=== PATIENT | male | born 1970 | race Caucasian/White ===

== ENCOUNTER 2023-12-19 10:58 | Emergency (ER) | payer OTHER, SELFPAY ==
[2023-12-19] VITALS (22 sets, daily range): BP systolic 109–126; BP diastolic 69–94; PULSE 80–101; TEMP 36.4; O2SAT 92–99; BMI 32.9
--- NOTE | 2023-12-19 11:21 | ECG_ITS ---
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
--- NOTE | 2023-12-19 11:30 | ED_ITS ---
HPI - Chest Pain General Chief Complaint: Chest Pain Stated Complaint: COUGH Time Seen by Provider: 12/19/23 11:27 Source: patient Mode of arrival: walk-in Limitations: no limitations History of Present Illness HPI narrative: 53-year-old male presents for chest pain. Its on the right side of his chest and he has had it for about 4 days. Moving around at work seems to make it worse but there was no injury. It is also worse when he coughs. No trauma or fever or productive cough. He does not complain of left-sided pain or radiation of the pain or any back pain. It feels like a squeezing. He does not get short of breath with it and is a smoker. Related Data Home Medications ?Medication ?Instructions ?Recorded ?Confirmed amlodipine 10 mg tablet 10 mg PO DAILY 12/19/23 12/19/23 finerenone 10 mg tablet (Kerendia) 10 mg PO DAILY 12/19/23 12/19/23 levothyroxine 100 mcg tablet 100 mcg PO DAILY 12/19/23 12/19/23 metformin 500 mg tablet 1,000 mg PO DAILY 12/19/23 12/19/23 metoprolol succinate 25 mg 25 mg PO DAILY 12/19/23 12/19/23 tablet,extended release 24 hr rosuvastatin 10 mg tablet 10 mg PO DAILY 12/19/23 12/19/23 valsartan 320 1 tab PO DAILY 12/19/23 12/19/23 mg-hydrochlorothiazide 25 mg tablet Allergies Allergy/AdvReac Type Severity Reaction Status Date / Time No Known Drug Allergies Allergy Verified 12/19/23 11:06 Review of Systems ROS Narrative A ten point review of systems is negative except as noted above. Exam Narrative Exam Narrative: Nurses note and vital signs reviewed and patient is not hypoxic. General: The patient appears well and in no apparent distress. Patient is resting comfortably on cart. Skin: Warm, dry, no pallor noted. There is no rash noted. Head: Normocephalic, atraumatic Eye: Normal conjunctiva, no drainage Ears, Nose, Mouth, and Throat: oral mucosa is moist. Nares patent. Cardiovascular: Regular Rate and Rhythm. Chest wall not tender. No crepitus bruise rash or abrasion Respiratory: Patient is in no distress, no accessory muscle use, lungs are clear to auscultation, no wheezing, rales or rhonchi Back: non-tender GI: Soft and nontender Musculoskeletal: The patient has no evidence of calf tenderness, no pitting edema, symmetrical pulses noted bilaterally Neurological: Awake and alert Psychiatric: Cooperative Constitutional Vital Signs, click to edit/add: Last Vital Signs Temp 97.5 F L 12/19/23 11:06 Pulse 89 12/19/23 13:10 Resp 14 12/19/23 13:10 BP 117/78 12/19/23 13:00 Pulse Ox 97 12/19/23 13:10 O2 Del Method Room Air 12/19/23 11:06 Course Vital Signs Vital signs: Vital Signs Temperature 97.5 F L 12/19/23 11:06 Pulse Rate 101 H 12/19/23 11:06 Respiratory Rate 20 12/19/23 11:06 Blood Pressure 117/87 12/19/23 11:06 Pulse Oximetry 98 12/19/23 11:06 Oxygen Delivery Method Room Air 12/19/23 11:06 Temperature 97.5 F L 12/19/23 11:06 Pulse Rate 89 12/19/23 13:10 Respiratory Rate 14 12/19/23 13:10 Blood Pressure 117/78 12/19/23 13:00 Pulse Oximetry 97 12/19/23 13:10 Oxygen Delivery Method Room Air 12/19/23 11:06 MDM - Chest Pain MDM Narrative Medical decision making narrative: His workup including 2 sets of troponin is negative. The pain seems to be positional and gets worse with movement. I do not suspect pulmonary embolism. He will be discharged home and follow-up with his PCP. Treatment diagnosis and follow-up were discussed with the patient. Differential Diagnosis Differential diagnosis: Likely fracture of rib, pneumothorax, unstable angina pectoris, st elevation myocardial infarction and chest pain Lab Data Attestation: I reviewed the patient's lab results. Labs: Lab Results 12/19/23 12/19/23 Range/Units 11:30 13:15 WBC 14.5 H (4.0-11.0) 10^3/uL RBC 5.12 (4.70-6.10) 10^6/uL Hgb 15.8 (14.0-18.0) g/dL Hct 46.3 (42.0-54.0) % MCV 90.4 (80.0-94.0) fL MCH 30.9 (25.9-34.0) pg MCHC 34.1 (29.9-35.2) g/dL RDW 14.1 (11.0-15.0) % Plt Count 233 (150-450) 10^3/uL MPV 11.1 (9.5-13.5) fL Seg Neuts % (Manual) 50.0 (43.0-75.0) Band Neutrophils % 1.0 (0-5) % Lymphocytes % (Manual) 30.0 (20.5-60.0) % Atypical Lymphs % (Man) 3.0 % Monocytes % (Manual) 12.0 (1.7-12.0) % Eosinophils % (Manual) 3.0 (0.9-7.0) % Basophils % (Manual) 1.0 (0.2-2.0) % Neutrophils # (Manual) 7.25 H (1.4-6.5) 10^3/uL Band Neutrophils # 0.1 (0.0-0.3) 10^3/uL Lymphocytes # (Manual) 4.35 H (1.20-3.80) 10^3/uL Abs Atypical Lymphs Man 0.43 Monocytes # (Manual) 1.74 H (0.30-0.80) 10^3/uL Eosinophils # (Manual) 0.43 (0.00-0.70) 10^3/uL Basophils # (Manual) 0.14 H (0.00-0.10) 10^3/uL Sodium 135 L (136-145) mmol/L Potassium 4.5 (3.5-5.1) mmol/L Chloride 98 (98-107) mmol/L Carbon Dioxide 28.7 (21.0-32.0) mmol/L Anion Gap 12.8 BUN 40.0 H (7.0-18.0) mg/dL Creatinine 1.53 H (0.70-1.30) mg/dL Est GFR ( Amer) 58 L (>=60) Est GFR (Non-Af Amer) 48 L (>=60) BUN/Creatinine Ratio 26.1 Glucose 124 H (74-106) mg/dL Calcium 9.1 (8.5-10.1) mg/dL Total Bilirubin 0.6 (0.2-1.0) mg/dL AST 16 (15-37) U/L ALT 20 (16-63) U/L Alkaline Phosphatase 89 (46-116) U/L Troponin I High Sens <4.0 L <4.0 L (4.0-76.1) pg/mL Total Protein 7.8 (6.4-8.2) g/dL Albumin 3.4 (3.4-5.0) g/dL Globulin 4.4 g/dL Albumin/Globulin Ratio 0.8 Imaging Data Chest x-ray: Radiologist's impression: ITS Impressions Chest X-Ray 12/19/23 12:20 IMPRESSION: No acute cardiopulmonary process Electronically authenticated by: IRIS BRITO Date: 12/19/2023 12:48 ECG Data Attestation: I personally reviewed and interpreted this ECG as follows: (EKG on my interpretation shows sinus rhythm with a rate of 96 and no acute change.) Heart Score History: Slightly/Non-Suspicious ECG: Normal Age: >45-<65 years Risk Factors: 1 or 2 Risk Factors Troponin: <Normal Limit Total Heart Score Recommendations & Risks:: 2 Discharge Plan Discharge Stand Alone Forms: Portal Instructions Chief Complaint: Chest Pain Clinical Impression: Chest pain Patient Disposition: Home, Self-Care Time of Disposition Decision: 14:07 Condition: Good Mode of Transportation: Private Vehicle Prescriptions / Home Meds: No Action amlodipine 10 mg tablet 10 mg PO DAILY Kerendia 10 mg tablet 10 mg PO DAILY levothyroxine 100 mcg tablet 100 mcg PO DAILY metformin 500 mg tablet 1,000 mg PO DAILY metoprolol succinate 25 mg tablet extended release 24 hr 25 mg PO DAILY rosuvastatin 10 mg tablet 10 mg PO DAILY valsartan-hydrochlorothiazide 320-25 mg tablet 1 tab PO DAILY Print Language: [place] Instructions: Chest Pain (ED) Additional Instructions: Follow-up with your PCP Referrals: DELFINO CRAWLEY [Primary Care Provider] - 1 week
[2023-12-19 11:54] LABS: Hematocrit 46.3 % (42.0-54.0); Hemoglobin 15.8 g/dL (14.0-18.0); Mean Corpuscular HGB Conc 34.1 g/dL (29.9-35.2); Mean Corpuscular Hemoglobin 30.9 pg (25.9-34.0); Mean Corpuscular Volume 90.4 fL (80.0-94.0); Mean Platelet Volume 11.1 fL (9.5-13.5); Platelet Count 233 10^3/uL (150-450); Red Blood Count 5.12 10^6/uL (4.70-6.10); Red Cell Distribution Width 14.1 % (11.0-15.0); White Blood Count 14.5 10^3/uL (4.0-11.0)
[2023-12-19 12:11] LABS: Atypical Lymphocytes Abs Man 0.43; Band Neutrophils Absolute 0.1 10^3/uL (0.0-0.3); Basophils Abs Manual 0.14 10^3/uL (0.00-0.10); Eosinophils Absolute Manual 0.43 10^3/uL (0.00-0.70); Lymphocytes Absolute Manual 4.35 10^3/uL (1.20-3.80); Monocytes Absolute Manual 1.74 10^3/uL (0.30-0.80); Segmented Neut Absolute Manual 7.25 10^3/uL (1.4-6.5)
[2023-12-19 12:17] LABS: Alanine Aminotransferase 20 U/L (16-63); Albumin Globulin Ratio 0.8; Albumin Level 3.4 g/dL (3.4-5.0); Alkaline Phosphatase 89 U/L (46-116); Anion Gap 12.8; Aspartate Amino Transferase 16 U/L (15-37); BUN Creatinine Ratio 26.1; Bilirubin Total 0.6 mg/dL (0.2-1.0); Calcium 9.1 mg/dL (8.5-10.1); Carbon Dioxide 28.7 mmol/L (21.0-32.0); Chloride 98 mmol/L (98-107); Estimated GFR (African America 58 (>=60); Estimated GFR (Non-African Ame 48 (>=60); Globulin 4.4 g/dL; Glucose 124 mg/dL (74-106); Potassium 4.5 mmol/L (3.5-5.1); Sodium 135 mmol/L (136-145); Total Protein 7.8 g/dL (6.4-8.2)
[2023-12-19 12:20] LABS: Troponin I High Sensitivity <4.0 pg/mL (4.0-76.1)
--- NOTE | 2023-12-19 12:20 | XR_ITS ---
The [address] [address] Patient Name: DELMIS DUGGAN MRN: [id number] date: 1970 Sex: M Assigned Patient Location: ED.MAIN Current Patient Location: ER Accession/Order Number: [id number] Exam Date: 12/19/2023 12:18 Report Date: 12/19/2023 12:48 At the request of: KAYLEIGH WOLF Procedure: XR chest 1V EXAMINATION: XR chest 1V HISTORY: chest pain COMPARISON: 07/10/2018 TECHNIQUE: AP portable FINDINGS: LUNGS: No significant pulmonary parenchymal abnormalities. VASCULATURE: No increased pulmonary vasculature. PLEURA: No pneumothorax, effusion, or pleural thickening. CARDIAC: No cardiomegaly or cardiac silhouette abnormality. MEDIASTINUM: No visible mass or adenopathy. BONES: Mild degenerative disc disease and spondylosis without visible acute abnormalities. OTHER: Negative. XR/XR chest 1V IMPRESSION: No acute cardiopulmonary process Electronically authenticated by: IRIS BRITO Date: 12/19/2023 12:48
[2023-12-19 13:42] LABS: Troponin I High Sensitivity <4.0 pg/mL (4.0-76.1)
== END 2023-12-19 14:19 | disposition home or self-care (01) ==
PROVIDERS: Emergency Provider Emergency Medicine; PCP Internal Medicine
DX: R07.9 Chest pain, unspecified (principal); F17.200 Nicotine dependence, unspecified, uncomplicated
CPT/HCPCS: 36415; 71045; 80053; 84484; 85007; 85027; 93005; 99285

== ENCOUNTER 2023-12-21 13:32 | Outpatient (OUT) | payer OTHER, SELFPAY ==
--- NOTE | 2023-12-21 13:48 | US_ITS ---
Patient Name: DELMIS DUGGAN MR#: [id number] : 1970 Exam Date: 12/21/2023 Ordering Doctor: MRS. ELA TELLEZ [facility] RADIOLOGY REPORT PROCEDURE: US BREAST RT COMPLETE COMPARISON: None. INDICATIONS: Breast Pain N64.4 TECHNIQUE: Breast ultrasound was performed, with evaluation focusing only on specific areas of concern. FINDINGS: DIAGNOSTIC CATEGORY 1--NEGATIVE. Ultrasound of the right breast demonstrates normal skin, subcutaneous fat and muscle. No focal ultrasound abnormality RECOMMENDATIONS: CLINICAL EVALUATION. PLEASE NOTE: A NORMAL ULTRASOUND EXAMINATION DOES NOT EXCLUDE THE POSSIBILITY OF BREAST CANCER. A CLINICALLY SUSPICIOUS PALPABLE LUMP SHOULD BE BIOPSIED. Dictated by: Marbin Suero MD on 12/21/2023 at 14:27 Approved by: Marbin Suero MD on 12/21/2023 at 14:52
== END 2023-12-21 13:33 | disposition home or self-care (01) ==
LOC: US 13:33
PROVIDERS: PCP Internal Medicine; Visit Provider Nurse Practitioner Family
DX: N64.4 Mastodynia (principal)
CPT/HCPCS: 76641

== ENCOUNTER 2024-01-03 08:36 | Outpatient (OUT) | payer OTHER, SELFPAY ==
--- OUTSIDE RECORDS SUMMARY | 2024-01-03 08:51 | XMS_ITS | CCD ---
Author Organization [facility] Care Team Providers Care Education Diagnostician Name Role Phone SHERMAN DOLAN Admitting UnavailDR DELFINO Don Primary Care Unavailable SHERMAN DOLAN Attending UnavailSHERMAN Schulte Admitting UnavailDR IRIS Gallardo V Consulting Unavailable SHERMAN DOLAN Attending UnavailSHERMAN Schulte Consulting UnavailSHERMAN Schulte Admitting UnavailDR IRIS Gallardo V Consulting Unavailable DR DELFINO CRAWLEY Primary Care Unavailable SHERMAN DOLAN Attending UnavailSHERMAN Schulte Consulting UnavailSHERMAN Schulte Attending UnavailSHERMAN Schulte Admitting UnavailKAYLEIGH Benitez Consulting Unavailable DR DELFINO CRAWLEY Primary Care Unavailable KAYLEIGH WOLF Admitting Unavailable KAYLEIGH WOLF Attending Unavailable Mayelin Elliott Consulting Unavailable SHERMAN DOLAN Admitting Unavailabl SHERMNA Funes Attending UnavailDR CHARLI Betts Consulting Unavailable DR DELFINO CRAWLEY Primary Care Unavailable SHERMAN DOLAN Consulting UnavailSHERMAN Schulte Attending UnavailDR IRIS Gallardo V Consulting Unavailable SHERMAN DOLAN Admitting Unavailbri e SHERMAN DOLAN Consulting UnavailDR CHARLI Betts Consulting Unavailable SHERMAN DOLAN Admitting UnavailSHERMAN Schulte Attending UnavailSHERMAN Schulte Consulting UnavailDR IRIS Gallardo V Consulting Unavailable SHERMAN DOLAN Admitting UnavailSHERMAN Schulte Attending UnavailSHERMAN Schulte Consulting UnavailSerg King Unavailable KRYS MORGAN Attending Unavailable KRYS MORGAN Attending Unavailable ELA TELLEZ Attending Unavailable ELA TELLEZ Attending Unavailable ELA TELLEZ Attending Unavailable Medications Current Medications Medication Drug Class(es) Dates Sig (Normalized) Sig (Original) amLODIPine 10 mg oral tablet (2 sources) Dihydropyridine Calcium Channel Donnie amLODIPine Besylate 10 MG TAKE 1 TABLET BY MOUTH EVERY DAY FOR 90 DAYS Oral for 90 Days Active Norvasc Not-Taki ng cefdinir 300 mg oral capsule (1 source) Cephalosporin Antibacterial Start: 02-24-2023 take 1 capsule by mouth every twelve hours Cefdinir 300 MG 1 capsule Orally every 12 hrs for 7 days Feb, Active levothyroxine (1 source) l-Thyroxine Levothyroxine Sodium Active metFORMIN hydrochloride 500 mg oral tablet (1 source) Biguanide take 1 tablet by mouth once daily metFORMIN HCl 500 MG TAKE 1 TABLET BY MOUTH EVERY DAY WITH A MEAL Oral for 90 Days Active ofloxacin 3 mg/ml otic solution (1 source) Quinolone Antimicrobial Start: 02-24-2023 Ofloxacin 0.3 % 10 drops into affected ear Otic Once a day for 7 days Feb, Active OneTouch Ultra - (1 source) OneTouch Ultra - TEST ONCE DAILY DIRECTED In Vitro for 90 Days Active rosuvastatin calcium 10 mg oral tablet (1 source) HMG-CoA Reductase Inhibitor Rosuvastatin Calcium 10 MG TAKE 1 TABLET BY MOUTH EVERY DAY FOR 90 DAYS Oral for 90 Days Active Valsartan-hydroCHLO ROthiazide (1 source) Valsartan-hydroC HL OROthiazide Active Completed/Discontinued Medications Medication Drug Class(es) Dates Sig (Normalized) Sig (Original) Brompheniramine / Pseudoephedrine (1 source) alpha-Adrenergic Agonist Start: 07-03-2018 take 5 mL by mouth every six hours as needed Bromfed DM 30-2-10 MG/5ML 5 ml as needed Orally every 6 hrs Jun, Not-Taking hydrocortisone 10 mg/ml / neomycin 3.5 mg/ml / polymyxin b [id number] unt/ml otic solution (1 source) Aminoglycoside Antibacterial, Polymyxin-class Antibacterial, Corticosteroid Neomycin-Polymy leyla-HC 1 % INSTILL 4 DROPS INTO AFFECTED EAR 3 TIMES A DAY FOR 7 DAYS Otic for 7 Days Not-Taking Medrol (Mario) 1 Pack (1 source) Start: 07-03-2018 Medrol (Mario) 1 Pack as directed Orally Jun, Not-Taking oseltamivir 75 mg oral capsule (1 source) Neuraminidase Inhibitor Start: 07-03-2018 take 1 capsule by mouth every twelve hours Tamiflu 75 MG 1 capsule Orally Twice a day for 5 day(s) Jun, Not-Taking ProAir HFA 108 (90 Base) MCG/ACT (1 source) Start: 07-03-2018 take 2 puff(s) by inhalation every four to six hours as needed ProAir HFA 108 (90 Base) MCG/ACT 2 puffs as needed Inhalation every 4-6 hrs Jun, Not-Taking Problems Active Problems Problem Classification Problem Date Documented Date Episodic/Chronic Chronic ulcer of skin (1 source) Non-pressure chronic ulcer of right heel and midfoot with fat layer exposed; Translations: [N-PRSS CHR ULCR RT HEEL FAT EXPOS] Onset: 12-10-2019 Chronic Essential hypertension (1 source) Essential (primary) hypertension; Translations: [ESSENTIAL PRIMARY HYPERTENSION] Onset: 12-04-2019 Chronic Fracture of lower limb (7 sources) Fracture of unspecified metatarsal bone(s), right foot, sequela; Translations: [Displaced fracture of second metatarsal bone, right foot, subsequent encounter for fracture with routine healing] Onset: 12-10-2019 Episodic Osteoarthritis (1 source) Primary osteoarthritis, right ankle and foot; Translations: [PRIMARY OSTEOARTHRITIS RT ANK FOOT] Onset: 02-04-2020 Chronic Other ear and sense organ disorders (1 source) Unspecified acute noninfective otitis externa, left ear Episodic Other nervous system disorders (5 sources) Unspecified mononeuropathy of right lower limb; Translations: [UNS MONONEUROPATHY RIGHT LOWER LIMB] Onset: 01-17-2020 Chronic Substance-related disorders (1 source) Nicotine dependence, cigarettes, uncomplicated; Translations: [NICOTINE DEPEND CIGARETTES UNCOMP] Onset: 12-04-2019 Chronic Past or Other Problems Problem Classification Problem Date Documented Da te Episodic/Chronic Other aftercare (1 source) 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; Translations: [LEATHER TOGGLER CURRENT USE OF ASPIRIN] Onset: 12-04-2019 Episodic Other aftercare (1 source) Other almond roaster (current) drug therapy; Translations: [OTH SHELTER CURRENT DRUG THERAPY] Onset: 12-04-2019 Episodic Other injuries and conditions due to external causes (1 source) Traumatic compartment syndrome of right lower extremity, initial encounter; Translations: [TRAUMAT CMPRTMT SYND RT LW EXT INIT] Onset: 12-10-2019 Episodic Skin and subcutaneous tissue infections (4 sources) Cellulitis of buttock; Translations: [CELLULITIS OF BUTTOCK] Onset: 12-02-2019 Episodic Results Test Name Value Interpretation Reference Range Facil ity CBC AUTO DIFFon 12-02-2019 BASO # 0.1 103/ul Normal 0.0-0.1 [facility] Comment on above: Performed By: #### C BC #### [facility] [address] [place], [place] [id number] Ninoska Krys Basophils/100 WBC (Bld) 0.7 % Normal 0.2-2.0 [facility] Comment on above: Performed By: #### C BC #### [facility] [address] [place], [place] [id number] Ninoska Krys EO # 0.3 103/ul Normal 0.0-0.7 [facility] Comment on above: Performed By: #### C BC #### [facility] [address] [place] [address] Ninoska Krys Eosinophils/100 WBC (Bld) 2.2 % Normal 0.9-7.0 [facility] Comment on above: Performed By: #### C BC #### [facility] [address] [place], [place] [id number] Ninoska Krys Erythrocyte distribution width (RBC) [Ratio] 13.8 % Normal 11.0-15.0 [facility] Comment on above: Performed By: #### C BC #### [facility] [address] [place], [place] [id number] Ninoska Krys Hematocrit (Bld) [Volume fraction] 47.2 % Normal 42.0-54.0 [facility] Comment on above: Performed By: #### C BC #### [facility] [address] [place], [place] [id number] Ninoska Krys Hemoglobin (Bld) [Mass/Vol] 16.0 g/dL Normal 14.0-18.0 [facility] Comment on above: Performed By: #### C BC #### [facility] [address] [id number] Ninoska Krys IG # 0.06 10e3/ul Critically high 0.00-0.03 [facility] Comment on above: Performed By: #### C BC #### [facility] [address] [address] Ninoska Krys IG % 0.4 % Normal 0.0-0.5 [facility] Comment on above: Performed By: #### C BC #### [facility] [address] [address] Ninoska Krys LYMPH # 3.1 103/ul Normal 1.2-3.8 [facility] Comment on above: Performed By: #### C BC #### [facility] [address] [place] [address] Ninoska Krys Lymphocytes/100 WBC (Bld) 20.8 % Normal 20.5-60.0 [facility] Comment on above: Performed By: #### C BC #### [facility] [address] [place] [address] Ninoska Krys MANUAL DIFF REQ NO Normal [facility] Comment on above: Performed By: #### C BC #### [facility] [address] [place] [address] Ninoska Krys MCH (RBC) [Entitic mass] 30.4 pg Normal 25.9-34.0 [facility] Comment on above: Performed By: #### C BC #### [facility] [address] [place] [address] Ninoska Krys MCHC (RBC) [Mass/Vol] 33.9 g/dL Normal 29.9-35.2 [facility] Comment on above: Performed By: #### C BC #### [facility] [address] [place] [address] Ninoska Krys MCV (RBC) [Entitic vol] 89.6 fL Normal 80.0-94.0 [facility] Comment on above: Performed By: #### C BC #### [facility] [address] [id number] Ninoska Snowdenen MONO # 1.6 103/ul Critically high 0.3-0.8 [facility] Comment on above: Performed By: #### C BC #### [facility] [address] [id number] Ninoska Snowdenen Monocytes/100 WBC (Bld) 11.0 % Normal 1.7-12.0 [facility] Comment on above: Performed By: #### C BC #### [facility] [address] [place], [place] [id number] Ninoska Krys NEUT # 9.7 103/ul Critically high 1.4-6.5 [facility] Comment on above: Performed By: #### C BC #### [facility] [address] [place], [place] [id number] Ninoska Snowdenen Neutrophils/100 WBC (Bld) 64.9 % Normal 43.0-75.0 [facility] Comment on above: Performed By: #### C BC #### [facility] [address] [place], [place] [id number] Ninoska Marcano Platelet mean volume (Bld) [Entitic vol] 10.7 fL Normal 9.5-13.5 [facility] Comment on above: Performed By: #### C BC #### [facility] [address] [place], [place] [id number] Ninoska Krys PLT 217 103/ul Normal 150-450 [facility] Comment on above: Performed By: #### C BC #### [facility] [address] [place], [place] [id number] Ninoska Krys RBC 5.27 106/ul Normal 4.70-6.10 [facility] Comment on above: Performed By: #### C BC #### [facility] [address] [place], [place] [id number] Ninoska Krys WBC 14.9 103/ul Critically high 4.0-11.0 [facility] Comment on above: Performed By: #### C BC #### [facility] [address] [place], [place] [id number] Ninoska Krys CT PELVIS W CONon 12-02-2019 CT PELVIS W CON EXAMINATION: CT PELVIS W CON HISTORY: Pain COMPARISON: None. TECHNIQUE: Helical CT images of the pelvis were obtained following the uneventful intravenous ministration of contrast. Dose reduction techniques were achieved by using automated exposure control and/or adjustment of mA and/or kV according to patient size and/or use of iterative reconstruction technique. FINDINGS: There is no free air, bowel obstruction or pneumatosis identified in the visualized bowel. The appendix is normal. The abdominal aorta is normal in caliber with moderate atherosclerosis. No retroperitoneal or abdominal pelvic lymphadenopathy identified. The bladder is decompressed. The prostate gland is mildly enlarged. No acute or aggressive osseous abnormality identified. There is soft tissue infiltration involving the left buttock. No drainable fluid collection or abscess. Possible mild cellulitis. IMPRESSION: Left gluteal cellulitis without drainable fluid collection or abscess. Electronically authenticated by: MAYELIN ELLIOTT Date: 2019-12-02 14:21 Normal [facility] PROF CHEM 8 (BAS METB)on Anion gap [Moles/Vol] 11.3 mmol/L Normal [facility] Comment on above: Performed By: #### B MP #### [facility] [address] [place] [address] Ninoska Krys Calcium [Mass/Vol] 8.9 mg/dL Normal 8.4-10.2 [facility] Comment on above: Performed By: #### B MP #### [facility] [address] [place] [address] Ninoska Krys Chloride [Moles/Vol] 100 mmol/L Normal 98-107 [facility] Comment on above: Performed By: #### B MP #### [facility] [address] [address] Ninoska Krys CO2 [Moles/Vol] 29.2 mmol/L Normal 22.0-30.0 [facility] Comment on above: Performed By: #### B MP #### [facility] [address] [address] Ninoska Krys Creatinine [Mass/Vol] 1.12 mg/dL Normal 0.66-1.25 [facility] Comment on above: Performed By: #### B MP #### [facility] [address] [place], [place] [address] Ninoska Krys EGFR-AF ANGOLAN >60 Normal >=60 [facility] Comment on above: Performed By: #### B MP #### [facility] [address] [place] [address] Ninoska Krys EGFR-NON AF ANGOLAN >60 Normal >=60 [facility] Comment on above: Performed By: #### B MP #### [facility] [address] [place] [address] Ninoska Krys Glucose [Mass/Vol] 200 mg/dL Critically high 74-106 T [facility] Comment on above: Performed By: #### B MP #### [facility] [address] [place], [place] [id number] Ninoska Krys Potassium [Moles/Vol] 3.5 mmol/L Normal 3.4-5.0 [facility] Comment on above: Performed By: #### B MP #### [facility] [address] [place], [place] [id number] Ninoska Krys Sodium [Moles/Vol] 137 mmol/L Normal 137-145 [facility] Comment on above: Performed By: #### B MP #### [facility] [address] [place] [address] Ninoska Krys Urea nitrogen [Mass/Vol] 14.0 mg/dL Normal 9.0-20.0 [facility] Comment on above: Performed By: #### B MP #### [facility] [address] [place], [place] [id number] Ninoska Krys Urea nitrogen/Creatinin e [Mass ratio] 12.5 mg/mg Normal [facility] Comment on above: Performed By: #### B MP #### [facility] [address] [place] [address] Ninoska Krys FOOT RIGHT 3 [facility] 9 FOOT RIGHT 3 [facility] Department of Radiology [address] [place] [id number] Patient Name: DELMIS DUGGAN : 1970 Sex: M Age: Race: White Pt. Location: Patient Status: Ordered Date: 03/09/2019 10:25:00 AM Completed Date: 03/09/2019 10:22 AM Requesting Provider: DURGA RUBIO Attending Provider: Report Copy To: Signs & Symptoms: S92.301D Fx unsp metatarsal bone(s), r foot, subs for fx w routn heal I10 History: Kristy Comments: , , , Ordering Provider - DURGA RUBIO PA-C , Exam: FOOT RIGHT 3 [facility] FOOT RIGHT 3 S 03/09/2019 10:22 AM EDT SIGNS AND SYMPTOMS: S92.301D Fx unsp metatarsal bone(s), r foot, subs for fx w routn heal I10 TECHNOLOGIST COMMENTS: ortho follow up rt foot crushing injury 01/2018 QUESTION FOR THE RADIOLOGIST: , , , Ordering Provider - DURGA RUBIO PA-C , PROTOCOL: AP,Lateral and Oblique views were obtained. COMPARISON: December 15, 2018 FINDINGS: Soft tissues: Unchanged Bones: Continued bony healing Small heel spurs as before and mild dorsal midfoot osteophytes as before Joints: Mild scattered arthritis IMPRESSION: Healing first, second and third metatarsal fractures in satisfactory alignment Electronically signed by:Garett Joseph. Transcribed by: [email or web address], User Resident: Electronically Signed by: GARETT JOSEPH @ 03/09/2019 12:30 PM [place] [facility] Comment on above: Order Comment: , , = ========= , Ordering Provider - DURGA RUBIO PA-C , FOOT RIGHT 3 [facility] 9 FOOT RIGHT [address] [facility] Department of Radiology [address] [place] [phone] Patient Name: DELMIS DUGGAN : 1970 Sex: M Age: Race: White Pt. Location: Patient Status: Ordered Date: 12/15/2018 10:10:00 AM Completed Date: 12/15/2018 10:10 AM Requesting Provider: DURGA RUBIO Attending Provider: Report Copy To: Signs & Symptoms: S92.301D Fx unsp metatarsal bone(s), r foot, subs for fx w routn heal I10 History: [employer] Comments: , , , Ordering Provider - DURGA RUBIO PA-C , Exam: FOOT RIGHT 3 [facility] FOOT RIGHT 3 S 12/15/2018 10:10 AM EDT SIGNS AND SYMPTOMS: S92.301D Fx unsp metatarsal bone(s), r foot, subs for fx w routn heal I10 TECHNOLOGIST COMMENTS: ortho follow up. right foot fx. QUESTION FOR THE RADIOLOGIST: , , , Ordering Provider - DURGA RUBIO PA-C , PROTOCOL: AP,Lateral and Oblique views were obtained. COMPARISON: October 11, 2018 FINDINGS: Soft tissues: Unchanged Bones: Unchanged Joints: Unchanged IMPRESSION: Healing foot fractures similar to prior study Electronically signed by:Garett Joseph. Transcribed by: [email or web address], User Resident: Electronically Signed by: GARETT JOSEPH @ 12/15/2018 06:18 PM Normal [facility] Comment on above: Order Comment: , , = ========= , Ordering Provider - DURGA RUBIO PA-C , FOOT RIGHT 3 Son 9 FOOT RIGHT [address] [facility] Department of Radiology [address] [place] [address] Patient Name: DELMIS DUGGAN : 1970 Sex: M Age: Race: White Pt. Location: Patient Status: Ordered Date: 10/11/2018 2:25:00 PM Completed Date: 10/11/2018 02:30 PM Requesting Provider: DURGA RUBIO Attending Provider: Report Copy To: Signs & Symptoms: S92.301D Fx unsp metatarsal bone(s), r foot, subs for fx w routn heal I10 History: [employer] Comments: , , , Ordering Provider - DURGA RUBIO PA-C , Exam: FOOT RIGHT 3 S FOOT RIGHT 3 [facility] 10/11/2018 2:30 PM EDT SIGNS AND SYMPTOMS: S92.301D Fx unsp metatarsal bone(s), r foot, subs for fx w routn heal I10 TECHNOLOGIST COMMENTS: History of multiple right foot surgeries, last surgery was 01/30/2018. Ortho follow up. QUESTION FOR THE RADIOLOGIST: , , , Ordering Provider - DURGA RUBIO PA-C , PROTOCOL: AP,Lateral and Oblique views were obtained. COMPARISON: August 07, 2018 FINDINGS: Soft tissues: Slightly increased swelling Bones: Slightly improved fracture healing Joints: Unchanged IMPRESSION: Healing foot fractures Electronically signed by:Garett Joseph. Transcribed by: [email or web address], User Resident: Electronically Signed by: GARETT JOSEPH @ 10/11/2018 02:38 PM Normal [facility] Comment on above: Order Comment: , , = ========= , Ordering Provider - DURGA RUBIO PA-C , FOOT RIGHT 3 [facility] 9 FOOT RIGHT 3 [facility] Department of Radiology [address] [place] [phone] Patient Name: DELMIS DUGGAN : 1970 Sex: M Age: Race: White Pt. Location: Patient Status: Ordered Date: 08/07/2018 3:00:00 PM Completed Date: 08/07/2018 03:00 PM Requesting Provider: DURGA RUBIO Attending Provider: Report Copy To: Signs & Symptoms: S92.301D Fx unsp metatarsal bone(s), r foot, subs for fx w routn heal I10 History: Kristy Comments: , , , Ordering Provider - DURGA RUBIO PA-C , Exam: FOOT RIGHT 3 [facility] FOOT RIGHT 3 S 08/07/2018 3:00 PM EDT SIGNS AND SYMPTOMS: S92.301D Fx unsp metatarsal bone(s), r foot, subs for fx w routn heal I10 TECHNOLOGIST COMMENTS: follow/up multiple surgeries to right foot. QUESTION FOR THE RADIOLOGIST: , , , Ordering Provider - DURGA RUBIO PA-C , PROTOCOL: AP,Lateral and Oblique views were obtained. COMPARISON: July 03, 2018 FINDINGS: Soft tissues: Improved swelling Bones: Improving mineralization and healing fractures Joints: Unchanged IMPRESSION: Healing right foot injuries in satisfactory alignment Electronically signed by:Garett Joseph. Transcribed by: [email or web address], User Resident: Electronically Signed by: GARETT JOSEPH @ 08/07/2018 03:30 PM Normal [facility] Comment on above: Order Comment: , , = ========= , Ordering Provider - DURGA RUBIO PA-C , FOOT RIGHT 3 [facility] 9 FOOT RIGHT 3 [facility] Department of Radiology [address] [place] [phone] Patient Name: DELMIS DUGGAN : 1970 Sex: M Age: Race: White Pt. Location: Patient Status: Ordered Date: 07/03/2018 1:45:00 PM Completed Date: 07/03/2018 01:48 PM Requesting Provider: DURGA RUBIO Attending Provider: Report Copy To: Signs & Symptoms: S92.301D Fx unsp metatarsal bone(s), r foot, subs for fx w deannen heal I10 History: [employer] Comments: , , , Ordering Provider - DURGA RUBIO PA-C , Exam: FOOT RIGHT 3 [facility] FOOT RIGHT 3 [facility] 07/03/2018 1:48 PM EST SIGNS AND SYMPTOMS: S92.301D Fx unsp metatarsal bone(s), r foot, subs for fx w salvador heal I10 TECHNOLOGIST COMMENTS: right foot surgery 01/24 follow up QUESTION FOR THE RADIOLOGIST: , , , Ordering Provider - DURGA RUBIO PA-C , PROTOCOL: AP,Lateral and Oblique views were obtained. COMPARISON: June 05, 2018 FINDINGS: Soft tissues: Swelling Bones: Healing metacarpal and phalangeal fractures in unchanged alignment with still limited bony response distal first metatarsal Joints: Minor scattered arthritis Heel spurs IMPRESSION: Multiple healing fractures similar to prior, but with lesser response along the big toe metatarsal Electronically signed by:Garett Joseph. Transcribed by: [email or web address], User Resident: Electronically Signed by: GARETT JOSEPH @ 07/03/2018 02:07 PM Normal [facility] Comment on above: Order Comment: , , = ========= , Ordering Provider - DURGA RUBIO PA-C , FOOT RIGHT 3 [facility] 9 FOOT RIGHT 3 [facility] Department of Radiology [address] [place] [phone] Patient Name: DELMIS DUGGAN : 1970 Sex: M Age: Race: White Pt. Location: 84 Patient Status: O Ordered Date: 06/05/2018 2:20:00 PM Completed Date: 06/05/2018 02:20 PM Requesting Provider: DURGA RUBIO Attending Provider: DURGA RUBIO Report Copy To: DELFINO CRAWLEY Signs & Symptoms: S92.301D Fx unsp metatarsal bone(s), r foot, subs for fx w routn heal I10 History: Kristy Comments: , , , Ordering Provider - DURGA RUBIO PA-C , Exam: FOOT RIGHT 3 S FOOT RIGHT 3 S 06/05/2018 2:20 PM EST SIGNS AND SYMPTOMS: S92.301D Fx unsp metatarsal bone(s), r foot, subs for fx w routn heal I10 TECHNOLOGIST COMMENTS: ortho follow up rt foot metatarsal pinning 01/2018 QUESTION FOR THE RADIOLOGIST: , , , Ordering Provider - DURGA RUBIO PA-C , PROTOCOL: AP,Lateral and Oblique views were obtained. COMPARISON: May 10, 2018 FINDINGS: Soft tissues: Of swelling similar to prior Bones: Healing fractures of the first, second and third metatarsals similar to prior Ulnar fractures along the fourth and fifth proximal phalanges which are healed Joints: Intact and unchanged Improving osteoporosis IMPRESSION: Healing postoperative and posttraumatic right foot Electronically signed by:Garett Joseph. Transcribed by: [email or web address], User Resident: Electronically Signed by: GARETT JOSEPH @ 06/05/2018 03:00 PM Normal [facility] Comment on above: Order Comment: , , = ========= , Ordering Provider - DURGA RUBIO PA-C , FOOT RIGHT 3 [facility] 9 FOOT RIGHT 3 [facility] Department of Radiology [address] [place] [id number] Patient Name: DELMIS DUGGAN : 1970 Sex: M Age: Race: White Pt. Location: Patient Status: Ordered Date: 05/10/2018 1:40:00 PM Completed Date: 05/10/2018 01:47 PM Requesting Provider: DURGA RUBIO Attending Provider: Report Copy To: Signs & Symptoms: S92.301D Fx unsp metatarsal bone(s), r foot, subs for fx w routn heal I10 History: [employer] Comments: , , , Ordering Provider - DURGA RUBIO PA-C , Exam: FOOT RIGHT 3 [facility] FOOT RIGHT 3 S 05/10/2018 1:47 PM EST SIGNS AND SYMPTOMS: S92.301D Fx unsp metatarsal bone(s), r foot, subs for fx w routn heal I10 TECHNOLOGIST COMMENTS: ortho check for right foot QUESTION FOR THE RADIOLOGIST: , , , Ordering Provider - DURGA RUBIO PA-C , PROTOCOL: AP,Lateral and Oblique views were obtained. COMPARISON: April 19, 2018 FINDINGS: Soft tissues: Swelling Bones: Hardware has been removed from healing comminuted big toe metatarsal fracture and healing distal shaft second and third metatarsal fractures as before Healing or healed fifth toe proximal phalanx fracture Joints: Moderate arthritis IMPRESSION: Healing right foot injury Electronically signed by:Garett Joseph. Transcribed by: [email or web address], User Resident: Electronically Signed by: GARETT JOSEPH @ 05/10/2018 02:09 PM Normal [facility] Comment on above: Order Comment: , , = ========= , Ordering Provider - DURGA RUBIO PA-C , Vital Signs Date Time Vital Sign Value Performing Clinician Facility 02-24-2023 17:10-0400 Body height 198.12 cm Serg Carpio Other [facility] Other 02-24-2023 17:10-0400 Body mass index (BMI) [Ratio] 34.43 kg/m2 Serg Carpio Other [facility] Other 02-24-2023 17:10-0400 Body temperature 98.2 [degF] Serg Carpio Other [facility] Other 02-24-2023 17:10-0400 Body weight 135.17 kg Serg Carpio Other [facility] Other 02-24-2023 17:10-0400 Diastolic blood pressure 102 mm[Hg] Serg Carpio Other [facility] Other 02-24-2023 17:10-0400 Respiratory rate 18 /min Serg Carpio Other [facility] Other 02-24-2023 17:10-0400 SaO2% (BldA) [Mass fraction] 96 % Serg Carpio Other [facility] Other 02-24-2023 17:10-0400 Systolic blood pressure 143 mm[Hg] Serg Carpio Other [facility] Other Encounters Encounter Date Encounter Type Care Provider Facility Start: 12-27-2023 End: 12-27-2023 ambulatory ELA Malik ROSALINDA Not Available Start: 12-20-2023 End: 12-20-2023 ambulatory ELA Malik ROSALINDA Not Available Start: 11-01-2023 End: 11-01-2023 ambulatory ELA Malik ROSALINDA Not Available Start: 09-27-2023 End: 09-28-2023 ambulatory KRYS Malik HEMMER Not Available Start: 06-29-2023 End: 06-29-2023 ambulatory KRYS LÓPEZMER Not Available Start: 02-24-2023 End: 02-24-2023 ambulatory Serg Carpio Other [facility] Other Start: 02-24-2023 Office outpatient visit 15 minutes Serg Carpio [facility] Start: 10-27-2020 End: 10-28-2020 ambulatory SHERMAN DOLAN Facility:[facility] Start: 09-29-2020 End: 09-30-2020 ambulatory SHERMAN DOLAN Facility:[facility] Start: 05-26-2020 ambulatory SHERMAN DOLAN Fa cility:[facility] Start: 01-28-2020 End: 01-29-2020 ambulatory SHERMAN DOLAN Facility:[facility] Start: 01-10-2020 End: [address] IRIS BRITO Facility:[facility] Start: 12-20-2019 End: 12-21-[address] CHARLI MOISE Facility:[facility] Start: 12-02-2019 End: 12-02-2019 ambulatory KAYLEIGH WOLF Facility:[facility] Start: 11-29-2019 End: 05-06-2020 ambulatory SHERMAN DOLAN Facility:[facility] Start: 11-22-2019 End: 11-23-2019 ambulatory SHERMAN DOLAN Facility:[facility] Payers Date Payer Category Payer Unknown [id number] 1970 Unknown [id number] 2.16.84 [id number] 1970 Unknown [id number] 2.16.84 [id number] 1970 Unknown [id number] 2.16.84 0.1.365139.3.579.2.593 1970 Unknown [id number] 2.16.84 0.1.035239.3.579.2.593 1970 Unknown [id number] 2.16.84 0.1.928542.3.579.2.593 1970 Unknown [id number] 2.16.84 0.1.291795.3.579.2.593 1970 Unknown [id number] 2.16.84 0.1.367525.3.579.2.593 1970 Unknown [id number] 2.16.84 0.1.552763.3.579.2.593 1970 Unknown [id number] 2.16.84 0.1.584562.3.579.2.593 1970 Unknown [id number] 2.16.84 0.1.121784.3.579.2.1259 1970 Unknown [id number] 2.16.84 0.1.415203.3.579.2.1259 1970 Unknown [id number] 2.16.84 0.1.257793.3.579.2.1259 1970 Unknown [id number] 2.16.84 0.1.894315.3.579.2.1259 1970 Unknown [id number] 2.16.84 0.1.347230.3.579.2.1259 1959 Unknown 1958 Unknown [id number] Social History Date Type Detail Facility Unknown if ever smoked [facility] Other Sex Assigned At Sex Assigned At Bir th [facility] Other Medical Equipment Procedure Code Equipment Code Equipment Original Text Equi pment Identifier Dates OneTouch Delica Plus [id number] - Evaluation note 02-24-2023 Note Date & Type Note Facility 02-24-2023 Evaluation note Encounter Date Diagnosis Assessment Notes Feb, Acute otitis externa of left ear, unspecified type (ICD-10 - H60.502) Will prescribe cefdinir and ofloxacin given exam consistent with L. otitis externa and beginning L. TM otitis media. Use drops as directed. May use cotton ball to keep drops in place. Do not use any qtips or any other objects to clean out ears. Do not recommend swimming or baths while treatment going on; may shower If you wear in ear style headphones - recommend cleaning them with alcohol between each use, changing ear plugs frequently. [facility] Other Clinical Note 10-27-2020 Note Date & Type Note Facility 10-27-2020 Note PROCEDURE: XR FOOT R T MIN 3 VIEWS HISTORY: Pain in right foot ; second metatarsal surgery follow-up COMPARISON: XR foot right 09/29/2020 FINDINGS: BONES:Repair second metatarsal via dorsal plate and screws; no evidence of hardware fracture or loosening. Calcaneal degenerative enthesophytes. Sclerosis of the distal first metatarsal is likely sequela of remote trauma and healing. SOFT TISSUES:No visible soft tissue swelling. EFFUSION:None visible. OTHER: Negative. IMPRESSION: Stable surgical changes and chronic changes without evidence of hardware failure or change in alignment. Electronically authenticated by: CHARLI MOISE Date: 2020-10-27 17:12 [facility] Clinical Note 09-29-2020 Note Date & Type Note Facility 09-29-2020 Note PROCEDURE: XR FOOT R T MIN 3 VIEWS COMPARISON: 01/28/2020 HISTORY: Pain in right foot FINDINGS: BONES:No acute fracture or dislocation. Remote internal fixation of the second metatarsal utilizing a dorsal plate and multiple screws. No mechanical failure. Contour deformity and sclerosis of the first metatarsal likely represents a remote healed fracture. Mild enthesopathic spurring of the calcaneus. Degenerative changes with joint space narrowing marginal osteophyte formation SOFT TISSUES:Negative. No visible soft tissue swelling. EFFUSION:None visible. OTHER: Negative. IMPRESSION: Stable exam. No acute abnormality Electronically authenticated by: IRIS BRITO Date: 2020-09-29 15:57 [facility] Clinical Note 01-28-2020 Note Date & Type Note Facility 01-28-2020 Note PROCEDURE: XR FOOT R T MIN 3 VIEWS COMPARISON: 01/10/2020 HISTORY: Pain in right foot FINDINGS: BONES:No acute fracture or dislocation. Contour deformity and mixed lytic and sclerotic appearance of the first metatarsal head stable, chronic change. Remote fixation of the second metatarsal with a dorsal plate and multiple screws. No mechanical failure. Mild to moderate degenerative osteoarthropathy with joint space narrowing and marginal osteophyte formation most significant along the posterior talocalcaneal joint. Mild to moderate enthesopathic spurring of the calcaneus at the insertion Achilles tendon and plantar aponeurosis SOFT TISSUES:Negative. No visible soft tissue swelling. EFFUSION:None visible. OTHER: Negative. IMPRESSION: Stable metatarsal fracture with internal fixation Stable degenerative osteoarthritis Electronically authenticated by: IRIS BRITO Date: 2020-01-28 10:11 [facility] Clinical Note 01-10-2020 Note Date & Type Note Facility 01-10-2020 Note PROCEDURE: XR FOOT R T MIN 3 VIEWS COMPARISON: None. HISTORY: Pain in right foot FINDINGS: BONES:Mixed lytic and sclerotic appearance of the first metatarsal head, stable. Remote fracture diaphysis of the second metatarsal with a plate and multiple screws. No acute fracture, dislocation or mechanical failure. Mild degenerative osteoarthropathy with joint space narrowing and marginal osteophyte formation. Mild enthesopathic spurring of the calcaneus SOFT TISSUES:Negative. No visible soft tissue swelling. EFFUSION:None visible. OTHER: Negative. IMPRESSION: Stable healing second metatarsal fracture Electronically authenticated by: IRIS BRITO Date: 2020-01-10 13:04 [facility] Clinical Note 12-20-2019 Note Date & Type Note Facility 12-20-2019 Note PROCEDURE: XR FOOT R T MIN 3 VIEWS HISTORY: Pain in right foot COMPARISON: 11/22/2019 right foot radiographs FINDINGS: BONES:Prior mechanical fusion of the second metatarsal without evidence of hardware fracture or loosening. Increasing callus formation along the fracture margins. Irregular heterogeneous appearance of the distal aspect of the first metatarsal, suspected represent posttraumatic changes and incomplete osseous healing. Small calcaneal degenerative enthesophytes. SOFT TISSUES:No visible soft tissue swelling. EFFUSION:None visible. OTHER: Negative. IMPRESSION: 1. Postsurgical changes of the second metatarsal and ongoing bone healing; no evidence of hardware failure or change in alignment. 2. Stable appearance of the first metatarsal, likely remote posttraumatic changes. Electronically authenticated by: CHARLI MOISE Date: 2019-12-20 10:19 [facility] Clinical Note 11-22-2019 Note Date & Type Note Facility 11-22-2019 Note PROCEDURE: XR FOOT R T MIN 3 VIEWS COMPARISON: None. HISTORY: Pain in right foot FINDINGS: BONES:No acute fracture or dislocation. Interval increase in callus formation along osteotomy and fusion of the second metatarsal. Mixed lytic and sclerotic change of the distal first metatarsal, unchanged. Mild degenerative osteoarthropathy throughout the midfoot and hindfoot with joint space narrowing and marginal osteophyte formation. Enthesopathic spurring of the calcaneus SOFT TISSUES:Dorsal soft tissue swelling EFFUSION:None visible. OTHER: Negative. IMPRESSION: Continued healing of the second metatarsal Electronically authenticated by: IRIS BRITO Date: 2019-11-22 09:41 [facility] History general Narrative - Reported Note Date & Type Note Facility History general Narrative - Reported Type Medical History hypertension Medical History Hypothyroidism Surgical History Foot Surgery x4 right Surgical History knee surgery right Surgical History hernia repair Surgical History shoulder surgery bilateral Hospitalization History see above [facility] Other Summary Purpose Family History No Family History Records FoundNo Family History Records FoundNo Family History Records Found Advance Directives No Advanced Directives Records FoundNo Advanced Directives Records FoundNo Advanced Directives Records Found Additional Source Comments (unrecognized sect ion and content) No Status Records FoundNo Status Records FoundNo Status Records Found INFORMATION SOURCE (unrecogn ized section and content) DATE CREATED AUTHOR 04/30/2019 [facility] DATE CREATED AUTHOR AUTHOR'S ORGANIZ ATION 11/01/2020 [facility] DATE CREATED AUTHOR AUTHOR'S ORGANIZ ATION 12/28/2023 [facility] EPIC REASON FOR VISIT (unrecogniz ed section and content) LEFT EAR, FEELS LIKE ITS SWE LLING SHUT FOR RECORDS PERTAINING TO PATIENTS WHO ARE OR HAVE BEEN ENROLLED IN A CHEMICAL DEPENDENCY/SUBSTANCEABUSE PROGRAM, SOME INFORMATION MAY BE OMITTED. This clinical summary was aggregated from multiple sources. Caution should be exercised in using it in the provision of clinical care. This summary normalizes information from multiple sources, and as a consequence, information in this document may materially change the coding, format and clinical context of patient data. In addition, data may be omitted in some cases. CLINICAL DECISIONS SHOULD BE BASED ON THE PRIMARY CLINICAL RECORDS. [facility] [employer] [facility]. provides no warranty or guarantee of the accuracy or completeness of information in this document.
--- NOTE | 2024-01-03 08:52 | CT_ITS ---
The [address] [address] Patient Name: DELMIS DUGGAN MRN: [id number] date: 1970 Sex: M Assigned Patient Location: CT Current Patient Location: CT Accession/Order Number: [id number] Exam Date: 01/03/2024 08:45 Report Date: 01/03/2024 13:17 At the request of: ELA TELLEZ Procedure: CT chest wo con EXAMINATION: CT chest wo con, 01/03/2024 8:45 AM EDT HISTORY: Chest Pain, Breast Pain, Acute Cough COMPARISON: 08/02/2015 TECHNIQUE: CT scan of the chest was performed without IV contrast. CT dose reduction technique was used, including Automated Exposure Control. FINDINGS: CORONARY ARTERIES: Coronary calcifications are heavy. Heart size is normal. No pericardial effusion. Normal thoracic vasculature. No thoracic lymphadenopathy. Central tracheobronchial tree is patent. No pleural effusion or pneumothorax. Scattered, mild centrilobular nodules are seen in the upper lungs, right greater than left, especially in the anterior right upper lung. The dominant nodule in the right upper lobe on series 4 image 30, measures 4 mm, compared to 2 mm in 2016. There is a 5 mm nodule in the lingula, on image 59, increased from 2016 when it measured 2 mm. Bones and soft tissues: No suspicious bone findings. Partially imaged upper abdomen: Limited. There is diffuse hepatic steatosis. CT/CT chest wo con IMPRESSION: No acute finding in the chest. Mild, scattered centrilobular tiny nodules throughout the upper lobes, right greater than left are seen, however which have been present since at least 2016. The findings may represent respiratory bronchiolitis if there is a history of smoking, versus hypersensitivity or atypical mycobacteria. Heavy coronary calcification. There is a 5 mm nodule in the lingula. Consider an optional twelve-month follow-up chest CT if the patient is high risk. Electronically authenticated by: JENNIFER RODRIGUEZ Date: 01/03/2024 13:17
== END 2024-01-03 08:37 | disposition home or self-care (01) ==
LOC: CT 08:36
PROVIDERS: PCP Internal Medicine; Visit Provider Nurse Practitioner Family
DX: R07.9 Chest pain, unspecified (principal); R05.1 Acute cough; N64.4 Mastodynia
CPT/HCPCS: 71250

== ENCOUNTER 2024-01-17 11:53 | Outpatient (OUT) | payer OTHER, SELFPAY ==
--- NOTE | 2024-01-17 | PCN_ITS ---
CARDIAC STRESS TEST Requesting Physician: ALEX Cr Procedure Date: 01/17/2024 REASON FOR THE TEST: Coronary artery calcification. The patient presented for a nuclear stress test. At baseline, the resting heart rate was noted to be 115 beats per minute, with a blood pressure 146/92 mm/Hg. Upon infusion of Lexiscan, the maximum heart rate level achieved was 130 beats per minute, with the maximum blood pressure noted at 146/92 mm/Hg, which is 77% of the expected heart rate. The reason for termination of the test was inability to continue to walk on the treadmill. At baseline, patient was noted to have sinus tachycardia with EKG revealing poor R-wave progression and underlying right axis deviation. With infusion of the medication, there was no evidence of any EKG changes to suggest ischemia. IMPRESSION: 1. No EKG evidence of ischemia noted on the monitoring. 2. No evidence of AV block or other arrhythmia seen. 3. Imaging portion of the study to be dictated separately by Radiology Department. HEATH
--- OUTSIDE RECORDS SUMMARY | 2024-01-17 11:57 | XMS_ITS | CCD ---
Author Organization [facility] Care Team Providers Care Rn Corrections Name Role Phone SHERMAN DOLAN Admitting UnavailDR [...] Mayelin Elliott Consulting Unavailable SHERMAN DOLAN Admitting UnavailSHERMAN Schulte Attending UnavailDR CHARLI Betts Consulting Unavailable DR DELFINO CRAWLEY Primary Care Unavailable SHERMAN DOLAN Consulting UnavailSHERMAN Schulte Attending UnavailDR IRIS Gallardo V Consulting Unavailable SHERMAN DOLAN Admitting UnavailSHERMAN Schulte Consulting UnavailDR CHARLI Betts Consulting Unavailable SHERMAN [...] / neomycin 3.5 mg/ml / polymyxin b [id number] unt/ml otic solution (1 source) Aminoglycoside Antibacterial, [...] Da te Episodic/Chronic Other aftercare (1 source) rn long term care (current) use of aspirin; Translations: [SKILLED NURSING CURRENT USE OF ASPIRIN] Onset: 12-04-2019 Episodic Other aftercare (1 source) Other intermediate designer (current) drug therapy; Translations: [OTH SKILLED NURSING CURRENT DRUG THERAPY] Onset: 12-04-2019 Episodic Other [...] 12-02-2019 BASO # 0.1 103/ul Normal 0.0-0.1 [facility] Comment on above: Performed By: #### C BC #### [facility] [address] [place] [address] Ninoska Krys Basophils/100 WBC (Bld) 0.7 % Normal 0.2-2.0 [facility] Comment on above: Performed By: #### C BC #### [facility] [address] [place] [address] Ninoska Krys EO # 0.3 103/ul Normal 0.0-0.7 [facility] Comment on above: Performed By: #### C BC #### [facility] [address] [place] [address] Ninoska Krys Eosinophils/100 WBC (Bld) 2.2 % Normal 0.9-7.0 [facility] Comment on above: Performed By: #### C BC #### [facility] [address] [place], [place] [phone] Ninoska Krys Erythrocyte distribution width (RBC) [Ratio] 13.8 % Normal 11.0-15.0 [facility] Comment on above: Performed By: #### C BC #### [facility] [address] [place], [place] [phone] Ninoska Krys Hematocrit (Bld) [Volume fraction] 47.2 % Normal 42.0-54.0 [facility] Comment on above: Performed By: #### C BC #### [facility] [address] [place], [place] [phone] Ninoska Krys Hemoglobin (Bld) [Mass/Vol] 16.0 g/dL Normal 14.0-18.0 [facility] Comment on above: Performed By: #### C BC #### [facility] [address] [phone] Innoska Krys IG # 0.06 10e3/ul Critically high 0.00-0.03 [facility] Comment on above: Performed By: #### C BC #### [facility] [address] [phone] Ninoska Krys IG % 0.4 % Normal 0.0-0.5 [facility] Comment on above: Performed By: #### C BC #### [facility] [address] [phone] Ninoska Krys LYMPH # 3.1 103/ul Normal 1.2-3.8 [facility] Comment on above: Performed By: #### C BC #### [facility] [address] [place] [address] Ninoska Krys Lymphocytes/100 WBC (Bld) 20.8 % Normal 20.5-60.0 [facility] Comment on above: Performed By: #### C BC #### [facility] [address] [place], [place] [phone] Ninoskaesteban Marcano MANUAL DIFF REQ NO Normal [facility] Comment on above: Performed By: #### C BC #### [facility] [address] [place], [place] [phone] Ninoska Krys MCH (RBC) [Entitic mass] 30.4 pg Normal 25.9-34.0 [facility] Comment on above: Performed By: #### C BC #### [facility] [address] [place], [place] [phone] Ninoska Krys MCHC (RBC) [Mass/Vol] 33.9 g/dL Normal 29.9-35.2 [facility] Comment on above: Performed By: #### C BC #### [facility] [address] [place], [place] [phone] Ninoska Krys MCV (RBC) [Entitic vol] 89.6 fL Normal 80.0-94.0 [facility] Comment on above: Performed By: #### C BC #### [facility] [address] [place], [place] [address] Ninoska Krys MONO # 1.6 103/ul Critically high 0.3-0.8 [facility] Comment on above: Performed By: #### C BC #### [facility] [address] [place], [place] [address] Ninoska Krys Monocytes/100 WBC (Bld) 11.0 % Normal 1.7-12.0 [facility] Comment on above: Performed By: #### C BC #### [facility] [address] [phone] Ninoska Krys NEUT # 9.7 103/ul Critically high 1.4-6.5 [facility] Comment on above: Performed By: #### C BC #### [facility] [address] [place], [place] [phone] Ninoska Krys Neutrophils/100 WBC (Bld) 64.9 % Normal 43.0-75.0 [facility] Comment on above: Performed By: #### C BC #### [facility] [address] [phone] Ninoska Krys Platelet mean volume (Bld) [Entitic vol] 10.7 fL Normal 9.5-13.5 [facility] Comment on above: Performed By: #### C BC #### [facility] [address] [place], [place] [phone] Ninoska Krys PLT 217 103/ul Normal 150-450 [facility] Comment on above: Performed By: #### C BC #### [facility] [address] [phone] Ninoska Krys RBC 5.27 106/ul Normal 4.70-6.10 [facility] Comment on above: Performed By: #### C BC #### [facility] [address] [phone] Ninoska Krys WBC 14.9 103/ul Critically high 4.0-11.0 [facility] Comment on above: Performed By: #### C BC #### [facility] [address] [place], [place] [address] PELVIS W CONon 12-02-2019 [...] MAYELIN ELLIOTT Date: 2019-12-02 14:21 Normal [facility] PROF CHEM 8 (BAS METB)on Anion gap [Moles/Vol] 11.3 mmol/L Normal [facility] Comment on above: Performed By: #### B MP #### [facility] [address] [phone] Ninoska Krys Calcium [Mass/Vol] 8.9 mg/dL Normal 8.4-10.2 [facility] Comment on above: Performed By: #### B MP #### [facility] [address] [phone] Ninoska Krys Chloride [Moles/Vol] 100 mmol/L Normal 98-107 [facility] Comment on above: Performed By: #### B MP #### [facility] [address] [place], [place] [address] Ninoska Krys CO2 [Moles/Vol] 29.2 mmol/L Normal 22.0-30.0 [facility] Comment on above: Performed By: #### B MP #### [facility] [address] [place], [place] [address] Ninoska Krys Creatinine [Mass/Vol] 1.12 mg/dL Normal 0.66-1.25 [facility] Comment on above: Performed By: #### B MP #### [facility] [address] [place], [place] [address] Ninoska Krys EGFR-AF NEW ZEALANDER >60 Normal >=60 [facility] Comment on above: Performed By: #### B MP #### [facility] [address] [place], [place] [address] Innoska Krys EGFR-NON AF NEW ZEALANDER >60 Normal >=60 [facility] Comment on above: Performed By: #### B MP #### [facility] [address] [place], [place] [address] Ninoska Krys Glucose [Mass/Vol] 200 mg/dL Critically high 74-106 [facility] Comment on above: Performed By: #### B MP #### [facility] [address] [place], [place] [phone] Ninoska Krys Potassium [Moles/Vol] 3.5 mmol/L Normal 3.4-5.0 [facility] Comment on above: Performed By: #### B MP #### [facility] [address] [place], [place] [phone] Ninoska Krys Sodium [Moles/Vol] 137 mmol/L Normal 137-145 [facility] Comment on above: Performed By: #### B MP #### [facility] [address] [place], [place] [phone] Ninoska Krys Urea nitrogen [Mass/Vol] 14.0 mg/dL Normal 9.0-20.0 [facility] Comment on above: Performed By: #### B MP #### [facility] [address] [place], [place] [phone] Ninoska Krys Urea nitrogen/Creatinin e [Mass ratio] 12.5 mg/mg Normal [facility] Comment on above: Performed By: #### B MP #### [facility] [address] [place] [address] Ninoska Krys FOOT RIGHT 3 [facility] 9 FOOT RIGHT 3 [facility] Department of Radiology [address] [place] [phone] Patient Name: DELMIS DUGGAN : 1970 [...] RUBIO PA-C , Exam: FOOT RIGHT 3 [facility] FOOT RIGHT 3 S 03/09/2019 10:22 AM [...] alignment Electronically signed by:Garett Joseph. Transcribed by: Caleb, User Resident: Electronically Signed by: GARETT JOSEPH @ 03/09/2019 12:30 PM Normal [facility] Comment on above: Order Comment: , , = ========= , Ordering Provider - DURGA RUBIO PA-C , FOOT RIGHT 3 [facility] 9 FOOT RIGHT 3 [facility] Department of Radiology [address] [place] [address] Patient Name: DELMIS DUGGAN : [...] RUBIO PA-C , Exam: FOOT RIGHT 3 [facility] FOOT RIGHT 3 S 12/15/2018 10:10 AM [...] study Electronically signed by:Garett Joseph. Transcribed by: [email or web address], User Resident: Electronically Signed by: GARETT JOSEPH @ 12/15/2018 06:18 PM Normal [facility] Comment on above: Order Comment: , , = ========= , Ordering Provider - DURGA RUBIO PA-C , FOOT RIGHT 3 [facility] 9 FOOT RIGHT 3 [facility] Department of Radiology [address] [place] [phone] Patient Name: DELMIS DUGGAN : 1970 Sex: M Age: Race: White Pt. Location: Patient Status: Ordered Date: 10/11/2018 2:25:00 PM Completed Date: 10/11/2018 02:30 PM Requesting Provider: DURGA RUBIO Attending Provider: Report Copy To: Signs & Symptoms: S92.301D Fx unsp metatarsal bone(s), r foot, subs for fx w routn heal I10 History: Raymond Comments: , , , Ordering Provider - DURGA RUBIO PA-C , Exam: FOOT RIGHT 3 [facility] FOOT RIGHT 3 S 10/11/2018 2:30 PM EDT SIGNS AND SYMPTOMS: [...] fractures Electronically signed by:Garett Joseph. Transcribed by: [email or web address], User Resident: Electronically Signed by: GARETT JOSEPH @ 10/11/2018 02:38 PM Normal [facility] Comment on above: Order Comment: , , = ========= , Ordering Provider - DURGA RUBIO PA-C , FOOT RIGHT 3 [facility] 9 FOOT RIGHT 3 [facility] Department of Radiology [address] [place] [phone] Patient Name: DELMIS DUGGAN : 1970 Sex: M Age: Race: White Pt. Location: Patient Status: Ordered Date: 08/07/2018 3:00:00 PM Completed Date: 08/07/2018 03:00 PM Requesting Provider: DURGA RBUIO Attending Provider: Report Copy To: Signs & Symptoms: S92.301D Fx unsp metatarsal bone(s), r foot, subs for fx w routn heal I10 History: Kristy Comments: , , , Ordering Provider - DURGA RUBIO PA-C , Exam: FOOT RIGHT 3 [facility] FOOT RIGHT 3 S 08/07/2018 3:00 PM [...] alignment Electronically signed by:Garett Joseph. Transcribed by: [email or web address], User Resident: Electronically Signed by: GARETT JOSEPH @ 08/07/2018 03:30 PM Normal [facility] Comment on above: Order Comment: , , = ========= , Ordering Provider - DURGA RUBIO PA-C , FOOT RIGHT 3 [facility] 9 FOOT RIGHT 3 [facility] Department of Radiology [address] [place] [phone] Patient Name: DELMIS DUGGAN : 1970 Sex: M Age: Race: White Pt. 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 Transcribed by: [email or web address], User Resident: Electronically Signed by: GARETT JOSEPH @ 07/03/2018 02:07 PM Normal [facility] Comment on above: Order Comment: , , = ========= , Ordering Provider - DURGA RUBIO PA-C , FOOT RIGHT 3 [facility] 9 FOOT RIGHT 3 [facility] Department of Radiology [address] [place] [phone] Patient Name: DELMIS DUGGAN : 1970 Sex: M Age: Race: White Pt. Location: Patient Status: O Ordered Date: 06/05/2018 2:20:00 PM Completed Date: 06/05/2018 02:20 PM Requesting Provider: DURGA RUBIO Attending Provider: DURGA RUBIO Report Copy To: DELFINO CRAWLEY Signs & Symptoms: S92.301D Fx unsp metatarsal bone(s), r foot, subs for fx w routn heal I10 History: Raymond Comments: , , , Ordering Provider - DURGA RUBIO PA-C , Exam: FOOT RIGHT 3 [facility] FOOT RIGHT 3 [facility] 06/05/2018 2:20 PM EST SIGNS AND SYMPTOMS: [...] foot Electronically signed by:Garett Joseph. Transcribed by: [email or web address], User Resident: Electronically Signed by: GARETT JOSEPH @ 06/05/2018 03:00 PM Normal [facility] Comment on above: Order Comment: , , = ========= , Ordering Provider - DURGA RUBIO PA-C , FOOT RIGHT 3 [facility] 9 FOOT RIGHT 3 [facility] Department of Radiology [address] [place] [phone] Patient Name: DELMIS DUGGAN : 1970 Sex: M Age: Race: White Pt. Location: Patient Status: Ordered Date: 05/10/2018 1:40:00 PM Completed Date: 05/10/2018 01:47 PM Requesting Provider: DURGA RUBIO Attending Provider: Report Copy To: Signs & Symptoms: S92.301D Fx unsp metatarsal bone(s), r foot, subs for fx w routn heal I10 History: Raymond Comments: , , , Ordering Provider - DURGA RUBIO PA-C , Exam: FOOT RIGHT 3 [facility] FOOT RIGHT 3 S 05/10/2018 1:47 PM [...] injury Electronically signed by:Garett Joseph. Transcribed by: [email or web address], User Resident: Electronically Signed by: GARETT JOSEPH @ 05/10/2018 02:09 PM Normal [facility] Comment on above: Order Comment: , , = ========= , Ordering Provider - DURGA RUBIO PA-C , Vital Signs Date Time Vital Sign Value Performing Clinician Facility 02-24-2023 17:10-0400 Body height 198.12 cm Serg Carpio Other [facility] 02-24-2023 17:10-0400 Body mass index (BMI) [Ratio] 34.43 kg/m2 Serg Carpio Other [facility] 02-24-2023 17:10-0400 Body temperature 98.2 [degF] Serg Carpio Other [facility] Other 02-24-2023 17:10-0400 Body weight 135.17 kg Serg Morrisonaker Other [facility] Other 02-24-2023 17:10-0400 Diastolic blood pressure 102 mm[Hg] Serg Carpio Other [facility] Other 02-24-2023 17:10-0400 Respiratory rate 18 /min Serg Carpio Other [facility] Other 02-24-2023 17:10-0400 SaO2% (BldA) [Mass fraction] 96 % Serg Carpio Other [facility] Other 02-24-2023 17:10-0400 Systolic blood pressure 143 mm[Hg] Serg Carpio Other [facility] Other Encounters Encounter Date Encounter Type Care Provider Facility Start: 01-10-2024 End: 01-10-2024 ambulatory ELA M ROSALINDA Not Available Start: 12-27-2023 End: 12-27-2023 ambulatory ELA M ROSALINDA Not Available Start: 12-20-2023 End: 12-20-2023 ambulatory ELA M ROSALINDA Not Available Start: 11-01-2023 End: 11-01-2023 ambulatory ELA M ROSALINDA Not Available Start: 09-27-2023 End: 09-28-2023 ambulatory KRYS Malik HEMMER Not Available Start: 06-29-2023 End: 06-29-2023 ambulatory KRYS M HEMMER Not Available Start: 02-24-2023 End: 02-24-2023 ambulatory Serg Carpio Other [facility] Other Start: 02-24-2023 Office outpatient visit 15 minutes Serg Carpio [facility] Start: 10-27-2020 End: 10-28-2020 ambulatory SHERMAN DOLAN Facility:[facility] Start: 09-29-2020 End: 09-30-2020 ambulatory SHERMAN DOLAN Facility:[facility] Start: 05-26-2020 ambulatory SHERMAN DOLAN Fa cility:[facility] Start: 01-28-2020 End: 01-29-2020 ambulatory SHERMAN DOLAN Facility:[facility] Start: 01-10-2020 End: [address] IRIS BRITO Facility:[facility] Start: 12-20-2019 End: 12-21-[address] CHARLI MOISE Facility:[facility] Start: 12-02-2019 End: 12-02-2019 ambulatory KAYLEIGH Linda LUCIANO Facility:[facility] Start: 11-29-2019 End: 05-06-2020 ambulatory SHERMAN DOLAN Facility:[facility] Start: 11-22-2019 End: 11-23-2019 ambulatory SHERMAN DOLAN Facility:[facility] Payers Date Payer Category Payer Unknown [id number] 2.16.8 [id number] 1970 Unknown [id number] 2.16.84 [id number] 1970 Unknown [id number] 2.16.84 [id number] 1970 Unknown [id number] 2.16.84 [id number] 1970 Unknown [id number] 2.16.84 [id number] 1970 Unknown [id number] 2.16.84 [id number] 1970 Unknown [id number] 2.16.84 [id number] 1970 Unknown [id number] 2.16.84 [id number] 1970 Unknown [id number] 2.16.84 [id number] 1970 Unknown [id number] 2.16.84 [id number] 1970 Unknown [id number] 2.16.84 [id number] 1970 Unknown [id number] 2.16.84 [id number] 1970 Unknown [id number] 2.16.84 [id number] 1970 Unknown [id number] 2.16.84 [id number] 1970 Unknown [id number] 2.16.84 [id number] 1970 Unknown [id number] 2.16.84 [id number] 1958 Unknown 1958 Unknown [id number] Social History Date Type Detail Facility Unknown if ever smoked [facility] Other Sex Assigned At Sex Assigned At Bir th [facility] Other Medical Equipment Procedure Code Equipment Code Equipment Original Text Equi pment Identifier Dates OneTouch Delica Plus [id number] - Evaluation note 02-24-2023 Note Date & [...] between each use, changing ear plugs frequently. [facility] Other Clinical Note 10-27-2020 Note Date & [...] authenticated by: CHARLI MOISE Date: 2020-10-27 17:12 [facility] Clinical Note 05-24-2021 Note Date & Type Note Facility 09-29-2020 [...] by: IRIS BRITO Date: 2020-09-29 15:57 [facility] Clinical Note 01-28-2020 Note Date & Type [...] by: IRIS BRITO Date: 2020-01-28 10:11 [facility] Clinical Note 01-10-2020 Note Date & Type [...] by: IRIS BRITO Date: 2020-01-10 13:04 [facility] Clinical Note 12-20-2019 Note Date & Type [...] authenticated by: CHARLI MOISE Date: 2019-12-20 10:19 [facility] Clinical Note 11-22-2019 Note Date & [...] authenticated by: IRIS BRITO Date: 2019-11-22 09:41 [facility] History general Narrative - Reported Note Date & Type Note Facility History general Narrative - Reported Type Medical History hypertension Medical History Hypothyroidism Surgical History Foot Surgery x4 right Surgical History knee surgery right Surgical History hernia repair Surgical History shoulder surgery bilateral Hospitalization History see above [facility] Other Summary Purpose Family History No Family History Records FoundNo Family History Records FoundNo Family History Records Found Advance Directives No Advanced Directives Records FoundNo Advanced Directives Records FoundNo Advanced Directives Records Found Additional Source Comments (unrecognized sect ion and content) No Status Records FoundNo Status Records FoundNo Status Records Found INFORMATION SOURCE (unrecogn ized section and content) DATE CREATED AUTHOR 04/30/2019 [facility] DATE CREATED AUTHOR AUTHOR'S ORGANIZ ATION 11/01/2020 [facility] DATE CREATED AUTHOR AUTHOR'S ORGANIZ ATION 2024 [facility] EPIC REASON FOR VISIT [...] BE BASED ON THE PRIMARY CLINICAL RECORDS. [employer] provides no warranty or guarantee of the accuracy or completeness of information in this document.
--- NOTE | 2024-01-17 12:00 | NM_ITS ---
Patient Name: DELMIS DUGGAN MR#: [id number] : 1970 Exam Date: 01/17/2024 Ordering Doctor: MRS. 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 INDICATIONS: CHEST PAIN, CALCIFICATION OF CORONARY ARTERIES TECHNIQUE: Exam Description: Stress/Rest two day protocol gated SPECT Rest Imagin.4 mCi Tc-99m Cardiolite IV on 01/18/2024 Stress Imaging 25.1 mCi Tc-99m Cardiolite IV on 01/17/2024 Exercise Protocol: 0.4 mg Lexiscan given IV Heart Rate (bpm): Rest: 116 Max: 130 PMHR: 77 Blood Pressure: Rest: 146/92 Max: 146/92 Symptoms: Rest and peak stress ECG findings were normal and the exercise portion of the study was normal per attending physician Dr. Batista . For more details please see separate cardiac stress test report. FINDINGS: QUALITY OF STUDY: Good. PERFUSION DEFECT: None. LOCATION: N/A SIZE: N/A. SEVERITY: N/A. TYPE: N/A. WALL MOTION: Normal. LV SIZE: Normal. 76 mL. TID / TCD: None; 0.8 LVEF: Normal. Calculated EF 60%. SUMMARY: Myocardial perfusion imaging study is NORMAL. CONCLUSION: 1. No reversible ischemia 2. Normal exercise test Dictated by: Marbin Suero MD on 01/18/2024 at 15:41 Approved by: Marbin Suero MD on 01/18/2024 at 15:42
[2024-01-17] MEDS: REGADENOSON 0.4 MG/5 ML SYRINGE IV (12:42)
--- NOTE | 2024-01-17 15:08 | PC.NURSE ---
Nursing Note Cardiac Stress Test Reviewed: Medication, allergies and patient history reviewed. Stress Test: [ x] Patient tolerated stress test well. [ ] Patient unable to tolerate walking on treadmill. Switched to Lexiscan stress test. [x ] No chest pain noted per patient [ ] Chest pain that resolved prior to leaving stress lab. [ x] No dyspnea noted. [ ] Dyspnea that resolved prior to leaving stress lab. [ x] Patient left stress lab asymptomatic and hemodynamically stable. [ ] Patient taken to the Emergency Room due to non-resolving symptoms following stress test. [ ] Patient achieved target heart rate. [ ] Patient unable to achieve target heart rate. [ ] Aminophylline administered as reversal agent to Lexiscan (Regadenoson). [ ] Nitro administered. Nursing Comments:Lexiscan done. Pt tolerated well.
== END 2024-01-17 11:54 | disposition home or self-care (01) ==
LOC: CARD 11:53
PROVIDERS: PCP Internal Medicine; Visit Provider Nurse Practitioner Family
DX: I25.10 Atherosclerotic heart disease of native coronary artery without angina pectoris (principal)
CPT/HCPCS: 78452; 93017; A9500; J2785

== ENCOUNTER 2024-02-03 08:52 | Outpatient (OUT) | payer OTHER, SELFPAY ==
--- NOTE | 2024-02-03 09:00 | RT_ITS ---
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 Findings were considered accurate and reproducible, with exception of DLCO which did not meet ATS standards. Both pre- and post-bronchodilator values utilized for spirometry. Spirometry (based on pre-bronchodilator values): -FEV1/FVC: Normal @ 79% -FEV1: Moderately reduced @ 61% -FVC: Moderately-severely reduced @ 59% -There is a positive bronchodilator response in FEV1 and FVC. Lung volumes by plethysmography: -RV: Low normal @ 80% -TLC: Mild-moderately reduced @ 70% Diffusion capacity: -DLCO: Moderate reduction @ 61% when corrected for Hb 15.8g/dL Flow-volume loop: -Moderate restrictive pattern Impressions: -Spirometry trends towards moderately-severe restrictive pattern. There is a bronchodilator response present which typically is not seen in purely restrictive disorders. The restriction is confirmed by a mild-moderate reduction in the TLC. There is a moderate diffusion impairment. 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 With the bronchodilator response, it is possible there may be a concomitant obstructive condition obscured by the restriction. Clinical correlation required. Electronically Signed On 02-08-2024 6:44:18 EDT by Je Pool
--- OUTSIDE RECORDS SUMMARY | 2024-02-03 09:04 | XMS_ITS | CCD ---
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 CLERK CURRENT DRUG THERAPY] Onset: 12-04-2019 Episodic Other [...] 12-02-2019 BASO # 0.1 103/ul Normal 0.0-0.1 [facility] Comment on above: Performed By: #### C BC #### [facility] [address] [place] [address] Ninoska Krys Basophils/100 WBC (Bld) 0.7 % Normal 0.2-2.0 [facility] Comment on above: Performed By: #### C BC #### [facility] [address] [place] [address] Ninoska Krys EO # 0.3 103/ul Normal 0.0-0.7 [facility] Comment on above: Performed By: #### C BC #### [facility] [address] [place] [address] Ninoska Krys Eosinophils/100 WBC (Bld) 2.2 % Normal 0.9-7.0 [facility] Comment on above: Performed By: #### C BC #### [facility] [address] [place] [address] Ninoska Krys Erythrocyte distribution width (RBC) [Ratio] 13.8 % Normal 11.0-15.0 [facility] Comment on above: Performed By: #### C BC #### [facility] [address] [place], [place] [id number] Ninoska Krys Hematocrit (Bld) [Volume fraction] 47.2 % Normal 42.0-54.0 [facility] Comment on above: Performed By: #### C BC #### [facility] [address] [place], [place] [id number] Ninoska Krys Hemoglobin (Bld) [Mass/Vol] 16.0 g/dL Normal 14.0-18.0 [facility] Comment on above: Performed By: #### C BC #### [facility] [address] [place], [place] [address] Ninoskaesteban Marcano IG # 0.06 10e3/ul Critically high 0.00-0.03 [facility] Comment on above: Performed By: #### C BC #### [facility] [address] [place] [address] Ninoska Krys IG % 0.4 % Normal 0.0-0.5 [facility] Comment on above: Performed By: #### C BC #### [facility] [address] [place] [address] Ninoska Krys LYMPH # 3.1 103/ul Normal 1.2-3.8 [facility] Comment on above: Performed By: #### C BC #### [facility] [address] [place] [address] Ninoska Krys Lymphocytes/100 WBC (Bld) 20.8 % Normal 20.5-60.0 [facility] Comment on above: Performed By: #### C BC #### [facility] [address] [place] [address] Ninoskaesteban Marcano MANUAL DIFF REQ NO Normal [facility] Comment on above: Performed By: #### C BC #### [facility] [address] [place] [address] Ninoskaesteban Snowdenen MCH (RBC) [Entitic mass] 30.4 pg Normal 25.9-34.0 [facility] Comment on above: Performed By: #### C BC #### [facility] [address] [place] [address] Ninoskaesteban Marcano MCHC (RBC) [Mass/Vol] 33.9 g/dL Normal 29.9-35.2 [facility] Comment on above: Performed By: #### C BC #### [facility] [address] [place] [address] Ninoska Krys MCV (RBC) [Entitic vol] 89.6 fL Normal 80.0-94.0 [facility] Comment on above: Performed By: #### C BC #### [facility] [address], [place] [address] Ninoska Krys MONO # 1.6 103/ul Critically high 0.3-0.8 [facility] Comment on above: Performed By: #### C BC #### [facility] [address], [place] [address] Ninoska Krys Monocytes/100 WBC (Bld) 11.0 % Normal 1.7-12.0 [facility] Comment on above: Performed By: #### C BC #### [facility] [address] [place] [id number] Ninoska Krys NEUT # 9.7 103/ul Critically high 1.4-6.5 [facility] Comment on above: Performed By: #### C BC #### [facility] [address] [place] [id number] Ninoska Krys Neutrophils/100 WBC (Bld) 64.9 % Normal 43.0-75.0 [facility] Comment on above: Performed By: #### C BC #### [facility] [address], [place] [address] Ninoska Krys Platelet mean volume (Bld) [Entitic vol] 10.7 fL Normal 9.5-13.5 [facility] Comment on above: Performed By: #### C BC #### [facility] [address] [place] [id number] Ninoska Krys PLT 217 103/ul Normal 150-450 [facility] Comment on above: Performed By: #### C BC #### [facility] [address] [place] [id number] Ninoska Krys RBC 5.27 106/ul Normal 4.70-6.10 [facility] Comment on above: Performed By: #### C BC #### [facility] [address] [id number] Ninoska Krys WBC 14.9 103/ul Critically high 4.0-11.0 [facility] Comment on above: Performed By: #### C BC #### [facility] [address] [place], [place] [address] Ninoska Krys CT PELVIS W CONon 12-02-2019 [...] MAYELIN ELLIOTT Date: 2019-12-02 14:21 Normal [facility] PROF CHEM 8 (BAS METB)on Anion gap [Moles/Vol] 11.3 mmol/L Normal [facility] Comment on above: Performed By: #### B MP #### [facility] [address] [place], [place] [address] Ninoska Krys Calcium [Mass/Vol] 8.9 mg/dL Normal 8.4-10.2 [facility] Comment on above: Performed By: #### B MP #### [facility] [address] [place] [address] Ninoska Krys Chloride [Moles/Vol] 100 mmol/L Normal 98-107 [facility] Comment on above: Performed By: #### B MP #### [facility] [address] [place], [place] [address] Ninoska Krys CO2 [Moles/Vol] 29.2 mmol/L Normal 22.0-30.0 [facility] Comment on above: Performed By: #### B MP #### [facility] [address] [place] [address] Ninoska Krys Creatinine [Mass/Vol] 1.12 mg/dL Normal 0.66-1.25 [facility] Comment on above: Performed By: #### B MP #### [facility] [address] [place], [place] [address] Ninoska Krys EGFR-AF PERUVIAN >60 Normal >=60 [facility] Comment on above: Performed By: #### B MP #### [facility] [address] [place], [place] [address] Ninoska Krys EGFR-NON AF PERUVIAN >60 Normal >=60 [facility] Comment on above: Performed By: #### B MP #### [facility] [address], [place] [address] Ninoska Krys Glucose [Mass/Vol] 200 mg/dL Critically high 74-106 [facility] Comment on above: Performed By: #### B MP #### [facility] [address] [place], [place] [address] Ninoska Krys Potassium [Moles/Vol] 3.5 mmol/L Normal 3.4-5.0 [facility] Comment on above: Performed By: #### B MP #### [facility] [address] [place] [address] Ninoska Krys Sodium [Moles/Vol] 137 mmol/L Normal 137-145 [facility] Comment on above: Performed By: #### B MP #### [facility] [address] [place] [address] Ninoska Krys Urea nitrogen [Mass/Vol] 14.0 mg/dL Normal 9.0-20.0 [facility] Comment on above: Performed By: #### B MP #### [facility] [address] [place] [address] Ninoska Krys Urea nitrogen/Creatinin e [Mass ratio] 12.5 mg/mg Normal [facility] Comment on above: Performed By: #### B MP #### [facility] [address] [place] [address] Ninoska Krys FOOT RIGHT 3 [facility] 9 FOOT RIGHT 3 [facility] Department of Radiology [address] [place] [phone] Patient Name: DELMIS DUGGAN : 1970 [...] RUBIO PA-C , Exam: FOOT RIGHT 3 [facility] FOOT RIGHT 3 S 03/09/2019 10:22 [...] alignment Electronically signed by:Garett Joseph. Transcribed by: [email or web address], User Resident: Electronically Signed by: GARETT JOSEPH @ 03/09/2019 12:30 PM Normal [facility] Comment on above: Order Comment: , , = ========= , Ordering Provider - DURGA RUBIO PA-C , FOOT RIGHT 3 [facility] 9 FOOT RIGHT 3 [facility] Department of Radiology [address] [place] [phone] Patient Name: DELMIS DUGGAN : 1970 Sex: M Age: Race: White Pt. Location: Patient Status: Ordered Date: 12/15/2018 10:10:00 AM Completed Date: 12/15/2018 10:10 AM Requesting Provider: DURGA RUBIO Attending Provider: Report Copy To: Signs & Symptoms: S92.301D Fx unsp metatarsal bone(s), r foot, subs for fx w routn heal I10 History: [place] Comments: , , , Ordering Provider - DURGA RUBIO PA-C , Exam: FOOT RIGHT 3 [facility] FOOT RIGHT 3 S 12/15/2018 10:10 [...] study Electronically signed by:Garett Joseph. Transcribed by: [email or web address], User Resident: Electronically Signed by: GARETT JOSEPH @ 12/15/2018 06:18 PM Normal [facility] Comment on above: Order Comment: , , = ========= , Ordering Provider - DURGA RUBIO PA-C , FOOT RIGHT 3 [facility] 9 FOOT RIGHT 3 [facility] Department of Radiology [address] [place] [phone] Patient Name: DELMIS DUGGAN : 1970 Sex: M Age: Race: White Pt. Location: 84 Patient Status: Ordered Date: 10/11/2018 2:25:00 PM Completed Date: 10/11/2018 02:30 PM Requesting Provider: DURGA RUBIO Attending Provider: Report Copy To: Signs & Symptoms: S92.301D Fx unsp metatarsal bone(s), r foot, subs for fx w routn heal I10 History: [place] Comments: , , , Ordering Provider - DURGA RUBIO PA-C , Exam: FOOT RIGHT 3 [facility] FOOT RIGHT 3 S 10/11/2018 2:30 [...] fractures Electronically signed by:Garett Joseph. Transcribed by: [email or web address], User Resident: Electronically Signed by: GARETT JOSEPH @ 10/11/2018 02:38 PM Normal [facility] Comment on above: Order Comment: , , = ========= , Ordering Provider - DURGA RUBIO PA-C , FOOT RIGHT 3 [facility] 9 FOOT RIGHT 3 [facility] Department of Radiology [address] [place] [phone] Patient Name: DELMIS DUGGAN : 1970 [...] RUBIO PA-C , Exam: FOOT RIGHT 3 [facility] FOOT RIGHT 3 S 08/07/2018 3:00 [...] alignment Electronically signed by:Garett Joseph. Transcribed by: [email or web address], User Resident: Electronically Signed by: GARETT JOSEPH @ 08/07/2018 03:30 PM Normal [facility] Comment on above: Order Comment: , , = ========= , Ordering Provider - DURGA RUBIO PA-C , FOOT RIGHT 3 [facility] 9 FOOT RIGHT 3 [facility] Department of Radiology [address] [place] [phone] Patient Name: DELMIS DUGGAN : 1970 Sex: M Age: Race: White Pt. Location: 84 Patient Status: Ordered Date: 07/03/2018 1:45:00 PM Completed Date: 07/03/2018 01:48 PM Requesting Provider: DURGA RUBIO Attending Provider: Report Copy To: Signs & Symptoms: S92.301D Fx unsp metatarsal bone(s), r foot, subs for fx w routn heal I10 History: [place] Comments: , , , Ordering Provider - DURGA RUBIO PA-C , Exam: FOOT RIGHT 3 [facility] FOOT RIGHT 3 [facility] 07/03/2018 1:48 PM EST SIGNS AND [...] metatarsal Electronically signed by:Garett Joseph. Transcribed by: [email or web address], User Resident: Electronically Signed by: GARETT JOSEPH @ 07/03/2018 02:07 PM Normal [facility] Comment on above: Order Comment: , , = ========= , Ordering Provider - DURGA RUBIO PA-C , FOOT RIGHT 3 [facility] 9 FOOT RIGHT 3 [facility] Department of Radiology [address] [place] [phone] Patient Name: DELMIS DUGGAN : 1970 Sex: M Age: Race: White Pt. Location: Patient Status: O Ordered Date: 06/05/2018 2:20:00 PM Completed Date: 06/05/2018 02:20 PM Requesting Provider: DURGA RUBIO Attending Provider: DURGA RUBIO Report Copy To: DELFINO CRAWLEY Signs & Symptoms: S92.301D Fx unsp metatarsal bone(s), r foot, subs for fx w routn heal I10 History: [place] Comments: , , , Ordering Provider - [...] foot Electronically signed by:Garett Joseph. Transcribed by: [email or web address], User Resident: Electronically Signed by: GARETT JOSEPH @ 06/05/2018 03:00 PM Normal [facility] Comment on above: Order Comment: , , = ========= , Ordering Provider - DURGA RUBIO PA-C , FOOT RIGHT 3 Son 9 FOOT RIGHT 3 [facility] Department of Radiology [address] [place] [phone] Patient Name: DELMIS DUGGAN : 1970 [...] RUBIO PA-C , Exam: FOOT RIGHT 3 [facility] FOOT RIGHT 3 S 05/10/2018 1:47 [...] injury Electronically signed by:Garett Joseph. Transcribed by: [email or web address], User Resident: Electronically Signed by: GARETT JOSEPH @ 05/10/2018 02:09 PM Normal [facility] Comment on above: Order Comment: , , = ========= , Ordering Provider - DURGA RUBIO PA-C , Vital Signs Date Time Vital Sign Value Performing Clinician Facility 02-24-2023 17:10-0400 Body height 198.12 cm Serg Carpio Other [facility] Other 02-24-2023 17:10-0400 Body mass index (BMI) [Ratio] 34.43 kg/m2 Serg Carpio Other [facility] Other 02-24-2023 17:10-0400 Body temperature 98.2 [degF] Serg Carpio Other [facility] Other 02-24-2023 17:10-0400 Body weight 135.17 kg Serg Carpio Other [facility] Other 02-24-2023 17:10-0400 Diastolic blood pressure 102 mm[Hg] Serg Carpio Other [facility] Other 02-24-2023 17:10-0400 Respiratory rate 18 /min Serg Aguillon [facility] Other 02-24-2023 17:10-0400 SaO2% (BldA) [Mass fraction] 96 % Serg Carpio Other [facility] Other 02-24-2023 17:10-0400 Systolic blood pressure 143 mm[Hg] Serg Carpio Other [facility] Other Encounters Encounter Date Encounter Type Care Provider Facility Start: 01-31-2024 End: 01-31-2024 ambulatory ELA M ROSALINDA Not Available Start: 01-10-2024 End: 01-10-2024 ambulatory ELA M ROSALINDA Not Available Start: 12-27-2023 End: 12-27-2023 ambulatory ELA M ROSALINDA Not Available Start: 12-20-2023 End: 12-20-2023 ambulatory ELA M ROSALINDA Not Available Start: 11-01-2023 End: 11-01-2023 ambulatory ELA M ROSALINDA Not Available Start: 09-27-2023 End: 09-28-2023 ambulatory KRYS M HEMMER Not Available Start: 06-29-2023 End: 06-29-2023 ambulatory KRYS M HEMMER Not Available Start: 02-24-2023 End: 02-24-2023 ambulatory Serg Carpio Other [facility] Other Start: 02-24-2023 Office outpatient visit 15 minutes eSrg Carpio [facility] José Manuel Start: 10-27-2020 End: 10-28-2020 ambulatory WHITAKER D CLOBIRDIE Facility:[facility] Start: 09-29-2020 End: 09-30-2020 ambulatory WHITAKER D CLOBIRDIE Facility:[facility] Start: 05-26-2020 ambulatory WHITAKER D CLOBIRDIE Fa cility:[facility] Start: 01-28-2020 End: 01-29-2020 ambulatory SHERMAN DOLAN Facility:[facility] Start: 01-10-2020 End: [address] IRIS BRITO Facility:[facility] Start: 12-20-2019 End: 12-21-[address] CHARLI MOISE Facility:[facility] Start: 12-02-2019 End: 12-02-2019 ambulatory KAYLEIGH WOLF Facility:[facility] Start: 11-29-2019 End: 05-06-2020 ambulatory SHERMAN DOLAN Facility:[facility] Start: 11-22-2019 End: 11-23-2019 ambulatory SHERMAN DOLAN Facility:[facility] Payers Date Payer Category Payer Unknown [id number] 2.16.8 [id number] 1970 Unknown [id number] 2.16.84 [id number] 1970 Unknown [id number] 2.16.84 [id number] 1970 Unknown [id number] 2.16.84 0.1.560542.3.579.2.593 1970 Unknown [id number] 2.16.84 0.1.901752.3.579.2.593 1970 Unknown [id number] 2.16.84 0.1.756300.3.579.2.593 1970 Unknown [id number] 2.16.84 0.1.834757.3.579.2.593 1970 Unknown [id number] 2.16.84 0.1.956137.3.579.2.593 1970 Unknown [id number] 2.16.84 0.1.492870.3.579.2.593 1970 Unknown [id number] 2.16.84 0.1.732688.3.579.2.593 1970 Unknown [id number] 2.16.84 0.1.867906.3.579.2.1259 1970 Unknown [id number] 2.16.84 0.1.119257.3.579.2.1259 1970 Unknown [id number] 2.16.84 0.1.406408.3.579.2.1259 1970 Unknown [id number] 2.16.84 0.1.713522.3.579.2.1258 1970 Unknown [id number] 2.16.84 0.1.764152.3.579.2.1258 1970 Unknown [id number] 2.16.84 0.1.180480.3.579.2.1258 1970 Unknown [id number] 2.16.84 0.1.449703.3.579.2.1258 1959 Unknown 1958 Unknown [id number] Social History Date Type Detail Facility Unknown if ever smoked [facility] Other Sex Assigned At Sex Assigned At Bir th [facility] Other Medical Equipment Procedure Code Equipment Code Equipment Original Text Equi pment Identifier Dates OneTouch Delica Plus [id number] - Evaluation note 02-24-2023 Note Date & [...] between each use, changing ear plugs frequently. [facility] Other Clinical Note 10-27-2020 Note Date & [...] authenticated by: CHARLI MOISE Date: 2020-10-27 17:12 [facility] Clinical Note 09-29-2020 Note Date & [...] by: IRIS BRITO Date: 2020-09-29 15:57 [facility] Clinical Note 01-28-2020 Note Date & [...] by: IRIS BRITO Date: 2020-01-28 10:11 [facility] Clinical Note 01-10-2020 Note Date & [...] authenticated by: IRIS BRITO Date: 2020-01-10 13:04 [facility] Clinical Note 12-20-2019 Note Date & [...] authenticated by: CHARLI MOISE Date: 2019-12-20 10:19 [facility] Clinical Note 11-22-2019 Note Date & [...] by: IRIS BRITO Date: 2019-11-22 09:41 [facility] History general Narrative - Reported Note Date & Type Note Facility History general Narrative - Reported Type Medical History hypertension Medical History Hypothyroidism Surgical History Foot Surgery x4 right Surgical History knee surgery right Surgical History hernia repair Surgical History shoulder surgery bilateral Hospitalization History see above [facility] Other Summary Purpose Family History No Family History Records FoundNo Family History Records FoundNo Family History Records Found Advance Directives No Advanced Directives Records FoundNo Advanced Directives Records FoundNo Advanced Directives Records Found Additional Source Comments (unrecognized sect ion and content) No Status Records FoundNo Status Records FoundNo Status Records Found INFORMATION SOURCE (unrecogn ized section and content) DATE CREATED AUTHOR 04/30/2019 [facility] DATE CREATED AUTHOR AUTHOR'S ORGANIZ ATION 11/01/2020 [facility] DATE CREATED AUTHOR AUTHOR'S ORGANIZ ATION 02/02/2024 [facility] EPIC REASON FOR VISIT [...] BE BASED ON THE PRIMARY CLINICAL RECORDS. [employer] [facility]. provides no warranty or guarantee of the accuracy or completeness of information in this document.
[2024-02-03] MEDS: ALBUTEROL SULFATE 2.5 MG/3 ML VIAL NEB IH (09:53)
== END 2024-02-03 08:53 | disposition home or self-care (01) ==
LOC: CARD 08:52
PROVIDERS: PCP Internal Medicine; Visit Provider Nurse Practitioner Family
DX: R91.8 Other nonspecific abnormal finding of lung field (principal); R07.1 Chest pain on breathing
CPT/HCPCS: 94060; 94726; 94729

== ENCOUNTER 2024-02-11 12:26 | Emergency (ER) | payer OTHER, SELFPAY ==
[2024-02-11] VITALS (15 sets, daily range): BP systolic 100–143; BP diastolic 66–89; PULSE 111; TEMP 36.8; O2SAT 99; BMI 32.7
--- NOTE | 2024-02-11 12:37 | CT_ITS ---
[facility] [place] [address] [place], [place] [address] Patient Name: DELMIS DUGGAN MRN: [id number] date: 1970 Sex: M Assigned Patient Location: ER Current Patient Location: Accession/Order Number: [id number] Exam Date: 02/11/2024 13:54 Report Date: 02/11/2024 18:07 At the request of: KAYLEIGH WOLF Procedure: CT pelvis w con EXAM: CT pelvis w con HISTORY: Swelling in right hemiscrotum and inguinal area COMPARISON: 11-25 FINDINGS: Visualized regions of the bowel are normal. Normal appendix. Atherosclerotic calcifications normal bladder. Small fat-containing left inguinal hernia. Atherosclerotic calcifications in the aorta and its branching vessels. Degenerative changes to the hips and lower lumbar spine. Small fat-containing umbilical hernia. Stable calcifications in the right inguinal canal, likely from a prior surgical repair. Fluid collection in the right hemiscrotum measuring up to 5.1 cm, most consistent with an abscess. There are also a few foci of air within the subcutaneous fat of the right hemiscrotum, concerning for a gas producing infection. Thickened scrotal wall. 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 CT/CT pelvis w con IMPRESSION: Fluid collection in the right hemiscrotum measuring up to 5.1 cm, most consistent with an abscess. There are also a few foci of air within the subcutaneous fat of the right hemiscrotum, concerning for a gas producing infection. Thickened scrotal wall. 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 No intraperitoneal involvement. No fluid, foci of air, or inflammatory stranding within the intraperitoneal space. LEONEL OLSON identified critical findings at 5:40 PM EST and discussed critical findings with KAYLEIGH WOLF at 5:55 PM EST. Electronically authenticated by: LEONEL OLSON Date: 02/11/2024 18:07
--- NOTE | 2024-02-11 12:42 | ED_ITS ---
HPI HPI - General Adult General Chief complaint: Skin/Abscess/Foreign Body Stated complaint: SKIN OTHER Time Seen by Provider: 02/11/24 12:29 Source: patient Mode of arrival: walk-in Limitations: no limitations History of Present Illness HPI narrative: 54-year-old male presents with pain and swelling to his right hemiscrotum and inguinal area. He has had some symptoms for about 3 weeks and he saw his doctor who put him on prednisone. It did not get better. Over the past few days its gotten much bigger and there is been no drainage and he has not had a fever or vomiting. The pain is moderate. Related Data Home Medications ?Medication ?Instructions ?Recorded ?Confirmed amlodipine 10 mg tablet 10 mg PO DAILY 12/19/23 02/11/24 finerenone 10 mg tablet (Kerendia) 10 mg PO DAILY 12/19/23 02/11/24 levothyroxine 100 mcg tablet 100 mcg PO DAILY 12/19/23 02/11/24 metoprolol succinate 25 mg 25 mg PO DAILY 12/19/23 02/11/24 tablet,extended release 24 hr rosuvastatin 10 mg tablet 10 mg PO DAILY 12/19/23 02/11/24 valsartan 320 1 tab PO DAILY 12/19/23 02/11/24 mg-hydrochlorothiazide 25 mg tablet linagliptin 5 mg tablet (Tradjenta) 5 mg PO DAILY 02/11/24 02/11/24 Allergies Allergy/AdvReac Type Severity Reaction Status Date / Time No Known Drug Allergies Allergy Verified 12/19/23 11:06 Opioid HPI Opioid Management Most Recent Opioid Data: Last Pain Scale 1 02/11/24 18:34 Last ED Pain Assessment 02/11/24 18:34 Review of Systems ROS Narrative A ten point review of systems is negative except as noted above. PFSH PFSH Social History Little interest or pleasure in doing things: not at all Feeling down, depressed, or hopeless: not at all Exam Narrative Exam Narrative: Nurses note and vital signs reviewed and patient is not hypoxic. General: The patient appears in no apparent distress. Patient is resting comfortably on cart. Skin: Warm, dry, no pallor noted. There is no rash noted. Head: Normocephalic, atraumatic Eye: Normal conjunctiva, no drainage Ears, Nose, Mouth, and Throat: oral mucosa is moist. Nares patent. Cardiovascular: Regular Rate and Rhythm Respiratory: Patient is in no distress, no accessory muscle use, lungs are clear to auscultation, no wheezing, rales or rhonchi Back: non-tender GI: Soft and nontender : There is swelling and fullness but no fluctuance in the right hemiscrotum going into the right inguinal area. There is no open area or drainage. Musculoskeletal: The patient has no evidence of calf tenderness, no pitting edema, symmetrical pulses noted bilaterally Neurological: A&O, normal speech Psychiatric: Cooperative Constitutional Vital Signs, click to edit/add: Last Vital Signs Temp 98.2 F 02/11/24 12:30 Pulse 111 H 02/11/24 12:30 Resp 18 02/11/24 12:30 BP 118/83 02/11/24 18:00 Pulse Ox 99 02/11/24 12:30 O2 Del Method Room Air 02/11/24 12:30 Course Vital Signs Vital signs: Vital Signs Temperature 98.2 F 02/11/24 12:30 Pulse Rate 111 H 02/11/24 12:30 Respiratory Rate 18 02/11/24 12:30 Blood Pressure 128/84 02/11/24 12:30 Pulse Oximetry 99 02/11/24 12:30 Oxygen Delivery Method Room Air 02/11/24 12:30 Temperature 98.2 F 02/11/24 12:30 Pulse Rate 111 H 02/11/24 12:30 Respiratory Rate 18 02/11/24 12:30 Blood Pressure 118/83 02/11/24 18:00 Pulse Oximetry 99 02/11/24 12:30 Oxygen Delivery Method Room Air 02/11/24 12:30 Medical Decision Making [facility] Narrative 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 Upon arrival he was given IV Zosyn, vancomycin, and clindamycin. CAT scan report is reviewed and I have spoken to Dr. Paulino at [facility] at the family's request and the patient will be transferred there. We are going to transfer of the patient from our emergency department to their emergency department have spoken to their emergency department attending as well. He is hemodynamically stable and agreeable for transfer. Findings are discussed thoroughly with the patient and his family. Differential Diagnosis Differential Diagnosis: Cellulitis, abscess, Stefani's gangrene Lab Data Lab results reviewed: Yes I reviewed the patient's lab results Labs: Lab Results 02/11/24 Range/Units 12:44 WBC 22.6 H (4.0-11.0) 10^3/uL RBC 4.68 L (4.70-6.10) 10^6/uL Hgb 14.5 (14.0-18.0) g/dL Hct 42.3 (42.0-54.0) % MCV 90.4 (80.0-94.0) fL MCH 31.0 (25.9-34.0) pg MCHC 34.3 (29.9-35.2) g/dL RDW 13.4 (11.0-15.0) % Plt Count 226 (150-450) 10^3/uL MPV 11.0 (9.5-13.5) fL Seg Neuts % (Manual) 90.0 H (43.0-75.0) Lymphocytes % (Manual) 9.0 L (20.5-60.0) % Monocytes % (Manual) 1.0 L (1.7-12.0) % Eosinophils % (Manual) 0.0 L (0.9-7.0) % Basophils % (Manual) 0.0 L (0.2-2.0) % Neutrophils # (Manual) 20.34 H (1.4-6.5) 10^3/uL Lymphocytes # (Manual) 2.03 (1.20-3.80) 10^3/uL Monocytes # (Manual) 0.22 L (0.30-0.80) 10^3/uL Eosinophils # (Manual) 0.00 (0.00-0.70) 10^3/uL Basophils # (Manual) 0.00 (0.00-0.10) 10^3/uL Sodium 131 L (136-145) mmol/L Potassium 3.9 (3.5-5.1) mmol/L Chloride 95 L (98-107) mmol/L Carbon Dioxide 28.2 (21.0-32.0) mmol/L Anion Gap 11.7 BUN 31.0 H (7.0-18.0) mg/dL Creatinine 1.37 H (0.70-1.30) mg/dL Est GFR ( Amer) >60 (>=60 mL/min/1.73m^2) Est GFR (Non-Af Amer) 54 L (>=60 mL/min/1.73m^2) BUN/Creatinine Ratio 22.6 Glucose 397 H (74-106) mg/dL Lactate 1.8 (0.4-2.0) mmol/L Calcium 8.7 (8.5-10.1) mg/dL Imaging Data CT pelvis: Radiologist's impression: ITS Impressions Pelvis CT 02/11/24 12:37 IMPRESSION: Fluid collection in the right hemiscrotum measuring up to 5.1 cm, most consistent with an abscess. There are also a few foci of air within the subcutaneous fat of the right hemiscrotum, concerning for a gas producing infection. Thickened scrotal wall. 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 No intraperitoneal involvement. No fluid, foci of air, or inflammatory stranding within the intraperitoneal space. LEONEL OLSON identified critical findings at 5:40 PM EST and discussed critical findings with KAYLEIGH WOLF at 5:55 PM EST. Electronically authenticated by: LEONEL OLSON Date: 02/11/2024 18:07 Critical Care Time Critical Care Time Critical Care Time: Yes Total Critical Care Time: 35 Attestation: Due to the high probability of sudden and clinically significant deterioration in the patient's condition he/she required the highest level of my preparedness to intervene urgently I provided critical care time including documentation time, medication orders and management, reevaluation, vital sign assessment, ordering and reviewing of lab tests, ordering and reviewing of x-ray studies, and admission orders. Aggregate critical care time is 35 minutes including only time during which I was engaged in work directly related to his/her care and did not include time spent treating other patients simultaneously. Discharge Plan Discharge Chief Complaint: Skin/Abscess/Foreign Body Clinical Impression: Stefani gangrene Patient Disposition: [facility] Time of Disposition Decision: 18:37 Discharge Location: [facility] Condition: Fair Mode of Transportation: EMS
--- OUTSIDE RECORDS SUMMARY | 2024-02-11 12:46 | XMS_ITS | CCD ---
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 CURRENT USE OF ASPIRIN] Onset: 12-04-2019 Episodic Other aftercare (1 source) Other assisted (current) drug therapy; Translations: [OTH RESIDENTIAL CURRENT DRUG THERAPY] Onset: 12-04-2019 Episodic Other [...] 12-02-2019 BASO # 0.1 103/ul Normal 0.0-0.1 [facility] Comment on above: Performed By: #### C BC #### [facility] [address] [place] [address] Ninoska Krys Basophils/100 WBC (Bld) 0.7 % Normal 0.2-2.0 [facility] Comment on above: Performed By: #### C BC #### [facility] [address] [place] [address] Ninoska Krys EO # 0.3 103/ul Normal 0.0-0.7 [facility] Comment on above: Performed By: #### C BC #### [facility] [address] [place] [address] Ninoska Krys Eosinophils/100 WBC (Bld) 2.2 % Normal 0.9-7.0 [facility] Comment on above: Performed By: #### C BC #### [facility] [address] [place] [address] Ninoska Krys Erythrocyte distribution width (RBC) [Ratio] 13.8 % Normal 11.0-15.0 [facility] Comment on above: Performed By: #### C BC #### [facility] [address] [place], [place] [id number] Ninoska Krys Hematocrit (Bld) [Volume fraction] 47.2 % Normal 42.0-54.0 [facility] Comment on above: Performed By: #### C BC #### [facility] [address] [place], [place] [id number] Ninoska Krys Hemoglobin (Bld) [Mass/Vol] 16.0 g/dL Normal 14.0-18.0 [facility] Comment on above: Performed By: #### C BC #### [facility] [address] [place], [place] [address] Ninoskaesteban Marcano IG # 0.06 10e3/ul Critically high 0.00-0.03 [facility] Comment on above: Performed By: #### C BC #### [facility] [address] [place] [address] Ninoska Krys IG % 0.4 % Normal 0.0-0.5 [facility] Comment on above: Performed By: #### C BC #### [facility] [address] [place] [address] Ninoska Krys LYMPH # 3.1 103/ul Normal 1.2-3.8 [facility] Comment on above: Performed By: #### C BC #### [facility] [address] [place] [address] Ninoska Krys Lymphocytes/100 WBC (Bld) 20.8 % Normal 20.5-60.0 [facility] Comment on above: Performed By: #### C BC #### [facility] [address] [place] [address] Ninoskaesteban Marcano MANUAL DIFF REQ NO Normal [facility] Comment on above: Performed By: #### C BC #### [facility] [address] [place] [address] Ninoskaesteban Snowdenen MCH (RBC) [Entitic mass] 30.4 pg Normal 25.9-34.0 [facility] Comment on above: Performed By: #### C BC #### [facility] [address] [place] [address] Ninoskaesteban Marcano MCHC (RBC) [Mass/Vol] 33.9 g/dL Normal 29.9-35.2 [facility] Comment on above: Performed By: #### C BC #### [facility] [address] [place] [address] Ninoska Krys MCV (RBC) [Entitic vol] 89.6 fL Normal 80.0-94.0 [facility] Comment on above: Performed By: #### C BC #### [facility] [address] [place], [place] [address] Ninoska Krys MONO # 1.6 103/ul Critically high 0.3-0.8 [facility] Comment on above: Performed By: #### C BC #### [facility] [address] [place], [place] [address] Ninoska Krys Monocytes/100 WBC (Bld) 11.0 % Normal 1.7-12.0 [facility] Comment on above: Performed By: #### C BC #### [facility] [address] [place] [id number] Ninoska Krys NEUT # 9.7 103/ul Critically high 1.4-6.5 [facility] Comment on above: Performed By: #### C BC #### [facility] [address] [place] [id number] Ninoska Krys Neutrophils/100 WBC (Bld) 64.9 % Normal 43.0-75.0 [facility] Comment on above: Performed By: #### C BC #### [facility] [address] [place], [place] [address] Ninoska Krys Platelet mean volume (Bld) [Entitic vol] 10.7 fL Normal 9.5-13.5 [facility] Comment on above: Performed By: #### C BC #### [facility] [address] [place] [id number] Ninoska Krys PLT 217 103/ul Normal 150-450 [facility] Comment on above: Performed By: #### C BC #### [facility] [address] [place] [id number] Ninoska Krys RBC 5.27 106/ul Normal 4.70-6.10 [facility] Comment on above: Performed By: #### C BC #### [facility] [address] [place] [id number] Ninoska Krys WBC 14.9 103/ul Critically high 4.0-11.0 [facility] Comment on above: Performed By: #### C BC #### [facility] [address] [place], [place] [address] Ninoska Krys CT PELVIS W CONon 12-02-2019 [...] MAYELIN ELLIOTT Date: 2019-12-02 14:21 Normal [facility] PROF CHEM 8 (BAS METB)on Anion gap [Moles/Vol] 11.3 mmol/L Normal [facility] Comment on above: Performed By: #### B MP #### [facility] [address] [place], [place] [address] Ninoska Krys Calcium [Mass/Vol] 8.9 mg/dL Normal 8.4-10.2 [facility] Comment on above: Performed By: #### B MP #### [facility] [address] [place] [address] Ninoska Krys Chloride [Moles/Vol] 100 mmol/L Normal 98-107 [facility] Comment on above: Performed By: #### B MP #### [facility] [address] [place], [place] [address] Ninoska Krys CO2 [Moles/Vol] 29.2 mmol/L Normal 22.0-30.0 [facility] Comment on above: Performed By: #### B MP #### [facility] [address] [place] [address] Ninoska Krys Creatinine [Mass/Vol] 1.12 mg/dL Normal 0.66-1.25 [facility] Comment on above: Performed By: #### B MP #### [facility] [address] [place], [place] [address] Ninoska Krys EGFR-AF MOLDOVAN >60 Normal >=60 [facility] Comment on above: Performed By: #### B MP #### [facility] [address] [place], [place] [address] Ninoska Krys EGFR-NON AF MOLDOVAN >60 Normal >=60 [facility] Comment on above: Performed By: #### B MP #### [facility] [address] [place], [place] [address] Ninoska Krys Glucose [Mass/Vol] 200 mg/dL Critically high 74-106 T [facility] Comment on above: Performed By: #### B MP #### [facility] [address] [place], [place] [address] Ninoska Krys Potassium [Moles/Vol] 3.5 mmol/L Normal 3.4-5.0 [facility] Comment on above: Performed By: #### B MP #### [facility] [address] [place] [address] Ninoska Krys Sodium [Moles/Vol] 137 mmol/L Normal 137-145 [facility] Comment on above: Performed By: #### B MP #### [facility] [address] [place] [address] Ninoska Krys Urea nitrogen [Mass/Vol] 14.0 mg/dL Normal 9.0-20.0 [facility] Comment on above: Performed By: #### B MP #### [facility] [address] [place] [address] Ninoska Krys Urea nitrogen/Creatinin e [Mass ratio] 12.5 mg/mg Normal [facility] Comment on above: Performed By: #### B MP #### [facility] [address] [place] [address] Ninoska Krys FOOT RIGHT 3 [facility] 9 FOOT RIGHT 3 [facility] Department of Radiology [address] [place] [phone] Patient Name: DELMIS DUGGAN : 1970 [...] RUBIO PA-C , Exam: FOOT RIGHT 3 [facility] FOOT RIGHT 3 S 03/09/2019 10:22 AM [...] alignment Electronically signed by:Garett Joseph. Transcribed by: [email or web address], User Resident: Electronically Signed by: GARETT JOSEPH @ 03/09/2019 12:30 PM Normal [facility] Comment on above: Order Comment: , , = ========= , Ordering Provider - DURGA RUBIO PA-C , FOOT RIGHT 3 [facility] 9 FOOT RIGHT 3 [facility] Department of Radiology [address] [place] [phone] Patient Name: DELMIS DUGGAN : 1970 [...] RUBIO PA-C , Exam: FOOT RIGHT 3 [facility] FOOT RIGHT 3 S 12/15/2018 10:10 AM [...] study Electronically signed by:Garett Joseph. Transcribed by: [email or web address], User Resident: Electronically Signed by: GARETT JOSEPH @ 12/15/2018 06:18 PM Normal [facility] Comment on above: Order Comment: , , = ========= , Ordering Provider - DURGA RUBIO PA-C , FOOT RIGHT 3 [facility] 9 FOOT RIGHT 3 [facility] Department of Radiology [address] [place] [phone] Patient Name: DELMIS DUGGAN : 1970 [...] RUBIO PA-C , Exam: FOOT RIGHT 3 [facility] FOOT RIGHT 3 S 10/11/2018 2:30 PM [...] fractures Electronically signed by:Garett Joseph. Transcribed by: [email or web address], User Resident: Electronically Signed by: GARETT JOSEPH @ 10/11/2018 02:38 PM Normal [facility] Comment on above: Order Comment: , , = ========= , Ordering Provider - DURGA RUBIO PA-C , FOOT RIGHT 3 [facility] 9 FOOT RIGHT 3 [facility] Department of Radiology [address] [place] [phone] Patient Name: DELMIS DUGGAN : 1970 Sex: M Age: Race: White Pt. Location: Patient Status: Ordered Date: 08/07/2018 3:00:00 PM Completed Date: 08/07/2018 03:00 PM Requesting Provider: DURGA RUBIO Attending Provider: Report Copy To: Signs & Symptoms: S92.301D Fx unsp metatarsal bone(s), r foot, subs for fx w routn heal I10 History: [place] Comments: , , , Ordering Provider - DURGA RUBIO PA-C , Exam: FOOT RIGHT 3 [facility] FOOT RIGHT 3 S 08/07/2018 3:00 PM [...] alignment Electronically signed by:Garett Joseph. Transcribed by: [email or web address], User Resident: Electronically Signed by: GARETT JOSEPH @ 08/07/2018 03:30 PM Normal [facility] Comment on above: Order Comment: , , = ========= , Ordering Provider - DURGA RUBIO PA-C , FOOT RIGHT 3 [facility] 9 FOOT RIGHT 3 [facility] Department of Radiology [address] [place] [phone] Patient Name: DELMIS DUGGAN : 1970 Sex: M Age: Race: White Pt. Location: 84 Patient Status: Ordered Date: 07/03/2018 1:45:00 PM Completed Date: 07/03/2018 01:48 PM Requesting Provider: DURGA RUBIO Attending Provider: Report Copy To: Signs & Symptoms: S92.301D Fx unsp metatarsal bone(s), r foot, subs for fx w routn heal I10 History: [place] Comments: , , , Ordering Provider - DURGA RUBIO PA-C , Exam: FOOT RIGHT 3 [facility] FOOT RIGHT 3 [facility] 07/03/2018 1:48 PM EST SIGNS AND SYMPTOMS: [...] metatarsal Electronically signed by:Garett Joseph. Transcribed by: [email or web address], User Resident: Electronically Signed by: GARETT JOSEPH @ 07/03/2018 02:07 PM Normal [facility] Comment on above: Order Comment: , , = ========= , Ordering Provider - DURGA RUBIO PA-C , FOOT RIGHT 3 [facility] 9 FOOT RIGHT 3 [facility] Department of Radiology [address] [place] [phone] Patient Name: DELMIS DUGGAN : 1970 [...] foot Electronically signed by:Garett Joseph. Transcribed by: [email or web address], User Resident: Electronically Signed by: GARETT JOSEPH @ 06/05/2018 03:00 PM Normal [facility] Comment on above: Order Comment: , , = ========= , Ordering Provider - DURGA RUBIO PA-C , FOOT RIGHT 3 Son 9 FOOT RIGHT 3 [facility] Department of Radiology [address] [place] [phone] Patient Name: DELMIS DUGGAN : 1970 [...] RUBIO PA-C , Exam: FOOT RIGHT 3 [facility] FOOT RIGHT 3 S 05/10/2018 1:47 PM [...] injury Electronically signed by:Garett Joseph. Transcribed by: [email or web address], User Resident: Electronically Signed by: GARETT JOSEPH @ 05/10/2018 02:09 PM Normal [facility] Comment on above: Order Comment: , , = ========= , Ordering Provider - DURGA RUBIO PA-C , Vital Signs Date Time Vital Sign Value Performing Clinician Facility 02-24-2023 17:10-0400 Body height 198.12 cm Serg Carpio Other [facility] Other 02-24-2023 17:10-0400 Body mass index (BMI) [Ratio] 34.43 kg/m2 Serg Carpio Other [facility] Other 02-24-2023 17:10-0400 Body temperature 98.2 [degF] Serg Carpio Other [facility] Other 02-24-2023 17:10-0400 Body weight 135.17 kg Serg Carpio Other [facility] Other 02-24-2023 17:10-0400 Diastolic blood pressure 102 mm[Hg] Serg Carpio Other [facility] Other 02-24-2023 17:10-0400 Respiratory rate 18 /min Serg Aguillon [facility] Other 02-24-2023 17:10-0400 SaO2% (BldA) [Mass fraction] 96 % Serg Carpio Other [facility] Other 02-24-2023 17:10-0400 Systolic blood pressure 143 mm[Hg] Serg Carpio Other [facility] Other Encounters Encounter Date Encounter Type Care [...] 02-24-2023 End: 02-24-2023 ambulatory Serg Carpio Other [facility] Other Start: 02-24-2023 Office outpatient visit 15 minutes Serg Carpio [facility] Start: 10-27-2020 End: [...] Facility:[facility] Payers Date Payer Category Payer Unknown [id number] 2.16.8 [id number] 1970 Unknown [id number] 2.16.84 [id number] 1970 Unknown [id number] 2.16.84 0.1.125058.3.579.2.593 1970 Unknown [id number] 2.16.84 0.1.203838.3.579.2.593 1970 Unknown [id number] 2.16.84 0.1.853124.3.579.2.593 1970 Unknown [id number] 2.16.84 0.1.494723.3.579.2.593 1970 Unknown [id number] 2.16.84 0.1.745719.3.579.2.593 1970 Unknown [id number] 2.16.84 0.1.648685.3.579.2.593 1970 Unknown [id number] 2.16.84 0.1.404836.3.579.2.593 1970 Unknown [id number] 2.16.84 0.1.793366.3.579.2.593 1970 Unknown [id number] 2.16.84 0.1.566883.3.579.2.1259 1971 Unknown [id number] 2.16.84 0.1.222087.3.579.2.1259 1971 Unknown [id number] 2.16.84 0.1.349912.3.579.2.1259 1970 Unknown [id number] 2.16.84 0.1.322864.3.579.2.1258 1970 Unknown [id number] 2.16.84 0.1.482418.3.579.2.1258 1970 Unknown [id number] 2.16.84 0.1.374382.3.579.2.1258 1970 Unknown [id number] 2.16.84 0.1.294037.3.579.2.1258 1959 Unknown 1959 Unknown [id number] Social History Date Type Detail Facility Unknown if ever smoked [facility] Other Sex Assigned At Sex Assigned At Bir th [facility] Other Medical Equipment Procedure Code Equipment Code Equipment Original Text Equi pment Identifier Dates OneTouch Delica Plus [id number] - Evaluation note 02-24-2023 Note Date & [...] between each use, changing ear plugs frequently. [facility] Other Clinical Note 10-27-2020 Note Date & [...] by: CHARLI MOISE Date: 2020-10-27 17:12 [facility] Clinical Note 09-29-2020 Note Date & [...] by: IRIS BRITO Date: 2020-09-29 15:57 [facility] Clinical Note 01-28-2020 Note Date & [...] by: IRIS BRITO Date: 2020-01-28 10:11 [facility] Clinical Note 01-10-2020 Note Date & [...] authenticated by: IRIS BRITO Date: 2020-01-10 13:04 [facility] Clinical Note 12-20-2019 Note Date [...] by: CHARLI MOISE Date: 2019-12-20 10:19 [facility] Clinical Note 11-22-2019 Note Date & [...] by: IRIS BRITO Date: 2019-11-22 09:41 [facility] History general Narrative - Reported Note Date & Type Note Facility History general Narrative - Reported Type Medical History hypertension Medical History Hypothyroidism Surgical History Foot Surgery x4 right Surgical History knee surgery right Surgical History hernia repair Surgical History shoulder surgery bilateral Hospitalization History see above [facility] Other Summary Purpose Family History No Family History Records FoundNo Family History Records FoundNo Family History Records Found Advance Directives No Advanced Directives Records FoundNo Advanced Directives Records FoundNo Advanced Directives Records Found Additional Source Comments (unrecognized sect ion and content) No Status Records FoundNo Status Records FoundNo Status Records Found INFORMATION SOURCE (unrecogn ized section and content) DATE CREATED AUTHOR 04/30/2019 [facility] DATE CREATED AUTHOR AUTHOR'S ORGANIZ ATION 11/01/2020 [facility] DATE CREATED AUTHOR AUTHOR'S ORGANIZ ATION 02/02/2024 [facility] EPIC REASON FOR VISIT (unrecogniz [...] BE BASED ON THE PRIMARY CLINICAL RECORDS. [employer] [facility]. provides no warranty or guarantee of the accuracy or completeness of information in this document.
[2024-02-11 13:11] LABS: Hematocrit 42.3 % (42.0-54.0); Hemoglobin 14.5 g/dL (14.0-18.0); Mean Corpuscular HGB Conc 34.3 g/dL (29.9-35.2); Mean Corpuscular Volume 90.4 fL (80.0-94.0); Platelet Count 226 10^3/uL (150-450); Red Blood Count 4.68 10^6/uL (4.70-6.10); Red Cell Distribution Width 13.4 % (11.0-15.0); White Blood Count 22.6 10^3/uL (4.0-11.0)
[2024-02-11 13:26] LABS: Lactate/Lactic Acid 1.8 mmol/L (0.4-2.0)
[2024-02-11 13:30] LABS: Anion Gap 11.7; BUN Creatinine Ratio 22.6; Calcium 8.7 mg/dL (8.5-10.1); Carbon Dioxide 28.2 mmol/L (21.0-32.0); Chloride 95 mmol/L (98-107); Estimated GFR (African America >60 (>=60 mL/min/1.73m^2); Estimated GFR (Non-African Ame 54 (>=60 mL/min/1.73m^2); Glucose 397 mg/dL (74-106); Potassium 3.9 mmol/L (3.5-5.1); Sodium 131 mmol/L (136-145)
[2024-02-11 14:01] LABS: Lymphocytes Absolute Manual 2.03 10^3/uL (1.20-3.80); Monocytes Absolute Manual 0.22 10^3/uL (0.30-0.80); Segmented Neut Absolute Manual 20.34 10^3/uL (1.4-6.5)
[2024-02-11] MEDS: CLINDAMYCIN PHOSPHATE/D5W 900 MG/50 ML PREMIX 100 MG IV (14:28)
[2024-02-11] MEDS: PIPERACILLIN SODIUM/TAZOBACTAM 3.375 GM in 0.9 % SODIUM CHLORIDE 50 ML IV (14:54)
[2024-02-11] MEDS: VANCOMYCIN HCL 2,000 MG in 0.9 % SODIUM CHLORIDE 500 ML 250 MG IV (15:46)
[2024-02-11 19:42] LABS: Bilirubin Urine NEGATIVE (NEGATIVE); Blood Urine MODERATE (NEGATIVE); Clarity Urine CLEAR (CLEAR); Color Urine LT. YELLOW (YELLOW); Glucose Urine UA >=1000 mg/dL (NEGATIVE); Ketones Urine NEGATIVE (NEGATIVE); Leukocyte Esterase Urine NEGATIVE (NEGATIVE); Nitrite Urine NEGATIVE (NEGATIVE); Protein Urine NEGATIVE (NEG/TRACE); Urobilinogen Urine 0.2 EU/dL (0.2-1.0)
[2024-02-11 19:53] LABS: WBC Urine 0-2 #/HPF (NONE SEEN)
[2024-02-11 19:54] LABS: Bacteria Urine TRACE #/HPF (NONE SEEN); Cast Seen? NONE SEEN #/LPF (NONE SEEN); Crystals Seen? None Seen #/HPF (None Seen); Mucus Urine NONE SEEN (NONE SEEN); Squamous Epithelial Cell Urine NONE SEEN #/LPF (NONE/RARE)
== END 2024-02-11 21:22 | disposition short-term general hospital (02) ==
PROVIDERS: Emergency Provider Emergency Medicine; PCP Internal Medicine
DX: N49.3 Fournier gangrene (principal)
CPT/HCPCS: 36415; 72193; 80048; 81001; 83605; 85007; 85027; 87040; 96365; 96366; 96367; 99285; J0736; J2543; J3370; Q9966

== ENCOUNTER 2024-05-17 10:14 | Emergency (ER) | payer OTHER, SELFPAY ==
[2024-05-17] VITALS (20 sets, daily range): BP systolic 117–156; BP diastolic 82–128; PULSE 76–103; TEMP 36.6; O2SAT 86–98; BMI 32.9
[2024-05-17 10:34] LABS: Glucometer 206 mg/dL (74-106)
--- NOTE | 2024-05-17 10:46 | ECG_ITS ---
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
--- NOTE | 2024-05-17 10:47 | CT_ITS ---
The [address] [address] Patient Name: DELMIS DUGGAN MRN: [id number] date: 1970 Sex: M Assigned Patient Location: ER Current Patient Location: ER Accession/Order Number: [id number] Exam Date: 05/17/2024 11:00 Report Date: 05/17/2024 11:39 At the request of: DOMINGO TURNER Procedure: CT head/brain wo con HEAD CT WITHOUT CONTRAST: 05/17/2024 11:00 AM EST Clinical Data: vertigo Comparison: No previous Unenhanced axial data from base to vertex. INTRA-AXIAL: No acute hemorrhage. No acute cerebral infarct is evident. There There is a infarct in the inferior aspects right side of the cerebellum measuring 45 mm in maximum size. There is some extension to involve aspects of the vermis. No obvious involvement of the brainstem. Mild mass effect upon right posterolateral margins of the fourth ventricle. Further superiorly there is a second 17 mm right cerebellar infarct which is better defined and wedge-shaped. There are a few other small surrounding chronic infarcts in this region. EXTRA-AXIAL: No acute hemorrhage. No focal fluid collection. There is calcific ASVD involving the intracranial vertebrals and both ICAs. BRAIN VOLUME: Unremarkable for age. VENTRICLES: No hydrocephalus PARANASAL SINUSES: No air-fluid levels in the included aspects. MASTOIDS: Clear. CALVARIUM: No acute finding. EXTRACALVARIAL: No acute findings. Some DJD at the TMJs, right greater than left. CT/CT head/brain wo con IMPRESSION: 1. No evidence of acute intracranial hemorrhage. 2. Area of infarction in the inferior aspects of the right side of the cerebellum in the expected distribution of right PICA. This is likely acute. There is mild mass effect upon a portion of the right lateral ventricle but there is no hydrocephalus. Follow-up studies in this regard will be useful. 3. Suspect other chronic right cerebellar infarcts. All CT scans at this facility use dose modulation, iterative reconstruction, and/or weight based dosing when appropriate to reduce radiation dose to as low as reasonably achievable. Electronically authenticated by: IESHA CHRISTIAN Date: 05/17/2024 11:39
[2024-05-17 10:59] LABS: Basophils Absolute Auto 0.1 10^3/uL (0.0-0.1); Basophils Percent Auto 0.9 % (0.2-2.0); Eosinophils Absolute Auto 0.3 10^3/uL (0.0-0.7); Eosinophils Percent Auto 2.5 % (0.9-7.0); Hematocrit 49.3 % (42.0-54.0); Hemoglobin 16.7 g/dL (14.0-18.0); Immature Granulocytes Abs Auto 0.03 10^3/uL (0.00-0.03); Immature Granulocytes Pct Auto 0.2 % (0.0-0.5); Lymphocytes Absolute Auto 3.4 10^3/uL (1.2-3.8); Lymphocytes Percent Auto 26.9 % (20.5-60.0); Mean Corpuscular HGB Conc 33.9 g/dL (29.9-35.2); Mean Corpuscular Hemoglobin 29.7 pg (25.9-34.0); Mean Corpuscular Volume 87.7 fL (80.0-94.0); Mean Platelet Volume 10.9 fL (9.5-13.5); Monocytes Absolute Auto 1.3 10^3/uL (0.3-0.8); Monocytes Percent Auto 10.5 % (1.7-12.0); Neutrophils Absolute Auto 7.4 10^3/uL (1.4-6.5); Platelet Count 266 10^3/uL (150-450); Red Blood Count 5.62 10^6/uL (4.70-6.10); Red Cell Distribution Width 13.3 % (11.0-15.0); White Blood Count 12.6 10^3/uL (4.0-11.0)
[2024-05-17] MEDS: MECLIZINE HCL 12.5 MG TABLET 25 MG PO (11:13)
[2024-05-17] MEDS: 0.9 % SODIUM CHLORIDE 1,000 ML 999 ML IV (11:14)
[2024-05-17] MEDS: ONDANSETRON PF 4 MG/2 ML VIAL IV (11:14)
--- NOTE | 2024-05-17 11:22 | PC.NURSE ---
pt back from radiology at this time. this RN hooking pt back up to monitor and VS machine. medications given, see MAR. Pt yelling at RN saying I don't want to keep this damn blood pressure cuff on I don't like it!'. This RN tells pt that we are only wanting to get one more reading for documentation purposes as well as pt monitoring. Pt remains angry at this time and states well if you aren't in here at 11:30 I'm taking blood pressure cuff off myself! This RN says that is fine. Pt now states and why do I even need these fluids?! Explained to pt that IVF may help his symptoms including his dizziness since he may be dehydrated from vomiting. Pt continues to be verbally rude to this RN, as this RN walks out of room. Informed Dr Mena of this scenerio.
[2024-05-17 11:24] LABS: Anion Gap 14.1; BUN Creatinine Ratio 18.4; Carbon Dioxide 29.5 mmol/L (21.0-32.0); Chloride 98 mmol/L (98-107); Estimated GFR (African America >60 (>=60 mL/min/1.73m^2); Estimated GFR (Non-African Ame >60 (>=60 mL/min/1.73m^2); Glucose 215 mg/dL (74-106); Potassium 3.6 mmol/L (3.5-5.1); Sodium 138 mmol/L (136-145); Troponin I High Sensitivity 5.9 pg/mL (4.0-76.1)
--- NOTE | 2024-05-17 11:33 | ED_ITS ---
HPI - Dizziness General Chief Complaint: Dizziness Stated Complaint: DIZZINESS, NAUSEA Time Seen by Provider: 05/17/24 10:29 Source: patient Mode of arrival: Wheelchair Limitations: no limitations History of Present Illness HPI Narrative: 54-year-old male to the emergency department with chief complaint of dizziness. Patient reports that he has had intermittently for the last 3 days room spinning vertigo. Seems to only occur in the morning. It occurred shortly after waking up. He has never had this before. He reports there is nausea associated. It typically resolves and he goes about his day. He denies any vision change, numbness, weakness, tingling, difficulty speaking or walking. No recent illness. No ear pain. No change in hearing. No headache. He reports that he had it again this morning and thought 3 days was enough and he should get it checked out. Symptoms near completely resolved prior to arrival although he continues to have a small amount of dizziness and nausea. Related Data Home Medications ?Medication ?Instructions ?Recorded ?Confirmed amlodipine 10 mg tablet 10 mg PO DAILY 12/19/23 05/17/24 levothyroxine 100 mcg tablet 100 mcg PO DAILY 12/19/23 05/17/24 metoprolol succinate 25 mg 25 mg PO DAILY 12/19/23 05/17/24 tablet,extended release 24 hr rosuvastatin 10 mg tablet 10 mg PO DAILY 12/19/23 05/17/24 valsartan 320 1 tab PO DAILY 12/19/23 05/17/24 mg-hydrochlorothiazide 25 mg tablet metformin 1,000 mg tablet 1,000 mg PO DAILY 05/17/24 05/17/24 Allergies Allergy/AdvReac Type Severity Reaction Status Date / Time No Known Drug Allergies Allergy Verified 12/19/23 11:06 Review of Systems ROS Status of ROS 10 or more systems reviewed and unremark able except as noted in history and below PFSH PFSH Social History Little interest or pleasure in doing things: not at all Feeling down, depressed, or hopeless: not at all Exam Narrative Exam Narrative: VITALS: I have reviewed the triage vital signs. GENERAL: Well developed, well appearing adult in no acute distress. NEURO: Alert and oriented x4. Moves all extremities. Face is symmetric and expressive. Cranial nerves II through XII grossly intact as tested. Muscular strength and sensation grossly intact upper and lower extremities bilaterally. No dysarthria. No aphasia. No ataxia. Normal gait. NIHSS 0. EYES: PERRL. Subtle left beating horizontal nystagmus. No skew. No scleral icterus or conjunctival injection. No discharge. HENT: Normocephalic, atraumatic. Hearing is grossly intact. Nares grossly patent and without discharge. Mucous membranes moist. NECK: No JVD. Patient moves neck without restriction. CARDIO: Rhythm regular. Normal rate. No murmur, rub, or gallop. Pulses equal bilaterally in the upper and lower extremity. No lower extremity edema. PULM: Lungs clear to auscultation in all galindo. No wheezes, rales, or rhonchi. No conversational dyspnea. No splinting, stridor, or accessory muscle use. GI/: Abdomen is soft and non-tender. Normoactive bowel sounds. EXTREMITIES: Symmetric muscle bulk. No joint swelling. No clubbing, cyanosis, or deformity. SKIN: Warm and dry. Normal turgor. No rash or lesions appreciated. PSYCH: Mood, affect, and interaction is appropriate to the setting. Constitutional Vital Signs, click to edit/add: Last Vital Signs Temp 97.9 F 05/17/24 10:21 Pulse 78 05/17/24 13:01 Resp 10 L 05/17/24 13:01 BP 156/83 H 05/17/24 13:01 Pulse Ox 90 L 05/17/24 13:01 O2 Del Method Room Air 05/17/24 10:21 Course Vital Signs Vital signs: Vital Signs Temperature 97.9 F 05/17/24 10:21 Pulse Rate 101 H 05/17/24 10:21 Respiratory Rate 18 05/17/24 10:21 Blood Pressure 117/82 05/17/24 10:21 Pulse Oximetry 97 05/17/24 10:21 Oxygen Delivery Method Room Air 05/17/24 10:21 Temperature 97.9 F 05/17/24 10:21 Pulse Rate 78 05/17/24 13:01 Respiratory Rate 10 L 05/17/24 13:01 Blood Pressure 156/83 H 05/17/24 13:01 Pulse Oximetry 90 L 05/17/24 13:01 Oxygen Delivery Method Room Air 05/17/24 10:21 MDM - Dizziness Medical Records Attestation: I reviewed the patient's medical records. Lab Data Attestation: I reviewed the patient's lab results. Labs: Lab Results 05/17/24 05/17/24 05/17/24 Range/Units 10:28 10:31 13:30 WBC 12.6 H (4.0-11.0) 10^3/uL RBC 5.62 (4.70-6.10) 10^6/uL Hgb 16.7 (14.0-18.0) g/dL Hct 49.3 (42.0-54.0) % MCV 87.7 (80.0-94.0) fL MCH 29.7 (25.9-34.0) pg MCHC 33.9 (29.9-35.2) g/dL RDW 13.3 (11.0-15.0) % Plt Count 266 (150-450) 10^3/uL MPV 10.9 (9.5-13.5) fL Neut % (Auto) 59.0 (43.0-75.0) % Lymph % (Auto) 26.9 (20.5-60.0) % [place] % (Auto) 10.5 (1.7-12.0) % Eos % (Auto) 2.5 (0.9-7.0) % Baso % (Auto) 0.9 (0.2-2.0) % Neut # (Auto) 7.4 H (1.4-6.5) 10^3/uL Lymph # (Auto) 3.4 (1.2-3.8) 10^3/uL [place] # (Auto) 1.3 H (0.3-0.8) 10^3/uL Eos # (Auto) 0.3 (0.0-0.7) 10^3/uL Baso # (Auto) 0.1 (0.0-0.1) 10^3/uL Abs Immat Gran (auto) 0.03 (0.00-0.03) 10^3/uL Imm/Tot Granulo (auto) 0.2 (0.0-0.5) % Sodium 138 (136-145) mmol/L Potassium 3.6 (3.5-5.1) mmol/L Chloride 98 (98-107) mmol/L Carbon Dioxide 29.5 (21.0-32.0) mmol/L Anion Gap 14.1 BUN 21.0 H (7.0-18.0) mg/dL Creatinine 1.14 (0.70-1.30) mg/dL Est GFR ( Amer) >60 (>=60 mL/min/1.73m^2) Est GFR (Non-Af Amer) >60 (>=60 mL/min/1.73m^2) BUN/Creatinine Ratio 18.4 Glucose 215 H (74-106) mg/dL Calcium 9.0 (8.5-10.1) mg/dL Troponin I High Sens 5.9 (4.0-76.1) pg/mL Urine Color Lt. yellow (YELLOW) Urine Clarity Clear (CLEAR) Urine pH 6.0 (5.0-9.0) Ur Specific [place] 1.015 (1.005-1.025) Urine Protein Trace (NEG/TRACE) mg/dL Urine Glucose (UA) >=1000 A (NEGATIVE) mg/dL Urine Ketones Negative (NEGATIVE) mg/dL Urine Occult Blood Moderate A (NEGATIVE) Urine Nitrite Negative (NEGATIVE) Urine Bilirubin Negative (NEGATIVE) Urine Urobilinogen 0.2 (0.2-1.0) EU/dL Ur Leukocyte Esterase Negative (NEGATIVE) POC Glucose 206 H (74-106) mg/dL Imaging Data CT scan - head: Attestation: I have reviewed the pertinent imaging results. Radiologist's impression: ITS Impressions Head CT 05/17/24 10:47 IMPRESSION: 1. No evidence of acute intracranial hemorrhage. 2. Area of infarction in the inferior aspects of the right side of the cerebellum in the expected distribution of right PICA. This is likely acute. There is mild mass effect upon a portion of the right lateral ventricle but there is no hydrocephalus. Follow-up studies in this regard will be useful. 3. Suspect other chronic right cerebellar infarcts. All CT scans at this facility use dose modulation, iterative reconstruction, and/or weight based dosing when appropriate to reduce radiation dose to as low as reasonably achievable. Electronically authenticated by: IESHA CHRISTIAN Date: 05/17/2024 11:39 Head CTA 05/17/24 11:49 IMPRESSION: 1. Left vertebral artery is dominant over the right. The left demonstrates mild disease along its proximal aspects. There is long segment disease involving its intracranial portion which at points is significant. The right vertebral demonstrates moderate narrowing along its proximal aspects. Its intracranial segment demonstrates long segment patchy disease which over a short segment is either occlusive or nearly occlusive. 2. Right PICA is patent at its origin but tapers rapidly. 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 3. 50% diameter reduction origin cervical right ICA. Long segment disease intracranial right ICA with at least one area of moderate to significant narrowing. 4. Very mild narrowing of the cervical left ICA. As on the right side intracranial portion demonstrates long segment disease with at least one area of moderate to significant narrowing. All CT scans at this facility use dose modulation, iterative reconstruction, and/or weight based dosing when appropriate to reduce radiation dose to as low as reasonably achievable. Electronically authenticated by: IESHA CHRISTIAN Date: 05/17/2024 13:23 ADDENDUM: 05/17/24 1339 IMPRESSION: 1. Left vertebral artery is dominant over the right. The left demonstrates mild disease along its proximal aspects. There is long segment disease involving its intracranial portion which at points is significant. The right vertebral demonstrates moderate narrowing along its proximal aspects. Its intracranial segment demonstrates long segment patchy disease which over a short segment is either occlusive or nearly occlusive. 2. Right PICA is patent at its origin but tapers rapidly. 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 3. 50% diameter reduction origin cervical right ICA. Long segment disease intracranial right ICA with at least one area of moderate to significant narrowing. 4. Very mild narrowing of the cervical left ICA. As on the right side intracranial portion demonstrates long segment disease with at least one area of moderate to significant narrowing. All CT scans at this facility use dose modulation, iterative reconstruction, and/or weight based dosing when appropriate to reduce radiation dose to as low as reasonably achievable. Electronically authenticated by: IESHA CHRISTIAN Date: 05/17/2024 13:37 Neck CTA 05/17/24 11:49 IMPRESSION: 1. Left vertebral artery is dominant over the right. The left demonstrates mild disease along its proximal aspects. There is long segment disease involving its intracranial portion which at points is significant. The right vertebral demonstrates moderate narrowing along its proximal aspects. Its intracranial segment demonstrates long segment patchy disease which over a short segment is either occlusive or nearly occlusive. 2. Right PICA is patent at its origin but tapers rapidly. 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 3. 50% diameter reduction origin cervical right ICA. Long segment disease intracranial right ICA with at least one area of moderate to significant narrowing. 4. Very mild narrowing of the cervical left ICA. As on the right side intracranial portion demonstrates long segment disease with at least one area of moderate to significant narrowing. All CT scans at this facility use dose modulation, iterative reconstruction, and/or weight based dosing when appropriate to reduce radiation dose to as low as reasonably achievable. Electronically authenticated by: IESHA CHRISTIAN Date: 05/17/2024 13:23 ADDENDUM: 05/17/24 1340 IMPRESSION: 1. Left vertebral artery is dominant over the right. The left demonstrates mild disease along its proximal aspects. There is long segment disease involving its intracranial portion which at points is significant. The right vertebral demonstrates moderate narrowing along its proximal aspects. Its intracranial segment demonstrates long segment patchy disease which over a short segment is either occlusive or nearly occlusive. 2. Right PICA is patent at its origin but tapers rapidly. 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 3. 50% diameter reduction origin cervical right ICA. Long segment disease intracranial right ICA with at least one area of moderate to significant narrowing. 4. Very mild narrowing of the cervical left ICA. As on the right side intracranial portion demonstrates long segment disease with at least one area of moderate to significant narrowing. All CT scans at this facility use dose modulation, iterative reconstruction, and/or weight based dosing when appropriate to reduce radiation dose to as low as reasonably achievable. Electronically authenticated by: IESHA CHRISTIAN Date: 05/17/2024 13:37 ECG Data Attestation: I personally reviewed and interpreted this ECG as follows: (Normal sinus rhythm at a rate of 95. No STEMI. Normal QTc.) Critical Care Time Critical Care Time Critical Care Time: Yes Total Critical Care Time: 35 Attestation: Critical Care Procedure Note Authorized and Performed by: Bryn Mena DO Total critical care time: 35 min Due to a high probability of clinically significant, life threatening deterioration, the patient required my highest level of preparedness to intervene emergently and I personally spent this critical care time directly and personally managing the patient. This critical care time included obtaining a history; examining the patient; pulse oximetry; ordering and review of studies; arranging urgent treatment with development of a management plan; evaluation of patient's response to treatment; frequent reassessment; and, discussions with other providers. This critical care time was performed to assess and manage the high probability of imminent, life-threatening deterioration that could result in multi-organ failure. It was exclusive of separately billable procedures and treating other patients and teaching time. Please see MDM section and the rest of the note for further information on patient assessment and treatment. Discharge Plan Discharge Chief Complaint: Dizziness Clinical Impression: Cerebellar stroke Patient Disposition: [facility] Discharge Location: [facility] Discharge location: Accepted to Dr. Hobbs Condition: Good Mode of Transportation: EMS Prescriptions / Home Meds: No Action amlodipine 10 mg tablet 10 mg PO DAILY levothyroxine 100 mcg tablet 100 mcg PO DAILY metoprolol succinate 25 mg tablet extended release 24 hr 25 mg PO DAILY rosuvastatin 10 mg tablet 10 mg PO DAILY valsartan-hydrochlorothiazide 320-25 mg tablet 1 tab PO DAILY metformin 1,000 mg tablet 1,000 mg PO DAILY Rx Instructions: with breakfast Print Language: Occitan Referrals: DELFINO CRAWLEY [Primary Care Provider] - 1 week
--- NOTE | 2024-05-17 11:49 | CT_ITS ---
The [address] [address] Patient Name: DELMIS DUGGAN MRN: [id number] date: 1970 Sex: M Assigned Patient Location: ER Current Patient Location: ER Accession/Order Number: [id number] Exam Date: 05/17/2024 12:00 Report Date: 05/17/2024 13:23 At the request of: DOMINGO TURNER Procedure: CT angio head CT ANGIOGRAPHY NECK AND HEAD: 05/17/2024 12:00 PM EST Clinical History:dizziness Comparison: None . Contrast-enhanced helically acquired data per protocol. From this dataset volumetric recons in MIP mode were generated and reviewed. 3-D images were rendered on a separate workstation. NASCET criteria were utilized. INNOMINATE: Mild disease RIGHT SUBCLAVIAN: Unremarkable RIGHT VERTEBRAL: A medium-sized blood vessel with moderate short segment disease a little distal to its origin. At the C2 level there is mild eccentric narrowing by soft disease. LEFT SUBCLAVIAN: Unremarkable LEFT VERTEBRAL: Takes its origin directly from the arch as an anatomic variation. It is a medium to good sized blood vessel. Proximally there areas of mild disease and narrowing. RIGHT CAROTID SYSTEM: CCA is widely patent. There is some ASVD at its bifurcation extending into the proximal ICA which is primarily calcific. Compared to an area distal to poststenotic dilatation the maximum diameter reduction at the origin of the ICA is 50%. High cervical ICA is unremarkable. The ECA is unremarkable. LEFT CAROTID SYSTEM: CCA is widely patent. Mild patchy soft and calcified plaque at the bifurcation extending into the origins of the ECA greater than the ICA. The proximal ICA is very mildly narrowed. The high cervical ICA is unremarkable. The ECA is mildly narrowed in a concentric manner at its origin. INTRACRANIAL: VERTEBRALS: The left is dominant over the right. It demonstrates patchy long segment disease which at points appears significant. The right demonstrates long segment patchy disease which, over a short segment is occlusive or nearly occlusive PICAs: Left is patent. The right is smaller than the left. It is patent at its origin and along its very proximal aspects. Further distally it is not seen. BASILAR : A medium sized blood vessel is widely patent. AICAs: If present are tiny. SUPERIOR CEREBELLARS: Patent. There are paired vessels on the left. POSTERIOR CEREBRALS: P1 and P2 segments are patent and symmetric. INTRACRANIAL ICAs: There is patchy long segment primarily calcific disease bilaterally. Areas of moderate to significant narrowing are suspected bilaterally. OPHTHALMIC ARTERIES: Nonobscured aspects are patent and symmetric in caliber ANTERIOR CEREBRALS: A1 segments are patent and codominant.. A2 segments are unremarkable. An upper right A2 branch is significantly narrowed on coronal recons. MIDDLE CEREBRALS: M1 segments are patent and symmetric. Insular loops are reasonably symmetric in caliber and in number P-COMMS: Not seen OTHER: None CT/CT angio head IMPRESSION: 1. Left vertebral artery is dominant over the right. The left demonstrates mild disease along its proximal aspects. There is long segment disease involving its intracranial portion which at points is significant. The right vertebral demonstrates moderate narrowing along its proximal aspects. Its intracranial segment demonstrates long segment patchy disease which over a short segment is either occlusive or nearly occlusive. 2. Right PICA is patent at its origin but tapers rapidly. 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 3. 50% diameter reduction origin cervical right ICA. Long segment disease intracranial right ICA with at least one area of moderate to significant narrowing. 4. Very mild narrowing of the cervical left ICA. As on the right side intracranial portion demonstrates long segment disease with at least one area of moderate to significant narrowing. All CT scans at this facility use dose modulation, iterative reconstruction, and/or weight based dosing when appropriate to reduce radiation dose to as low as reasonably achievable. Electronically authenticated by: IESHA CHRISTIAN Date: 05/17/2024 13:23
--- NOTE | 2024-05-17 11:49 | CT_ITS ---
The [address] [address] Patient Name: DELMIS DUGGAN MRN: [id number] date: 1970 Sex: M Assigned Patient Location: ER Current Patient Location: ER Accession/Order Number: [id number] Exam Date: 05/17/2024 12:00 Report Date: 05/17/2024 13:23 At the request of: DOMINGO TURNER Procedure: CT angio neck CT ANGIOGRAPHY NECK AND HEAD: 05/17/2024 12:00 PM EST Clinical History:dizziness Comparison: None . Contrast-enhanced helically acquired data per protocol. From this dataset volumetric recons in MIP mode were generated and reviewed. 3-D images were rendered on a separate workstation. NASCET criteria were utilized. INNOMINATE: Mild disease RIGHT SUBCLAVIAN: Unremarkable RIGHT VERTEBRAL: A medium-sized blood vessel with moderate short segment disease a little distal to its origin. At the C2 level there is mild eccentric narrowing by soft disease. LEFT SUBCLAVIAN: Unremarkable LEFT VERTEBRAL: Takes its origin directly from the arch as an anatomic variation. It is a medium to good sized blood vessel. Proximally there areas of mild disease and narrowing. RIGHT CAROTID SYSTEM: CCA is widely patent. There is some ASVD at its bifurcation extending into the proximal ICA which is primarily calcific. Compared to an area distal to poststenotic dilatation the maximum diameter reduction at the origin of the ICA is 50%. High cervical ICA is unremarkable. The ECA is unremarkable. LEFT CAROTID SYSTEM: CCA is widely patent. Mild patchy soft and calcified plaque at the bifurcation extending into the origins of the ECA greater than the ICA. The proximal ICA is very mildly narrowed. The high cervical ICA is unremarkable. The ECA is mildly narrowed in a concentric manner at its origin. INTRACRANIAL: VERTEBRALS: The left is dominant over the right. It demonstrates patchy long segment disease which at points appears significant. The right demonstrates long segment patchy disease which, over a short segment is occlusive or nearly occlusive PICAs: Left is patent. The right is smaller than the left. It is patent at its origin and along its very proximal aspects. Further distally it is not seen. BASILAR : A medium sized blood vessel is widely patent. AICAs: If present are tiny. SUPERIOR CEREBELLARS: Patent. There are paired vessels on the left. POSTERIOR CEREBRALS: P1 and P2 segments are patent and symmetric. INTRACRANIAL ICAs: There is patchy long segment primarily calcific disease bilaterally. Areas of moderate to significant narrowing are suspected bilaterally. OPHTHALMIC ARTERIES: Nonobscured aspects are patent and symmetric in caliber ANTERIOR CEREBRALS: A1 segments are patent and codominant.. A2 segments are unremarkable. An upper right A2 branch is significantly narrowed on coronal recons. MIDDLE CEREBRALS: M1 segments are patent and symmetric. Insular loops are reasonably symmetric in caliber and in number P-COMMS: Not seen OTHER: None CT/CT angio neck IMPRESSION: 1. Left vertebral artery is dominant over the right. The left demonstrates mild disease along its proximal aspects. There is long segment disease involving its intracranial portion which at points is significant. The right vertebral demonstrates moderate narrowing along its proximal aspects. Its intracranial segment demonstrates long segment patchy disease which over a short segment is either occlusive or nearly occlusive. 2. Right PICA is patent at its origin but tapers rapidly. 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 3. 50% diameter reduction origin cervical right ICA. Long segment disease intracranial right ICA with at least one area of moderate to significant narrowing. 4. Very mild narrowing of the cervical left ICA. As on the right side intracranial portion demonstrates long segment disease with at least one area of moderate to significant narrowing. All CT scans at this facility use dose modulation, iterative reconstruction, and/or weight based dosing when appropriate to reduce radiation dose to as low as reasonably achievable. Electronically authenticated by: IESHA CHRISTIAN Date: 05/17/2024 13:23
--- NOTE | 2024-05-17 12:51 | PC.NURSE ---
pt placed on 2L NC at this time -- pt was falling asleep and appears to have CLAUDIA. SpO2 dropped to 87% on RA when sleeping but returns to normal when pt is awoken (97%). pt is being appropriate and cooperative.
[2024-05-17 13:42] LABS: Bilirubin Urine NEGATIVE (NEGATIVE); Blood Urine MODERATE (NEGATIVE); Clarity Urine CLEAR (CLEAR); Color Urine LT. YELLOW (YELLOW); Glucose Urine UA >=1000 mg/dL (NEGATIVE); Ketones Urine NEGATIVE (NEGATIVE); Leukocyte Esterase Urine NEGATIVE (NEGATIVE); Nitrite Urine NEGATIVE (NEGATIVE); Protein Urine TRACE mg/dL (NEG/TRACE); Specific Gravity Urine 1.015 (1.005-1.025); Urobilinogen Urine 0.2 EU/dL (0.2-1.0)
[2024-05-17 13:43] LABS: Urine Microscopic Indicated YES
[2024-05-17 13:50] LABS: Bacteria Urine NONE SEEN #/HPF (NONE SEEN); Cast Seen? NONE SEEN #/LPF (NONE SEEN); Crystals Seen? None Seen #/HPF (None Seen); Mucus Urine NONE SEEN (NONE SEEN); Squamous Epithelial Cell Urine RARE #/LPF (NONE/RARE); Urine Culture Indicated NO; WBC Urine NONE SEEN #/HPF (NONE SEEN)
[2024-05-17] MEDS: ASPIRIN 81 MG TAB.CHEW 324 MG PO (15:40)
== END 2024-05-17 17:28 | disposition short-term general hospital (02) ==
PROVIDERS: Emergency Provider Student in an Organized Health Care Education/Training Program; PCP Internal Medicine
DX: I63.9 Cerebral infarction, unspecified (principal)
CPT/HCPCS: 36415; 70450; 70496; 70498; 80048; 81001; 82948; 84484; 85025; 93005; 96361; 96374; 99285; J2405; Q9967

== ENCOUNTER 2024-06-05 19:47 | Outpatient (OUT) | payer OTHER, SELFPAY ==
--- OUTSIDE RECORDS SUMMARY | 2024-06-05 19:49 | XMS_ITS | CCD ---
Author Organization [facility] Care Team Providers Care Correctional Classification Counselor Name Role Phone SHERMAN DOLAN Admitting UnavailDR ANTHONY Don Primary Care Unavailable SHERMAN DOLAN Attending UnavailSHERMAN Schulte Admitting UnavailDR IRIS Gallardo V Consulting Unavailable SHERMAN DOLAN Attending UnavailSHERMAN Schulte Consulting UnavailSHERMAN Schulte Admitting UnavailDR IRIS Gallardo V Consulting Unavailable DR ANTHONY KANG Primary Care Unavailable SHERMAN DOLAN Attending UnavailSHERMAN Schulte Consulting UnavailSHERMAN Schulte Attending UnavailSHERMAN Schulte Admitting UnavailKAYLEIGH Benitez Consulting Unavailable DR ANTHONY KANG Primary Care Unavailable KAYLEIGH DICKENS Admitting Unavailable KAYLEIGH DICKENS Attending Unavailable Reagan Elliott Consulting Unavailable SHERMAN DOLAN Admitting UnavailSHERMAN Schulte Attending UnavailDR CHARLI Betts Consulting Unavailable DR ANTHONY KANG Primary Care Unavailable SHERMAN DOLAN Consulting UnavailSHERMAN Schulte Attending UnavailDR IRIS Gallardo V Consulting Unavailable SHERMAN DOLAN Admitting UnavailSHERMAN Schulte Consulting UnavailDR CHARLI Betts Consulting Unavailable SHERMAN DOLAN Admitting UnavailSHERMAN Schulte Attending UnavailSHERMAN Schulte Consulting UnavailDR IRIS Gallardo V Consulting Unavailable SHERMAN ODLAN Admitting UnavailSHERMAN Schulte Attending UnavailSHERMAN Schulte Consulting UnavailCalli King Unavailable Anthony Kang MD Primary Care Provider BELTRAN, CHAPARRO Attending Unavailable KRYS BALUBENA Attending Unavailable KRYS BALBUENA Attending Unavailable BELTRAN, CHAPARRO Attending Unavailable COREY YEE Attending Unavailable KAYLEIGH DICKENS Referring Unavailable HORANI, ADELINE Admitting Unavailable HORANI, ADELINE Consulting Unavailable PAVITHRA, ARGENTINA Attending Unavailable PAVITHRA, ARGENTINA Consulting Unavailable CALLI OBRIEN Referring Unavailable SANAULLLYNDA, TIM Referring Unavailable PAULINO MCKEONU A Referring Unavailable EKWENNA, OBI Referring Unavailable Anthony Kang MD Primary Care Provider [phone] ANURAG, VIEH Admitting Unavailable ANURAG, CLARKEH Attending Unavailable DOMINGO TURNER Referring Unavailable HADLEY DUQUE Referring Unavailable ANTHONY KANG Primary Care Unavailable KRYS MORGAN M Attending Unavailable HEMMERKRYS M Attending Unavailable ROSALINDA, FÁTIMA M Attending Unavailable ROSALINDA, FÁTIMA M Attending Unavailable ROSALINDA, FÁTIMA M Attending Unavailable ROSALINDA, FÁTIMA M Attending Unavailable ROSALINDA, FÁTIMA M Attending Unavailable ROSALINDA, FÁTIMA M Attending Unavailable DOLLY BROUSSARD Attending Unavailable ROSALINDA, FÁTIMA M Referring Unavailable HEMMER, KRYS M Attending Unavailable Allergies Allergy Classification Reported Allergen(s) Allergy Type Date of Onset Reaction(s) Facility (20 sources) Angiotensin-conve rting enzyme inhibitor agent; Translations: [DONALD INHIBITORS] Drug Allergy 3 Cough [facility] (20 sources) empagliflozin; Translations: [EMPAGLIFLOZIN] Drug Allergy 4 Other [facility] Work Phone: (11 sources) Linagliptin; Translations: [LINAGLIPTIN] Drug Allergy 4 [facility] (5 sources) SITagliptin; Translations: [SITAGLIPTIN] Drug Allergy 4 Diarrhea [facility] (2 sources) Angiotensin-conve rting enzyme inhibitor agent Propensity to adverse reactions to drug 3 Cough, Other (See Comments) [facility] (2 sources) empagliflozin Drug Allergy 4 Other (See Comments) [facility] (2 sources) Linagliptin Drug Allergy 4 Other (See Comments) [facility] Medications Current Medications Medication Drug Class(es) Dates Sig (Normalized) Sig (Original) amLODIPine 10 mg oral tablet (20 sources) Dihydropyridine Calcium Channel Donnie Start: 06-29-2023 take 1 tablet by mouth once daily amLODIPine (Norvasc) 10 MG tablet Indications: Benign essential hypertension (CMS/HCC) Take 1 tablet (10 mg) by mouth 1 (one) time each day at the same time 100 tablet 3 06/29/2023 Active Norvasc Not-Taki ng amoxicillin 875 mg / clavulanate 125 mg oral tablet (3 sources) Penicillin-class Antibacterial Start: 02-17-2024 End: 03-02-2024 take 1 tablet by mouth in the morning amoxicillin-clavulanate (Augmentin) 875-125 MG tablet Take 1 tablet by mouth in the morning and 1 tablet in the evening. 02/17/2024 03/02/2024 Active aspirin 81 mg delayed release oral tablet (4 sources) Platelet Aggregation Inhibitor, Nonsteroidal Anti-inflammatory Drug Start: 05-20-2024 take 1 tablet by mouth in the morning aspirin 81 mg Take 1 tablet (81 mg total) by mouth in the morning. 90 tablet 3 05/20/2024 Active cefdinir 300 mg oral capsule (1 source) Cephalosporin Antibacterial Start: 02-24-2023 take 1 capsule by mouth every twelve hours Cefdinir 300 MG 1 capsule Orally every 12 hrs for 7 days Feb, Active codeine phosphate 2 mg/ml / guaiFENesin 20 mg/ml oral solution (10 sources) Opioid Agonist Start: 12-27-2023 End: 02-10-2024 take 10 mL by mouth every six hours for cough guaiFENesin-codeine (Robitussin-AC) 100-10 MG/5ML syrup Indications: Acute cough Take 10 mL by mouth every 6 (six) hours if needed for cough for up to 10 days 240 mL 01/31/2024 02/10/2024 Active hydroCHLOROthiazide 25 mg / valsartan 320 mg oral tablet (20 sources) Thiazide Diuretic, Angiotensin 2 Receptor Donnie Start: 06-22-2023 take 1 tablet by mouth once daily valsartan-hydroCHLOROthia zide (Diovan-HCT) 320-25 MG tablet Indications: Benign essential hypertension (CMS/HCC) TAKE 1 TABLET BY MOUTH EVERY DAY 100 tablet 3 06/22/2023 Active take 1 tablet by china th once in the morning valsartan-hydroCHLOROthiazide (DIOVAN-HC T) 320-25 mg per tablet Take 1 tablet by mouth in the morning. Active levothyroxine sodium 0.1 mg oral tablet (20 sources) l-Thyroxine Start: 06-29-2023 take 1 tablet by mouth in the morning levothyroxine (SYNTHROID, LEVOTHROID) 100 MCG tablet Take 1 tablet (100 mcg total) by mouth in the morning. 06/29/2023 Active Levothyroxine So dium Active metFORMIN hydrochloride 1000 mg oral tablet (20 sources) Biguanide Start: 02-18-2024 End: 05-22-2024 take 1 tablet by mouth in the morning metFORMIN (Glucophage) 1000 MG tablet Indications: Type 2 diabetes mellitus with other specified complication, without long-term current use of insulin (CMS/HCC) Take 1 tablet (1,000 mg) by mouth in the morning. 90 tablet 3 05/22/2024 Active Start: 06-29-2023 End: 02-23-2024 take 2 tablets by mouth in the morning metFORMIN (Glucophage) 500 MG tablet Indications: Type 2 diabetes mellitus without complication, without long-term current use of insulin (CMS/HCC) Take 2 tablets (1,000 mg) by mouth in the morning. Take with breakfast. 200 tablet 3 06/29/2023 02/23/2024 Discontinued (Other) take 1 tablet by china th once daily metFORMIN HCl 500 MG TAKE 1 TABLET BY MOUTH EVERY DAY WITH A MEAL Oral for 90 Days Active 24 hr metoprolol succinate 25 mg extended release oral tablet (20 sources) beta-Adrenergic Donnie Start: 12-20-2023 take 1 tablet by mouth every twenty-four hours in the morning metoprolol succinate XL (TOPROL XL) 25 mg 24 hr tablet Take 1 tablet (25 mg total) by mouth in the morning. 12/20/2023 Active ofloxacin 3 mg/ml otic solution (1 source) Quinolone Antimicrobial Start: 02-24-2023 Ofloxacin 0.3 % 10 drops into affected ear Otic Once a day for 7 days Feb, Active OneTouch Ultra - (1 source) OneTouch Ultra - TEST ONCE DAILY DIRECTED In Vitro for 90 Days Active predniSONE 10 mg oral tablet (8 sources) Start: 01-31-2024 End: 02-16-2024 take 4 tablets by mouth once daily, then take 3 tablets by mouth once daily, then take 2 tablets by mouth once daily, then take 1 tablet by mouth once daily predniSONE (Deltasone) 10 MG tablet Indications: Lymphadenopathy , inguinal Take 4 tablets (40 mg) by mouth Daily for 4 days, THEN 3 tablets (30 mg) Daily for 4 days, THEN 2 tablets (20 mg) Daily for 4 days, THEN 1 tablet (10 mg) Daily for 4 days. 40 tablet 01/31/2024 02/16/2024 Active Start: 12-20-2023 End: 01-10-2024 take 4 tablets by mouth once daily, then take 3 tablets by mouth once daily, then take 2 tablets by mouth once daily, then take 1 tablet by mouth once daily predniSONE (Deltasone) 10 MG tablet Indications: Breast pain Take 4 tablets (40 mg) by mouth Daily for 4 days, THEN 3 tablets (30 mg) Daily for 4 days, THEN 2 tablets (20 mg) Daily for 4 days, THEN 1 tablet (10 mg) Daily for 4 days. 40 tablet 12/20/2023 01/10/2024 Discontinued rosuvastatin calcium 20 mg oral tablet (20 sources) HMG-CoA Reductase Inhibitor Start: 05-19-2024 take 1 tablet by mouth in the morning rosuvastatin (CRESTOR) 20 mg tablet Take 1 tablet (20 mg total) by mouth in the morning. 30 tablet 2 05/19/2024 Active Start: 01-23-2024 End: 05-22-2024 take 1 tablet by mouth once daily rosuvastatin (Crestor) 10 MG tablet Indications: Mixed hyperlipidemia (CMS/HCC) TAKE 1 TABLET BY MOUTH EVERY DAY 100 tablet 3 01/23/2024 05/22/2024 Discontinued (Other) Start: 04-21-2023 take 1 tablet by [place] once daily rosuvastatin (Crestor) 10 MG tablet Indications: Mixed hyperlipidemia (CMS/HCC) TAKE 1 TABLET BY MOUTH EVERY DAY FOR 90 DAYS 100 tablet 3 04/21/2023 Active Rosuvastatin Andres cium 10 MG TAKE 1 TABLET BY MOUTH EVERY DAY FOR 90 DAYS Oral for 90 Days Active traMADol hydrochloride 50 mg oral tablet (3 sources) Opioid Agonist Start: 12-20-2023 End: 12-27-2023 take 1 tablet by mouth every six hours for pain traMADol (Ultram) 50 MG tablet Indications: Breast pain Take 1 tablet (50 mg) by mouth every 6 (six) hours if needed for severe pain or moderate pain for up to 7 days 28 tablet 12/20/2023 12/27/2023 Active Valsartan-hydroCHLORO thiazide (1 source) Valsartan-hydroC HLO ROthiazide Active Completed/Discontinued Medications Medication Drug Class(es) Dates Sig (Normalized) Sig (Original) Brompheniramine / Pseudoephedrine (1 source) alpha-Adrenergic Agonist Start: 07-03-2018 take 5 mL by mouth every six hours as needed Bromfed DM 30-2-10 MG/5ML 5 ml as needed Orally every 6 hrs Jun, Not-Taking finerenone (Kerendia) 10 MG tablet (15 sources) Start: 07-01-2023 End: 03-23-2024 take 1 tablet by mouth once daily finerenone (Kerendia) 10 MG tablet Indications: Proteinuria, unspecified type Take 1 tablet (10 mg) by mouth Daily 90 tablet 2 07/01/2023 03/23/2024 Discontinued (Med list cleanup) Start: 07-01-2023 take 1 tablet by [place] once daily finerenone (Kerendia) 10 MG tablet Indications: Proteinuria, unspecified type Take 1 tablet (10 mg) by mouth Daily 90 tablet 2 07/01/2023 Active hydrocortisone 10 mg/ml / neomycin 3.5 mg/ml / polymyxin b [id number] unt/ml otic solution (1 source) Aminoglycoside Antibacterial, Polymyxin-class Antibacterial, Corticosteroid Epqjvofs-Pvshctwxt-P C 1 % INSTILL 4 DROPS INTO AFFECTED EAR 3 TIMES A DAY FOR 7 DAYS Otic for 7 Days Not-Taking HYDROmorphone hydrochloride 4 mg oral tablet (6 sources) Opioid Agonist Start: 2023 End: 2023 take 1 tablet by mouth in the morning HYDROmorphone (Dilaudid) 4 MG tablet Take 4 mg by mouth in the morning. 02/23/2024 03/23/2024 Discontinued (Med list cleanup) Start: 02-23-2024 End: 02-23-2024 take 1 tablet by mouth once HYDROmorphone (Dilaudid) 4 MG tablet Indications: Pain associated with wound Take 1 tablet (4 mg) by mouth 1 (one) time for 1 dose Take 4 mg prior to dressing change daily 30 tablet 02/23/2024 02/23/2024 Active linagliptin 5 mg oral tablet (17 sources) Dipeptidyl Peptidase 4 Inhibitor Start: 12-27-2023 End: 12-21-2024 take 1 tablet by mouth once daily linaGLIPtin (Tradjenta) 5 MG tablet Indications: Type 2 diabetes mellitus without complication, without long-term current use of insulin ([facility]) Take 1 tablet (5 mg) by mouth Daily 30 tablet 11 12/27/2023 05/22/2024 Discontinued (Other) Medrol (Mario) 1 Pack (1 source) Start: 07-03-2018 Medrol (Mario) 1 Pack as directed Orally Jun, Not-Taking oseltamivir 75 mg oral capsule (1 source) Neuraminidase Inhibitor Start: 07-03-2018 take 1 capsule by mouth every twelve hours Tamiflu 75 MG 1 capsule Orally Twice a day for 5 day(s) Jun, Not-Taking oxyCODONE hydrochloride 5 mg oral tablet (5 sources) Opioid Agonist Start: 02-17-2024 End: 03-23-2024 take 1 tablet by mouth every six hours as needed for pain oxyCODONE (Roxicodone) 5 MG immediate release tablet TAKE 1 TABLET BY MOUTH EVERY 6 HOURS NEEDED FOR MODERATE PAIN SCALE 4-7 FOR UP TO 5 DAYS 02/17/2024 03/23/2024 Discontinued (Med list cleanup) ProAir HFA 108 (90 Base) MCG/ACT (1 source) Start: 07-03-2018 take 2 puff(s) by inhalation every four to six hours as needed ProAir HFA 108 (90 Base) MCG/ACT 2 puffs as needed Inhalation every 4-6 hrs Jun, Not-Taking tiZANidine 4 mg oral tablet (20 sources) Central alpha-2 Adrenergic Agonist Start: 12-20-2023 End: 05-22-2024 take 1 tablet by mouth every eight hours as needed for muscle spasms and muscle spasms tiZANidine (Zanaflex) 4 MG tablet Indications: Muscle spasm Take 1 tablet (4 mg) by mouth every 8 (eight) hours if needed for muscle spasms for up to 7 days 21 tablet 01/10/2024 05/22/2024 Discontinued (Therapy completed) Problems Active Problems Problem Classification Problem Date Documented Da te Episodic/Chronic Acute cerebrovascular disease (9 sources) Ischemic stroke; Translations: [Cerebral infarction, unspecified] Onset: 05-17-2024 05-21-2024 Chronic Cardiac dysrhythmias (19 sources) Conduction disorder of the heart; Translations: [Other specified cardiac arrhythmias] Onset: 02-14-2008 02-24-2023 Chronic Chronic ulcer of skin (1 source) Non-pressure chronic ulcer of right heel and midfoot with fat layer exposed; Translations: [N-PRSS CHR ULCR RT HEEL FAT EXPOS] Onset: 12-10-2019 Chronic Coronary atherosclerosis and other heart disease (20 sources) Exercise-induced angina; Translations: [Exertional angina] Onset: 02-24-2023 02-24-2023 Chronic Diabetes mellitus with complications (7 sources) Type 2 diabetes mellitus with hyperosmolarity without nonketotic hyperglycemic-hyperos molar coma ([facility]); Translations: [Type 2 diabetes mellitus] Onset: 02-11-2024 Chronic Diabetes mellitus without complication (20 sources) Type 2 diabetes mellitus without complication; Translations: [Type 2 diabetes mellitus without complications] Onset: 02-24-2023 02-24-2023 Chronic Disorders of lipid metabolism (20 sources) Hypertriglyceridemia; Translations: [Pure hyperglyceridemia] Onset: 02-24-2023 02-24-2023 Chronic Essential hypertension (20 sources) Essential (primary) hypertension; Translations: [Benign essential hypertension] Onset: 12-09-2010 02-24-2023 Chronic Lymphadenitis (2 sources) Inguinal lymphadenopathy; Translations: [Localized enlarged lymph nodes] 01-31-2024 Episodic Osteoarthritis (1 source) Primary osteoarthritis, right ankle and foot; Translations: [PRIMARY OSTEOARTHRITIS RT ANK FOOT] Onset: 02-04-2020 Chronic Other aftercare (2 sources) Surgical follow-up; Translations: [Encounter for other specified surgical aftercare] 02-23-2024 Episodic Other and ill-defined cerebrovascular disease (2 sources) Cerebrovascular disease; Translations: [Other cerebrovascular vasospasm and vasoconstriction] 05-21-2024 Chronic Other and ill-defined cerebrovascular disease (1 source) Other cerebrovascular vasospasm and vasoconstriction; Translations: [Other cerebrovascular vasospasm and vasoconstriction] Onset: 05-21-2024 Chronic Other connective tissue disease (2 sources) Other specified soft tissue disorders; Translations: [Other specified soft tissue disorders] Onset: 02-15-2024 Episodic Other ear and sense organ disorders (1 source) Unspecified acute noninfective otitis externa, left ear Episodic Other gastrointestinal disorders (2 sources) Diarrhea, unspecified; Translations: [Diarrhea, unspecified] Onset: 02-11-2024 Episodic Other injuries and conditions due to external causes (3 sources) Wound pain ; Translations: [Other injury of unspecified body region, initial encounter] 02-23-2024 Episodic Other lower respiratory disease (4 sources) Multiple nodules of lung; Translations: [Other nonspecific abnormal finding of lung field] 03-23-2024 Episodic Other lower respiratory disease (2 sources) Chest pain on breathing; Translations: [Chest pain on breathing] 01-31-2024 Episodic Other lower respiratory disease (2 sources) Cough; Translations: [Acute cough] 01-31-2024 Episodic Other lower respiratory disease (2 sources) Snoring; Translations: [Snoring] 05-22-2024 Episodic Other lower respiratory disease (2 sources) Apnea; Translations: [Apnea, not elsewhere classified] 05-22-2024 Episodic Other nervous system disorders (5 sources) Unspecified mononeuropathy of right lower limb; Translations: [UNS MONONEUROPATHY RIGHT LOWER LIMB] Onset: 01-17-2020 Chronic Other nutritional; endocrine; and metabolic disorders (18 sources) Obese class I; Translations: [Obesity (BMI 30.0-34.9)] Onset: 02-24-2023 02-24-2023 Chronic Other nutritional; endocrine; and metabolic disorders (8 sources) Hypomagnesemia; Translations: [Hypomagnesemia] Onset: 02-16-2024 02-23-2024 Chronic Residual codes; unclassified (2 sources) Hypoxia; Translations: [Idiopathic sleep related nonobstructive alveolar hypoventilation] 05-22-2024 Chronic Residual codes; unclassified (1 source) Obstructive sleep apnea (adult) (pediatric); Translations: [Obstructive sleep apnea (adult) (pediatric)] Onset: 05-17-2024 Chronic Residual codes; unclassified (1 source) Pain, unspecified; Translations: [Pain, unspecified] Onset: 05-22-2024 Episodic Substance-related disorders (20 sources) Nicotine dependence, cigarettes, uncomplicated; Translations: [Tobacco dependence syndrome] Onset: 12-04-2019 02-24-2023 Chronic Thyroid disorders (18 sources) Acquired hypothyroidism; Translations: [Hypothyroidism, unspecified] Onset: 02-24-2023 02-24-2023 Chronic Unclassified (2 sources) Post-op; Translations: [Post-op] Onset: 03-02-2024 Unclassified (1 source) Ischemic CVA Onset: 05-17-2024 Past or Other Problems Problem Classification Problem Date Documented Da te Episodic/Chronic Diabetes mellitus without complication (8 sources) Hyperglycemia; Translations: [Hyperglycemia, unspecified] Onset: 02-16-2024 02-23-2024 Episodic Fracture of lower limb (20 sources) Fracture of unspecified metatarsal bone(s), right foot, sequela; Translations: [Displaced fracture of second metatarsal bone, right foot, subsequent encounter for fracture with routine healing] Onset: 02-03-2018 Episodic Mood disorders (2 sources) Mood disorders Onset: 05-17-2024 05-17-2024 Nonmalignant breast conditions (2 sources) Pain of breast; Translations: [Mastodynia] 12-27-2023 Episodic Nonspecific chest pain (2 sources) Chest pain; Translations: [Chest pain, unspecified] 12-27-2023 Episodic Other aftercare (1 source) long-term (current) use of aspirin; Translations: [ASSISTED CURRENT USE OF ASPIRIN] Onset: 12-04-2019 Episodic Other aftercare (1 source) Other group home (current) drug therapy; Translations: [OTH ASSISTED CURRENT DRUG THERAPY] Onset: 12-04-2019 Episodic Other connective tissue disease (18 sources) Impingement syndrome of shoulder region; Translations: [Impingement syndrome of unspecified shoulder] Onset: 06-29-2023 06-29-2023 Episodic Other connective tissue disease (4 sources) Spasm; Translations: [Other muscle spasm] 12-27-2023 Episodic Other inflammatory condition of skin (18 sources) Seborrheic dermatitis; Translations: [Seborrheic dermatitis, unspecified] Onset: 02-24-2023 02-24-2023 Episodic Other injuries and conditions due to external causes (1 source) Traumatic compartment syndrome of right lower extremity, initial encounter; Translations: [TRAUMAT CMPRTMT SYND RT LW EXT INIT] Onset: 12-10-2019 Episodic Other injuries and conditions due to external causes (18 sources) Compartment syndrome of lower limb; Translations: [Traumatic compartment syndrome of unspecified lower extremity, initial encounter] Onset: 02-03-2018 06-29-2023 Episodic Other lower respiratory disease (18 sources) Nodule of lung; Translations: [Solitary pulmonary nodule] Onset: 02-24-2023 02-24-2023 Episodic Other lower respiratory disease (4 sources) Cough; Translations: [Acute cough] 12-27-2023 Episodic Residual codes; unclassified (18 sources) Insomnia; Translations: [Insomnia, unspecified] Onset: 02-24-2023 02-24-2023 Episodic Septicemia (except in labor) (8 sources) Sepsis; Translations: [Sepsis, unspecified organism] Onset: 02-16-2024 Resolved: 05-22-2024 02-23-2024 Episodic Skin and subcutaneous tissue infections (14 sources) Cellulitis of buttock; Translations: [Abscess] Onset: 12-02-2019 Episodic Results Test Name Value Interpretation Reference Range Facility BASIC METABOLIC PANLon 05-19 Anion gap [Moles/Vol] 13 mmol/L Normal 5-15 [facility] Comment on above: Performed By: #### C BCA #### [facility] ([id number]) [address] [place] [address] Calcium [Mass/Vol] 8.4 mg/dL Low 8.5-10.5 [facility] Comment on above: Performed By: #### C BCA #### [facility] ([id number]) [address] [place] [address] Chloride [Moles/Vol] 98 mmol/L Normal 98-109 [facility] Comment on above: Performed By: #### C BCA #### [facility] ([id number]) [address] [place] [address] CO2 [Moles/Vol] 26 mmol/L Normal 22-32 [facility] Comment on above: Performed By: #### C BCA #### [facility] ([id number]) [address], [address] [place] [address] Creatinine [Mass/Vol] 0.99 mg/dL Normal 0.60-1.30 [facility] Comment on above: Result Comment: METH OD TRACEABLE TO IDMS STANDARD Performed By: #### C BCA #### [facility] ([id number]) [address], [address] [place] [address] eGFR (CKD-EPI) NON-RACE DEPENDENT >90 Normal >59 [facility] Comment on above: Result Comment: Reported eGFR is based on the CKD-EPI 2020 equation that does not use a race coefficient. Performed By: #### C BCA #### [facility] ([id number]) [address], [address] [place] [address] Glucose [Mass/Vol] 176 mg/dL High 65-99 [facility] Comment on above: Performed By: #### C BCA #### [facility] ([id number]) [address] [place] [address] Potassium [Moles/Vol] 3.7 mmol/L Normal 3.5-5.0 [facility] Comment on above: Performed By: #### C BCA #### [facility] ([id number]) [address], [address] [place] [address] Sodium [Moles/Vol] 137 mmol/L Normal 134-146 [facility] Comment on above: Performed By: #### C BCA #### [facility] ([id number]) [address], [address] [place] [address] Urea nitrogen [Mass/Vol] 21 mg/dL Normal 5-23 [facility] Comment on above: Performed By: #### C BCA #### [facility] ([id number]) [address], [address] [place] [address] CBC AND AUTO DIFFon 05-19-19 25 ABSOLUTE BASOPHIL 0.2 X10E9/L Normal 0.0-0.2 [facility] Comment on above: Performed By: #### C BCA #### [facility] ([id number]) [address], [address] [place] [address] ABSOLUTE NEUTROPHIL 5.1 X10E9/L Normal 1.5-6.6 [facility] Comment on above: Performed By: #### C BCA #### [facility] ([id number]) [address], [address] [place] [address] Basophils/100 WBC (Bld) 2.2 % Normal [facility] Comment on above: Performed By: #### C BCA #### [facility] ([id number]) [address], [address] [place] [address] Eosinophils (Bld) [#/Vol] 0.2 10*3/uL Normal 0.0-0.4 [facility] Comment on above: Performed By: #### C BCA #### [facility] ([id number]) [address] [facility] [address] [place] [address] Eosinophils/100 WBC (Bld) 2.7 % Normal [facility] Comment on above: Performed By: #### C BCA #### [facility] ([id number]) [address], [address] [place], [place] [address] Erythrocyte distribution width (RBC) [Ratio] 14.2 % Normal 11.5-15.0 [facility] Comment on above: Performed By: #### C BCA #### [facility] ([id number]) [address] [place] [address] Hematocrit (Bld) [Volume fraction] 44.6 % Normal 39-49 [facility] Comment on above: Performed By: #### C BCA #### [facility] ([id number]) [address], [address] [place] [address] Hemoglobin (Bld) [Mass/Vol] 15.1 g/dL Normal 13.0-17.0 [facility] Comment on above: Performed By: #### C BCA #### [facility] ([id number]) [address], [address] [place] [address] Lymphocytes (Bld) [#/Vol] 2.5 10*3/uL Normal 1.0-3.5 [facility] Comment on above: Performed By: #### C BCA #### [facility] ([id number]) [address] [place] [address] Lymphocytes/100 WBC (Bld) 28.1 % Normal [facility] Comment on above: Performed By: #### C BCA #### [facility] ([id number]) [address], [address] [place] [address] MCH (RBC) [Entitic mass] 29.7 pg Normal 27-34 [facility] Comment on above: Performed By: #### C BCA #### [facility] ([id number]) [address], [address] [place] [address] MCHC (RBC) [Mass/Vol] 33.9 g/dL Normal 32-36 [facility] Comment on above: Performed By: #### C BCA #### [facility] ([id number]) [address], [address] [place] [address] MCV (RBC) [Entitic vol] 88 fL Normal 80-100 [facility] Comment on above: Performed By: #### C BCA #### [facility] ([id number]) [address], [address] [place] [address] Monocytes (Bld) [#/Vol] 0.9 10*3/uL Normal 0-0.9 [facility] Comment on above: Performed By: #### C BCA #### [facility] ([id number]) [address], [address] [place] [address] Monocytes/100 WBC (Bld) 9.5 % Normal [facility] Comment on above: Performed By: #### C BCA #### [facility] ([id number]) [address] [place] [address] Neutrophils/100 WBC (Bld) 57.5 % Normal [facility] Comment on above: Performed By: #### C BCA #### [facility] ([id number]) [address] [place] [address] Platelet mean volume (Bld) [Entitic vol] 9.4 fL Normal 7-12 [facility] Comment on above: Performed By: #### C BCA #### [facility] ([id number]) [address] [address] [place] [address] Platelets (Bld) [#/Vol] 198 10*3/uL Normal 150-450 [facility] Comment on above: Performed By: #### C BCA #### [facility] ([id number]) [address], [address] [place] [address] RBC COUNT 5.09 X10E12/L Normal 4.10-5.70 [facility] Comment on above: Performed By: #### C BCA #### [facility] ([id number]) [address], [address] [place] [address] WBC (Bld) [#/Vol] 8.9 10*3/uL Normal 4.0-11.0 [facility] Comment on above: Performed By: #### C BCA #### [facility] ([id number]) [address], [address] [place] [address] Glucose Glucometer (BldC) [M ass/Vol]on 05-19-2024 Glucose [Mass/Vol] 365 mg/dL High 65-99 [facility] Glucose [Mass/Vol] 201 mg/dL High 65-99 [facility] MR BRAIN WO CONTon MR BRAIN WO CONT MR BRAIN WO CONT Indication: Neurologic deficit CVA. TECHNIQUE: Multiplanar multi sequential noncontrast MRI imaging of the head is performed and compared to prior CT of the head dated 05/17/2024. FINDINGS: A fairly large area of probable subacute infarct within right cerebellum. There is mild narrowing of fourth ventricle adjacent. The lateral ventricles are not dilated and appear unchanged. There is normal flow-void seen within intracranial internal carotid, basilar, and vertebral arteries. Fluid present within mastoid air cells bilaterally appearing increased since prior CT. Visualized paranasal sinuses are clear. IACs appear symmetric. The pituitary gland is not enlarged. IMPRESSION: 1. Fairly large area of acute to subacute infarct within inferior right cerebellum with no evidence for hemorrhagic transformation and mild adjacent fourth ventricular narrowing. Finalized by Laura Chan MD on 05/19/2024 6:58 AM Normal [facility] BASIC METABOLIC PANLon 05-18 Anion gap [Moles/Vol] 11 mmol/L Normal 5-15 [facility] Comment on above: Performed By: #### B , 2088-05, CBCA, 82711-5 #### [facility] ([id number]) [address], [address] [place] [address] Calcium [Mass/Vol] 8.5 mg/dL Normal 8.5-10.5 [facility] Comment on above: Performed By: #### B JOVAN, 2088-05, CBCA, 45679-2 #### [facility] ([id number]) [address], [address] [place] [address] Chloride [Moles/Vol] 99 mmol/L Normal 98-109 [facility] Comment on above: Performed By: #### B JOVAN, 2088-05, CBCA, 62713-0 #### [facility] ([id number]) [address], [address] [place] [address] CO2 [Moles/Vol] 31 mmol/L Normal 22-32 [facility] Comment on above: Performed By: #### Mervat ALDANA, 2088-05, BELINDA, 98941-1 #### [facility] ([id number]) [address], [address] [place] [address] Creatinine [Mass/Vol] 1.03 mg/dL Normal 0.60-1.30 [facility] Comment on above: Result Comment: METH OD TRACEABLE TO IDMS STANDARD Performed By: #### Mervat ALDANA, 2088-05, BELINDA, 55068-2 #### [facility] ([id number]) [address] [address] [place] [address] GFR/1.73 sq M.predicted among non-blacks MDRD (S/P/Bld) [Vol rate/Area] 87 mL/min/{1.73_m2} Normal >59 [facility] Comment on above: Result Comment: Reported eGFR is based on the CKD-EPI 2020 equation that does not use a race coefficient. Performed By: #### Mervat ALDANA, 2088-05, BELINDA, 71553-6 #### [facility] ([id number]) [address], [address] [place] [address] Glucose [Mass/Vol] 177 mg/dL High 65-99 [facility] Comment on above: Performed By: #### Mervat ALDANA, 2088-05, BELINDA, 77524-9 #### [facility] ([id number]) [address] [address] [place] [address] Potassium [Moles/Vol] 3.9 mmol/L Normal 3.5-5.0 [facility] Comment on above: Performed By: #### Mervat ALDANA, 2088-05, BELINDA, 02679-2 #### [facility] ([id number]) [address], [address] [place] [address] Sodium [Moles/Vol] 141 mmol/L Normal 134-146 [facility] Comment on above: Performed By: #### B JOVAN, 2088-05, CBCA, 89705-6 #### [facility] ([id number]) [address], [address] [place] [address] Urea nitrogen [Mass/Vol] 22 mg/dL Normal 5-23 [facility] Comment on above: Performed By: #### Mervat ALDANA, 2088-05, CBCA, 65316-1 #### [facility] ([id number]) [address], [address] [place] [address] CBC AND AUTO DIFFon 05-18-19 25 ABSOLUTE BASOPHIL 0.1 X10E9/L Normal 0.0-0.2 [facility] Comment on above: Performed By: #### Mervat ALDANA, 2088-05, CBCA, 69872-4 #### [facility] ([id number]) [address], [address] [place] [address] ABSOLUTE NEUTROPHIL 7.0 X10E9/L High 1.5-6.6 [facility] Comment on above: Performed By: #### Mervat ALDANA, 2088-05, CBCA, 42287-4 #### [facility] ([id number]) [address] [address] [place] [address] Basophils/100 WBC (Bld) 0.9 % Normal [facility] Comment on above: Performed By: #### Mervat ALDANA, 2088-05, CBCA, 72815-8 #### [facility] ([id number]) [address] [address] [place] [address] Eosinophils (Bld) [#/Vol] 0.2 10*3/uL Normal 0.0-0.4 [facility] Comment on above: Performed By: #### Mervat ALDANA, 2088-05, CBCA, 05444-0 #### [facility] ([id number]) [address], [address] [place] [address] Eosinophils/100 WBC (Bld) 2.2 % Normal [facility] Comment on above: Performed By: #### Mervat ALDANA, 2088-05, CBCA, 16433-5 #### [facility] ([id number]) [address], [facility] [address] [place] [address] Erythrocyte distribution width (RBC) [Ratio] 14.3 % Normal 11.5-15.0 [facility] Comment on above: Performed By: #### Mervat ALDANA, 2088-05, CBCA, 05336-4 #### [facility] ([id number]) [address] [address] [place] [address] Hematocrit (Bld) [Volume fraction] 43.7 % Normal 39-49 [facility] Comment on above: Performed By: #### Mervat ALDANA, 2088-05, CBCA, #### [facility] ([id number]) [address], [facility] [address] [place] [address] Hemoglobin (Bld) [Mass/Vol] 14.7 g/dL Normal 13.0-17.0 [facility] Comment on above: Performed By: #### Mervat ALDANA, 2088-05, CBCA, #### [facility] ([id number]) [address] [address] [place] [address] Lymphocytes (Bld) [#/Vol] 2.5 10*3/uL Normal 1.0-3.5 [facility] Comment on above: Performed By: #### Mervat ALDANA, 2088-05, CBCA, 82295-2 #### [facility] ([id number]) [address] [address] [place] [address] Lymphocytes/100 WBC (Bld) 22.7 % Normal [facility] Comment on above: Performed By: #### Mervat ALDANA, 2088-05, CBCA, 61539-0 #### [facility] ([id number]) [address], [address] [place] [address] MCH (RBC) [Entitic mass] 29.9 pg Normal 27-34 [facility] Comment on above: Performed By: #### Mervat ALDANA, 2088-05, CBCA, 15344-7 #### [facility] ([id number]) [address], [address] [place] [address] MCHC (RBC) [Mass/Vol] 33.6 g/dL Normal 32-36 [facility] Comment on above: Performed By: #### Mervat ALDANA, 2088-05, CBCA, 70415-3 #### [facility] ([id number]) [address], [address] [place] [address] MCV (RBC) [Entitic vol] 89 fL Normal 80-100 [facility] Comment on above: Performed By: #### Mervat ALDANA, 2088-05, CBCA, 02461-8 #### [facility] ([id number]) [address], [address] [place] [address] Monocytes (Bld) [#/Vol] 1.1 10*3/uL High 0-0.9 [facility] Comment on above: Performed By: #### Mervat ALDANA, 2088-05, CBCA, 73532-3 #### [facility] ([id number]) [address], [address] [place] [address] Monocytes/100 WBC (Bld) 9.9 % Normal [facility] Comment on above: Performed By: #### Mervat ALDANA, 2088-05, CBCA, 53948-0 #### [facility] ([id number]) [address] [place] [address] Neutrophils/100 WBC (Bld) 64.3 % Normal [facility] Comment on above: Performed By: #### Mervat ALDANA, 2088-05, CBCA, 78217-8 #### [facility] ([id number]) [address], [address] [place] [address] Platelet mean volume (Bld) [Entitic vol] 9.0 fL Normal 7-12 [facility] Comment on above: Performed By: #### B JOVAN, 2088-05, CBCA, 61559-8 #### [facility] ([id number]) [address], [address] [address] Platelets (Bld) [#/Vol] 191 10*3/uL Normal 150-450 [facility] Comment on above: Performed By: #### B JOVAN, 2088-05, CBCA, 84913-6 #### [facility] ([id number]) [address] [address] [place] [address] RBC COUNT 4.91 X10E12/L Normal 4.10-5.70 [facility] Comment on above: Performed By: #### Mervat ALDANA, 2088-05, CBCA, 84499-8 #### [facility] ([id number]) [address] [address] WBC (Bld) [#/Vol] 10.9 10*3/uL Normal 4.0-11.0 [facility] Comment on above: Performed By: #### B JOVAN, 2088-05, CBCA, 92264-0 #### [facility] ([id number]) [address], [address] [place] [address] CT BRAIN WO CONTon 5 CT BRAIN WO CONT CT BRAIN WO CONT History: Stroke Technique: Contiguous axial images through the brain were obtained without the administration of intravenous contrast material. Automated exposure control was utilized. Comparison: None Findings: A hypodense area in the right cerebellum is consistent with a subacute infarct. No hemorrhagic component is seen. The ventricles are normal in size. There is no evidence of midline shift. There are no other areas of abnormal density to suggest additional major infarct mass lesion or hemorrhage. Impression: Subacute nonhemorrhagic right cerebellar infarct. All CT scans at this facility use dose modulation, iterative reconstruction, and/or weight based dosing when appropriate to reduce radiation dose to as low as reasonably achievable. Finalized by Iris Pederson MD on 05/18/2024 12:07 AM Normal [facility] DIRECT LDLon 05-18-2024 Cholesterol in LDL [Mass/Vol] 53 mg/dL Normal <130 [facility] Comment on above: Result Comment: LDL <100 mg/dL - Desirable LDL 130-159 mg/dL - Borderline High Risk LDL >160 mg/dL - High Risk Performed By: #### Mervat ALDANA, 2088-05, CBCRodolfo, 17821-6 #### [facility] ([id number]) [address], [address] [place] [address] Glucose Glucometer (BldC) [M ass/Vol]on 05-18-2024 Glucose [Mass/Vol] 245 mg/dL High 65-99 [facility] Glucose [Mass/Vol] 237 mg/dL High 65-99 [facility] Glucose [Mass/Vol] 174 mg/dL High 65-99 [facility] Lipid 1996 panelon Cholesterol [Mass/Vol] 167 mg/dL Normal 150-200 [facility] Comment on above: Performed By: #### Mervat ALDANA, 2088-05, CBCA, 44961-2 #### [facility] ([id number]) [address], [address] [place] [address] Cholesterol in HDL [Mass/Vol] 30 mg/dL Low >39 [facility] Comment on above: Result Comment: HDL <40 mg/dL - High Risk HDL > or = 40mg/dL- Desirable HDL >60 mg/dL - Negative Risk Performed By: #### B JOVAN, 2088-05, CBCA, 76403-9 #### [facility] ([id number]) [address], [facility] [address] [place] [address] Cholesterol in VLDL [Mass/Vol] 115 mg/dL High 0-30 [facility] Comment on above: Performed By: #### B JOVAN, 2088-05, CBCA, 02399-4 #### [facility] ([id number]) [address], [facility] [address] [place] [address] CHOLESTEROL:HDL 5.6 High 1.0-5.0 [facility] Comment on above: Performed By: #### B JOVAN, 2088-05, CBCA, 60407-7 #### [facility] ([id number]) [address], [facility] [address] [place] [address] LDL (CALC) RESULT NOT REPORTED DUE TO HIGH TRIGLYCERIDE Normal <130 [facility] Comment on above: Performed By: #### B JOVAN, 2088-05, CBCA, 23476-4 #### [facility] ([id number]) [address], [facility] [address] [place] [address] Triglyceride [Mass/Vol] 575 mg/dL High 27-150 [facility] Comment on above: Performed By: #### B JOVAN, 2088-05, CBCA, 94084-0 #### [facility] ([id number]) [address], [facility] [address] [place] [address] aPTT Coag (PPP) [Time]on aPTT Coag (Bld) [Time] 28 s Normal 26-37 [facility] Comment on above: Performed By: #### C BCA #### [facility] ([id number]) [address], [facility] [address] [place] [address] BASIC METABOLIC PANLon 05-17 Anion gap [Moles/Vol] 12 mmol/L Normal 5-15 [facility] Comment on above: Performed By: #### Mervat ALDANA, ANAMARIA1C #### [facility] ([id number]) [address] [address] [place] [address] Calcium [Mass/Vol] 8.7 mg/dL Normal 8.5-10.5 [facility] Comment on above: Performed By: #### Mervat ALDANA, ANAMARIA1C #### [facility] ([id number]) [address], [facility] [address] [place] [address] Chloride [Moles/Vol] 98 mmol/L Normal 98-109 [facility] Comment on above: Performed By: #### Mervat ALDANA, ANAMARIA1C #### [facility] ([id number]) [address], [facility] [address] [place] [address] CO2 [Moles/Vol] 31 mmol/L Normal 22-32 [facility] Comment on above: Performed By: #### Mervat ALADNA, IVANIA #### [facility] ([id number]) [address], [facility] [address] [place] [address] Creatinine [Mass/Vol] 1.11 mg/dL Normal 0.60-1.30 [facility] Comment on above: Result Comment: METH OD TRACEABLE TO IDMS STANDARD Performed By: #### Mervat ALDANA, ANAMARIA1C #### [facility] ([id number]) [address] [address] GFR/1.73 sq M.predicted among non-blacks MDRD (S/P/Bld) [Vol rate/Area] 79 mL/min/{1.73_m2} Normal >59 [facility] Comment on above: Result Comment: Reported eGFR is based on the CKD-EPI 2020 equation that does not use a race coefficient. Performed By: #### Mervat ALDANA, IVANIA #### [facility] ([id number]) [address] [place] [address] Glucose [Mass/Vol] 193 mg/dL High 65-99 [facility] Comment on above: Performed By: #### IVANIA Crowell MP #### [facility] ([id number]) [address] [place] [address] Potassium [Moles/Vol] 3.6 mmol/L Normal 3.5-5.0 [facility] Comment on above: Performed By: #### IVANIA Crowell MP #### [facility] ([id number]) [address] [place] [address] Sodium [Moles/Vol] 141 mmol/L Normal 134-146 [facility] Comment on above: Performed By: #### IVANIA Crowell MP #### [facility] ([id number]) [address] [place] [address] Urea nitrogen [Mass/Vol] 25 mg/dL High 5-23 [facility] Comment on above: Performed By: #### IVANIA Crowell MP #### [facility] ([id number]) [address] [place] [address] CBC AND AUTO DIFFon 05-17-19 25 ABSOLUTE BASOPHIL 0.1 X10E9/L Normal 0.0-0.2 [facility] Comment on above: Performed By: #### C BCA #### [facility] ([id number]) [address] [place] [address] ABSOLUTE NEUTROPHIL 5.7 X10E9/L Normal 1.5-6.6 [facility] Comment on above: Performed By: #### C BCA #### [facility] ([id number]) [address] [place] [address] Basophils/100 WBC (Bld) 0.9 % Normal [facility] Comment on above: Performed By: #### C BCA #### [facility] ([id number]) [address] [place] [address] Eosinophils (Bld) [#/Vol] 0.3 10*3/uL Normal 0.0-0.4 [facility] Comment on above: Performed By: #### C BCA #### [facility] ([id number]) [address] [place] [address] Eosinophils/100 WBC (Bld) 2.8 % Normal [facility] Comment on above: Performed By: #### C BCA #### [facility] ([id number]) [address] [place] [address] Erythrocyte distribution width (RBC) [Ratio] 14.0 % Normal 11.5-15.0 [facility] Comment on above: Performed By: #### C BCA #### [facility] ([id number]) [address] [place] [address] Hematocrit (Bld) [Volume fraction] 44.3 % Normal 39-49 [facility] Comment on above: Performed By: #### C BCA #### [facility] ([id number]) [address] [place] [address] Hemoglobin (Bld) [Mass/Vol] 14.9 g/dL Normal 13.0-17.0 [facility] Comment on above: Performed By: #### C BCA #### [facility] ([id number]) [address] [place] [address] Lymphocytes (Bld) [#/Vol] 2.9 10*3/uL Normal 1.0-3.5 [facility] Comment on above: Performed By: #### C BCA #### [facility] ([id number]) [address] [place] [address] Lymphocytes/100 WBC (Bld) 28.8 % Normal [facility] Comment on above: Performed By: #### C BCA #### [facility] ([id number]) [address] [place] [address] MCH (RBC) [Entitic mass] 29.9 pg Normal 27-34 [facility] Comment on above: Performed By: #### C BCA #### [facility] ([id number]) [address] [place] [address] MCHC (RBC) [Mass/Vol] 33.7 g/dL Normal 32-36 [facility] Comment on above: Performed By: #### C BCA #### [facility] ([id number]) [address] [place] [address] MCV (RBC) [Entitic vol] 89 fL Normal 80-100 [facility] Comment on above: Performed By: #### C BCA #### [facility] ([id number]) [address] [place] [address] Monocytes (Bld) [#/Vol] 1.2 10*3/uL High 0-0.9 [facility] Comment on above: Performed By: #### C BCA #### [facility] ([id number]) [address] [place] [address] Monocytes/100 WBC (Bld) 11.5 % Normal [facility] Comment on above: Performed By: #### C BCA #### [facility] ([id number]) [address] [place] [address] Neutrophils/100 WBC (Bld) 56.0 % Normal [facility] Comment on above: Performed By: #### C BCA #### [facility] ([id number]) [address] [place] [address] Platelet mean volume (Bld) [Entitic vol] 9.1 fL Normal 7-12 [facility] Comment on above: Performed By: #### C BCA #### [facility] ([id number]) [address] [place] [address] Platelets (Bld) [#/Vol] 205 10*3/uL Normal 150-450 [facility] Comment on above: Performed By: #### C BCA #### [facility] ([id number]) [address], [facility] [address] [place] [address] RBC COUNT 4.98 X10E12/L Normal 4.10-5.70 [facility] Comment on above: Performed By: #### C BCA #### [facility] ([id number]) [address] [address] WBC (Bld) [#/Vol] 10.2 10*3/uL Normal 4.0-11.0 [facility] Comment on above: Performed By: #### C BCA #### [facility] ([id number]) [address] [address] Glucose Glucometer (BldC) [M ass/Vol]on 05-17-2024 Glucose [Mass/Vol] 197 mg/dL High 65-99 [facility] HGB A1C (GLYCO-HGB)on 2024 Glucose [Mass/Vol] 180 mg/dL Normal [facility] Comment on above: Performed By: #### Mervat ALDANA, HA1C #### [facility] ([id number]) [address], [address] [place] [address] HbA1c (Bld) [Mass fraction] 7.9 % High 4.4-5.6 [facility] Comment on above: Result Comment: NOTE ADA Guidelines Result HgbA1c Normal : less than 5.7 % Prediabetes : 5.7 % to 6.4 % Diabetes : > 6.4 % Use with caution in patients with abnormal hemoglobin variants as the half-life of red blood cells and in vivo glycation rates are affected. Performed By: #### B MP, HA1C #### [facility] ([id number]) [address] [place] [address] Office Visiton 03-06-2024 Follow-up visit [id number] CharleneMaycol cummings A 1970 M Date Provider Department Center 03/06/2024 116-BALBUENACHRISTY BENJAMINEN HVC WOUND [facility] No family history on file Level of Service:[address] CT OFFICE/OUTPT VISIT,PROCEDURE ONLY [facility] 36on 03-02-2024 36 Ok patient was put o n schedule [facility] Office Visiton 03-02-2024 Follow-up visit [id number] Maycol Duggan A 1970 M Date Provider Department Center 03/02/2024 [id number]-JUFCHAPARRO BELTRAN [facility] SURG Second Fl No family history on file Level of Service:12419 CT POSTOP FOLLOW UP VISIT RELATED TO ORIGINAL PX Reason for Visit and Comments: Post-op [483] - Jose Duggan is here for a 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 Devin alexander fill out the paperwork and will get it faxed over to them. [facility] 36 County Treasurer found out it is [email or web address] company and not the company patient's stated. Will call back and advise them. [facility] 36 Pt's LVM with clinic. Fax number to supplier: [phone] [facility] 36 Lvm to advise wilian sanderson that technical report writer tried calling the company she gave me to call to fax the new order for supplies for the patient. There is no fax number on the website. County Treasurer has attempted multiple times and so has coworker. LVM to see if patient can get the fax number to this company. [facility] 37on 02-27-2024 37 Continue to monitor for signs and symptoms of infection including fever, chills, shortness of breath, chest pain, abdominal pain, nausea, vomiting and diarrhea. Right groin wound pain, redness, warmth, pus, or odor. Call our office if you notice any of these or go to the ED if needing to Normal [facility] Follow-Upon 02-27-2024 Follow-Up [id number] Maycol Duggan A 1970 Provider Department Center 02/27/2024 161-COREY YEE [facility] INF Shaina Heal No family history on file Level of Service:13893 CT OFFICE/OUTPATIENT ESTABLISHED LOW MDM 20 MIN Normal [facility] Office Visiton 02-27-2024 Follow-up visit [id number] Maycol Duggan A 1970 Provider Department Center 02/27/2024 [id number]-GUWCHAPARRO BELTRAN [facility] SURG Second Fl No family history on file Level of Service:29188 CT POSTOP FOLLOW UP VISIT RELATED TO ORIGINAL PX Reason for Visit and Comments: Post-op [483] - Jose is here today for a post op visit for necrotizing fasciitis of the right hemiscrotum and inguinal region, s/p 02/15/24 Right groin debridement Normal [facility] Telephoneon 02-27-2024 Telephone [id number] Maycol Duggan A 1970 [facility] Department Center 02/27/2024 [id number]-TPEIYYSTEPH RECINOS [facility] SURG Second Fl No family history on file Normal [facility] BASIC METABOLIC PANELon 02-06 Anion gap [Moles/Vol] 11 mmol/L Normal - [facility] Comment on above: Performed By: #### L [id number] #### [facility] [address] [place] [address] Calcium [Mass/Vol] 8.3 mg/dL Low 8.6-10.3 [facility] Comment on above: Performed By: #### L [id number] #### [facility] [address] [place] [address] Chloride [Moles/Vol] 98 mmol/L Normal 98-107 [facility] Comment on above: Performed By: #### L [id number] #### [facility] ([facility]) [address] [place] [address] CO2 [Moles/Vol] 30 mmol/L Normal 21-31 [facility] Comment on above: Performed By: #### L [id number] #### [facility] ([facility]) [address] [place] [address] Creatinine [Mass/Vol] 1.08 mg/dL Normal 0.70-1.30 [facility] Comment on above: Performed By: #### L [id number] #### [facility] ([facility]) [address] [place] [address] GLOMERULAR FILTRATION RATE ML/MIN/1.73 SQ M.PREDICTED 82.1 mL/min/1.73m*2 Normal >60.0 [facility] Comment on above: Result Comment: The [facility]???s estimated glomerular filtration rate (eGFR) will no longer include consideration of race in its calculation. The National Kidney Foundation???s eGFR Task Force developed new recommendations for the estimation of the glomerular filtration rate in the [place] They recommend immediate implementation of the new equation refit without the race variable in all laboratories because the calculation does not include race. In addition to not including race in the calculation and reporting, it included diversity in its development, and has acceptable performance characteristics and potential consequences that do not disproportionately affect any one group of individuals. Performed By: #### L [id number] #### [facility] ([facility]) [address] [place] [address] Glucose [Mass/Vol] 160 mg/dL High 70-100 [facility] Comment on above: Performed By: #### L [id number] #### [facility] ([facility]) [address] [place] [address] Potassium [Moles/Vol] 3.9 mmol/L Normal 3.5-5.1 [facility] Comment on above: Performed By: #### L [id number] #### [facility] (BEAKER) [address] [place] [address] Sodium [Moles/Vol] 135 mmol/L Low 136-145 [facility] Comment on above: Performed By: #### L [id number] #### [facility] [address] [place] [address] Urea nitrogen [Mass/Vol] 18 mg/dL Normal 7-25 [facility] Comment on above: Performed By: #### L [id number] #### [facility] [address] [place] [address] UREA NITROGEN/CREATININE (MASS RATIO) IN SER/PLAS 16.7 Normal [facility] Comment on above: Performed By: #### L [id number] #### [facility] ([facility]) [address] [place] [address] CBCon 02-20-2024 Erythrocyte distribution width (RBC) [Ratio] 13.3 % Normal 11.5-15.0 [facility] Comment on above: Performed By: #### L [id number] ####[facility] ([facility])[address] [place] [address] ERYTHROCYTE MEAN CORPUSCULAR HEMOGLOBIN CONCENTRATION (G/DL) BY AUTOMATED 33.5 g/dL Normal 32.0-35.0 [facility] Comment on above: Performed By: #### L [id number] ####[facility] ([facility])[address] [place] [address] Hematocrit (Bld) [Volume fraction] 37.9 % Low 39.0-55.0 [facility] Comment on above: Performed By: #### L [id number] ####[facility] ([facility])[address] [place] [address] Hemoglobin (Bld) [Mass/Vol] 12.7 g/dL Low 13.0-17.0 [facility] Comment on above: Performed By: #### L [id number] ####[facility] ([facility])[address] [place] [address] MCH (RBC) [Entitic mass] 30.2 pg Normal 27.0-33.0 [facility] Comment on above: Performed By: #### L [id number] ####[facility] ([facility])[address] [place] [address] MCV (RBC) [Entitic vol] 90.2 fL Normal 82.0-98.0 [facility] Comment on above: Performed By: #### L [id number] ####[facility] ([facility])[address] [place] [address] PLATELETS (10*3/UL) IN BLOOD AUTOMATED COUNT 288 10*3/uL Normal 150-400 [facility] Comment on above: Performed By: #### L [id number] ####[facility] ([facility])[address] [place] [address] RBC (Bld) [#/Vol] 4.20 10*6/uL Normal 4.20-5.70 [facility] Comment on above: Performed By: #### L [id number] ####[facility] ([facility])[address] [facility] [place] [address] WBC (Bld) [#/Vol] 10.35 10*3/uL Normal 4.00-10.60 [facility] Comment on above: Performed By: #### L [id number] ####[facility] ([facility])[address] [place] [address] MAGNESIUMon 02-20-2024 Magnesium [Mass/Vol] 1.8 mg/dL Low 1.9-2.7 [facility] Comment on above: Performed By: #### L AB15 #### [facility] (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 The reason for the consult was noted as Scrotal abscess s/p drainage, right scrotum. *Staff nurses are responsible for performing treatments and interventions as ordered. Recommended care:For all wounds with Negative Pressure Wound Therapy (NPWT or VAC) dressings, assess and document every 4 hours to be sure: Dressing is intact and sucked down . No active alarms. Canister is <3/4 full. Machine is plugged in or fully charged. -If dressing is leaking, attempt to reseal with transparent dressing/ Tegaderm. If unable to seal the dressing, if it is soiled, or has been malfunctioning for >2 hours and wound care is not available, remove all pieces of NPWT dressing and replace with a saline moistened gauze dressing. Notify wound care to see next day. Document removal of NPWT dressing in the Wound LDA. *If the VAC is not being followed by wound care, notify the Provider following before removal. -If new francia bleeding is noted, turn off machine, leave the dressing in place and notify the Provider. The negative pressure wound therapy discharge information was reviewed with the patient. They were instructed on how to manage the woun vac if it would begin to alarm for a leak. The patient was also instructed on how to change their dressing if the wound vac would fail. They were given the supplies to use if they need to change their dressing. Patient was instructed to call the 24 hour phone number on the [facility] wound vac device box if they have any questions about the device. The proof of delivery paperwork was signed and faxed to [facility]. Wound History: New orders were placed for negative pressure wound therapy. Focused assessment completed and patient found to have surgical incisions to the pelvic area and scrotum that are connected with a tunnel. The pelvic incision has some early granulation forming. Both incisions clean without signs of infection. Wound vac dressing applied to both incisions and connected. Patient educated on troubleshooting alarms. Patient scheduled to discharge today, but we will continue to follow as long as he is admitted. Focused skin assessment performed Situation/ background: History of wound: Jose Duggan is a 54 y.o. 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 CT pelvis with contrast done at [facility] showing a right scrotal abscess with couple foci of gas within scrotal skin. At [facility] he was initiated on broad-spectrum antibiotics: Patient underwent bedside I&D of the right hemiscrotum by urology on 02/11. They have been packing with iodoform once daily and Urology consulted wound care for evaluation for packing recommendations. Barriers to care: Patient requires assistance with all wound care at this time. Problems identified: None Discharge Planning: Patient to discharge home with home health Teaching performed: Patient was educated on the process of how to care for their wound after discharge. and Further teaching is necessary. Tolerance of dressings: Patient tolerated well with PO pain medication. and Patient tolerated well with IV pain medication. Number of staff and time required for dressin, 40 minutes Photos: 02/20/2024 pelvic incision 02/20/2024 pelvic incision 02/20/2024 scrotal incision 02/20/2024 scrotal incision Pertinent Labs: Albumin Date Value Ref Range Status 02/12/2024 3.1 (L) 3.5 - 5.7 g/dL Final Wound Assessment: Wound 02/12/24 Scrotum (Active) Wound Image 02/20/24 1528 Site Assessment Red;[place] 02/20/24 161 [place]-Wound Assessment Moist ;[place] 02/20/24 1615 Wound Length (cm) 1.5 cm 02/20/24 161 Wound Width (cm) 4.2 cm 02/20/24 161 Wound Surface Area (cm^2) 6.3 cm^2 02/20/24 161 Wound Depth (cm) 2 cm 02/20/24 161 Tunneling 10 cm 02/20/24 161 Tunneling Clock Position of Wound 12 o'clock 02/20/24 1615 Wound Volume (cm^3) 12.6 cm^3 02/20/24 1615 Closure None 02/20/24 161 Drainage Description Serosanguineous 02/20/24 161 Drainage Amount Small 02/20/24 161 Treatments Cleansed 02/20/24 161 Dressing Vacuum dressing 02/20/241614 Dressing Changed New 02/20/245 Dressing Status Clean;Dry;Intact 02/20/24 161 State of Healing Non-granulated tissue 02/20/24 1615 Wound Bed Granulation (%) 0 % 02/20/24 1615 Wound Bed Epithelium (%) 0 % 02/20/241614 Wound Bed Non-Granulation (%) 100 % 02/20/24 161 Wound Bed Slough (%) 0 % 02/20/24 161 Wound Bed Eschar (%) 0 % 02/20/24 161 Margins Attached edges;Well-defined edges 02/20/241614 Non-staged Wound Description Full thickness 02/20/24 161 Wound 02/15/24 Other (Comment) Anterior (Active) Site Assessment Red;[place] 02/20/241614 [place]-Wound Asses (more content not included)... Normal [facility] PHOSPHORUSon 02-20-2024 Magnesium [Mass/Vol] 4.5 mg/dL Normal 2.5-5.0 [facility] Comment on above: Performed By: #### L [id number] ####[facility] ([facility])[address] [place] [address] POCT GLUCOSE METER UNSOLICIT ED RESULTSon 02-20-2024 Glucose [Mass/Vol] 214 mg/dL High 70-105 [facility] Comment on above: Order Comment: Waive d Testing in the ED is performed under the ED CLIA certificate #[id number]. Result Comment: [email or web address] Performed By: #### L [id number] #### [facility] ([facility]) [address] [place] [address] Glucose [Mass/Vol] 166 mg/dL High 70-105 [facility] Comment on above: Order Comment: Waive d Testing in the ED is performed under the ED CLIA certificate #[id number]. Result Comment: [email or web address] Performed By: #### L [id number] ####[facility] ([employer] [place] [address] POTASSIUMon 02-20-2024 Potassium [Moles/Vol] 3.9 mmol/L Normal 3.5-5.1 [facility] Comment on above: Performed By: #### L AB15 #### [facility] ([employer] [address] [facility] [place] [address] 30on 02-19-2024 30 Problem: Pain - Adul t Goal: Verbalizes/displays adequate comfort level or baseline comfort level Outcome: Progressing Problem: Safety - Adult Goal: Free from fall injury Outcome: Progressing Flowsheets (Taken 02/19/20241999) Free from fall injury: Assess patient frequently for physical needs Identify cognitive and physical deficits and behaviors that affect risk of falls Lambert fall precautions as indicated by assessment Problem: Discharge Planning Goal: Discharge to home or other facility with appropriate resources Outcome: Progressing Flowsheets (Taken 02/19/20241999) Discharge to home or other facility with appropriate resources: Identify barriers to discharge with patient and caregiver Arrange for needed discharge resources and transportation as appropriate Identify discharge learning needs (meds, wound care, etc) Arrange for interpreters to assist at discharge as needed Refer to discharge planning if patient needs post-hospital services based on physician order or complex needs related to functional status, cognitive ability or social support system Problem: Chronic Conditions and Co-morbidities Goal: Patient's chronic conditions and co-morbidity symptoms are monitored and maintained or improved Outcome: Progressing Flowsheets (Taken 02/19/20241999) Care Plan - Patient's Chronic Conditions and Co-Morbidity Symptoms are Monitored and Maintained or Improved: Monitor and assess patient's chronic conditions and comorbid symptoms for stability, deterioration, or improvement Collaborate with multidisciplinary team to address chronic and comorbid conditions and prevent exacerbation or deterioration Update acute care plan with appropriate goals if chronic or comorbid symptoms are exacerbated and prevent overall improvement and discharge Problem: Neurosensory - Adult Goal: Achieves stable or improved neurological status Outcome: Progressing Flowsheets (Taken 02/19/20241999) Achieves stable or improved neurological status: Assess for and report changes in neurological status Initiate measures to prevent increased intracranial pressure Maintain blood pressure and fluid volume within ordered parameters to optimize cerebral perfusion and minimize risk of hemorrhage Goal: Absence of seizures Outcome: Progressing Goal: Remains free of injury related to seizures activity Outcome: Progressing Goal: Achieves maximal functionality and self care Outcome: Progressing Flowsheets (Taken 02/19/20241999) Achieves maximal functionality and self care: Monitor swallowing and airway patency with patient fatigue and changes in neurological status Encourage and assist patient to increase activity and self care with guidance from physical therapy/occupational therapy Encourage visually impaired, hearing impaired and aphasic patients to use assistive/communication devices Problem: Respiratory - Adult Goal: Achieves optimal ventilation and oxygenation Outcome: Progressing Flowsheets (Taken 02/19/20241999) Achieves optimal ventilation and oxygenation: Assess for changes in respiratory status Assess for changes in mentation and behavior Position to facilitate oxygenation and minimize respiratory effort Oxygen supplementation based on oxygen saturation or arterial blood gases Initiate smoking cessation protocol as indicated Encourage broncho-pulmonary hygiene including cough, deep breathe, incentive spirometry Assess the need for suctioning and aspirate as needed Problem: Cardiovascular - Adult Goal: Maintains optimal cardiac output and hemodynamic stability Outcome: Progressing Flowsheets (Taken 02/19/20241999) Maintains optimal cardiac output and hemodynamic stability: Monitor blood pressure and heart rate Monitor urine output and notify Licensed Independent Practitioner for values outside of normal range Assess for signs of decreased cardiac output Administer fluid and/or volume expanders as ordered Goal: Absence of cardiac dysrhythmias or at baseline Outcome: Progressing Flowsheets (Taken 02/19/20241999) Absence of cardiac dysrhythmias or at baseline: Monitor cardiac rate and rhythm Assess for signs of decreased cardiac output Administer antiarrhythmia medication and electrolyte replacement as ordered Problem: Skin/Tissue Integrity - Adult Goal: Skin integrity remains intact Outcome: Progressing Flowsheets (Taken 02/19/20241999) Skin integrity remains intact: Monitor for areas of redness and/or skin breakdown Assess vascular access sites hourly Change oxygen saturation probe site as needed Goal: Incisions, wounds, or drain sites healing without S/S of infection Outcome: Progressing Flowsheets (Taken 02/19/20241999) Incisions, wounds, or drain sites healing without sign and symptoms of infection: ADMISSION and DAILY: Assess and document risk factors for pressure ulcer development TWICE DAILY: Assess and document dres (more content not included)... Normal [facility] 30 Daily Case Managemen t Update Multidisciplinary rounds have been completed. Barriers to Discharge: Patient is medically cleared for discharge; pending I Woundvac approval; plan to discharge home w/[facility]. Diet: Dietary Orders (From admission, onward) Start Ordered 02/16/24 1126 Regular Diet Diabetic Male (carb 60g/meal) Diet effective now Question Answer Comment Room Service? Yes Carbohydrate restriction: Diabetic Male (carb 60g/meal) 02/16/24 1130 Physician Expected Discharge Date: 02/19/2024 Discharge Delays: Waiting on durable medical equipment [105] PT Six Click Score: 24 OT Six Click Score: Normal [facility] 30 Problem: Pain - Adul t Goal: Verbalizes/displays adequate comfort level or baseline comfort level Outcome: Progressing Problem: Safety - Adult Goal: Free from fall injury Outcome: Progressing Flowsheets (Taken 02/18/20241999) Free from fall injury: Assess patient frequently for physical needs Identify cognitive and physical deficits and behaviors that affect risk of falls Lambert fall precautions as indicated by assessment Instruct patient to call for assistance with activity based on assessment Modify environment to reduce risk of injury Problem: Discharge Planning Goal: Discharge to home or other facility with appropriate resources Outcome: Progressing Flowsheets (Taken 02/18/20241999) Discharge to home or other facility with appropriate resources: Identify barriers to discharge with patient and caregiver Arrange for needed discharge resources and transportation as appropriate Identify discharge learning needs (meds, wound care, etc) Arrange for interpreters to assist at discharge as needed Refer to discharge planning if patient needs post-hospital services based on physician order or complex needs related to functional status, cognitive ability or social support system Problem: Chronic Conditions and Co-morbidities Goal: Patient's chronic conditions and co-morbidity symptoms are monitored and maintained or improved Outcome: Progressing Flowsheets (Taken 02/18/20241999) Care Plan - Patient's Chronic Conditions and Co-Morbidity Symptoms are Monitored and Maintained or Improved: Monitor and assess patient's chronic conditions and comorbid symptoms for stability, deterioration, or improvement Collaborate with multidisciplinary team to address chronic and comorbid conditions and prevent exacerbation or deterioration Update acute care plan with appropriate goals if chronic or comorbid symptoms are exacerbated and prevent overall improvement and discharge Problem: Neurosensory - Adult Goal: Achieves stable or improved neurological status Outcome: Progressing Flowsheets (Taken 02/18/20241999) Achieves stable or improved neurological status: Assess for and report changes in neurological status Initiate measures to prevent increased intracranial pressure Maintain blood pressure and fluid volume within ordered parameters to optimize cerebral perfusion and minimize risk of hemorrhage Goal: Absence of seizures Outcome: Progressing Goal: Remains free of injury related to seizures activity Outcome: Progressing Goal: Achieves maximal functionality and self care Outcome: Progressing Flowsheets (Taken 02/18/20241999) Achieves maximal functionality and self care: Monitor swallowing and airway patency with patient fatigue and changes in neurological status Encourage and assist patient to increase activity and self care with guidance from physical therapy/occupational therapy Encourage visually impaired, hearing impaired and aphasic patients to use assistive/communication devices Problem: Respiratory - Adult Goal: Achieves optimal ventilation and oxygenation Outcome: Progressing Flowsheets (Taken 02/18/20241999) Achieves optimal ventilation and oxygenation: Assess for changes in respiratory status Assess for changes in mentation and behavior Position to facilitate oxygenation and minimize respiratory effort Oxygen supplementation based on oxygen saturation or arterial blood gases Initiate smoking cessation protocol as indicated Encourage broncho-pulmonary hygiene including cough, deep breathe, incentive spirometry Assess the need for suctioning and aspirate as needed Problem: Cardiovascular - Adult Goal: Maintains optimal cardiac output and hemodynamic stability Outcome: Progressing Flowsheets (Taken 02/18/20241999) Maintains optimal cardiac output and hemodynamic stability: Monitor blood pressure and heart rate Monitor urine output and notify Licensed Independent Practitioner for values outside of normal range Assess for signs of decreased cardiac output Administer fluid and/or volume expanders as ordered Goal: Absence of cardiac dysrhythmias or at baseline Outcome: Progressing Flowsheets (Taken 02/18/20241999) Absence of cardiac dysrhythmias or at baseline: Monitor cardiac rate and rhythm Assess for signs of decreased cardiac output Administer antiarrhythmia medication and electrolyte replacement as ordered Problem: Skin/Tissue Integrity - Adult Goal: Skin integrity remains intact Outcome: Progressing Flowsheets (Taken 02/18/20241999) Skin integrity remains intact: Monitor for areas of redness and/or skin breakdown Assess vascular access sites hourly Change oxygen saturation probe site as needed Goal: Incisions, wounds, or drain sites healing without S/S of infection Outcome: Progressing Flowsheets (Taken 02/18/20241999) Incisions, wounds, or drain sites healing without sign and symptoms of infection: ADMI (more content not included)... Normal [facility] BASIC METABOLIC PANELon 10-1 Anion gap [Moles/Vol] 10 mmol/L Normal 7-20 [facility] Comment on above: Performed By: #### L [id number] #### [facility] [address] [place] [address] Calcium [Mass/Vol] 8.5 mg/dL Low 8.6-10.3 [facility] Comment on above: Performed By: #### L [id number] #### [facility] [address] [place] [address] Chloride [Moles/Vol] 98 mmol/L Normal 98-107 [facility] Comment on above: Performed By: #### L [id number] #### [facility] [address] [place] [address] CO2 [Moles/Vol] 31 mmol/L Normal 21-31 [facility] Comment on above: Performed By: #### L [id number] #### [facility] ([facility]) [address] [place] [address] Creatinine [Mass/Vol] 1.11 mg/dL Normal 0.70-1.30 [facility] Comment on above: Performed By: #### L [id number] #### [facility] ([facility]) [address] [place] [address] GLOMERULAR FILTRATION RATE ML/MIN/1.73 SQ M.PREDICTED 79.4 mL/min/1.73m*2 Normal >60.0 [facility] Comment on above: Result Comment: The [facility]???s estimated glomerular filtration rate (eGFR) will no longer include consideration of race in its calculation. The National Kidney Foundation???s eGFR Task Force developed new recommendations for the estimation of the glomerular filtration rate in the [place] They recommend immediate implementation of the new equation refit without the race variable in all laboratories because the calculation does not include race. In addition to not including race in the calculation and reporting, it included diversity in its development, and has acceptable performance characteristics and potential consequences that do not disproportionately affect any one group of individuals. Performed By: #### L [id number] #### [facility] ([facility]) [address] [place] [address] Glucose [Mass/Vol] 186 mg/dL High 70-100 [facility] Comment on above: Performed By: #### L [id number] #### [facility] ([facility]) [address] [place] [address] Potassium [Moles/Vol] 3.9 mmol/L Normal 3.5-5.1 [facility] Comment on above: Performed By: #### L [id number] #### [facility] ([facility]) [address] [place] [address] Sodium [Moles/Vol] 135 mmol/L Low 136-145 [facility] Comment on above: Performed By: #### L [id number] #### [facility] ([facility]) [address] [place] [address] Urea nitrogen [Mass/Vol] 18 mg/dL Normal 7-25 [facility] Comment on above: Performed By: #### L [id number] #### [facility] ([facility]) [address] [place] [address] UREA NITROGEN/CREATININE (MASS RATIO) IN SER/PLAS 16.2 Normal [facility] Comment on above: Performed By: #### L [id number] #### [facility] ([facility]) [address] [place] [address] CBCon 02-19-2024 Erythrocyte distribution width (RBC) [Ratio] 13.3 % Normal 11.5-15.0 [facility] Comment on above: Performed By: #### L [id number] #### [facility] ([facility]) [address] [place] [address] ERYTHROCYTE MEAN CORPUSCULAR HEMOGLOBIN CONCENTRATION (G/DL) BY AUTOMATED 32.7 g/dL Normal 32.0-35.0 [facility] Comment on above: Performed By: #### L [id number] #### [facility] ([facility]) [address] [place] [address] Hematocrit (Bld) [Volume fraction] 39.4 % Normal 39.0-55.0 [facility] Comment on above: Performed By: #### L [id number] #### [facility] ([facility]) [address] [place] [address] Hemoglobin (Bld) [Mass/Vol] 12.9 g/dL Low 13.0-17.0 [facility] Comment on above: Performed By: #### L [id number] #### [facility] ([facility]) [address] [place] [address] MCH (RBC) [Entitic mass] 30.4 pg Normal 27.0-33.0 [facility] Comment on above: Performed By: #### L [id number] #### [facility] ([facility]) [address] [place] [address] MCV (RBC) [Entitic vol] 92.7 fL Normal 82.0-98.0 [facility] Comment on above: Performed By: #### L [id number] #### [facility] ([facility]) [address] [place] [address] PLATELETS (10*3/UL) IN BLOOD AUTOMATED COUNT 274 10*3/uL Normal 150-400 [facility] Comment on above: Performed By: #### L [id number] #### [facility] ([facility]) [address] [place] [address] RBC (Bld) [#/Vol] 4.25 10*6/uL Normal 4.20-5.70 [facility] Comment on above: Performed By: #### L [id number] #### [facility] ([facility]) [address] [place] [address] WBC (Bld) [#/Vol] 10.41 10*3/uL Normal 4.00-10.60 [facility] Comment on above: Performed By: #### L [id number] #### [facility] ([facility]) [address] [place] [address] MAGNESIUMon 02-19-2024 Magnesium [Mass/Vol] 1.7 mg/dL Low 1.9-2.7 [facility] Comment on above: Performed By: #### L [id number] #### [facility] ([facility]) [address] [place] [address] PHOSPHORUSon 02-19-2024 Magnesium [Mass/Vol] 4.9 mg/dL Normal 2.5-5.0 [facility] Comment on above: Performed By: #### L [id number] #### [facility] ([facility]) [address] [place] [address] POCT GLUCOSE METER UNSOLICIT ED RESULTSon 02-19-2024 Glucose [Mass/Vol] 183 mg/dL High 70-105 [facility] Comment on above: Order Comment: Waive d Testing in the ED is performed under the ED CLIA certificate #[id number]. Result Comment: [email or web address] Performed By: #### L [id number] #### [facility] ([facility]) [address] [place] [address] Glucose [Mass/Vol] 173 mg/dL High 70-105 [facility] Comment on above: Order Comment: Waive d Testing in the ED is performed under the ED CLIA certificate #[id number]. Result Comment: [email or web address] Performed By: #### L [id number] #### [facility] ([facility]) [address] [place] [address] Glucose [Mass/Vol] 277 mg/dL High 70-105 [facility] Comment on above: Order Comment: Waive d Testing in the ED is performed under the ED CLIA certificate #[id number]. Result Comment: [email or web address] Performed By: #### L [id number] #### [facility] ([facility]) [address] [facility] [place] [address] Glucose [Mass/Vol] 134 mg/dL High 70-105 [facility] Comment on above: Order Comment: Waive d Testing in the ED is performed under the ED CLIA certificate #[id number]. Result Comment: [email or web address] Performed By: #### L [id number] #### [facility] ([facility]) [address] [facility] [place] [address] 30on 02-18-2024 30 Daily Case Managemen t Update Multidisciplinary rounds have been completed. Barriers to Discharge: medically ready. Dc Plan : Await [employer] Wound Vac approval, Home w/ [facility] has accepted. R Groin (Leave [place] in place) Wound->Wound Vac applied today Scrotal Abscess ->daily iodoform packing, cover with ABD, secure with mesh panties Discharge on oral Augmentin per ID service Reviewed/Updated AVS (done): Follow-up appts are all made for General Surgery, ID, Urology & Wound Care Clinics Diet: Dietary Orders (From admission, onward) Start Ordered 02/16/24 1126 Regular Diet Diabetic Male (carb 60g/meal) Diet effective now Question Answer Comment Room Service? Yes Carbohydrate restriction: Diabetic Male (carb 60g/meal) 02/16/24 1130 Physician Expected Discharge Date: 02/18/2024 Discharge Delays: PT Six Click Score: 24 OT Six Click Score: PT Recommendations: OT Recommendations: New Consults: Normal [facility] 30 Problem: Pain - Adul t Goal: Verbalizes/displays adequate comfort level or baseline comfort level Outcome: Progressing Problem: Safety - Adult Goal: Free from fall injury Outcome: Progressing Flowsheets (Taken 02/17/20241999) Free from fall injury: Assess patient frequently for physical needs Identify cognitive and physical deficits and behaviors that affect risk of falls Lambert fall precautions as indicated by assessment Problem: Discharge Planning Goal: Discharge to home or other facility with appropriate resources Outcome: Progressing Flowsheets (Taken 02/17/20241999) Discharge to home or other facility with appropriate resources: Identify barriers to discharge with patient and caregiver Arrange for needed discharge resources and transportation as appropriate Identify discharge learning needs (meds, wound care, etc) Problem: Chronic Conditions and Co-morbidities Goal: Patient's chronic conditions and co-morbidity symptoms are monitored and maintained or improved Outcome: Progressing Flowsheets (Taken 02/17/20241999) Care Plan - Patient's Chronic Conditions and Co-Morbidity Symptoms are Monitored and Maintained or Improved: Monitor and assess patient's chronic conditions and comorbid symptoms for stability, deterioration, or improvement Collaborate with multidisciplinary team to address chronic and comorbid conditions and prevent exacerbation or deterioration Update acute care plan with appropriate goals if chronic or comorbid symptoms are exacerbated and prevent overall improvement and discharge Problem: Neurosensory - Adult Goal: Achieves stable or improved neurological status Outcome: Progressing Flowsheets (Taken 02/17/20241999) Achieves stable or improved neurological status: Assess for and report changes in neurological status Initiate measures to prevent increased intracranial pressure Goal: Absence of seizures Outcome: Progressing Flowsheets (Taken 02/17/20241999) Absence of seizures: Monitor for seizure activity. If seizure occurs, document type and location of movements and any associated apnea Goal: Remains free of injury related to seizures activity Outcome: Progressing Flowsheets (Taken 02/17/20241999) Remains free of injury related to seizure activity: Maintain airway, patient safety and administer oxygen as ordered Goal: Achieves maximal functionality and self care Outcome: Progressing Flowsheets (Taken 02/17/20241999) Achieves maximal functionality and self care: Monitor swallowing and airway patency with patient fatigue and changes in neurological status Problem: Respiratory - Adult Goal: Achieves optimal ventilation and oxygenation Outcome: Progressing Flowsheets (Taken 02/17/20241999) Achieves optimal ventilation and oxygenation: Assess for changes in respiratory status Assess for changes in mentation and behavior Position to facilitate oxygenation and minimize respiratory effort Problem: Cardiovascular - Adult Goal: Maintains optimal cardiac output and hemodynamic stability Outcome: Progressing Flowsheets (Taken 02/17/20241999) Maintains optimal cardiac output and hemodynamic stability: Monitor blood pressure and heart rate Goal: Absence of cardiac dysrhythmias or at baseline Outcome: Progressing Flowsheets (Taken 02/17/20241999) Absence of cardiac dysrhythmias or at baseline: Monitor cardiac rate and rhythm Problem: Skin/Tissue Integrity - Adult Goal: Skin integrity remains intact Outcome: Progressing Flowsheets (Taken 02/17/20241999) Skin integrity remains intact: Monitor for areas of redness and/or skin breakdown Goal: Incisions, wounds, or drain sites healing without S/S of infection Outcome: Progressing Flowsheets (Taken 02/17/20241999) Incisions, wounds, or drain sites healing without sign and symptoms of infection: ADMISSION and DAILY: Assess and document risk factors for pressure ulcer development Goal: Oral mucous membranes remain intact Outcome: Progressing Problem: Musculoskeletal - Adult Goal: Return mobility to safest level of function Outcome: Progressing Flowsheets (Taken 02/17/20241999) Return mobility to safest level of function: Assess patient stability and activity tolerance for standing, transferring and ambulating with or without assistive devices Assist with transfers and ambulation using safe patient handling equipment as needed Goal: Maintain proper alignment of affected body part Outcome: Progressing Flowsheets (Taken 02/17/20241999) Maintain proper alignment of affected body part: Support and protect limb and body alignment per provider's orders Goal: Return ADL status to a safe level of function Outcome: Progressing Flowsheets (Taken 02/17/20241999) Return ADL status to a safe level of function: Administer medication as ordered Problem: Gastrointestinal - Adult Goal: Minimal or absence of nausea and vomiting Outcome: Progressing F (more content not included)... Normal [facility] BASIC METABOLIC PANELon 02-06 Anion gap [Moles/Vol] 11 mmol/L Normal 7-20 [facility] Comment on above: Performed By: #### L [id number] #### [facility] ([facility]) [address] [place] [address] Calcium [Mass/Vol] 8.1 mg/dL Low 8.6-10.3 [facility] Comment on above: Performed By: #### L [id number] #### [facility] ([facility]) [address] [place] [address] Chloride [Moles/Vol] 99 mmol/L Normal 98-107 [facility] Comment on above: Performed By: #### L [id number] #### [facility] ([facility]) [address] [place] [address] CO2 [Moles/Vol] 29 mmol/L Normal 21-31 [facility] Comment on above: Performed By: #### L [id number] #### [facility] ([facility]) [address] [place] [address] Creatinine [Mass/Vol] 1.13 mg/dL Normal 0.70-1.30 [facility] Comment on above: Performed By: #### L [id number] #### [facility] ([facility]) [address] [place] [address] GLOMERULAR FILTRATION RATE ML/MIN/1.73 SQ M.PREDICTED 77.7 mL/min/1.73m*2 Normal >60.0 [facility] Comment on above: Result Comment: The [facility]???s estimated glomerular filtration rate (eGFR) will no longer include consideration of race in its calculation. The National Kidney Foundation???s eGFR Task Force developed new recommendations for the estimation of the glomerular filtration rate in the [place] They recommend immediate implementation of the new equation refit without the race variable in all laboratories because the calculation does not include race. In addition to not including race in the calculation and reporting, it included diversity in its development, and has acceptable performance characteristics and potential consequences that do not disproportionately affect any one group of individuals. Performed By: #### L [id number] #### [facility] ([facility]) [address] [place] [address] Glucose [Mass/Vol] 168 mg/dL High 70-100 [facility] Comment on above: Performed By: #### L [id number] #### [facility] ([facility]) [address] [place] [address] Potassium [Moles/Vol] 3.8 mmol/L Normal 3.5-5.1 [facility] Comment on above: Performed By: #### L [id number] #### [facility] ([facility]) [address] [place] [address] Sodium [Moles/Vol] 135 mmol/L Low 136-145 [facility] Comment on above: Performed By: #### L [id number] #### [facility] ([facility]) [address] [place] [address] Urea nitrogen [Mass/Vol] 20 mg/dL Normal 7-25 [facility] Comment on above: Performed By: #### L [id number] #### [facility] ([facility]) [address] [place] [address] UREA NITROGEN/CREATININE (MASS RATIO) IN SER/PLAS 17.7 Normal [facility] Comment on above: Performed By: #### L [id number] #### [facility] ([facility]) [address] [place] [address] CBCon 02-18-2024 Erythrocyte distribution width (RBC) [Ratio] 13.4 % Normal 11.5-15.0 [facility] Comment on above: Performed By: #### L [id number] #### [facility] ([facility]) [address] [place] [address] ERYTHROCYTE MEAN CORPUSCULAR HEMOGLOBIN CONCENTRATION (G/DL) BY AUTOMATED 33.1 g/dL Normal 32.0-35.0 [facility] Comment on above: Performed By: #### L [id number] #### [facility] ([facility]) [address] [place] [address] Hematocrit (Bld) [Volume fraction] 38.1 % Low 39.0-55.0 [facility] Comment on above: Performed By: #### L [id number] #### [facility] ([facility]) [address] [place] [address] Hemoglobin (Bld) [Mass/Vol] 12.6 g/dL Low 13.0-17.0 [facility] Comment on above: Performed By: #### L [id number] #### [facility] ([facility]) [address] [place] [address] MCH (RBC) [Entitic mass] 30.1 pg Normal 27.0-33.0 [facility] Comment on above: Performed By: #### L [id number] #### [facility] ([facility]) [address] [place] [address] MCV (RBC) [Entitic vol] 91.1 fL Normal 82.0-98.0 [facility] Comment on above: Performed By: #### L [id number] #### [facility] ([facility]) [address] [place] [address] PLATELETS (10*3/UL) IN BLOOD AUTOMATED COUNT 241 10*3/uL Normal 150-400 [facility] Comment on above: Performed By: #### L [id number] #### [facility] ([facility]) [address] [place] [address] RBC (Bld) [#/Vol] 4.18 10*6/uL Low 4.20-5.70 [facility] Comment on above: Performed By: #### L [id number] #### [facility] ([facility]) [address] [place] [address] WBC (Bld) [#/Vol] 11.86 10*3/uL High 4.00-10.60 [facility] Comment on above: Performed By: #### L [id number] #### [facility] ([facility]) [address] [place] [address] MAGNESIUMon 02-18-2024 Magnesium [Mass/Vol] 1.7 mg/dL Low 1.9-2.7 [facility] Comment on above: Performed By: #### L [id number] #### [facility] ([facility]) [address] [place] [address] PHOSPHORUSon 02-18-2024 Magnesium [Mass/Vol] 4.5 mg/dL Normal 2.5-5.0 [facility] Comment on above: Performed By: #### L [id number] #### [facility] ([facility]) [address] [place] [address] POCT GLUCOSE METER UNSOLICIT ED RESULTSon 02-18-2024 Glucose [Mass/Vol] 209 mg/dL High 70-105 [facility] Comment on above: Order Comment: Waive d Testing in the ED is performed under the ED CLIA certificate #[id number]. Result Comment: [email or web address] Performed By: #### L [id number] #### [facility] ([facility]) [address] [place] [address] Glucose [Mass/Vol] 142 mg/dL High 70-105 [facility] Comment on above: Order Comment: Waive d Testing in the ED is performed under the ED CLIA certificate #[id number]. Result Comment: [email or web address] Performed By: #### L [id number] #### [facility] ([employer]) [address] [place] [address] Glucose [Mass/Vol] 200 mg/dL High 70-105 [facility] Comment on above: Order Comment: Waive d Testing in the ED is performed under the ED CLIA certificate #[id number]. Result Comment: [email or web address] Performed By: #### L [id number] #### [facility] ([facility]) [address] [place] [address] Glucose [Mass/Vol] 158 mg/dL High 70-105 [facility] Comment on above: Order Comment: Waive d Testing in the ED is performed under the ED CLIA certificate #[id number]. Result Comment: [email or web address] Performed By: #### L [id number] #### [facility]) [address] [place] [address] BASIC METABOLIC PANELon 10- Anion gap [Moles/Vol] 9 mmol/L Normal 7-20 [facility] Comment on above: Performed By: #### L [id number] #### [facility] ([facility]) [address] [place] [address] Calcium [Mass/Vol] 7.9 mg/dL Low 8.6-10.3 [facility] Comment on above: Performed By: #### L [id number] #### [facility] ([facility]) [address] [place] [address] Chloride [Moles/Vol] 103 mmol/L Normal 98-107 [facility] Comment on above: Performed By: #### L [id number] #### [facility] ([facility]) [address] [place] [address] CO2 [Moles/Vol] 29 mmol/L Normal 21-31 [facility] Comment on above: Performed By: #### L [id number] #### [facility] [facility]) [address] [place] [address] Creatinine [Mass/Vol] 1.04 mg/dL Normal 0.70-1.30 [facility] Comment on above: Performed By: #### L [id number] #### [facility] ([facility]) [address] [place] [address] GLOMERULAR FILTRATION RATE ML/MIN/1.73 SQ M.PREDICTED 85.9 mL/min/1.73m*2 Normal >60.0 [facility] Comment on above: Result Comment: The [facility]???s estimated glomerular filtration rate (eGFR) will no longer include consideration of race in its calculation. The National Kidney Foundation???s eGFR Task Force developed new recommendations for the estimation of the glomerular filtration rate in the [place] They recommend immediate implementation of the new equation refit without the race variable in all laboratories because the calculation does not include race. In addition to not including race in the calculation and reporting, it included diversity in its development, and has acceptable performance characteristics and potential consequences that do not disproportionately affect any one group of individuals. Performed By: #### L [id number] #### [facility] ([facility]) [address] [place] [address] Glucose [Mass/Vol] 159 mg/dL High 70-100 [facility] Comment on above: Performed By: #### L [id number] #### [facility] ([facility]) [address] [place] [address] Potassium [Moles/Vol] 4.0 mmol/L Normal 3.5-5.1 [facility] Comment on above: Performed By: #### L [id number] #### [facility] ([facility]) [address] [place] [address] Sodium [Moles/Vol] 137 mmol/L Normal 136-145 [facility] Comment on above: Performed By: #### L [id number] #### [facility] ([facility]) [address] [place] [address] Urea nitrogen [Mass/Vol] 20 mg/dL Normal 7-25 [facility] Comment on above: Performed By: #### L [id number] #### [facility] ([facility]) [address] [place] [address] UREA NITROGEN/CREATININE (MASS RATIO) IN SER/PLAS 19.2 Normal [facility] Comment on above: Performed By: #### L [id number] #### [facility] ([facility]) [address] [place] [address] CALCIUM, IONIZEDon CALCIUM IONIZED (MMOL/L) IN BLOOD 1.07 mmol/L Low 1.15-1.33 [facility] Comment on above: Performed By: #### L [id number] #### [facility] ([facility]) [address] [place] [address] CBCon 02-17-2024 Erythrocyte distribution width (RBC) [Ratio] 13.4 % Normal 11.5-15.0 [facility] Comment on above: Performed By: #### L [id number] #### [facility] ([facility]) [address] [place] [address] ERYTHROCYTE MEAN CORPUSCULAR HEMOGLOBIN CONCENTRATION (G/DL) BY AUTOMATED 32.5 g/dL Normal 32.0-35.0 [facility] Comment on above: Performed By: #### L [id number] #### [facility] ([facility]) [address] [place] [address] Hematocrit (Bld) [Volume fraction] 38.5 % Low 39.0-55.0 [facility] Comment on above: Performed By: #### L [id number] #### [facility] ([facility]) [address] [place] [address] Hemoglobin (Bld) [Mass/Vol] 12.5 g/dL Low 13.0-17.0 [facility] Comment on above: Performed By: #### L [id number] #### [facility] ([facility]) [address] [place] [address] MCH (RBC) [Entitic mass] 30.4 pg Normal 27.0-33.0 [facility] Comment on above: Performed By: #### L [id number] #### [facility] ([facility]) [address] [place] [address] MCV (RBC) [Entitic vol] 93.7 fL Normal 82.0-98.0 [facility] Comment on above: Performed By: #### L [id number] #### [facility] ([facility]) [address] [place] [address] PLATELETS (10*3/UL) IN BLOOD AUTOMATED COUNT 250 10*3/uL Normal 150-400 [facility] Comment on above: Performed By: #### L [id number] #### [facility] ([facility]) [address] [place] [address] RBC (Bld) [#/Vol] 4.11 10*6/uL Low 4.20-5.70 [facility] Comment on above: Performed By: #### L [id number] #### [facility] ([facility]) [address] [place] [address] WBC (Bld) [#/Vol] 13.83 10*3/uL High 4.00-10.60 [facility] Comment on above: Performed By: #### L [id number] #### [facility] ([facility]) [address] [place] [address] MAGNESIUMon 02-17-2024 Magnesium [Mass/Vol] 1.7 mg/dL Low 1.9-2.7 [facility] Comment on above: Performed By: #### L [id number] #### [facility] ([facility]) [address] [place] [address] Magnesium [Mass/Vol] 1.7 mg/dL Low 1.9-2.7 [facility] Comment on above: Performed By: #### L [id number] #### [facility] ([facility]) [address] [place] [address] PHOSPHORUSon 02-17-2024 Magnesium [Mass/Vol] 4.5 mg/dL Normal 2.5-5.0 [facility] Comment on above: Performed By: #### L [id number] #### [facility] ([facility]) [address] [place] [address] POCT GLUCOSE METER UNSOLICIT ED RESULTSon 02-17-2024 Glucose [Mass/Vol] 234 mg/dL High 70-105 [facility] Comment on above: Order Comment: Waive d Testing in the ED is performed under the ED CLIA certificate #[id number]. Result Comment: [email or web address] Performed By: #### L [id number] #### [facility] ([facility]) [address] [place] [address] Glucose [Mass/Vol] 240 mg/dL High 70-105 [facility] Comment on above: Order Comment: Waive d Testing in the ED is performed under the ED CLIA certificate #[id number]. Result Comment: [email or web address] Performed By: #### L [id number] #### [facility] ([facility]) [address] [place] [address] Glucose [Mass/Vol] 214 mg/dL High 70-105 [facility] Comment on above: Order Comment: Waive d Testing in the ED is performed under the ED CLIA certificate #[id number]. Result Comment: [email or web address] Performed By: #### L [id number] #### [facility] [address] [place] [address] Glucose [Mass/Vol] 145 mg/dL High 70-105 [facility] Comment on above: Order Comment: Waive d Testing in the ED is performed under the ED CLIA certificate #[id number]. Result Comment: [email or web address] Performed By: #### L [id number] #### [facility] [address] [place] [address] 30on 02-16-2024 30 Problem: Pain - Adul t Goal: Verbalizes/displays adequate comfort level or baseline comfort level Outcome: Progressing Problem: Safety - Adult Goal: Free from fall injury Outcome: Progressing Flowsheets (Taken 02/16/20241999) Free from fall injury: Assess patient frequently for physical needs Identify cognitive and physical deficits and behaviors that affect risk of falls Lambert fall precautions as indicated by assessment Problem: Discharge Planning Goal: Discharge to home or other facility with appropriate resources Outcome: Progressing Flowsheets (Taken 02/16/20241999) Discharge to home or other facility with appropriate resources: Identify barriers to discharge with patient and caregiver Arrange for needed discharge resources and transportation as appropriate Identify discharge learning needs (meds, wound care, etc) Problem: Chronic Conditions and Co-morbidities Goal: Patient's chronic conditions and co-morbidity symptoms are monitored and maintained or improved Outcome: Progressing Flowsheets (Taken 02/16/20241999) Care Plan - Patient's Chronic Conditions and Co-Morbidity Symptoms are Monitored and Maintained or Improved: Monitor and assess patient's chronic conditions and comorbid symptoms for stability, deterioration, or improvement Collaborate with multidisciplinary team to address chronic and comorbid conditions and prevent exacerbation or deterioration Update acute care plan with appropriate goals if chronic or comorbid symptoms are exacerbated and prevent overall improvement and discharge Problem: Neurosensory - Adult Goal: Achieves stable or improved neurological status Outcome: Progressing Flowsheets (Taken 02/16/20241999) Achieves stable or improved neurological status: Assess for and report changes in neurological status Initiate measures to prevent increased intracranial pressure Goal: Absence of seizures Outcome: Progressing Flowsheets (Taken 02/16/20241999) Absence of seizures: Monitor for seizure activity. If seizure occurs, document type and location of movements and any associated apnea Goal: Remains free of injury related to seizures activity Outcome: Progressing Flowsheets (Taken 02/16/20241999) Remains free of injury related to seizure activity: Maintain airway, patient safety and administer oxygen as ordered Goal: Achieves maximal functionality and self care Outcome: Progressing Flowsheets (Taken 02/16/20241999) Achieves maximal functionality and self care: Monitor swallowing and airway patency with patient fatigue and changes in neurological status Problem: Respiratory - Adult Goal: Achieves optimal ventilation and oxygenation Outcome: Progressing Problem: Cardiovascular - Adult Goal: Maintains optimal cardiac output and hemodynamic stability Outcome: Progressing Flowsheets (Taken 02/16/20241999) Maintains optimal cardiac output and hemodynamic stability: Monitor blood pressure and heart rate Goal: Absence of cardiac dysrhythmias or at baseline Outcome: Progressing Flowsheets (Taken 02/16/20241999) Absence of cardiac dysrhythmias or at baseline: Monitor cardiac rate and rhythm Problem: Skin/Tissue Integrity - Adult Goal: Skin integrity remains intact Outcome: Progressing Flowsheets (Taken 02/16/20241999) Skin integrity remains intact: Monitor for areas of redness and/or skin breakdown Goal: Incisions, wounds, or drain sites healing without S/S of infection Outcome: Progressing Flowsheets (Taken 02/16/20241999) Incisions, wounds, or drain sites healing without sign and symptoms of infection: ADMISSION and DAILY: Assess and document risk factors for pressure ulcer development Goal: Oral mucous membranes remain intact Outcome: Progressing Problem: Musculoskeletal - Adult Goal: Return mobility to safest level of function Outcome: Progressing Flowsheets (Taken 02/16/20241999) Return mobility to safest level of function: Assess patient stability and activity tolerance for standing, transferring and ambulating with or without assistive devices Assist with transfers and ambulation using safe patient handling equipment as needed Goal: Maintain proper alignment of affected body part Outcome: Progressing Flowsheets (Taken 02/16/20241999) Maintain proper alignment of affected body part: Support and protect limb and body alignment per provider's orders Goal: Return ADL status to a safe level of function Outcome: Progressing Flowsheets (Taken 02/16/20241999) Return ADL status to a safe level of function: Administer medication as ordered Problem: Gastrointestinal - Adult Goal: Minimal or absence of nausea and vomiting Outcome: Progressing Flowsheets (Taken 02/16/20241999) Minimal or absence of nausea and vomiting: Administer IV fluids as ordered to ensure adequate hydration Maintain NPO status until nausea and vomiting are resolved Goal: Maintains or returns to baseline (more content not included)... Normal [facility] 30 Problem: Pain - Adul t Goal: Verbalizes/displays adequate comfort level or baseline comfort level 02/16/2024200 by Dick Xiong RN Outcome: Progressing 02/16/2024200 by Dick Xiong RN Outcome: Progressing Problem: Safety - Adult Goal: Free from fall injury 02/16/2024200 by Dick Xiong RN Outcome: Progressing 02/16/2024200 by Dick Xiong RN Outcome: Progressing Flowsheets (Taken 02/15/20241999) Free from fall injury: Assess patient frequently for physical needs Identify cognitive and physical deficits and behaviors that affect risk of falls Problem: Discharge Planning Goal: Discharge to home or other facility with appropriate resources 02/16/2024200 by Dick Xiong RN Outcome: Progressing 02/16/2024200 by Dick Xiong RN Outcome: Progressing Flowsheets (Taken 02/15/20242004) Discharge to home or other facility with appropriate resources: Identify barriers to discharge with patient and caregiver Arrange for needed discharge resources and transportation as appropriate Identify discharge learning needs (meds, wound care, etc) Problem: Chronic Conditions and Co-morbidities Goal: Patient's chronic conditions and co-morbidity symptoms are monitored and maintained or improved 02/16/2024200 by Dick Xiong RN Outcome: Progressing 02/16/2024200 by Dick Xiong RN Outcome: Progressing Flowsheets (Taken 02/15/20242004) Care Plan - Patient's Chronic Conditions and Co-Morbidity Symptoms are Monitored and Maintained or Improved: Monitor and assess patient's chronic conditions and comorbid symptoms for stability, deterioration, or improvement Collaborate with multidisciplinary team to address chronic and comorbid conditions and prevent exacerbation or deterioration Update acute care plan with appropriate goals if chronic or comorbid symptoms are exacerbated and prevent overall improvement and discharge Problem: Neurosensory - Adult Goal: Achieves stable or improved neurological status 02/16/2024200 by Dick Xiong RN Outcome: Progressing 02/16/2024200 by Dick Xiong RN Outcome: Progressing Flowsheets (Taken 02/15/20242004) Achieves stable or improved neurological status: Assess for and report changes in neurological status Initiate measures to prevent increased intracranial pressure Goal: Absence of seizures 02/16/2024200 by Dick Xiong RN Outcome: Progressing 02/16/2024200 by Dick Xiong RN Outcome: Progressing Flowsheets (Taken 02/15/20242004) Absence of seizures: Monitor for seizure activity. If seizure occurs, document type and location of movements and any associated apnea Goal: Remains free of injury related to seizures activity 02/16/2024200 by Dick Xiong RN Outcome: Progressing 02/16/2024200 by Dick Xiong RN Outcome: Progressing Flowsheets (Taken 02/15/20242004) Remains free of injury related to seizure activity: Maintain airway, patient safety and administer oxygen as ordered Goal: Achieves maximal functionality and self care 02/16/2024200 by Dick Xiong RN Outcome: Progressing 02/16/2024200 by Dick Xiong RN Outcome: Progressing Flowsheets (Taken 02/15/20242004) Achieves maximal functionality and self care: Monitor swallowing and airway patency with patient fatigue and changes in neurological status Problem: Respiratory - Adult Goal: Achieves optimal ventilation and oxygenation 02/16/2024200 by Dick Xiong RN Outcome: Progressing 02/16/2024200 by Dick Xiong RN Outcome: Progressing Problem: Cardiovascular - Adult Goal: Maintains optimal cardiac output and hemodynamic stability 02/16/2024200 by Dick Xiong RN Outcome: Progressing 02/16/2024200 by Dick Xiong RN Outcome: Progressing Flowsheets (Taken 02/15/20242004) Maintains optimal cardiac output and hemodynamic stability: Monitor blood pressure and heart rate Goal: Absence of cardiac dysrhythmias or at baseline 02/16/2024200 by Dick Xiong RN Outcome: Progressing 02/16/2024200 by Dick Xiong RN Outcome: Progressing Flowsheets (Taken 02/15/20242004) Absence of cardiac dysrhythmias or at baseline: Monitor cardiac rate and rhythm Problem: Skin/Tissue Integrity - Adult Goal: Skin integrity remains intact 02/16/2024200 by Dick Xiong RN Outcome: Progressing 02/16/2024200 by Dick Xiong RN Outcome: Progressing Flowsheets (Taken 02/15/20242004) Skin integrity remains intact: Monitor for areas of redness and/or skin breakdown Goal: Incisions, wounds, or drain sites healing without S/S of infection 02/16/2024200 by Dick Xiong RN Outcome: Progressing 02/16/2024200 by Dick Xiong RN Outcome: Progressing Flowsheets (Taken 02/15/20242004) Incisions, wounds, or drain sites healing without sign and symptoms of infection: ADMISSION and DAILY: Assess and document risk factors for pressure ulcer devel (more content not included)... Normal [facility] BASIC METABOLIC PANELon 02-06 Anion gap [Moles/Vol] 15 mmol/L Normal 7-20 [facility] Comment on above: Performed By: #### L [id number] ####[facility] ([facility])[address] [place] [address] Calcium [Mass/Vol] 8.8 mg/dL Normal 8.6-10.3 [facility] Comment on above: Performed By: #### L [id number] ####[facility] ([facility])[address] [place] [address] Chloride [Moles/Vol] 100 mmol/L Normal 98-107 [facility] Comment on above: Performed By: #### L [id number] ####[facility] ([facility])[address] [place] [address] CO2 [Moles/Vol] 25 mmol/L Normal 21-31 [facility] Comment on above: Performed By: #### L [id number] ####[facility] ([facility])[address] [place] [address] Creatinine [Mass/Vol] 1.31 mg/dL High 0.70-1.30 [facility] Comment on above: Performed By: #### L [id number] ####[facility] ([facility])[address] [place] [address] GLOMERULAR FILTRATION RATE ML/MIN/1.73 SQ M.PREDICTED 65.1 mL/min/1.73m*2 Normal >60.0 [facility] Comment on above: Result Comment: The [facility]???s estimated glomerular filtration rate (eGFR) will no longer include consideration of race in its calculation. The National Kidney Foundation???s eGFR Task Force developed new recommendations for the estimation of the glomerular filtration rate in the [place] They recommend immediate implementation of the new equation refit without the race variable in all laboratories because the calculation does not include race. In addition to not including race in the calculation and reporting, it included diversity in its development, and has acceptable performance characteristics and potential consequences that do not disproportionately affect any one group of individuals. Performed By: #### L [id number] ####[facility] ([facility])[address] [place] [address] Glucose [Mass/Vol] 189 mg/dL High 70-100 [facility] Comment on above: Performed By: #### L [id number] ####[facility] ([facility])[address] [place] [address] Potassium [Moles/Vol] 4.1 mmol/L Normal 3.5-5.1 [facility] Comment on above: Performed By: #### L [id number] ####[facility] ([facility])[address] [place] [address] Sodium [Moles/Vol] 136 mmol/L Normal 136-145 [facility] Comment on above: Performed By: #### L [id number] ####[facility] ([facility])[address] [place] [address] Urea nitrogen [Mass/Vol] 23 mg/dL Normal 7-25 [facility] Comment on above: Performed By: #### L [id number] ####[facility] ([facility])[address] [place] [address] UREA NITROGEN/CREATININE (MASS RATIO) IN SER/PLAS 17.6 Normal [facility] Comment on above: Performed By: #### L [id number] ####[facility] ([facility])[address] [place] [address] CBCon 02-16-2024 Erythrocyte distribution width (RBC) [Ratio] 13.2 % Normal 11.5-15.0 [facility] Comment on above: Performed By: #### L [id number] #### [facility] ([facility]) [address] [place] [address] ERYTHROCYTE MEAN CORPUSCULAR HEMOGLOBIN CONCENTRATION (G/DL) BY AUTOMATED 33.3 g/dL Normal 32.0-35.0 [facility] Comment on above: Performed By: #### L [id number] #### [facility] ([facility]) [address] [place] [address] Hematocrit (Bld) [Volume fraction] 40.5 % Normal 39.0-55.0 [facility] Comment on above: Performed By: #### L [id number] #### [facility] ([facility]) [address] [place] [address] Hemoglobin (Bld) [Mass/Vol] 13.5 g/dL Normal 13.0-17.0 [facility] Comment on above: Performed By: #### L [id number] #### [facility] ([facility]) [address] [place] [address] MCH (RBC) [Entitic mass] 30.5 pg Normal 27.0-33.0 [facility] Comment on above: Performed By: #### L [id number] #### [facility] ([facility]) [address] [place] [address] MCV (RBC) [Entitic vol] 91.4 fL Normal 82.0-98.0 [facility] Comment on above: Performed By: #### L [id number] #### [facility] ([facility]) [address] [place] [address] PLATELETS (10*3/UL) IN BLOOD AUTOMATED COUNT 284 10*3/uL Normal 150-400 [facility] Comment on above: Performed By: #### L [id number] #### [facility] ([facility]) [address] [place] [address] RBC (Bld) [#/Vol] 4.43 10*6/uL Normal 4.20-5.70 [facility] Comment on above: Performed By: #### L [id number] #### [facility] ([facility]) [address] [place] [address] WBC (Bld) [#/Vol] 21.20 10*3/uL High 4.00-10.60 [facility] Comment on above: Performed By: #### L [id number] #### [facility] ([facility]) [address] [place] [address] MAGNESIUMon 02-16-2024 Magnesium [Mass/Vol] 2.0 mg/dL Normal 1.9-2.7 [facility] Comment on above: Performed By: #### L [id number] #### [facility] ([facility]) [address] [place] [address] OPNOTEon 02-16-2024 OPNOTE Date: 02/16/2024 Location: [facility] Name: Jose Duggan, : 1970, Diagnosis Pre-op Diagnosis * Necrotizing soft tissue infection [M79.89] Post-op Diagnosis * Necrotizing soft tissue infection [M79.89] Procedures * Right groin debridement and washout Surgeons Primary: Tasneem Gu MD Resident - Assisting: Kristi Fish MD Procedure Summary Anesthesia: General ASA: III Estimated Blood Loss: None Total IV Fluids: minimal Drains: Open Drain Other (Comment) Groin (Active) Site Description Other (Comment) 02/15/242317 Dressing Status Intact 02/15/242317 Specimens ID Source Type Tests Collected By Collected At Frozen? Priority Lab ID 1 Other Swab WOUND CULTURE AND ANAEROBIC CULTURE Tasneem Gu MD 02/16/24 1110 Routine [id number], [id number] Description: right groin culture swab 2 Other Tissue TISSUE CULTURE AND ANAEROBIC CULTURE Tasneem Gu MD 02/16/24 1112 Routine [id number], [id number] Description: right groin deep tissue culture Staff: Lawyer Probate: Tino Bashir RN Scrub Person: Latonya Denton, BOWEN Indications: Jose Duggan is an 54 y.o. male who is having surgery for Necrotizing soft tissue infection [M79.89]. Pt is s/p 2 incision and drainage over the last 4 days. Pt taken back to OR for additional debridement and washout. Discuss risks/benefits and informed consent was obtained. Findings: There was minimal necrotic tissue in the inguinal wound which was debrided and sent for cultures. The rest of the tissue appeared healthy and viable with good blood supply and no purulence identified. Fulton drain in place. Complications: None; patient tolerated the procedure well. Disposition: PACU - hemodynamically stable. Condition: stable Specimens Collected: Order Name Source Comment Collection Info Order Time TISSUE CULTURE AND ANAEROBIC CULTURE Other Pre-op diagnosis: Necrotizing soft tissue infection [M79.89] Collected By: Tasneem Gu MD 02/16/2024 11:12 AM Release to Patient Immediately WOUND CULTURE AND ANAEROBIC CULTURE Other Pre-op diagnosis: Necrotizing soft tissue infection [M79.89] Collected By: Tasneem Gu MD 02/16/2024 11:12 AM Release to Patient Immediately Dr. Gu was present for the entire procedure. Brooke Rosado DO General Surgery Resident, PGY-1 02/16/24 11:33 AM Normal [facility] OPNOTE --- Attestation signed by Tasneem Gu MD at 03/07/2024 9:49 AM (Updated) By using the attestations below, the signing clinician agrees that I have read and verify that the documentation has been personally reviewed by me and ensure that the documentation accurately reflects the encounter. GC: I personally saw this patient on the day of the encounter, performed the diamond portion(s) of the service and participated in the management and confirm the resident's documentation. Please note there may be an additional personal documentation from me. Procedure Attestation Level of Attending Supervision for Procedure I was present for the entire procedure debridement of wound 10 cm x 5 cm in the upper groin and 5 cm x 5 cm in the lower groin Right groin debridement and washout (R) Operative Note Date: 02/16/2024 Location: [facility] OR Name: Jose Duggan, : 1970, Diagnosis Pre-op Diagnosis * Necrotizing soft tissue infection [M79.89] Post-op Diagnosis * Necrotizing soft tissue infection [M79.89] Procedures * Right groin debridement and washout Surgeons Primary: Tasneem Gu MD Resident - Assisting: Kristi Fish MD Procedure Summary Anesthesia: General ASA: III Estimated Blood Loss: None Total IV Fluids: Minimal Drains: Open Drain Other (Comment) Groin (Active) Site Description Other (Comment) 02/16/242317 Dressing Status Dry;Clean;Intact 02/16/242317 Specimens ID Source Type Tests Collected By Collected At Frozen? Priority Lab ID 1 Other Swab WOUND CULTURE AND ANAEROBIC CULTURE Tasneem Gu MD 02/16/24 1110 Routine [id number], [id number] Description: right groin culture swab 2 Other Tissue TISSUE CULTURE AND ANAEROBIC CULTURE Tasneem Gu MD 02/16/24 1112 Routine [id number], [id number] Description: right groin deep tissue culture Staff: Lawyer Probate: Tino Bashir RN Scrub Person: Latonya Denton CST Indications: Jose Duggan is an 54 y.o. male who is having surgery for Necrotizing soft tissue infection [M79.89] of the right groin and scrotum. Discussed risks vs benefits and informed consent obtained and placed in the chart. Procedure Details: The patient was seen in the preoperative area. The risks, benefits, complications, treatment options, non-operative alternatives, expected recovery and outcomes were discussed with the patient. The possibilities of reaction to medication, pulmonary aspiration, injury to surrounding structures, bleeding, recurrent infection, the need for additional procedures, failure to diagnose a condition, and creating a complication requiring transfusion or operation were discussed with the patient. The patient concurred with the proposed plan, giving informed consent. The site of surgery was properly noted/marked if necessary per policy. The patient has been actively warmed in preoperative area. Preoperative antibiotics have been ordered and given within 1 hours of incision. Venous thrombosis prophylaxis have been ordered including bilateral sequential compression devices Patient placed supine, and cardiopulmonary monitoring and anesthesia initiated. General anesthesia found adequate by staff. Previous packing removed and patient placed in lithotomy position. Patient prepped and draped in usual sterile fashion. The right inguinal and hemiscrotal wound examined. Small area of sloughing, necrotic tissue noted in the right inguinal wound. A curette was used to debride the tissue and was sent for deep tissue cultures. Additional wound cultures obtained. No additional areas of necrosis or purulence identified. A finger was introduced into both wounds and no additional loculations were identified. Both wounds beds had good blood supply. Hemostasis achieved. The wounds were copiously irrigated with saline. The previous velia drain was left in place. The wound was packed with Dakin's soaked Kerlix and covered with dry gauze and ABD then secured with paper tape. All counts correct at the end of thecase. Patient was awakened from anesthesia, extubated, and taken to PACU in stable condition. Findings: Minimal necrotic, sloughing tissue in the right groin wound bed which was debrided and sent for cultures. No additional areas of purulence or necrosis. Velia drain in place. Complications: None; patient tolerated the procedure well. Disposition: PACU - hemodynamically stable. Condition: stable Dr. Gu was present for the the entire procedure. Kristi Fish MD General Surgery Resident Normal [facility] POCT GLUCOSE METER UNSOLICIT ED RESULTSon 02-16-2024 Glucose [Mass/Vol] 296 mg/dL High 70-105 [facility] Comment on above: Order Comment: Waive d Testing in the ED is performed under the ED CLIA certificate #[id number]. Result Comment: nicolás [email or web address] Performed By: #### L [id number] #### [facility] ([facility]) [address] [place] [address] Glucose [Mass/Vol] 257 mg/dL High 70-105 [facility] Comment on above: Order Comment: Waive d Testing in the ED is performed under the ED CLIA certificate #[id number]. Result Comment: [email or web address] [email or web address] Performed By: #### L [id number] #### [facility] ([facility]) [address] [place] [address] Glucose [Mass/Vol] 189 mg/dL High 70-105 [facility] Comment on above: Order Comment: Waive d Testing in the ED is performed under the ED CLIA certificate #[id number]. Result Comment: dnap [email or web address] Performed By: #### L [id number] #### [facility] ([facility]) [address] [place] [address] Glucose [Mass/Vol] 197 mg/dL High 70-105 [facility] Comment on above: Order Comment: Waive d Testing in the ED is performed under the ED CLIA certificate #[id number]. Result Comment: mbat [email or web address] Performed By: #### L [id number] #### [facility] ([facility]) [address] [place] [address] Glucose [Mass/Vol] 226 mg/dL High 70-105 [facility] Comment on above: Order Comment: Waive d Testing in the ED is performed under the ED CLIA certificate #[id number]. Result Comment: [email or web address] [email or web address] Performed By: #### L [id number] #### [facility] ([facility]) [address] [place] [address] TISSUE CULTUREon 02-16-2024 Bacteria identified Cx Nom (Unsp spec) DEEPA ALBICANS Abnormal [facility] Comment on above: Order Comment: Waive d Testing in the ED is performed under the ED CLIA certificate #[id number]. Result Comment: Rare Growth Deepa albicans Presumptive Identification For Susceptibility Results Please Refer to Performed By: #### L [id number] #### [facility] ([facility]) [address] [place] [address] GRAM STAIN RESULT Normal [facility] Comment on above: Order Comment: Waive d Testing in the ED is performed under the ED CLIA certificate #[id number]. Result Comment: Rare Polymorphonuclear leukocytes No organisms seen Performed By: #### L [id number] #### [facility] ([facility]) [address] [place] [address] WOUND CULTUREon 02-16-2024 GRAM STAIN RESULT Normal [facility] Comment on above: Order Comment: Waive d Testing in the ED is performed under the ED CLIA certificate #[id number]. Result Comment: Rare Polymorphonuclear leukocytes No organisms seen Performed By: #### L [id number] #### [facility] ([facility]) [address] [place] [address] WOUND CULTURE DEEPA ALBICANS Abnormal [facility] Comment on above: Order Comment: Waive d Testing in the ED is performed under the ED CLIA certificate #[id number]. Result Comment: Rare Growth Deepa albicans Presumptive Identification For Susceptibility Results Please Refer to Performed By: #### L [id number] #### [facility] ([facility]) [address] [place] [address] 30on 02-15-2024 30 Daily Case Managemen t Update Multidisciplinary rounds have been completed. Barriers to Discharge: 02/14 Per general surgery; plan for debridement of the groin and perineum in the OR today. Fluid cx is growing Streptococcus constellatus. Tentative plan to continue IV ceftriaxone and Flagyl per ID and discharge on Augmentin. [facility] agency accepted for daily dressing changes. 3:40pm: Received call from [facility] Viktoria phone #[phone] ext [phone] inquiring about pt need for IV dalbavancin upon discharge. County Treasurer informed Viktoria that we are still awaiting ID final recommendations at this time as repeat I&D was performed today and cultures are still pending. Viktoria requested that she be called on day of discharge regarding final ID plan, and need for IV dalbavancin. Provided her with [facility] and phone number. County Treasurer also inquired about [employer] [phone]) email that was received today regarding insurance denial for the drug. Viktoria stated to disregard this message, and told technical report writer that patient was approved for this medication if he ends up needing outpatient IV infusions. Of note; Scripts and Facesheet faxed to [facility] center on 02/12. Diet: Dietary Orders (From admission, onward) Start Ordered 02/15/24620 Diet NPO Diet effective now Comments: Sips with medications Question: Reason for NPO: Answer: Operation/Procedure 02/15/24620 Physician Expected Discharge Date: 02/15/2024 Discharge Delays: PT Six Click Score: 24 OT Six Click Score: PT Recommendations: OT Recommendations: New Consults: Ancillary Consults (From admission, onward) Start Ordered 02/12/24237 Inpatient consult to Wound/Ostomy Nurse Once Comments: Consult Wound Nurse for at-risk for PU, stage 1, or stage 2. For all stage 3 ulcers, stage 4, unstageable, DTI, infected PU, and lower extremity ulcers use the Inpatient consult to Vascular Wound Care Provider: (Not yet assigned) Question Answer Comment Consult for: Wound Reason for Consult? Scrotal abscess s/p drainage, right scrotum. Packed with iodoform packing, appreciate wound care recommendations 02/12/24237 Normal [facility] 30 The patient is Moderately Stable - Low risk of patient condition declining or worsening The patient's goals for the shift include Comfort, rest The clinical goals for the shift include Stable vitals.safety Normal [facility] BASIC METABOLIC PANELon 10-0 Anion gap [Moles/Vol] 10 mmol/L Normal 7-20 [facility] Comment on above: Performed By: #### L [id number] ####[facility] ([facility] [place] [address] Calcium [Mass/Vol] 8.1 mg/dL Low 8.6-10.3 [facility] Comment on above: Performed By: #### L [id number] ####[facility] ([facility] [place] [address] Chloride [Moles/Vol] 99 mmol/L Normal 98-107 [facility] Comment on above: Performed By: #### L [id number] ####[facility] ([facility])[address] [place] [address] CO2 [Moles/Vol] 27 mmol/L Normal 21-31 [facility] Comment on above: Performed By: #### L [id number] ####[facility] ([facility])[address] [place] [address] Creatinine [Mass/Vol] 1.03 mg/dL Normal 0.70-1.30 [facility] Comment on above: Performed By: #### L [id number] ####[facility] ([facility])[address] [place] [address] GLOMERULAR FILTRATION RATE ML/MIN/1.73 SQ M.PREDICTED 86.9 mL/min/1.73m*2 Normal >60.0 [facility] Comment on above: Result Comment: The [facility]???s estimated glomerular filtration rate (eGFR) will no longer include consideration of race in its calculation. The National Kidney Foundation???s eGFR Task Force developed new recommendations for the estimation of the glomerular filtration rate in the [place] They recommend immediate implementation of the new equation refit without the race variable in all laboratories because the calculation does not include race. In addition to not including race in the calculation and reporting, it included diversity in its development, and has acceptable performance characteristics and potential consequences that do not disproportionately affect any one group of individuals. Performed By: #### L [id number] ####[facility] ([facility])[address] [place] [address] Glucose [Mass/Vol] 141 mg/dL High 70-100 [facility] Comment on above: Performed By: #### L [id number] ####[facility] ([facility])[address] [place] [address] Potassium [Moles/Vol] 3.4 mmol/L Low 3.5-5.1 [facility] Comment on above: Performed By: #### L [id number] ####[facility] ([facility])[address] [place] [address] Sodium [Moles/Vol] 133 mmol/L Low 136-145 [facility] Comment on above: Performed By: #### L [id number] ####[facility] ([facility])[address] [place] [address] Urea nitrogen [Mass/Vol] 14 mg/dL Normal 7-25 [facility] Comment on above: Performed By: #### L [id number] ####[facility] ([facility])[address] [place] [address] UREA NITROGEN/CREATININE (MASS RATIO) IN SER/PLAS 13.6 Normal [facility] Comment on above: Performed By: #### L [id number] ####[facility] ([facility])[address] [place] [address] CBCon 02-15-2024 Erythrocyte distribution width (RBC) [Ratio] 13.4 % Normal 11.5-15.0 [facility] Comment on above: Performed By: #### L [id number] #### [facility] ([facility]) [address] [place] [address] ERYTHROCYTE MEAN CORPUSCULAR HEMOGLOBIN CONCENTRATION (G/DL) BY AUTOMATED 33.6 g/dL Normal 32.0-35.0 [facility] Comment on above: Performed By: #### L [id number] #### [facility] ([facility]) [address] [place] [address] Hematocrit (Bld) [Volume fraction] 37.5 % Low 39.0-55.0 [facility] Comment on above: Performed By: #### L [id number] #### [facility] ([facility]) [address] [place] [address] Hemoglobin (Bld) [Mass/Vol] 12.6 g/dL Low 13.0-17.0 [facility] Comment on above: Performed By: #### L [id number] #### [facility] ([facility]) [address] [place] [address] MCH (RBC) [Entitic mass] 30.1 pg Normal 27.0-33.0 [facility] Comment on above: Performed By: #### L [id number] #### [facility] ([facility]) [address] [place] [address] MCV (RBC) [Entitic vol] 89.7 fL Normal 82.0-98.0 [facility] Comment on above: Performed By: #### L [id number] #### [facility] ([facility]) [address] [place] [address] PLATELETS (10*3/UL) IN BLOOD AUTOMATED COUNT 200 10*3/uL Normal 150-400 [facility] Comment on above: Performed By: #### L [id number] #### [facility] ([facility]) [address] [place] [address] RBC (Bld) [#/Vol] 4.18 10*6/uL Low 4.20-5.70 [facility] Comment on above: Performed By: #### L [id number] #### [facility] ([facility]) [address] [place] [address] WBC (Bld) [#/Vol] 13.89 10*3/uL High 4.00-10.60 [facility] Comment on above: Performed By: #### L [id number] #### [facility] ([facility]) [address] [place] [address] CONSULTon 02-15-2024 CONSULT supervisor laundry Follow -up Consult A consult to the Wound/ Ostomy nurse was initiated. The reason for the consult was noted as Scrotal abscess s/p drainage, right scrotum. Packed with iodoform packing, appreciate wound care recommendations . Initial consultation was conducted by Vascular Wound service for diagnostic purposes and to establish a treatment plan. The CWON will provide ongoing care during the patient's hospitalization, with availability for follow-up starting seven days post-initial consultation. During follow-up consultations, the CWON will assess the effectiveness of the currently ordered treatments and implement necessary adjustments. Elke CARDN, RN, [facility]ON Wound & Ostomy [employer]eder [facility] CONSULT --- Attestation signed by Chaparro Beltran MD at 02/15/2024 8:34 AM I saw and evaluated the patient, participating in the diamond portions of the service. I have reviewed and supervised the patient visit with Brooke Rosado DO. I discussed the findings and therapeutic plan with Brooke Rosado DO. I agree with the findings, plan, and documentation. Erythema and worsening pain spreading up to right groin and ASIS that was not previously noted to be there, marked at bedside. Difficult to exam at bedside due to pain despite abscess previously drained. WBC improving and no systemic signs of sepsis/shock but cannot r/o early necrotizing infection. Noted hx of R open inguinal hernia repair with mesh in 5398-1306. CT reviewed independently. Will take to OR urgently for exploration, incision, washout, repeat cultures, and possible debridement. Discussed risks and benefits with patient and (over phone), including but not limited to recurrent infection, mesh infection, extensive debridement, need for more surgery/further interventions, group home wound care/IV antibiotics, bleeding, injury to surrounding structures, losing the testicular structures, recurrent hernia, and need for reconstruction. Discussed with urology team, who will be available if needed. Chaparro Beltran MD [facility] General Surgery CONSULTATION Reason for Consult: Deep Inguinal abscess, post-I&D care History of Present Illness: Jose Duggan is a 54 y.o. 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 Lab work revealed: WBC 19, hemoglobin 14.8, creatinine 1.13. CT pelvis with contrast done at [facility] showing a right scrotal abscess with couple foci of gas within scrotal skin. At [facility] he was initiated on broad-spectrum antibiotics: Vancomycin, clindamycin, and Zosyn. In our emergency department he was continued on Zosyn. Patient underwent bedside I&D of the right hemiscrotum by urology on 02/11. They have been packing with iodoform once daily. We were consulted for post-I&D recommendations given the CT findings and pts increased pain. The patient notes that since the I&D, his scrotum and suprapubic region has become much more painful and tender. US yesterday demonstrated cellulitis with irregular hypoechoic area measuring 5.1 x 4.4 x 0.8 cm, which could represent a developing abscess in the suprapubic area. He denies any prior history of abscesses in the past, but does note that he had cellulitis of the buttocks a few years back amenable to outpatient antibiotic therapy. Review of Systems Constitutional: Negative for appetite change, chills, diaphoresis and fever. HENT: Negative for sore throat, trouble swallowing and voice change. Respiratory: Negative for cough, chest tightness and shortness of breath. Cardiovascular: Negative for chest pain and palpitations. Gastrointestinal: Negative for abdominal pain, constipation, diarrhea, nausea and vomiting. Genitourinary: Positive for scrotal swelling. Negative for frequency, hematuria, penile pain, testicular pain and urgency. Musculoskeletal: Negative for arthralgias, joint swelling and neck pain. Skin: Negative for color change, rash and wound. Neurological: Negative for dizziness, weakness, light-headedness, numbness and headaches. Past Medical History: Diagnosis Date Diabetes mellitus ([facility]) History reviewed. No pertinent surgical history. Allergies Allergen Reactions Januvia [Sitagliptin] Diarrhea Jardiance [Empagliflozin] Other Pt states causes yeast infection Tradjenta [Linagliptin] Other Pt states caused abscess Current Facility-Administered Medications: acetaminophen (Tylenol) tablet 650 mg, 650 mg, oral, q6h PRN, Tim Ernst MD, 650 mg at 02/12/24 0310 amLODIPine (Norvasc) tablet 10 mg, 10 mg, oral, Daily, Adeline Arellano MD, 10 mg at 02/14/24 1010 cefTRIAXone (Rocephin) IVPB 2 g in NS 50 mL (Mini-Bag Plus), 2 g, intravenous, q24h, Osmar Richter DO, Stopped at 02/14/24 1214 glucose chewable tablet 24 g, 24 g, oral, q15 min PRN OR dextrose 50 % in water (D50W) syringe 25 g, 25 g, intravenous, q15 min PRN, Tim Ernst MD enoxaparin (Lovenox) syringe 40 mg, 40 mg, subcutaneous, q24h KRISTEN, Adeline Arellano MD, 40 mg at 02/14/24 1019 hydroCHLOROthiazide (HYDRODiuril) tablet 25 mg, 25 mg, oral, Daily, Adeline Arellano MD, 25 mg at 02/14/24 1010 HYDROmorphone (Dilaudid) injection 0.5 mg, 0.5 mg, intravenous, q6h PRN, Tim Ernst MD, 0.5 mg at 02/14/24 1628 insulin glargine (Lantus) injection vial 10 Units, 10 Units, subcutaneous, Nightly, Adeline Arellano MD, 10 Units at 02/14/24 2110 insulin lispro (HumaLOG) injection 0-10 Units, 0-10 Units, subcutaneous, q6h [facility] (more content not included)... Normal [facility] MAGNESIUMon 02-15-2024 Magnesium [Mass/Vol] 1.7 mg/dL Low 1.9-2.7 [facility] Comment on above: Performed By: #### L [id number] #### [facility] ([facility]) [address] [place] [address] OPNOTEon 02-15-2024 OPNOTE DEBRIDEMENT, GROIN A ND PERINEUM (R) Operative Note Date: 02/15/2024 Location: [facility] OR Name: Jose Reynolds DO CharleneB: 1970, Diagnosis Pre-op Diagnosis * Necrotizing soft tissue infection [M79.89] Post-op Diagnosis * Necrotizing soft tissue infection [M79.89] Procedures * DEBRIDEMENT, GROIN AND PERINEUM Surgeons Primary: Chaparro Beltran MD Procedure Summary Anesthesia: General ASA: III Estimated Blood Loss: 10 mL Drains: * None in log * Specimens ID Source Type Tests Collected By Collected At Frozen? Priority Lab ID 1 Groin Swab WOUND CULTURE AND ANAEROBIC CULTURE Chaparro Beltran MD 02/15/24 0950 [id number], [id number] Description: RIGHT GROIN CULTURE 2 Scrotum Swab WOUND CULTURE AND ANAEROBIC CULTURE Chaparro Beltran MD 02/15/24 0954 [id number], [id number] Description: RIGHT SCROTAL CULTURE Staff: Lawyer Probate: William Packer RN Scrub Person: Rhea Davila Indications: Jose Duggan is an 54 y.o. male who is having surgery for Necrotizing soft tissue infection [M79.89]. Procedure Details: The patient was seen in the preoperative area. The risks, benefits, complications, treatment options, non-operative alternatives, expected recovery and outcomes were discussed with the patient. The possibilities of reaction to medication, pulmonary aspiration, injury to surrounding structures, bleeding, recurrent infection, the need for additional procedures, failure to diagnose a condition, and creating a complication requiring transfusion or operation were discussed with the patient. The patient concurred with the proposed plan, giving informed consent. The site of surgery was properly noted/marked if necessary per policy. The patient has been actively warmed in preoperative area. Preoperative antibiotics have been ordered and given within 1 hours of incision. Venous thrombosis prophylaxis have been ordered including bilateral sequential compression devices The patient was correctly identified before the procedure and informed consent was reviewed. Anesthesia pre-induction timeout was performed with anesthesia staff and surgical team present using the appropriate checklist and verification. The patient was taken to the operating room and placed on the operating table in supine position with a safety belt fastened across the thighs. Preoperative antibiotics was insured to have been given. SCDs were applied and verified to be running. General endotracheal anesthesia was initiated. Appropriate lines were placed. The patient was positioned lithotomy with all appropriate padding and secured to the table. The old packing was removed. He was prepped and draped in the usual sterile fashion. A second timeout was performed with all members of the surgical and Anesthesia teams present. The previously opened abscess cavity was inspected and noted to have another purulent pocket medially that was finger deloculated. The incision was opened up slightly more superiorly to provide better visualization. Otherwise the wound appeared pink and healthy. The mons/pubis region appears edematous and firm. The previous open inguinal hernia incisional scar was identified and the medial aspect was marked and opened with 10 blade after local anesthetic injection. Dissection carried down to subcutaneous tissue showed very edematous tissue with minimal purulence. Cultures were obtained from both incisions separately and sent. The inguinal incision was inspected and initially appeared healthy but on further dissection deeper revealed that it does connect to the scrotal incision. The base of the inguinal incision showed edematous, inflamed fascia and this was opened with noted bleeding tissue so debridement was deferred at this point. Hemostasis was obtained after fully deloculating any residual pockets of purulence and a velia drain was placed encircling both incisions and secured with a silk suture. Both incision was packed with a separate Dakin soaked kerlix and ABD pads. Instrument, sponge, and needle counts were correct at the conclusion of the case. Time-out was performed. Patient was awakened, extubated, and brought to the PACU in stable condition. I was present, scrubbed in, and participated for the entirety of the procedure. Findings: Scrotal incision enlarged with noted medial residual pocket of purulence. Scrotal incision undermines medially and superiorly about 2-3 cm and connected to new Inguinal incision. The inguinal/mons region noted inflamed but viable fascial tissue consistent with fasciitis but no signs of overt necrosis. Both packed with separate Dakin soaked kerlix and incisions connected with a velia drain. Cultures obtained. Complications: None; patient tolerated the procedure well. Disposition: PACU - hemodynamically stable. Condition: stable [facility] Normal [facility] POCT GLUCOSE METER UNSOLICIT ED RESULTSon 02-15-2024 Glucose [Mass/Vol] 364 mg/dL High 70-105 [facility] Comment on above: Order Comment: Waive d Testing in the ED is performed under the ED CLIA certificate #[id number]. Result Comment: [email or web address] [email or web address] Performed By: #### L [id number] #### [facility] ([facility]) [address] [place] [address] Glucose [Mass/Vol] 343 mg/dL High 70-105 [facility] Comment on above: Order Comment: Waive d Testing in the ED is performed under the ED CLIA certificate #[id number]. Result Comment: [email or web address] [email or web address] Performed By: #### L [id number] #### [facility] ([facility]) [address] [place] [address] Glucose [Mass/Vol] 241 mg/dL High 70-105 [facility] Comment on above: Order Comment: Waive d Testing in the ED is performed under the ED CLIA certificate #[id number]. Result Comment: asmi [email or web address] Performed By: #### L [id number] #### [facility] ([facility]) [address] [place] [address] Glucose [Mass/Vol] 196 mg/dL High 70-105 [facility] Comment on above: Order Comment: Waive d Testing in the ED is performed under the ED CLIA certificate #[id number]. Result Comment: [email or web address] as Performed By: #### L [id number] ####[facility] ([facility])[address] [facility] [place] [address] Glucose [Mass/Vol] 172 mg/dL High 70-105 [facility] Comment on above: Order Comment: Waive d Testing in the ED is performed under the ED CLIA certificate #[id number]. Result Comment: [email or web address] esn Performed By: #### L [id number] #### [facility] ([employer]) [address] [place] [address] Glucose [Mass/Vol] 172 mg/dL High 70-105 [facility] Comment on above: Order Comment: Waive d Testing in the ED is performed under the ED CLIA certificate #[id number]. Result Comment: mkol esn Performed By: #### L [id number] #### [facility] ([facility]) [address] [place] [address] WOUND CULTUREon 02-15-2024 Ampicillin [Susc] 1 ug/ml Susceptible [facility] Comment on above: Order Comment: Waive d Testing in the ED is performed under the ED CLIA certificate #[id number]. Performed By: #### L [id number] #### [facility] ([facility]ER) [address] [place] [address] Vancomycin [Susc] 1 ug/ml Susceptible [facility] Comment on above: Order Comment: Waive d Testing in the ED is performed under the ED CLIA certificate #[id number]. Performed By: #### L [id number] #### [facility] ([facility]ER) [address] [place] [address] GRAM STAIN RESULT Normal [facility] Comment on above: Order Comment: Waive d Testing in the ED is performed under the ED CLIA certificate #[id number]. Result Comment: Rare Polymorphonuclear leukocytes No organisms seen Performed By: #### L [id number] #### [facility] [address] [place] [address] WOUND CULTURE No growth at 5 days Normal [facility] Comment on above: Order Comment: Waive d Testing in the ED is performed under the ED CLIA certificate #[id number]. Performed By: #### L [id number] #### [facility] ([facility] [address] [place] [address] 30on 02-14-2024 30 The patient is Moderately Stable - Low risk of patient condition declining or worsening The patient's goals for the shift include comfort The clinical goals for the shift include VSS, comfort Problem: Pain - Adult Goal: Verbalizes/displays adequate comfort level or baseline comfort level Outcome: Progressing Problem: Safety - Adult Goal: Free from fall injury Outcome: Progressing Problem: Discharge Planning Goal: Discharge to home or other facility with appropriate resources Outcome: Progressing Problem: Chronic Conditions and Co-morbidities Goal: Patient's chronic conditions and co-morbidity symptoms are monitored and maintained or improved Outcome: Progressing Normal [facility] 30 Daily Case Managemen t Update Multidisciplinary rounds have been completed. Barriers to Discharge: 02/13 Per urology will need to probe cranial portion of I&D to ensure all fluid collections have been broken up due to increased inguinal tenderness. Per latest ID note; tentative plan for oral augmentin upon discharge, pending cultures. Dr Mckeon says no need for IV dalbavancin as previously indicated. SW consulted for scrotal wound care. Awaiting wound care consult. Diet: Dietary Orders (From admission, onward) Start Ordered 02/13/24 1040 Regular Diet HF/Cirrhosis/CKD/ESRD(2 gm NA); Diabetic Male (carb 60g/meal) Diet effective now Question Answer Comment Room Service? Yes Sodium restriction: HF/Cirrhosis/CKD/ESRD(2 gm NA) Carbohydrate restriction: Diabetic Male (carb 60g/meal) 02/13/24 1039 Physician Expected Discharge Date: 02/14/2024 Discharge Delays: PT Six Click Score: 24 OT Six Click Score: PT Recommendations: OT Recommendations: New Consults: Ancillary Consults (From admission, onward) Start Ordered 02/14/24 0715 Inpatient consult to Social Work Once Provider: (Not yet assigned) Question Answer Comment Select all services needed for the patient Home Health Types of Home Health Service needed Wound Care Please indicate your approval for this care by adding your name here: YULISA CARRIZALES 02/14/24 0714 02/12/24 0238 Inpatient consult to Wound/Ostomy Nurse Once Comments: Consult Wound Nurse for at-risk for PU, stage 1, or stage 2. For all stage 3 ulcers, stage 4, unstageable, DTI, infected PU, and lower extremity ulcers use the Inpatient consult to Vascular Wound Care Provider: (Not yet assigned) Question Answer Comment Consult for: Wound Reason for Consult? Scrotal abscess s/p drainage, right scrotum. Packed with iodoform packing, appreciate wound care recommendations 02/12/24 0238 Normal [facility] BASIC METABOLIC PANELon 10-0 Anion gap [Moles/Vol] 11 mmol/L Normal 7-20 [facility] Comment on above: Performed By: #### L [id number] ####[facility] ([facility])[address] [place] [address] Calcium [Mass/Vol] 7.9 mg/dL Low 8.6-10.3 [facility] Comment on above: Performed By: #### L [id number] ####[facility] ([facility])[address] [place] [address] Chloride [Moles/Vol] 99 mmol/L Normal 98-107 [facility] Comment on above: Performed By: #### L [id number] ####[facility] ([facility])[address] [place] [address] CO2 [Moles/Vol] 26 mmol/L Normal 21-31 [facility] Comment on above: Performed By: #### L [id number] ####[facility] ([facility])[address] [place] [address] Creatinine [Mass/Vol] 1.15 mg/dL Normal 0.70-1.30 [facility] Comment on above: Performed By: #### L [id number] ####[facility] ([facility])[address] [place] [address] GLOMERULAR FILTRATION RATE ML/MIN/1.73 SQ M.PREDICTED 76.1 mL/min/1.73m*2 Normal >60.0 [facility] Comment on above: Result Comment: The [facility]???s estimated glomerular filtration rate (eGFR) will no longer include consideration of race in its calculation. The National Kidney Foundation???s eGFR Task Force developed new recommendations for the estimation of the glomerular filtration rate in the [place] They recommend immediate implementation of the new equation refit without the race variable in all laboratories because the calculation does not include race. In addition to not including race in the calculation and reporting, it included diversity in its development, and has acceptable performance characteristics and potential consequences that do not disproportionately affect any one group of individuals. Performed By: #### L [id number] ####[facility] ([facility])[address] [place] [address] Glucose [Mass/Vol] 175 mg/dL High 70-100 [facility] Comment on above: Performed By: #### L [id number] ####[facility] ([facility])[address] [place] [address] Potassium [Moles/Vol] 3.4 mmol/L Low 3.5-5.1 [facility] Comment on above: Performed By: #### L [id number] ####[facility] ([facility])[address] [place] [address] Sodium [Moles/Vol] 133 mmol/L Low 136-145 [facility] Comment on above: Performed By: #### L [id number] ####[facility] ([facility])[address] [place] [address] Urea nitrogen [Mass/Vol] 18 mg/dL Normal 7-25 [facility] Comment on above: Performed By: #### L [id number] ####[facility] ([facility])[address] [place] [address] UREA NITROGEN/CREATININE (MASS RATIO) IN SER/PLAS 15.7 Normal [facility] Comment on above: Performed By: #### L [id number] ####[facility] ([facility])[address] [place] [address] CBCon 02-14-2024 Erythrocyte distribution width (RBC) [Ratio] 13.5 % Normal 11.5-15.0 [facility] Comment on above: Performed By: #### L [id number] ####[facility] ([facility])[address] [place] [address] ERYTHROCYTE MEAN CORPUSCULAR HEMOGLOBIN CONCENTRATION (G/DL) BY AUTOMATED 32.9 g/dL Normal 32.0-35.0 [facility] Comment on above: Performed By: #### L [id number] ####[facility] ([facility])[address] [place] [address] Hematocrit (Bld) [Volume fraction] 38.9 % Low 39.0-55.0 [facility] Comment on above: Performed By: #### L [id number] ####[facility] ([facility])[address] [place] [address] Hemoglobin (Bld) [Mass/Vol] 12.8 g/dL Low 13.0-17.0 [facility] Comment on above: Performed By: #### L [id number] ####[facility] ([facility])[address] [place] [address] MCH (RBC) [Entitic mass] 30.3 pg Normal 27.0-33.0 [facility] Comment on above: Performed By: #### L [id number] ####[facility] ([facility])[address] [place] [address] MCV (RBC) [Entitic vol] 92.2 fL Normal 82.0-98.0 [facility] Comment on above: Performed By: #### L [id number] ####[facility] ([facility])[address] [place] [address] PLATELETS (10*3/UL) IN BLOOD AUTOMATED COUNT 186 10*3/uL Normal 150-400 [facility] Comment on above: Performed By: #### L [id number] ####[facility] ([facility])[address] [place] [address] RBC (Bld) [#/Vol] 4.22 10*6/uL Normal 4.20-5.70 [facility] Comment on above: Performed By: #### L [id number] ####[facility] ([facility])[address] [place] [address] WBC (Bld) [#/Vol] 15.78 10*3/uL High 4.00-10.60 [facility] Comment on above: Performed By: #### L [id number] ####[facility] ([facility])[address] [place] [address] CT ABDOMEN PELVIS W IV CONTR Kateryna 02-14-2024 CT ABDOMEN PELVIS W IV CONTRAST Pancreatic indication: Pain and swelling right inguinal region. TECHNIQUE: Enhanced CT of abdomen and pelvis is performed with no prior comparison. Automatic exposure control was utilized. Comparison is made to prior ultrasound dated 02/14/2024. This exam is timed 6:19 PM, prior exam timed 2:51 PM. FINDINGS: Extreme lung bases appear grossly clear. There is a nodular density within the lingula which measures 5 mm axial image 11 the liver shows fatty infiltration greatest within right hepatic lobe with focal fatty sparing adjacent to gallbladder. No worrisome liver lesion identified. The spleen is not enlarged. The gallbladder is not dilated. Left adrenal gland shows some thickening probably some hyperplasia. A prominent accessory spleen noted measuring 2.7 cm. Kidneys and pancreas are not enlarged. The abdominal aorta shows normal caliber with advanced atherosclerotic calcification for age. No significant retroperitoneal lymphadenopathy appreciated. Small fat-containing umbilical hernia is present. Soft tissue stranding noted within right lower quadrant subcutaneous fat extending in the mons pubis in right groin region as well as scrotum. No definite large fluid collection identified at this time. Small foci of gas and fluid noted adjacent to right vas deferens region. Probable interval drainage of abscess at the inguinal crease with packing material noted. No significant inguinal or pelvic lymphadenopathy identified. The appendix appears normal. A few tiny mid sigmoid diverticula present without evidence for diverticulitis. Bone windows show no definite worrisome lesion. Narrowing of celiac artery origin present likely due to median arcuate ligament. IMPRESSION: 1. Apparent interval drainage of previously noted fluid collection right inguinal crease with packing material present. 2. Multiple small foci of gas and small amounts of fluid adjacent to right vas deferens worrisome for necrotizing fasciitis. 3. Subcutaneous stranding of right lower quadrant, mons pubis, scrotum and right inguinal region. 4. Lingular nodule measuring 5 mm. If the patient is considered high risk follow-up could be performed in 6 months to one year. Or baseline CT of the chest could be obtained at this time. 5. Minimal bilateral adrenal nodularity probably adenomatous hyperplasia with nonspecific appearance on this exam. No old exam for comparison. 6. Fatty liver without significant enlargement. Electronically signed: Laura Chan. Normal [facility] MAGNESIUMon 02-14-2024 Magnesium [Mass/Vol] 1.8 mg/dL Low 1.9-2.7 [facility] Comment on above: Performed By: #### L [id number] ####[facility] ([facility])[address] [place] [address] POCT GLUCOSE METER UNSOLICIT ED RESULTSon 02-14-2024 Glucose [Mass/Vol] 208 mg/dL High 70-105 [facility] Comment on above: Order Comment: Waive d Testing in the ED is performed under the ED CLIA certificate #[id number]. Result Comment: [email or web address] Performed By: #### L [id number] #### [facility] ([facility]) [address] [place] [address] Glucose [Mass/Vol] 270 mg/dL High 70-105 [facility] Comment on above: Order Comment: Waive d Testing in the ED is performed under the ED CLIA certificate #[id number]. Result Comment: [email or web address] tz2 Performed By: #### L [id number] #### [facility] ([facility]) [address] [place] [address] Glucose [Mass/Vol] 198 mg/dL High 70-105 [facility] Comment on above: Order Comment: Waive d Testing in the ED is performed under the ED CLIA certificate #[id number]. Result Comment: [email or web address] itn Performed By: #### L [id number] #### [facility] ([facility]) [address] [place] [address] BASIC METABOLIC PANELon 10-0 -2023 Anion gap [Moles/Vol] 12 mmol/L Normal 7-20 [facility] Comment on above: Performed By: #### L [id number] #### [facility] ([facility]) [address] [place] [address] Calcium [Mass/Vol] 8.1 mg/dL Low 8.6-10.3 [facility] Comment on above: Performed By: #### L [id number] #### [facility] ([facility]) [address] [place] [address] Chloride [Moles/Vol] 98 mmol/L Normal 98-107 [facility] Comment on above: Performed By: #### L [id number] #### [facility] ([facility]) [address] [place] [address] CO2 [Moles/Vol] 28 mmol/L Normal 21-31 [facility] Comment on above: Performed By: #### L [id number] #### [facility] ([facility]) [address] [place] [address] Creatinine [Mass/Vol] 1.10 mg/dL Normal 0.70-1.30 [facility] Comment on above: Performed By: #### L [id number] #### [facility] ([facility]) [address] [place] [address] GLOMERULAR FILTRATION RATE ML/MIN/1.73 SQ M.PREDICTED 80.3 mL/min/1.73m*2 Normal >60.0 [facility] Comment on above: Result Comment: The [facility]???s estimated glomerular filtration rate (eGFR) will no longer include consideration of race in its calculation. The National Kidney Foundation???s eGFR Task Force developed new recommendations for the estimation of the glomerular filtration rate in the [place] They recommend immediate implementation of the new equation refit without the race variable in all laboratories because the calculation does not include race. In addition to not including race in the calculation and reporting, it included diversity in its development, and has acceptable performance characteristics and potential consequences that do not disproportionately affect any one group of individuals. Performed By: #### L [id number] #### [facility] ([facility]) [address] [place] [address] Glucose [Mass/Vol] 159 mg/dL High 70-100 [facility] Comment on above: Performed By: #### L [id number] #### [facility] ([facility]) [address] [place] [address] Potassium [Moles/Vol] 3.6 mmol/L Normal 3.5-5.1 [facility] Comment on above: Performed By: #### L [id number] #### [facility] ([facility]) [address] [place] [address] Sodium [Moles/Vol] 134 mmol/L Low 136-145 [facility] Comment on above: Performed By: #### L [id number] #### [facility] ([facility]) [address] [place] [address] Urea nitrogen [Mass/Vol] 20 mg/dL Normal 7-25 [facility] Comment on above: Performed By: #### L [id number] #### [facility] ([facility]) [address] [place] [address] UREA NITROGEN/CREATININE (MASS RATIO) IN SER/PLAS 18.2 Normal [facility] Comment on above: Performed By: #### L [id number] #### [facility] ([facility]) [address] [place] [address] CBCon 02-13-2024 Erythrocyte distribution width (RBC) [Ratio] 13.5 % Normal 11.5-15.0 [facility] Comment on above: Performed By: #### L [id number] ####[facility] ([facility])[address] [place] [address] ERYTHROCYTE MEAN CORPUSCULAR HEMOGLOBIN CONCENTRATION (G/DL) BY AUTOMATED 33.6 g/dL Normal 32.0-35.0 [facility] Comment on above: Performed By: #### L [id number] ####[facility] ([facility])[address] [place] [address] Hematocrit (Bld) [Volume fraction] 39.0 % Normal 39.0-55.0 [facility] Comment on above: Performed By: #### L [id number] ####[facility] ([facility])[address] [place] [address] Hemoglobin (Bld) [Mass/Vol] 13.1 g/dL Normal 13.0-17.0 [facility] Comment on above: Performed By: #### L [id number] ####[facility] ([facility])[address] [place] [address] MCH (RBC) [Entitic mass] 30.3 pg Normal 27.0-33.0 [facility] Comment on above: Performed By: #### L [id number] ####[facility] ([facility])[address] [place] [address] MCV (RBC) [Entitic vol] 90.3 fL Normal 82.0-98.0 [facility] Comment on above: Performed By: #### L [id number] ####[facility] ([facility])[address] [place] [address] PLATELETS (10*3/UL) IN BLOOD AUTOMATED COUNT 182 10*3/uL Normal 150-400 [facility] Comment on above: Performed By: #### L [id number] ####[facility] ([facility])[address] [place] [address] RBC (Bld) [#/Vol] 4.32 10*6/uL Normal 4.20-5.70 [facility] Comment on above: Performed By: #### L [id number] ####[facility] ([facility])[address] [place] [address] WBC (Bld) [#/Vol] 20.55 10*3/uL High 4.00-10.60 [facility] Comment on above: Performed By: #### L [id number] ####[facility] ([facility])[address] [place] [address] HEMOGLOBIN A1Con 02-13-2024 Glucose [Mass/Vol] 206 mg/dL Normal [facility] Comment on above: Performed By: #### L [id number] #### [facility] ([facility]) [address] [place] [address] HbA1c (Bld) [Mass fraction] 8.8 % High 4.0-6.0 [facility] Comment on above: Performed By: #### L [id number] #### [facility] ([facility]) [address] [place] [address] MAGNESIUMon 02-13-2024 Magnesium [Mass/Vol] 1.7 mg/dL Low 1.9-2.7 [facility] Comment on above: Performed By: #### L [id number] #### [facility] ([facility]) [address] [place] [address] POCT GLUCOSE METER UNSOLICIT ED RESULTSon 02-13-2024 Glucose [Mass/Vol] 177 mg/dL High 70-105 [facility] Comment on above: Order Comment: Waive d Testing in the ED is performed under the ED CLIA certificate #[id number]. Result Comment: alonso mensah Performed By: #### L [id number] #### [facility] ([facility]) [address] [place] [address] Glucose [Mass/Vol] 163 mg/dL High 70-105 [facility] Comment on above: Order Comment: Waive d Testing in the ED is performed under the ED CLIA certificate #[id number]. Result Comment: [email or web address] Performed By: #### L [id number] ####[facility] ([employer])[address] [facility] [place] [address] Glucose [Mass/Vol] 262 mg/dL High 70-105 [facility] Comment on above: Order Comment: Waive d Testing in the ED is performed under the ED CLIA certificate #[id number]. Result Comment: [email or web address] Performed By: #### L [id number] ####[facility] ([facility])[address] [place] [address] Glucose [Mass/Vol] 208 mg/dL High 70-105 [facility] Comment on above: Order Comment: Waive d Testing in the ED is performed under the ED CLIA certificate #[id number]. Result Comment: [email or web address] Performed By: #### L [id number] ####[facility] ([facility])[address] [place] [address] Glucose [Mass/Vol] 227 mg/dL High 70-105 [facility] Comment on above: Order Comment: Waive d Testing in the ED is performed under the ED CLIA certificate #[id number]. Result Comment: [email or web address] Performed By: #### L [id number] ####[facility] ([facility])[address] [place] [address] ABSCESS CULTUREon 02-12-2024 Bacteria identified Cx Nom (Unsp spec) Abnormal [facility] Comment on above: Order Comment: Waive d Testing in the ED is performed under the ED CLIA certificate #[id number]. Result Comment: STRE PTOCOCCUS CONSTELLATUS Moderate Growth Streptococcus constellatus ACTINOMYCES NEUII Rare Growth Actinomyces neuii Presumptive Identification Performed By: #### L [id number] #### [facility] ([facility]) [address] [place] [address] GRAM STAIN RESULT Normal [facility] Comment on above: Order Comment: Waive d Testing in the ED is performed under the ED CLIA certificate #[id number]. Result Comment: Many Polymorphonuclear leukocytes Many Gram positive cocci in clusters Many Gram negative bacilli Performed By: #### L [id number] #### [facility] ([facility]) [address] [place] [address] BLOOD CULTUREon 02-12-2024 Bacteria identified Cx Nom (Bld) No growth at 5 days Normal [facility] Comment on above: Performed By: #### L [id number] ####[facility] ([facility])[address] [place] [address] Order Comment: Waive d Testing in the ED is performed under the ED CLIA certificate #[id number]. Performed By: #### L [id number] #### [facility] ([facility]) [address] [place] [address] CBC WITH AUTO DIFFERENTIALon 02-12-2024 Erythrocyte distribution width (RBC) [Ratio] 13.6 % Normal 11.5-15.0 [facility] Comment on above: Performed By: #### L [id number] #### [facility] ([facility]) [address] [place] [address] ERYTHROCYTE MEAN CORPUSCULAR HEMOGLOBIN CONCENTRATION (G/DL) BY AUTOMATED 33.2 g/dL Normal 32.0-35.0 [facility] Comment on above: Performed By: #### L [id number] #### [facility] ([facility]) [address] [place] [address] Hematocrit (Bld) [Volume fraction] 42.2 % Normal 39.0-55.0 [facility] Comment on above: Performed By: #### L [id number] #### [facility] ([facility]) [address] [place] [address] Hemoglobin (Bld) [Mass/Vol] 14.0 g/dL Normal 13.0-17.0 [facility] Comment on above: Performed By: #### L [id number] #### [facility] ([facility]) [address] [place] [address] MCH (RBC) [Entitic mass] 30.5 pg Normal 27.0-33.0 [facility] Comment on above: Performed By: #### L [id number] #### [facility] ([facility]) [address] [place] [address] MCV (RBC) [Entitic vol] 91.9 fL Normal 82.0-98.0 [facility] Comment on above: Performed By: #### L [id number] #### [facility] ([facility]) [address] [place] [address] NRBC (PER 100 WBCS) BY AUTOMATED COUNT 0.0 % Normal 0 [facility] Comment on above: Performed By: #### L [id number] #### [facility] ([facility]) [address] [place] [address] PLATELETS (10*3/UL) IN BLOOD AUTOMATED COUNT 201 10*3/uL Normal 150-400 [facility] Comment on above: Performed By: #### L [id number] #### [facility] ([facility]) [address] [place] [address] RBC (Bld) [#/Vol] 4.59 10*6/uL Normal 4.20-5.70 [facility] Comment on above: Performed By: #### L [id number] #### [facility] ([facility]) [address] [place] [address] WBC (Bld) [#/Vol] 21.94 10*3/uL High 4.00-10.60 [facility] Comment on above: Performed By: #### L [id number] #### [facility] ([facility]) [address] [place] [address] COMPREHENSIVE METABOLIC PANE Jw 02-12-2024 Albumin [Mass/Vol] 3.1 g/dL Low 3.5-5.7 [facility] Comment on above: Performed By: #### L [id number] #### [facility] ([facility]) [address] [place] [address] ALP [Catalytic activity/Vol] 67 U/L Normal 34-104 [facility] Comment on above: Performed By: #### L [id number] #### [facility] ([facility]) [address] [place] [address] ALT [Catalytic activity/Vol] 7 U/L Normal 7-52 [facility] Comment on above: Performed By: #### L [id number] #### [facility] ([facility]) [address] [place] [address] Anion gap [Moles/Vol] 12 mmol/L Normal 7-20 [facility] Comment on above: Performed By: #### L [id number] #### [facility] ([facility]) [address] [place] [address] AST [Catalytic activity/Vol] 8 U/L Low 13-39 [facility] Comment on above: Performed By: #### L [id number] #### [facility] ([facility]) [address] [place] [address] Bilirubin [Mass/Vol] 0.9 mg/dL Normal 0.3-1.0 [facility] Comment on above: Performed By: #### L [id number] #### [facility] ([facility]) [address] [place] [address] Calcium [Mass/Vol] 8.0 mg/dL Low 8.6-10.3 [facility] Comment on above: Performed By: #### L [id number] #### [facility] ([facility]) [address] [place] [address] Chloride [Moles/Vol] 98 mmol/L Normal 98-107 [facility] Comment on above: Performed By: #### L [id number] #### [facility] ([facility]) [address] [place] [address] CO2 [Moles/Vol] 26 mmol/L Normal 21-31 [facility] Comment on above: Performed By: #### L [id number] #### [facility] ([facility]) [address] [place] [address] Creatinine [Mass/Vol] 1.21 mg/dL Normal 0.70-1.30 [facility] Comment on above: Performed By: #### L [id number] #### [facility] ([facility]) [address] [place] [address] GLOMERULAR FILTRATION RATE ML/MIN/1.73 SQ M.PREDICTED 71.6 mL/min/1.73m*2 Normal >60.0 [facility] Comment on above: Result Comment: The [facility]???s estimated glomerular filtration rate (eGFR) will no longer include consideration of race in its calculation. The National Kidney Foundation???s eGFR Task Force developed new recommendations for the estimation of the glomerular filtration rate in the [place] They recommend immediate implementation of the new equation refit without the race variable in all laboratories because the calculation does not include race. In addition to not including race in the calculation and reporting, it included diversity in its development, and has acceptable performance characteristics and potential consequences that do not disproportionately affect any one group of individuals. Performed By: #### L [id number] #### [facility] ([facility]) [address] [place] [address] Glucose [Mass/Vol] 288 mg/dL High 70-100 [facility] Comment on above: Performed By: #### L [id number] #### [facility] ([facility]) [address] [place] [address] Potassium [Moles/Vol] 3.7 mmol/L Normal 3.5-5.1 [facility] Comment on above: Performed By: #### L [id number] #### [facility] ([facility]) [address] [place] [address] Protein [Mass/Vol] 6.1 g/dL Normal 6.0-8.3 [facility] Comment on above: Performed By: #### L [id number] #### [facility] ([facility]) [address] [place] [address] Sodium [Moles/Vol] 132 mmol/L Low 136-145 [facility] Comment on above: Performed By: #### L [id number] #### [facility] ([facility]) [address] [place] [address] Urea nitrogen [Mass/Vol] 27 mg/dL High 7-25 [facility] Comment on above: Performed By: #### L [id number] #### [facility] ([facility]) [address] [place] [address] UREA NITROGEN/CREATININE (MASS RATIO) IN SER/PLAS 22.3 Normal [facility] Comment on above: Performed By: #### L [id number] #### [facility] ([facility]) [address] [place] [address] CONSULTon 02-12-2024 CONSULT Infectious Diseases - Initial Consult Note - Patient name: Jose Duggan Patient Today's Date and Time: 02/12/2024, 9:12 AM Admission Date: 02/11/2024 Impression: Right groin abscess s/p incision and drainage no evidence of Jose gangrene. Smoker smoking cessation counseling is done. Diet to diabetic advised on better diabetes control to help with healing. Recommendations: Started on IV vancomycin, IV Zosyn and clindamycin. Was no evidence of necrotizing infection clindamycin could be discontinued. Incision drainage is adequately done. When You are ready for discharge prescriptions are given for IV dalbavancin to be given at the infusion center at [facility] which is closer to him and also Levaquin prescription is sent to the pharmacy. Subjective Reason for consultation / Chief complaint: scrotal abscess s/p drainage. Appreciate management of antibiotics. Wound culture sent Referring Provider: MD Deb History of Present Illness Jose Duggan is a 54 y.o.-year-old male who was initially admitted on 02/11/2024. He is diagnosed with type 2 diabetes he is not really compliant he said he gets the side effects from Tradjenta and other antidiabetics. He is also a chronic smoker he smokes 1 pack on a daily basis. 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 He presented with edema pain tenderness on the right groin found to have a right perineal abscess incision and drainage was done by urology team he was started on vancomycin Zosyn and clindamycin. There was no evidence of necrotizing infection. I have witnessed the dressing change today the packing was removed and no evidence of purulence or necrosis is seen. He said for the last 3 weeks he has noticed a small marble around his right hemiscrotum with some pain and when he went to [facility] he was sent here for further care where the urology team did incision and drainage earlier this morning. Cultures were obtained and are growing gram-positive cocci in clusters and gram-negative bacilli and blood cultures are also in progress. No suspicion of sepsis he did not have any sepsis criteria on admission. Past Medical History: Past Medical History: Diagnosis Date Diabetes mellitus ([facility]) Past Surgical History: History reviewed. No pertinent surgical history. Medications: Scheduled: clindamycin, 900 mg, intravenous, q8h insulin lispro, 0-10 Units, subcutaneous, q6h KRISTEN metoprolol tartrate, 5 mg, intravenous, q8h nicotine, 1 patch, transdermal, Daily piperacillin-tazobactam , 4.5 g, intravenous, q8h vancomycin, 1.5 g, intravenous, q12h Infusions: Social History: Social History Socioeconomic History Marital status: Spouse name: None Number of children: None Years of education: None Highest education level: None Occupational History None Tobacco Use Smoking status: Every Day Packs/day: 1 Types: Cigarettes Smokeless tobacco: Never Vaping Use Vaping Use: Never used Substance and Sexual Activity Alcohol use: Yes Alcohol/week: 5.0 standard drinks of alcohol Types: 5 Standard drinks or equivalent per week Drug use: Never Sexual activity: None Other Topics Concern None Social History Narrative None Social Determinants of Health Financial Resource Strain: Not on file Food Insecurity: Not on file Transportation Needs: Not on file Physical Activity: Not on file Stress: Not on file Social Connections: Not on file Intimate Partner Violence: Not on file Housing Stability: Not on file Family History: No family history on file. Immunization History: Immunization History Administered Date(s) Administered Heike Sars-Cov-2 Vaccination 08/15/2020 Allergies: Allergies Allergen Reactions Januvia [Sitagliptin] Diarrhea Jardiance [Empagliflozin] Other Pt states causes yeast infection Tradjenta [Linagliptin] Other Pt states caused abscess Review of Systems: General: No fevers or chills. Eyes: No double vision or blurry vision. ENT: No sore throat or runny nose. Cardiovascular: No chest pain or palpitations. Lung: No shortness of breath or cough. Abdomen: No nausea, vomiting, diarrhea, or abdominal pain. Genitourinary: No increased urinary frequency, or dysuria. Musculoskeletal: No muscle aches or pains. Hematologic: No bleeding or bruising. Neurologic: No headache, weakness, numbness, or tingling. Objective Physical Examination: BP 141/83 Pulse 96 Temp 36.9 ???C (98.4 ???F) (Oral) Resp 18 Ht 1.981 m (6' 6 ) Wt 128 kg (283 lb) SpO2 96% BMI 32.70 kg/m??? Temperature Range: Temp: 36.9 ???C (98.4 ???F) Temp Av.3 ???C (99.1 ???F) Min: 36.8 ???C (98.3 ???F) Max: 38.1 ???C (100.6 ???F) General Appearance: Awake, alert, and in no apparent distress, nontoxic Eyes: Sclera anicteric; conjunctivae pink Pulmonary/Ches (more content not included)... Normal [facility] CONSULT --- Attestation signed by Satish Paulino MD at 02/13/2024 10:47 AM By using the attestations below, the signing clinician agrees that I have read and verify that the documentation has been personally reviewed by me and ensure that the documentation accurately reflects the encounter. GC: I personally saw this patient on the day of the encounter, performed the diamond portion(s) of the service and participated in the management and confirm the resident's documentation. Please note there may be an additional personal documentation from me. Satish Paulino MD Urology Consultation Patient: Jose Duggan Date of : 1970 REASON FOR CONSULT scrotal abscess, possible for any gangrene HISTORY OF PRESENT ILLNESS: The patient is a 54 y.o. male who presents as a transfer from [facility] for right scrotal abscess and possible Jose's gangrene. Due to no urology coverage over the weekend, patient was transferred over to [facility]. Patient was questioned and examined at the bedside family present. States that over the last 3 weeks he has noticed a small marble shaped wound in his right hemiscrotum associated with some pain and tenderness. Yesterday the area became more swollen causing him to come to the emergency department. Patient is a diabetic at baseline, not insulin-dependent. Denies any fevers or chills at home prior to arriving to the hospital. Endorses pain mainly in the right hemiscrotum. Denies any drainage from the area. He is afebrile and vital signs are stable. Lab work reveals: WBC 19, hemoglobin 14.8, creatinine 1.13. CT pelvis with contrast done at [facility] showing a right scrotal abscess with couple foci of gas within scrotal skin. At [facility] he was initiated on broad-spectrum antibiotics: Vancomycin, clindamycin, and Zosyn. In our emergency department he was continued on Zosyn. Decision was made for a bedside incision and drainage. Patient was amenable. Please refer to procedure note for additional details. Wound fluid sent for anaerobic and aerobic cultures. Blood culture sent as well. Past Medical History: Past Medical History: Diagnosis Date Diabetes mellitus ([facility]) Past Surgical History: History reviewed. No pertinent surgical history. Previous surgery: none Medications: amLODIPine, 10 mg, oral, Daily clindamycin, 900 mg, intravenous, q8h [START ON 02/13/2024] enoxaparin, 40 mg, subcutaneous, q24h KRISTEN [START ON 02/13/2024] hydroCHLOROthiazide, 25 mg, oral, Daily insulin lispro, 0-10 Units, subcutaneous, q6h KRISTEN [START ON 02/13/2024] levothyroxine, 100 mcg, oral, Daily metoprolol succinate XL, 25 mg, oral, Daily nicotine, 1 patch, transdermal, Daily piperacillin-tazobactam , 4.5 g, intravenous, q8h rosuvastatin, 10 mg, oral, Nightly [START ON 02/13/2024] valsartan, 320 mg, oral, Daily vancomycin, 1.5 g, intravenous, q12h PRN medications: acetaminophen, glucose OR dextrose 50 % in water (D50W), HYDROmorphone, oxyCODONE OR oxyCODONE Allergies: Januvia [sitagliptin], Jardiance [empagliflozin], and Tradjenta [linagliptin] Social History: Social History Socioeconomic History Marital status: Spouse name: Not on file Number of children: Not on file Years of education: Not on file Highest education level: Not on file Occupational History Not on file Tobacco Use Smoking status: Every Day Packs/day: 1 Types: Cigarettes Smokeless tobacco: Never Vaping Use Vaping Use: Never used Substance and Sexual Activity Alcohol use: Yes Alcohol/week: 5.0 standard drinks of alcohol Types: 5 Standard drinks or equivalent per week Drug use: Never Sexual activity: Not on file Other Topics Concern Not on file Social History Narrative Not on file Social Determinants of Health Financial Resource Strain: Not on file Food Insecurity: Not on file Transportation Needs: Not on file Physical Activity: Not on file Stress: Not on file Social Connections: Not on file Intimate Partner Violence: Not on file Housing Stability: Not on file Family History: No family history on file. REVIEW OF SYSTEMS: General ROS: negative, no fatigue Psychological ROS: no depression, no suicidal thoughts ENT ROS: no bleeding, no ear tingling Hematological and Lymphatic ROS: no bruising, no swelling Endocrine ROS: negative Respiratory ROS: no wheezing, no shortness of breath Cardiovascular ROS: no chest pain Gastrointestinal ROS: no constipation, no diarrhea Genito-Urinary ROS: see HPI Musculoskeletal ROS: no muscle pain Physical Exam: Constitutional: Patient in no acute distress; Neuro: alert and oriented to person place and time. Psych: Mood and affect normal. Skin: Normal Lungs: Respiratory effort normal Cardiovascular: Normal p (more content not included)... Normal [facility] MANUAL DIFFERENTIALon 2023 BASOPHILS (10*3/UL) IN BLOOD BY CALCULATION 0.07 10*3/uL Normal 0.00-0.20 [facility] Comment on above: Performed By: #### L [id number] #### [facility] ([facility]) [address] [place] [address] BASOPHILS/100 LEUKOCYTES IN BLOOD BY AUTOMATED COUNT 0.3 % Normal 0.0-1.0 [facility] Comment on above: Performed By: #### L [id number] #### [facility] ([facility]) [address] [place] [address] EOSINOPHILS (10*3/UL) IN BLOOD BY CALCULATION 0.09 10*3/uL Normal 0.00-0.50 [facility] Comment on above: Performed By: #### L [id number] #### [facility] ([facility]) [address] [place] [address] EOSINOPHILS/100 LEUKOCYTES IN BLOOD BY AUTOMATED COUNT 0.4 % Normal 0.0-6.0 [facility] Comment on above: Performed By: #### L [id number] #### [facility] ([facility]) [address] [place] [address] IMMATURE GRANULOCYTES (10*3/UL) IN BLOOD BY CALCULATION 0.22 10*3/uL High 0.00-0.20 [facility] Comment on above: Performed By: #### L [id number] #### [facility] ([facility]) [address] [place] [address] IMMATURE GRANULOCYTES/100 LEUKOCYTES IN BLOOD BY AUTOMATED COUNT 1.0 % Normal 0.0-1.0 [facility] Comment on above: Performed By: #### L [id number] #### [facility] ([facility]) [address] [place] [address] LYMPHOCYTES (10*3/UL) IN BLOOD BY CALCULATION 1.62 10*3/uL Normal 1.20-4.00 [facility] Comment on above: Performed By: #### L [id number] #### [facility] ([facility]) [address] [place] [address] LYMPHOCYTES/100 LEUKOCYTES IN BLOOD BY AUTOMATED COUNT 7.4 % Low 20.0-45.0 [facility] Comment on above: Performed By: #### L [id number] #### [facility] ([facility]) [address] [place] [address] MONOCYTES (10*3/UL) IN BLOOD BY CALCUATION 2.33 10*3/uL High 0.10-1.00 [facility] Comment on above: Performed By: #### L [id number] #### [facility] ([facility]) [address] [place] [address] MONOCYTES/100 LEUKOCYTES IN BLOOD BY AUTOMATED COUNT 10.6 % Normal 5.0-12.0 [facility] Comment on above: Performed By: #### L [id number] #### [facility] ([facility]) [address] [place] [address] NEUTROPHILS (10*3/UL) IN BLOOD BY CALCULATION 17.6 10*3/uL High 1.6-7.6 [facility] Comment on above: Performed By: #### L [id number] #### [facility] ([facility]) [address] [place] [address] NEUTROPHILS/100 LEUKOCYTES IN BLOOD BY AUTOMATED COUNT 80.3 % High 40.0-72.0 [facility] Comment on above: Performed By: #### L [id number] #### [facility] ([facility]) [address] [place] [address] POCT GLUCOSE METER UNSOLICIT ED RESULTSon 02-12-2024 Glucose [Mass/Vol] 182 mg/dL High 70-105 [facility] Comment on above: Order Comment: Waive d Testing in the ED is performed under the ED CLIA certificate #[id number]. Result Comment: [email or web address] Performed By: #### L [id number] ####[facility] ([facility])[address] [facility] [address] Glucose [Mass/Vol] 327 mg/dL High 70-105 [facility] Comment on above: Order Comment: Waive d Testing in the ED is performed under the ED CLIA certificate #[id number]. Result Comment: carmen santoro Performed By: #### L [id number] #### [facility] ([facility]) [address] [place] [address] Glucose [Mass/Vol] 289 mg/dL High 70-105 [facility] Comment on above: Order Comment: Waive d Testing in the ED is performed under the ED CLIA certificate #[id number]. Result Comment: prasanna pengCelso Performed By: #### L [id number] ####[facility] ([facility])[address] [place] [address] TSH3 REFLEX TO FT4on 024 THYROTROPIN (MIU/L) IN SER/PLAS BY DETECTION LIMIT <= 0.05 MIU/L 1.37 mIU/L Normal 0.34-5.60 [facility] Comment on above: Performed By: #### L [id number] ####[facility] ([facility])[address] [place] [address] BASIC METABOLIC PANELon 100 Anion gap [Moles/Vol] 12 mmol/L Normal 7-20 [facility] Comment on above: Performed By: #### L [id number] #### [facility] ([facility]) [address] [place] [address] Calcium [Mass/Vol] 8.6 mg/dL Normal 8.6-10.3 [facility] Comment on above: Performed By: #### L [id number] #### [facility] ([facility]) [address] [place] [address] Chloride [Moles/Vol] 98 mmol/L Normal 98-107 [facility] Comment on above: Performed By: #### L [id number] #### [facility] ([facility]) [address] [place] [address] CO2 [Moles/Vol] 30 mmol/L Normal 21-31 [facility] Comment on above: Performed By: #### L [id number] #### [facility] ([facility]) [address] [place] [address] Creatinine [Mass/Vol] 1.13 mg/dL Normal 0.70-1.30 [facility] Comment on above: Performed By: #### L [id number] #### [facility] ([facility]) [address] [place] [address] GLOMERULAR FILTRATION RATE ML/MIN/1.73 SQ M.PREDICTED 77.7 mL/min/1.73m*2 Normal >60.0 [facility] Comment on above: Result Comment: The [facility]???s estimated glomerular filtration rate (eGFR) will no longer include consideration of race in its calculation. The National Kidney Foundation???s eGFR Task Force developed new recommendations for the estimation of the glomerular filtration rate in the [place] They recommend immediate implementation of the new equation refit without the race variable in all laboratories because the calculation does not include race. In addition to not including race in the calculation and reporting, it included diversity in its development, and has acceptable performance characteristics and potential consequences that do not disproportionately affect any one group of individuals. Performed By: #### L [id number] #### [facility] ([facility]) [address] [place] [address] Glucose [Mass/Vol] 172 mg/dL High 70-100 [facility] Comment on above: Performed By: #### L [id number] #### [facility] ([facility]) [address] [place] [address] Potassium [Moles/Vol] 3.8 mmol/L Normal 3.5-5.1 [facility] Comment on above: Performed By: #### L [id number] #### [facility] ([facility]) [address] [place] [address] Sodium [Moles/Vol] 136 mmol/L Normal 136-145 [facility] Comment on above: Performed By: #### L [id number] #### [facility] ([facility]) [address] [place] [address] Urea nitrogen [Mass/Vol] 25 mg/dL Normal 7-25 [facility] Comment on above: Performed By: #### L [id number] #### [facility] ([facility]) [address] [place] [address] UREA NITROGEN/CREATININE (MASS RATIO) IN SER/PLAS 22.1 Normal [facility] Comment on above: Performed By: #### L [id number] #### [facility] ([facility]) [address] [place] [address] CBC WITH AUTO DIFFERENTIALon 02-11-2024 Erythrocyte distribution width (RBC) [Ratio] 13.5 % Normal 11.5-15.0 [facility] Comment on above: Performed By: #### L [id number] ####[facility] ([facility])[address] [place] [address] ERYTHROCYTE MEAN CORPUSCULAR HEMOGLOBIN CONCENTRATION (G/DL) BY AUTOMATED 34.1 g/dL Normal 32.0-35.0 [facility] Comment on above: Performed By: #### L [id number] ####[facility] ([facility])[address] [place] [address] Hematocrit (Bld) [Volume fraction] 43.4 % Normal 39.0-55.0 [facility] Comment on above: Performed By: #### L [id number] ####[facility] ([facility])[address] [place] [address] Hemoglobin (Bld) [Mass/Vol] 14.8 g/dL Normal 13.0-17.0 [facility] Comment on above: Performed By: #### L [id number] ####[facility] ([facility])[address] [place] [address] MCH (RBC) [Entitic mass] 30.3 pg Normal 27.0-33.0 [facility] Comment on above: Performed By: #### L [id number] ####[facility] ([facility])[address] [place] [address] MCV (RBC) [Entitic vol] 88.8 fL Normal 82.0-98.0 [facility] Comment on above: Performed By: #### L [id number] ####[facility] ([facility])[address] [place] [address] NRBC (PER 100 WBCS) BY AUTOMATED COUNT 0.0 % Normal 0 [facility] Comment on above: Performed By: #### L [id number] ####[facility] ([facility])[address] [place] [address] PLATELETS (10*3/UL) IN BLOOD AUTOMATED COUNT 199 10*3/uL Normal 150-400 [facility] Comment on above: Performed By: #### L [id number] ####[facility] ([facility])[address] [place] [address] RBC (Bld) [#/Vol] 4.89 10*6/uL Normal 4.20-5.70 [facility] Comment on above: Performed By: #### L [id number] ####[facility] ([facility])[address] [place] [address] WBC (Bld) [#/Vol] 19.59 10*3/uL High 4.00-10.60 [facility] Comment on above: Performed By: #### L [id number] ####[facility] (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 Dicekns with Urology for concerns an abscess to the right scrotum region. Pt was treated with clindamycin and vancomycin at [facility]. Abscess has been present for 3 weeks. Normal [facility] LACTIC ACID WITH 4 HOUR REFL EXon 02-11-2024 LACTATE (MMOL/L) IN SER/PLAS 1.1 mmol/L Normal 0.5-2.2 [facility] Comment on above: Performed By: #### L [id number] ####[facility] ([facility])[address] [place] [address] MANUAL DIFFERENTIALon 2023 BASOPHILS (10*3/UL) IN BLOOD BY CALCULATION 0.06 10*3/uL Normal 0.00-0.20 [facility] Comment on above: Performed By: #### L [id number] ####[facility] ([facility])[address] [place] [address] BASOPHILS/100 LEUKOCYTES IN BLOOD BY AUTOMATED COUNT 0.3 % Normal 0.0-1.0 [facility] Comment on above: Performed By: #### L [id number] ####[facility] ([facility])[address] [place] [address] EOSINOPHILS (10*3/UL) IN BLOOD BY CALCULATION 0.08 10*3/uL Normal 0.00-0.50 [facility] Comment on above: Performed By: #### L [id number] ####[facility] ([facility])[address] [place] [address] EOSINOPHILS/100 LEUKOCYTES IN BLOOD BY AUTOMATED COUNT 0.4 % Normal 0.0-6.0 [facility] Comment on above: Performed By: #### L [id number] ####[facility] ([facility])[address] [place] [address] IMMATURE GRANULOCYTES (10*3/UL) IN BLOOD BY CALCULATION 0.18 10*3/uL Normal 0.00-0.20 [facility] Comment on above: Performed By: #### L [id number] ####[facility] ([facility])[address] [place] [address] IMMATURE GRANULOCYTES/100 LEUKOCYTES IN BLOOD BY AUTOMATED COUNT 0.9 % Normal 0.0-1.0 [facility] Comment on above: Performed By: #### L [id number] ####[facility] ([facility])[address] [place] [address] LYMPHOCYTES (10*3/UL) IN BLOOD BY CALCULATION 2.35 10*3/uL Normal 1.20-4.00 [facility] Comment on above: Performed By: #### L [id number] ####[facility] ([facility])[address] [place] [address] LYMPHOCYTES/100 LEUKOCYTES IN BLOOD BY AUTOMATED COUNT 12.0 % Low 20.0-45.0 [facility] Comment on above: Performed By: #### L [id number] ####[facility] ([facility])[address] [place] [address] MONOCYTES (10*3/UL) IN BLOOD BY CALCUATION 2.10 10*3/uL High 0.10-1.00 [facility] Comment on above: Performed By: #### L [id number] ####[facility] ([facility])[address] [place] [address] MONOCYTES/100 LEUKOCYTES IN BLOOD BY AUTOMATED COUNT 10.7 % Normal 5.0-12.0 [facility] Comment on above: Performed By: #### L [id number] ####[facility] ([facility])[address] [place] [address] NEUTROPHILS (10*3/UL) IN BLOOD BY CALCULATION 14.8 10*3/uL High 1.6-7.6 [facility] Comment on above: Performed By: #### L [id number] ####[facility] ([facility])[address] [place] [address] NEUTROPHILS/100 LEUKOCYTES IN BLOOD BY AUTOMATED COUNT 75.7 % High 40.0-72.0 [facility] Comment on above: Performed By: #### L [id number] ####[facility] ([facility])[address] [place] [address] Laboratory - Hematology and Cell countson 01-10-2024 HbA1c (Bld) [Mass fraction] 7.7 % [facility] No Panel Informationon 01-09 [facility] CBC AUTO DIFFon 12-02-2019 BASO # 0.1 103/ul Normal 0.0-0.1 [facility] Comment on above: Performed By: #### C BC #### [facility] [address] [place] [address] Ninoska Krys Basophils/100 WBC (Bld) 0.7 % Normal 0.2-2.0 [facility] Comment on above: Performed By: #### C BC #### [facility] [address] [place] [address] Ninoska Krys EO # 0.3 103/ul Normal 0.0-0.7 [facility] Comment on above: Performed By: #### C BC #### [facility] [address] [place] [address] Ninoska Krys Eosinophils/100 WBC (Bld) 2.2 % Normal 0.9-7.0 [facility] Comment on above: Performed By: #### C BC #### [facility] [address] [place] [address] Ninoska Krys Erythrocyte distribution width (RBC) [Ratio] 13.8 % Normal 11.0-15.0 [facility] Comment on above: Performed By: #### C BC #### [facility] [address] [place] [address] Ninoska Krys Hematocrit (Bld) [Volume fraction] 47.2 % Normal 42.0-54.0 [facility] Comment on above: Performed By: #### C BC #### [facility] [address] [place] [address] Ninoska Krys Hemoglobin (Bld) [Mass/Vol] 16.0 g/dL Normal 14.0-18.0 [facility] Comment on above: Performed By: #### C BC #### [facility] [address] [place] [address] Ninoska Krys IG # 0.06 10e3/ul Critically high 0.00-0.03 [facility] Comment on above: Performed By: #### C BC #### [facility] [address] [place] [address] Ninoska Krys IG % 0.4 % Normal 0.0-0.5 [facility] Comment on above: Performed By: #### C BC #### [facility] [address] [place] [address] Ninoska Krys LYMPH # 3.1 103/ul Normal 1.2-3.8 [facility] Comment on above: Performed By: #### C BC #### [facility] [address] [place], [place] [address] Ninoska Krys Lymphocytes/100 WBC (Bld) 20.8 % Normal 20.5-60.0 [facility] Comment on above: Performed By: #### C BC #### [facility] [address] [place], [place] [address] Ninoska Krys MANUAL DIFF REQ NO Normal [facility] Comment on above: Performed By: #### C BC #### [facility] [address] [place], [place] [address] Ninoskaesteban Marcano MCH (RBC) [Entitic mass] 30.4 pg Normal 25.9-34.0 [facility] Comment on above: Performed By: #### C BC #### [facility] [address] [place], [place] [address] Ninoskaesteban Marcano MCHC (RBC) [Mass/Vol] 33.9 g/dL Normal 29.9-35.2 [facility] Comment on above: Performed By: #### C BC #### [facility] [address] [place], [place] [address] Ninoskaesteban Marcano MCV (RBC) [Entitic vol] 89.6 fL Normal 80.0-94.0 [facility] Comment on above: Performed By: #### C BC #### [facility] [address] [place], [place] [address] Ninoska Krys MONO # 1.6 103/ul Critically high 0.3-0.8 [facility] Comment on above: Performed By: #### C BC #### [facility] [address] [place], [place] [address] Ninoska Krys Monocytes/100 WBC (Bld) 11.0 % Normal 1.7-12.0 [facility] Comment on above: Performed By: #### C BC #### [facility] [address] [place] [address] Ninoska Krys NEUT # 9.7 103/ul Critically high 1.4-6.5 [facility] Comment on above: Performed By: #### C BC #### [facility] [address] [place], [place] [address] Ninoska Marcano Neutrophils/100 WBC (Bld) 64.9 % Normal 43.0-75.0 [facility] Comment on above: Performed By: #### C BC #### [facility] [address] [place], [place] [address] Ninoska Marcano Platelet mean volume (Bld) [Entitic vol] 10.7 fL Normal 9.5-13.5 [facility] Comment on above: Performed By: #### C BC #### [facility] [address] [place], [place] [address] Ninoska Snowdenen PLT 217 103/ul Normal 150-450 [facility] Comment on above: Performed By: #### C BC #### [facility] [address] [place] [address] Ninoska Krys RBC 5.27 106/ul Normal 4.70-6.10 [facility] Comment on above: Performed By: #### C BC #### [facility] [address] [place], [place] [address] Ninoska Marcano WBC 14.9 103/ul Critically high 4.0-11.0 [facility] Comment on above: Performed By: #### C BC #### [facility] [address] [place] [address] PELVIS W CONon 12-02-2019 CT PELVIS W CON EXAMINATION: CT PELV IS W CON HISTORY: Pain COMPARISON: None. TECHNIQUE: [...] fluid collection or abscess. Electronically authenticated by: REAGAN ELLIOTT Date: 2019-12-02 14:21 Normal [facility] PROF CHEM 8 (BAS METB)on Anion gap [Moles/Vol] 11.3 mmol/L Normal [facility] Comment on above: Performed By: #### B MP #### [facility] [address] [place] [address] Ninoska Krys Calcium [Mass/Vol] 8.9 mg/dL Normal 8.4-10.2 [facility] Comment on above: Performed By: #### B MP #### [facility] [address] [place] [address] Ninoska Krys Chloride [Moles/Vol] 100 mmol/L Normal 98-107 [facility] Comment on above: Performed By: #### B MP #### [facility] [address] [place] [address] Ninoska Krys CO2 [Moles/Vol] 29.2 mmol/L Normal 22.0-30.0 [facility] Comment on above: Performed By: #### B MP #### [facility] [address] [place] [address] Ninoska Krys Creatinine [Mass/Vol] 1.12 mg/dL Normal 0.66-1.25 [facility] Comment on above: Performed By: #### B MP #### [facility] [address] [place] [address] Ninoska Krys EGFR-AF PERUVIAN >60 Normal >=60 [facility] Comment on above: Performed By: #### B MP #### [facility] [address] [place] [id number] Ninoska Krys EGFR-NON AF PERUVIAN >60 Normal >=60 [facility] Comment on above: Performed By: #### B MP #### [facility] [address] [place], [place] [address] Ninoska Krys Glucose [Mass/Vol] 200 mg/dL Critically high 74-106 [facility] Comment on above: Performed By: #### B MP #### [facility] [address] [place], [place] [address] Ninoska Krys Potassium [Moles/Vol] 3.5 mmol/L Normal 3.4-5.0 [facility] Comment on above: Performed By: #### B MP #### [facility] [address] [place], [place] [address] Ninoska Krys Sodium [Moles/Vol] 137 mmol/L Normal 137-145 [facility] Comment on above: Performed By: #### B MP #### [facility] [address] [place], [place] [address] Ninoska Krys Urea nitrogen [Mass/Vol] 14.0 mg/dL Normal 9.0-20.0 [facility] Comment on above: Performed By: #### B MP #### [facility] [address] [place], [place] [address] Ninoska Krys Urea nitrogen/Creatinine [Mass ratio] 12.5 mg/mg Normal [facility] Comment on above: Performed By: #### B MP #### [facility] [address] [place], [place] [address] Ninoska Krys FOOT RIGHT 3 [facility] 9 FOOT RIGHT 3 S [facility] Department of Radiology [address] [place] [id number] ===== Patient Name: JOSE DUGGAN : 1970 Sex: M Age: Race: White Pt. 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 Transcribed by: [email or web address], User Resident: Electronically Signed by: KRISTAL JOSEPH @ 03/09/2019 12:30 PM Normal [facility] Comment on above: Order Comment: , , = ========= , Ordering Provider - DURGA RUBIO PA-C , FOOT RIGHT 3 [facility] 9 FOOT RIGHT 3 S [facility] Department of Radiology [address] [place] [id number] ===== Patient Name: JOSE DUGGAN : 1970 Sex: M Age: Race: White Pt. Location: 84 Patient Status: Ordered Date: 12/15/2018 10:10:00 AM Completed Date: 12/15/2018 10:10 AM Requesting Provider: DURGA RUBIO Attending Provider: Report Copy To: Signs & Symptoms: S92.301D Fx unsp metatarsal bone(s), r foot, subs for fx w routn heal I10 History: [place] Comments: , , , Ordering Provider - DURGA RUBIO PA-C , Exam: FOOT RIGHT 3 [facility] ===== FOOT RIGHT 3 [facility] 12/15/2018 10:10 AM EDT SIGNS AND SYMPTOMS: [...] fractures similar to prior study Electronically signed by:Kristal Joseph. Transcribed by: [email or web address], User Resident: Electronically Signed by: KRISTAL JOSEPH @ 12/15/2018 06:18 PM Normal [facility] Comment on above: Order Comment: , , = ========= , Ordering Provider - DURGA RUBIO PA-C , FOOT RIGHT 3 [facility] 9 FOOT RIGHT 3 [facility] Department of Radiology [address] [place] [id number] ===== Patient Name: JOSE DUGGAN : 1970 Sex: M Age: Race: White Pt. Location: Patient Status: Ordered Date: 10/11/2018 2:25:00 PM Completed Date: 10/11/2018 02:30 PM Requesting Provider: DURGA RUBIO Attending Provider: Report Copy To: Signs & Symptoms: S92.301D Fx unsp metatarsal bone(s), r foot, subs for fx w routn heal I10 History: [place] Comments: , , , Ordering Provider - DURGA RUBIO PA-C , Exam: FOOT RIGHT 3 S ===== FOOT RIGHT 3 S 10/11/2018 2:30 PM [...] Unchanged IMPRESSION: Healing foot fractures Electronically signed by:Kristal Joseph. Transcribed by: [email or web address], User Resident: Electronically Signed by: KRISTAL JOSEPH @ 10/11/2018 02:38 PM Normal [facility] Comment on above: Order Comment: , , = ========= , Ordering Provider - DURGA RUBIO PA-C , FOOT RIGHT 3 Son 9 FOOT RIGHT 3 [facility] Department of Radiology [address] [place] [phone] ===== Patient Name: JOSE DUGGAN : 1970 Sex: M Age: Race: White Pt. Location: Patient Status: Ordered Date: 08/07/2018 3:00:00 PM Completed Date: 08/07/2018 03:00 PM Requesting Provider: DURGA RUBIO Attending Provider: Report Copy To: Signs & Symptoms: S92.301D Fx unsp metatarsal bone(s), r foot, subs for fx w routn heal I10 History: [place] Comments: , , , Ordering Provider - DURGA RUBIO PA-C , Exam: FOOT RIGHT 3 [facility] ===== FOOT RIGHT 3 S 08/07/2018 3:00 PM [...] foot injuries in satisfactory alignment Electronically signed by:Kristal Joseph. Transcribed by: [email or web address], User Resident: Electronically Signed by: KRISTAL JOSEPH @ 08/07/2018 03:30 PM Normal [facility] Comment on above: Order Comment: , , = ========= , Ordering Provider - DURGA RUBIO PA-C , FOOT RIGHT 3 [facility] 9 FOOT RIGHT 3 [facility] Department of Radiology [address] [place] [phone] ===== Patient Name: JOSE DUGGAN : 1970 Sex: M Age: Race: White Pt. Location: Patient Status: Ordered Date: 07/03/2018 1:45:00 PM Completed Date: 07/03/2018 01:48 PM Requesting Provider: DURGA RUBIO Attending Provider: Report Copy To: Signs & Symptoms: S92.301D Fx unsp metatarsal bone(s), r foot, subs for fx w routn heal I10 History: [place] Comments: , , , Ordering Provider - DURGA RUBIO PA-C , Exam: FOOT RIGHT 3 [facility] ===== FOOT RIGHT 3 S 07/03/2018 1:48 PM EST SIGNS AND SYMPTOMS: [...] along the big toe metatarsal Electronically signed by:Kristal Joseph. Transcribed by: [email or web address], User Resident: Electronically Signed by: KRISTAL JOSEPH @ 07/03/2018 02:07 PM Normal [facility] Comment on above: Order Comment: , , = ========= , Ordering Provider - DURGA RUBIO PA-C , FOOT RIGHT 3 [facility] 9 FOOT RIGHT 3 [facility] Department of Radiology [address] [place] [phone] ===== Patient Name: JOSE DUGGAN : 1970 Sex: M Age: Race: White Pt. Location: Patient Status: O Ordered Date: 06/05/2018 2:20:00 PM Completed Date: 06/05/2018 02:20 PM Requesting Provider: DURGA RUBIO Attending Provider: DURGA RUBIO Report Copy To: ANTHONY KANG Signs & Symptoms: S92.301D Fx unsp metatarsal bone(s), r foot, subs for fx w routn heal I10 History: [place] Comments: , , , Ordering Provider - DURGA RUBIO PA-C , Exam: FOOT RIGHT 3 [facility] ===== FOOT RIGHT 3 [facility] 06/05/2018 2:20 PM EST SIGNS AND SYMPTOMS: [...] postoperative and posttraumatic right foot Electronically signed by:Kristal Joseph. Transcribed by: [email or web address], User Resident: Electronically Signed by: KRISTAL JOSEPH @ 06/05/2018 03:00 PM Normal [facility] Comment on above: Order Comment: , , = ========= , Ordering Provider - DURGA RUBIO PA-C , FOOT RIGHT 3 [facility] 9 FOOT RIGHT 3 [facility] Department of Radiology [address] [place] [phone] ===== Patient Name: JOSE DUGGAN : 1970 Sex: M Age: Race: White Pt. Location: Patient Status: Ordered Date: 05/10/2018 1:40:00 PM Completed Date: 05/10/2018 01:47 PM Requesting Provider: DURGA RUBIO Attending Provider: Report Copy To: Signs & Symptoms: S92.301D Fx unsp metatarsal bone(s), r foot, subs for fx w routn heal I10 History: [place] Comments: , , , Ordering Provider - DURGA RUBIO PA-C , Exam: FOOT RIGHT 3 [facility] ===== FOOT RIGHT 3 S 05/10/2018 1:47 PM [...] IMPRESSION: Healing right foot injury Electronically signed by:Kristal Joseph. Transcribed by: [email or web address], User Resident: Electronically Signed by: KRISTAL JOSEPH @ 05/10/2018 02:09 PM Normal [facility] Comment on above: Order Comment: , , = ========= , Ordering Provider - DURGA RUBIO PA-C , Vital Signs Date Time Vital Sign Value Performing Clinician Facility 05-22-2024 15:36-0500 Body height 198.1 cm Krys Hemmer PA Work Phone: [facility] 05-22-2024 15:36-0500 Body mass index (BMI) [Ratio] 33.14 kg/m2 Krys Hemmer PA Work Phone: [facility] 05-22-2024 15:36-0500 Body weight 130.09 kg Krys Hemmer PA Work Phone: [facility] 05-22-2024 15:36-0500 Diastolic blood pressure 84 mm[Hg] Krys Hemmer PA Work Phone: [facility] 05-22-2024 15:36-0500 Heart rate 93 /min Krys Hemmer PA Work Phone: [facility] 05-22-2024 15:36-0500 Respiratory rate 16 /min Krys Hemmer PA Work Phone: [facility] 05-22-2024 15:36-0500 SaO2% (BldA) [Mass fraction] 98 % Krys Hemmer PA Work Phone: [facility] 05-22-2024 15:36-0500 Systolic blood pressure 130 mm[Hg] Krys Hemmer PA Work Phone: [facility] 03-23-2024 11:00-0500 Body height 198.1 cm Dolly Aarti DO Work Phone: [facility] 03-23-2024 11:00-0500 Body mass index (BMI) [Ratio] 33.54 kg/m2 Dolly Aarti DO Work Phone: [facility] 03-23-2024 11:00-0500 Body weight 131.63 kg Dolly Aarti DO Work Phone: [facility] 03-23-2024 11:00-0500 Heart rate 107 /min Dolly Aarti DO Work Phone: [facility] 03-23-2024 11:00-0500 SaO2% (BldA) [Mass fraction] 93 % Dolly Aarti DO Work Phone: [facility] 01-31-2024 09:58-0400 Body height 193 cm Fátima Tellez PAINT SPECIALIST Work Phone: [facility] 01-31-2024 09:58-0400 Body mass index (BMI) [Ratio] 34.45 kg/m2 Fátima Otis PAINT SPECIALIST Work Phone: [facility] 01-31-2024 09:58-0400 Body weight 128.37 kg Fátima Otis PAINT SPECIALIST Work Phone: [facility] 01-31-2024 09:58-0400 Diastolic blood pressure 84 mm[Hg] Fátima Otis PAINT SPECIALIST Work Phone: [facility] 01-31-2024 09:58-0400 Heart rate 92 /min Fátima Otis PAINT SPECIALIST Work Phone: [facility] 01-31-2024 09:58-0400 SaO2% (BldA) [Mass fraction] 96 % Fátima Otis PAINT SPECIALIST Work Phone: [facility] 01-31-2024 09:58-0400 Systolic blood pressure 126 mm[Hg] Fátima Rosalinda PAINT SPECIALIST Work Phone: [facility] 01-10-2024 10:34-0400 Body mass index (BMI) [Ratio] 34.45 kg/m2 Áftima Otis PAINT SPECIALIST Work Phone: [facility] 01-10-2024 10:34-0400 Body weight 128.37 kg Fátima Otis PAINT SPECIALIST Work Phone: [facility] 01-10-2024 10:34-0400 Diastolic blood pressure 76 mm[Hg] Fátima Otis PAINT SPECIALIST Work Phone: [facility] 01-10-2024 10:34-0400 Heart rate 101 /min Fátima Otis PAINT SPECIALIST Work Phone: [facility] 01-10-2024 10:34-0400 SaO2% (BldA) [Mass fraction] 100 % Fátima Tellez PAINT SPECIALIST Work Phone: [facility] 01-10-2024 10:34-0400 Systolic blood pressure 124 mm[Hg] Fátima Rosalinda PAINT SPECIALIST Work Phone: [facility] 12-27-2023 10:08-0400 Body mass index (BMI) [Ratio] 34.5 kg/m2 Fátima Tellez PAINT SPECIALIST Work Phone: [facility] 12-27-2023 10:08-0400 Body weight 128.55 kg Fátima Tellez PAINT SPECIALIST Work Phone: [facility] 12-27-2023 10:08-0400 Diastolic blood pressure 75 mm[Hg] Fátima Tellez PAINT SPECIALIST Work Phone: [facility] 12-27-2023 10:08-0400 Heart rate 105 /min Fátima Tellez PAINT SPECIALIST Work Phone: [facility] 12-27-2023 10:08-0400 Respiratory rate 16 /min Fátima Rosalinda PAINT SPECIALIST Work Phone: [facility] 12-27-2023 10:08-0400 SaO2% (BldA) [Mass fraction] 98 % Fátima Tellez PAINT SPECIALIST Work Phone: [facility] 12-27-2023 10:08-0400 Systolic blood pressure 110 mm[Hg] Fátima Tellez PAINT SPECIALIST Work Phone: [facility] [employer] 02-24-2023 17:10-0400 Body height 198.12 cm Calli Carpio Other [employer] Other 02-24-2023 17:10-0400 Body mass index (BMI) [Ratio] 34.43 kg/m2 Calli Carpio Other [employer] Other 02-24-2023 17:10-0400 Body temperature 98.2 [degF] Calli Carpio Other [employer] Other 02-24-2023 17:10-0400 Body weight 135.17 kg Calli Carpio Other [employer] Other 02-24-2023 17:10-0400 Diastolic blood pressure 102 mm[Hg] Calli Carpio Other [employer] Other 02-24-2023 17:10-0400 Respiratory rate 18 /min Calli Carpio Other [employer] Other 02-24-2023 17:10-0400 SaO2% (BldA) [Mass fraction] 96 % Calli Carpio Other [employer] Other 02-24-2023 17:10-0400 Systolic blood pressure 143 mm[Hg] Calli Carpio Other [employer] Other Encounters Encounter Date Encounter Type Care Provider Facility Start: 05-22-2024 End: 05-22-2024 Office outpatient visit 25 minutes Krys SOTO Work Phone: [facility] Comment on above: Ischemic cerebrovasc ular accident (CVA) (CMS/HCC) (Primary Dx); Benign essential hypertension ([facility]/HCC); Type 2 diabetes mellitus with other specified complication, without long-term current use of insulin ([facility]/HCC); Nocturnal hypoxia; Snoring; Witnessed apneic spells Start: 05-22-2024 End: 05-22-2024 ambulatory KRYS MORGAN [facility] Start: 05-22-2024 End: 05-22-2024 Leslie SOTO Work Phone: [facility] Start: 05-22-2024 End: [facility]-22[facility] Start: 05-21-2024 End: 05-22-2024 Orders Only Diana Dugan RN [facility] Comment on above: Ischemic cerebrovasc ular accident (CVA) (CMS-HCC) (Primary Dx); Other cerebrovascular vasospasm and vasoconstriction Start: 05-17-2024 End: 05-19-2024 Evaluation and management of inpatient [facility] Start: 03-27-2024 End: 03-27-2024 ambulatory [facility] Start: 03-23-2024 End: 03-23-2024 Bamboo flowsheet Dolly Davalos Aarti DO Work Phone: [facility] Start: 03-23-2024 End: 03-23-2024 Bamboo flowsheet Dolly Anoop Aarti DO Work Phone: [facility] Start: 03-23-2024 End: 03-23-2024 Office outpatient new 45 minutes Dollyanand Broussard DO Work Phone: [facility] Comment on above: Cigarette smoker (Pr imary Dx); Pulmonary nodules/lesions, multiple Start: 03-23-2024 End: 03-23-2024 ambulatory DOLLY BROUSSARD Not Available Start: 03-06-2024 End: 03-06-2024 ambulatory [facility] Start: 03-02-2024 End: 03-02-2024 ambulatory [facility] Start: 02-27-2024 End: 02-27-2024 ambulatory [facility] Start: 02-27-2024 End: 02-27-2024 ambulatory [facility] Start: 02-23-2024 End: 02-23-2024 Office outpatient visit 25 minutes Fátima Tellez PAINT SPECIALIST Work Phone: [facility] Comment on above: Encounter for wound care of surgical pin site (Primary Dx); Pain associated with wound Start: 02-23-2024 End: 02-23-2024 Refill Cynthia Dukles JAMB CUTTER [facility] Comment on above: Pain associated with wound Start: 02-14-2024 Evaluation and manag ement of inpatient OBI JARRELL [facility] Start: 02-14-2024 Evaluation and manag ement of inpatient HITESH MCKEON [facility] Start: 02-12-2024 Evaluation and manag ement of inpatient TIM ERNST [facility] Start: 02-12-2024 Emergency department patient visit CALLI OBRIEN [facility] Start: 02-11-2024 End: 02-20-2024 Evaluation and management of inpatient KAYLEIGH DICKENS [facility] Start: 02-11-2024 End: 02-13-2024 Clinisync Result Encounter Generic External Data Provider [facility] Unsolicited Start: 02-11-2024 End: 02-13-2024 Clinisync Result Encounter Generic External Data Provider [facility] Unsolicited Start: 01-31-2024 End: 01-31-2024 Bamboo flowsheet Fátima Tellez PAINT SPECIALIST Work Phone: [facility] Start: 01-31-2024 End: 01-31-2024 Bamboo flowsheet Fátima Tellez PAINT SPECIALIST Work Phone: [facility] Start: 01-31-2024 End: 01-31-2024 Office outpatient visit 25 minutes Fátima Tellez PAINT SPECIALIST Work Phone: [facility] Comment on above: Pulmonary nodules/le sions, multiple (Primary Dx); Chest pain on breathing; Acute cough; Lymphadenopathy, inguinal Start: 01-31-2024 End: 01-31-2024 ambulatory FÁTIMA TELLEZ Not Available Start: 01-10-2024 End: 01-10-2024 Bamboo flowsheet Fátima Tellez PAINT SPECIALIST Work Phone: [facility] Start: 01-10-2024 End: 01-10-2024 Bamboo flowsheet Fátima Tellez PAINT SPECIALIST Work Phone: [facility] Start: 01-10-2024 End: 01-10-2024 Office outpatient visit 25 minutes Fátima Tellez PAINT SPECIALIST Work Phone: [facility] Comment on above: Coronary artery calc ification seen on CAT scan ([facility]) (Primary Dx); Type 2 diabetes mellitus without complication, without long-term current use of insulin ([facility]); Muscle spasm; Acute cough Start: 01-10-2024 End: 01-10-2024 ambulatory FÁTIMA TELLEZ Not Available Start: 12-27-2023 End: 12-27-2023 Bamboo flowsheet Fátima Tellez PAINT SPECIALIST Work Phone: [facility] Start: 12-27-2023 End: 12-27-2023 Bamboo flowsheet Fátima Tellez PAINT SPECIALIST Work Phone: [facility] Start: 12-27-2023 End: 12-27-2023 Office outpatient visit 25 minutes Fátima Tellez PAINT SPECIALIST Work Phone: [facility] Comment on above: Chest pain, unspecif ied type (Primary Dx); Acute cough; Breast pain; Muscle spasm; Type 2 diabetes mellitus without complication, without long-term current use of insulin ([facility]); Type 2 diabetes mellitus with hypoglycemia without coma ([facility]); Other forms of angina pectoris ([facility]) Start: 12-27-2023 End: 12-27-2023 ambulatory FÁTIMA TELLEZ Not Available Start: 12-20-2023 End: 12-20-2023 ambulatory FÁTIMA TELELZ Not Available Start: 11-01-2023 End: 11-01-2023 ambulatory FÁTIMA TELLEZ Not Available Start: 09-27-2023 End: 09-28-2023 ambulatory KRYS MORGAN Not Available Start: 06-29-2023 End: 06-29-2023 ambulatory KRYS Malik HEMMER Not Available Start: 02-24-2023 End: 02-24-2023 ambulatory Calli Carpio Other [employer] Other Start: 02-24-2023 Office outpatient vi sit 15 minutes Calli Carpio [facility] [place] Start: 10-27-2020 End: 10-28-2020 ambulatory WHITAKER D CLOUGHERTY Facility:[facility]1 Start: 09-29-2020 End: 09-30-2020 ambulatory WHITAKER D CLOUGHERTY Facility:[facility] Start: 05-26-2020 ambulatory WHITAKER D GREYERTY Fa cility:[facility]1 Start: 01-28-2020 End: 01-29-2020 ambulatory WHITAKER D CLOUGHERTY Facility:[facility] Start: 01-10-2020 End: [address] IRIS BRITO Facility:[facility] Start: 12-20-2019 End: 12-21-[address] CHARLI MOISE Facility:[facility] Start: 12-02-2019 End: 12-02-2019 ambulatory KAYLEIGH DICKENS Facility:[facility] Start: 11-29-2019 End: 05-06-2020 ambulatory WHITAKER D CLOBIRDIE Facility:[facility] Start: 11-22-2019 End: 11-23-2019 ambulatory WHITAKER D CLOUGHERTY Facility:[facility]1 Procedures Date Procedure Procedure Detail Performing Clinician Start: 05-17-2024 Adult depression scr eening assessment Diana Dugan RN Start: 02-11-2024 BLOOD CULTURE 2 Generic External Data Provider Start: 02-11-2024 BLOOD CULTURE 1 Generic External Data Provider Start: 01-10-2024 Hemoglobin glycosyla jacques a1c Fátima Tellez PAINT SPECIALIST Work Phone: Start: 06-29-2023 Microalbumin [Mass/v olume] in Urine by Test strip Diana Dugan RN Plan of Treatment Date Care Activity Detail Author Start: 10-05-2026 Screening for malign ant neoplasm of colon [facility] Start: 05-17-2025 Adult BMI Screening Adult BMI Screen ing [facility] Start: 05-17-2025 Depression Screening Depression Scre ening [facility] Start: 05-17-2025 Tobacco Screening Tobacco Screening [facility] Start: 02-19-2025 Urine screening for protein Diabetes: Urine Protein Screening [facility] Start: 01-25-2025 End: 01-25-2025 Patient encounter procedure 01/25/2025 11:00 AM EDT Office Visit [facility] [address] [place] [address] Dolly Broussard, DO [address] [place] [address] [facility] Start: 12-21-2024 End: 03-23-2025 CT Chest WO contrast CT chest wo IV contrast Imaging Routine Pulmonary nodules/lesions, multiple Expected: 12/21/2024, Expires: 03/23/2025 [facility] Work Phone: Comment on above: Expected: 12/21/2024 , Expires: 03/23/2025 Start: 08-21-2024 End: 08-21-2024 Patient encounter procedure 08/21/2024 4:00 PM EDT Office Visit [facility] [address] [place] [address] Krys Morgan PA [address] [place] [address] [facility] Start: 08-15-2024 Hemoglobin A1c measurement Diabetes: Hemoglobin A1C [facility] Start: 07-31-2024 End: 07-31-2024 Patient encounter procedure 07/31/2024 11:00 AM EDT Office Visit [facility] [address] [place] [phone] Swetha Martinez MD [address] [place] [address], [address], [address] [place] [address] [facility] Start: 06-29-2024 Urine screening for protein [facility] Start: 05-22-2024 End: 05-22-2024 Patient encounter procedure 05/22/2024 3:30 PM EST Office Visit [facility] [address] [place] [address] Krys Morgan PA [address] [place] [address] Arrived [facility] Comment on above: Arrived Start: 05-21-2024 End: 05-21-2025 Wireless Telemetry (In Office) [facility] Work Phone: Comment on above: Expected: 05/21/2024 , Expires: 05/21/2025 Start: 05-15-2024 Hemoglobin A1c measurement Diabetes: Hemoglobin A1C [facility] Start: 04-10-2024 Hemoglobin A1c measurement Diabetes: Hemoglobin A1C [facility] Start: 03-23-2024 End: 03-23-2024 Patient encounter procedure 03/23/2024 11:15 AM EST Consult [facility] [address] [place] [address] Dolly Broussard, DO [address] [facility] [place] [address] [facility] Start: 01-31-2024 End: 01-30-2025 Pulmonary function report Pulmonary Function Test Imaging Routine Pulmonary nodules/lesions, multiple Chest pain on breathing Expected: 01/31/2024, Expires: 01/30/2025 [facility] Work Phone: Comment on above: Expected: 01/31/2024 , Expires: 01/30/2025 Start: 01-31-2024 End: 01-31-2024 Patient encounter procedure 01/31/2024 10:00 AM EDT Office Visit [facility] [address] [place] [id number] Fátima Tellez PAINT SPECIALIST [address] [place] [address] Arrived [facility] Comment on above: Arrived Start: 01-10-2024 End: 01-09-2026 NM Heart Perfusion W single state of exercise Stress test with myocardial perfusion Cardiac Nuclear Medicine Routine Coronary artery calcification seen on CAT scan ([facility]/HCC) Expected: 01/10/2024 (Approximate), Expires: 01/09/2026 [facility] Work Phone: Comment on above: Expected: 01/10/2024 (Approximate), Expires: 01/09/2026 Start: 01-10-2024 End: 01-10-2024 Patient encounter procedure 01/10/2024 10:30 AM EDT Office Visit [facility] [address] [place] [address] Fátima Tellez, PAINT SPECIALIST [address] [place] [address] Arrived [facility] Comment on above: Arrived Start: 01-08-2024 COVID-19 Vaccine ( season) COVID-19 Vaccine ( season) [facility] Start: 01-08-2024 Influenza vaccination [facility] Start: 12-28-2023 End: 12-28-2023 Patient encounter procedure 12/28/2023 4:30 PM EDT Office Visit [facility] [address] [place] [address] Krys Morgan PA [address] [facility] [address] [place] [address] [facility] Start: 12-28-2023 Hemoglobin A1c measurement Diabetes: Hemoglobin A1C [facility] Start: 12-27-2023 End: 12-26-2024 CT Chest WO contrast CT chest wo IV contrast Imaging Routine Chest pain, unspecified type Acute cough Breast pain Expected: 12/27/2023, Expires: 12/26/2024 [facility] Work Phone: Comment on above: Expected: 12/27/2023 , Expires: 12/26/2024 Start: 12-27-2023 End: 12-27-2023 Patient encounter procedure 12/27/2023 10:00 AM EDT Office Visit [facility] [address] [facility] [address] [place] [address] Fátima Tellez, PAINT SPECIALIST [address] [place] [address] Arrived [facility] Comment on above: Arrived Start: 09-10-2022 Glaucoma screening Diabetes: R etinopathy Screening [facility] Start: 2021 Administration of varicella zoster vaccine Zoster (Shingles) Vaccine (1 of 2) [facility] Start: 1990 DTaP,Tdap and Td Vaccines (1 - Tdap) DTaP,Tdap and Td Vaccines (1 - Tdap) [facility] Start: 1989 Adult BMI Follow Up Plan Adult BMI Follow Up Plan [facility] Start: 1989 Diabetic foot examination Diabetic Foot Exam [facility] Start: 1971 Glaucoma screening Diabetic Op hthalmology Exam [facility] Start: 1971 Screening for malign ant neoplasm of colon [facility] Start: 1971 Tobacco Counseling Tobacco Counselin g [facility] BLOOD CULTURE 1 BLOOD CULTURE 1 Lab Routine 02/11/2024 12:44 PM EDT [facility] BLOOD CULTURE 2 BLOOD CULTURE 2 Lab Routine 02/11/2024 1:01 PM EDT [facility] Payers Date Payer Category Payer Managed Care Other (unspecified) [facility] [id number] 2020 Private Health Insurance [id number] 2020 Unknown [id number] 1971 Unknown [id number] [id number] .593 1971 Unknown [id number] [id number] .593 1971 Unknown [id number] 2.16.840.1.960108.3.579.2 .593 1971 Unknown [id number] 2.16.840.1.564029.3.579.2 .593 1971 Unknown [id number] 2.16.840.1.296783.3.579.2 .593 1971 Unknown [id number] 2.16.840.1.801940.3.579.2 .593 1971 Unknown [id number] 2.16.840.1.523916.3.579.2 .593 1971 Unknown [id number] 2.16.840.1.167036.3.579.2 .593 1971 Unknown [id number] 2.16.840.1.903744.3.579.2 .59 1971 Unknown [id number] 2.16.840.1.263430.3.579.2 .1285 1971 Unknown [id number] 2.16.840.1.140240.3.579.2 .1285 1971 Unknown [id number] 2.16.840.1.119311.3.579.2 .1285 1971 Unknown [id number] 2.16.840.1.719811.3.579.2 .1285 1971 Unknown [id number] .[id number] 1970 Unknown [id number] .1258 1971 Unknown [id number] .1258 1971 Unknown [id number] [id number] .1258 1971 Unknown [id number] .1258 1971 Unknown [id number] [id number] .1258 1971 Unknown [id number] [id number] .1259 1971 Unknown [id number] [id number] .1259 1971 Unknown [id number] [id number] .1259 1971 Unknown [id number] .1259 1959 Unknown 04 1959 Unknown [id number] Social History Date Type Detail Facility Unknown if ever smoked [employer] Other Start: 01-31-2024 End: 05-22-2024 Sex Assigned At [employer] Other Start: 02-25-2023 End: 03-23-2024 Tobacco smoking status [facility] Smokes tobacco daily [facility] History of tobacco use Cigarette Smoker [facility] Start: 02-25-2023 End: 05-17-2024 Tobacco use and exposure Smokeless tobacco non-user [facility] Start: 01-31-2024 End: 05-22-2024 Alcoholic beverage intake Current drinker of alcohol (finding) [facility] Start: 01-31-2024 End: 05-22-2024 Alcoholic beverage intake [facility] Start: 02-25-2023 Tobacco Comment 21-30 cigs/day [facility] Start: 02-25-2023 Alcohol Comment Caffeine intak e: 1-2 cups per day soda [facility] Start: 1970 Sex assigned at Not on file [facility] Start: 03-23-2024 Tobacco use and exposure User of smokeless tobacco [facility] History of tobacco use Snuff User [facility] Has the [employer], or [employer] threatened to shut off services in your home in past 12Mo No [facility] How often to you hav e a drink containing alcohol? 2-3 time sa week [facility] How many standard drinks containing alcohol do you have on a typical day? 1 or 2 [facility] How often do you hav e 6 or more drinks on 1 occasion? [facility] Adolescent depressio n screening assessment 0 [employer] [facility] Start: 05-17-2024 Alcohol Comment 2-3 beers/week [facility] Start: 12-12-2014 Sex [facility] (finding) [facility] Procedure Code Equipment Code Equipment Origin al Text Equipment Identifier Dates [id number] Start: 06-22-2023 Goals Date Patient Goal Desired Activity /State Personal health goal Comment on above: Formatting of this n ote might be different from the original. Evaluation of progress towards goal: plan to return home with spouse. Clinical Notes 11-22-2019 to 05-22-2024 BRITTANY Walsh - 05/22/2024 3:30 PM ESTTelephone Encounter - Diana Dugan RN - 05/21/2024 11:41 AM ESTTelephone Encounter - Aruna Fajardo - 05/21/2024 11:41 AM EST Note Date & Type Note Facility 05-22-2024 History of Present illness Narrative Images from the original note were not included. HPI Med Refill Additional comments: Metformin Last edited by Nilda Perez LPN on 05/22/2024 3:34 PM. Subjective Patient ID: Jose Duggan is a 54 y.o. male who presents for [facility] follow up. Jose is present today for [facility] follow up. Dx. CVA, Rx'd Asprin 81 mg, Atorvastatin 20 mg. Pt is feeling pretty good. BP has been running high at home. Does keep a log. Wonders if it is his meds. 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 That has healed up. Went to work for about a month then was in ER for CVA. Will be having a alarm security or surveillance monitor for 30 days. States while in the hospital he was told that his oxygen was dropping into the 60's at night, was placed on O2 via nasal cannula with improvement. Pt's spouse states he snores loudly, stops breathing and gasps awake. Pt admits he does wake up gasping at times. Current Outpatient Medications on File Prior to Visit Medication Sig Dispense Refill aspirin 81 MG EC tablet Take 81 mg by mouth in the morning. amLODIPine (Norvasc) 10 MG tablet Take 1 tablet (10 mg) by mouth 1 (one) time each day at the same time 100 tablet 3 glucose blood (OneTouch Ultra) test strip TEST ONCE DAILY DIRECTED 100 strip 3 levothyroxine (Synthroid, Levoxyl) 100 MCG tablet Take 1 tablet (100 mcg) by mouth 1 (one) time each day at the same time 100 tablet 3 metFORMIN (Glucophage) 1000 MG tablet TAKE 1 TABLET BY MOUTH WITH BREAKFAST DAILY. metoprolol succinate XL (Toprol-XL) 25 MG 24 hr tablet TAKE 1 TABLET BY MOUTH IN THE MORNING *DO NOT CRUSH OR CHEW* 90 tablet 1 rosuvastatin (Crestor) 20 MG tablet Take 20 mg by mouth Daily valsartan-hydroCHLOROthiazide (Diovan-HCT) 320-25 MG tablet TAKE 1 TABLET BY MOUTH EVERY DAY 100 tablet 3 [DISCONTINUED] linaGLIPtin (Tradjenta) 5 MG tablet Take 1 tablet (5 mg) by mouth Daily 30 tablet 11 [DISCONTINUED] rosuvastatin (Crestor) 10 MG tablet TAKE 1 TABLET BY MOUTH EVERY DAY 100 tablet 3 [DISCONTINUED] tiZANidine (Zanaflex) 4 MG tablet Take 1 tablet (4 mg) by mouth every 8 (eight) hours if needed for muscle spasms for up to 7 days 21 tablet 0 Current Facility-Administered Medications on File Prior to Visit Medication Dose Route Frequency Provider Last Rate Last Admin [DISCONTINUED] GENERIC EXTERNAL MEDICATION Generic External Data Provider [DISCONTINUED] GENERIC EXTERNAL MEDICATION Generic External Data Provider I have reviewed and reconciled the history and medication list with the patient today. Allergies Allergen Reactions Linagliptin Other Reaction(s): Other Pt states caused abscess Donald Inhibitors Cough Jardiance [Empagliflozin] Other Penile pain Social History Tobacco Use Smoking status: Every Day Current packs/day: 1.00 Types: Cigarettes Smokeless tobacco: Current Types: Snuff Tobacco comments: 21-30 cigs/day Vaping Use Vaping status: Never Used Substance Use Topics Alcohol use: Yes Alcohol/week: 2.0 standard drinks of alcohol Types: 2 Standard drinks or equivalent per week Comment: Caffeine intake: 1-2 cups per day soda Drug use: Never Family History Problem Relation Name Age of Onset Stroke Father Past Medical History: Diagnosis Date Cardiac dysrhythmia Essential hypertension, benign (CMS/HCC) Influenza A 07/03/2018 Talus fracture 04/2019 Past Surgical History: Procedure Laterality Date FOOT SURGERY 2018 pins and skin grafts on right foot FOOT SURGERY Right 10/16/2019 Visit Vitals BP 130/84 Pulse 93 Resp 16 Ht 6' 6 Wt 286 lb 12.8 oz SpO2 98% BMI 33.14 kg/m Smoking Status Every Day BSA 2.67 m Review of Systems Constitutional: Negative for chills, fatigue and fever. Respiratory: Negative for cough, shortness of breath and wheezing. Cardiovascular: Negative for chest pain, palpitations and leg swelling. Gastrointestinal: Negative for abdominal pain, constipation, diarrhea, nausea and vomiting. Skin: Negative for rash. Neurological: Positive for dizziness (Occasionally). Psychiatric/Behavioral: Positive for sleep disturbance. Objective Physical Exam Constitutional: General: He is not in acute distress. Appearance: He is obese. HENT: Head: Normocephalic and atraumatic. Eyes: General: No scleral icterus. Cardiovascular: Rate and Rhythm: Normal rate and regular rhythm. Heart sounds: No murmur heard. Pulmonary: Effort: Pulmonary effort is normal. No respiratory distress. Breath sounds: Normal breath sounds. No wheezing, rhonchi or rales. Musculoskeletal: General: No swelling. Skin: General: Skin is warm and dry. Neurological: General: No focal deficit present. Mental Status: He is alert and oriented to person, place, and time. Psychiatric: Mood and Affect: Mood normal. Behavior: Behavior normal. Assessment/Plan Diagnoses and all orders for this visit: Ischemic cerebrovascular accident (CVA) (CMS/HCC) Patient did not understand why he had a stroke. Reviewed with patient that he has several risk factors for stroke, discussed these with him. Advised pt it will be important to work on controlling his chronic conditions and minimizing risk factors, to decrease the chances of him having another CVA, or having a NV. Encouraged pt to continue 81 mg of ASA daily. Has a follow up scheduled with Neurology on 07/31/2024. Encouraged him to keep this appointment as scheduled. Benign essential hypertension (CMS/HCC) Patient's BP has been elevated at home, but is 130/84 here in the office today. Encouraged pt to consider a new BP cuff or bring his cuff with him to his next appt to make sure it is accurate. He does have a upper arm cuff. Reviewed proper technique for checking BP. Continue to monitor at home. Type 2 diabetes mellitus with other specified complication, without long-term current use of insulin ([facility]) - metFORMIN (Glucophage) 1000 MG tablet; Take 1 tablet (1,000 mg) by mouth in the morning. HgbA1c on 05/17/2024 was 7.9. improved from previous of 8.8. Refill provided on Metformin. Encouraged healthy diet, limit simple sugars and carbs. Will recheck A1c in three months. Nocturnal hypoxia Will provide pt with referral to sleep clinic for further evaluation and treatment. Advised of potential negative impacts on his health from uncontrolled sleep apnea, from fatigue and headaches, to CV disease and . Snoring See above. Witnessed apneic spells See above. The patient was seen today in follow up of recent hospital stay. All available hospital records were reviewed and discussed with the patient. Hospital discharge meds were reviewed. Any changes are noted above. Follow up in about 3 months (around 08/20/2024) for Diabetes. documented in this encounter [facility] 05-21-2024 Miscellaneous Notes ----- Message from Hadley Duque MD sent at 05/19/2024 11:47 AM EST ----- Regarding: Hospital follow-up [facility], this patient was seen for an acute right cerebellar stroke. He was discharged on aspirin and Crestor. Please arrange for stroke follow-up in the next 4-6 weeks. Additionally, a 30 day cardiac event monitor was ordered. Thank you Spoke with patient and scheduled appt documented in this encounter [facility] 05-21-2024 Telephone encounter Note ----- Message from Hadley Duque MD sent at 05/19/2024 11:47 AM EST ----- Regarding: Hospital follow-up [facility], this patient was seen for an acute right cerebellar stroke. He was discharged on aspirin and Crestor. Please arrange for stroke follow-up in the next 4-6 weeks. Additionally, a 30 day cardiac event monitor was ordered. Thank you [facility] 05-21-2024 Telephone encounter Note Spoke with patient and [facility] 03-23-2024 History of Present illness Narrative Images from the original note were not included. Jose Duggan presents today for evaluation in regards to pulmonary nodules. He did have a CT scan of his chest performed in December. He was referred by his primary care provider's office. He is accompanied by his today. He denies any complaints from pulmonary perspective. He states he was having some chest discomfort on the right side when the CT was ordered. However he no longer has any complaints of chest pain. He denies any shortness of breath at rest or with exertion. He denies any palpitations, fevers, or chills. He does currently smoke on a daily basis. Currently smokes 3/4 of pack a day. He denies any other complaints at this time. Allergies Allergen Reactions Linagliptin Other Reaction(s): Other Pt states caused abscess Donald Inhibitors Cough Jardiance [Empagliflozin] Other Penile pain Current Outpatient Medications Medication Sig Dispense Refill amLODIPine (Norvasc) 10 MG tablet Take 1 tablet (10 mg) by mouth 1 (one) time each day at the same time 100 tablet 3 glucose blood (MetabacusTouch Ultra) test strip TEST ONCE DAILY DIRECTED 100 strip 3 levothyroxine (Synthroid, Levoxyl) 100 MCG tablet Take 1 tablet (100 mcg) by mouth 1 (one) time each day at the same time 100 tablet 3 linaGLIPtin (Tradjenta) 5 MG tablet Take 1 tablet (5 mg) by mouth Daily 30 tablet 11 metFORMIN (Glucophage) 1000 MG tablet TAKE 1 TABLET BY MOUTH WITH BREAKFAST DAILY. metoprolol succinate XL (Toprol-XL) 25 MG 24 hr tablet TAKE 1 TABLET BY MOUTH IN THE MORNING *DO NOT CRUSH OR CHEW* 90 tablet 1 rosuvastatin (Crestor) 10 MG tablet TAKE 1 TABLET BY MOUTH EVERY DAY 100 tablet 3 valsartan-hydroCHLOROthiazide (Diovan-HCT) 320-25 MG tablet TAKE 1 TABLET BY MOUTH EVERY DAY 100 tablet 3 tiZANidine (Zanaflex) 4 MG tablet Take 1 tablet (4 mg) by mouth every 8 (eight) hours if needed for muscle spasms for up to 7 days 21 tablet 0 No current facility-administered medications for this visit. Past Medical History: Diagnosis Date Cardiac dysrhythmia Essential hypertension, benign (CMS/HCC) Influenza A 07/03/2018 Talus fracture 04/2019 Past Surgical History: Procedure Laterality Date FOOT SURGERY 2018 pins and skin grafts on right foot FOOT SURGERY Right 10/16/2019 Family History Problem Relation Name Age of Onset Stroke Father Social History Tobacco Use Smoking status: Every Day Current packs/day: 1.00 Types: Cigarettes Smokeless tobacco: Current Types: Snuff Tobacco comments: 21-30 cigs/day Substance Use Topics Alcohol use: Yes Alcohol/week: 2.0 standard drinks of alcohol Types: 2 Standard drinks or equivalent per week Comment: Caffeine intake: 1-2 cups per day soda Pulse 107 Ht 6' 6 Wt 290 lb 3.2 oz SpO2 93% BMI 33.54 kg/m Exam: Heart: regular rate Lungs: clear to auscultation bilaterally, no wheezes/rales/rhonchi, no resp distress Extremities: no edema noted, no visible rashes Neuro: alert, oriented x3 Imaging Reviewed: Images and report of CT chest from December 2023 reviewed-- 4 mm nodule in the right upper lobe, 5 mm nodule in the lingula, no acute findings and chest Assessment/Plan: Pulmonary nodules -- we did discuss the findings of his CT scan of his chest. This was done in December 2023. He states he does have a history of pulmonary nodules. He last had a scan in 2015 . The nodules have increased slightly in size since that time. At this time we discussed continued surveillance given his smoking history as well as change in the nodules discussed following with CT in 1 year's time from his original scan in December. He will follow here once that scan is completed. We also discussed that the nodules are too small for biopsy or PET scan point. The patient and his understand the plan and are agreeable. Tobacco use -- he does currently smoke on a daily basis. He is not interested in quitting at this time. Follow up in about 10 months (around 01/21/2025) for CT chest. Dolly Broussard DO documented in this encounter [facility] 03-06-2024 Note Patient was seen tomoises lopes in wound clinic. Documentation is provided in [facility] wound care documenting system. See [employer] note for full details Wounds well granulated Need to prevent premature epithelialization of pubuic area primarily- white foam Black faom to scrotal area Needs dermatac drape High protein/healthy diet Uninfected and nonnecrotic, no need for sharp debridement or extended antibiotics at this time, will monitor RTC 2 weeks sooner if needed (has home health) [facility] 03-02-2024 Note Subjective Patient ID: Jose Duggan is a 54 y.o. male who presents for Post-op (Jose Duggan is here for a necrotizing fasciitis of the right hemiscrotum and inguinal region, s/p 02/15/24 Right groin debridement). HPI Patient here for evaluation of his wounds s/p previous 02/14 and 02/15 debridement for necrotizing soft tissue infection. Patient since has had wound vac and was seen in office 02/27/24 healing well. However today on VAC change the home nurse noted the top incision has sealed up for some reason and felt firm underneath. Patient has no symptoms, no fever/chills, no pain. The nurse was concerned and replaced the dressing with gauze instead and notified patient to contact our office. Patient was then told to come in for evaluation. Patient otherwise doing well, no systemic symptoms. Denies drainage, tolerating diet well. Seen ID on 02/27/24 and planning on seeing wound care next Tuesday. Review of Systems Constitutional: Negative for chills, fatigue and fever. HENT: Negative for nosebleeds. Eyes: Negative for visual disturbance. Respiratory: Negative for cough, chest tightness, shortness of breath and wheezing. Gastrointestinal: Negative for abdominal pain, blood in stool, constipation, diarrhea and nausea. Endocrine: Negative for cold intolerance and heat intolerance. Genitourinary: Negative for hematuria. Musculoskeletal: Negative for joint swelling and myalgias. Skin: Positive for wound (abdomen is soft for the most part but there is a hard spot). Negative for color change and rash. Allergic/Immunologic: Negative for immunocompromised state. Neurological: Negative for dizziness, weakness, light-headedness, numbness and headaches. Hematological: Does not bruise/bleed easily. Psychiatric/Behavioral: The patient is not nervous/anxious. Objective Visit Vitals BP 131/80 (BP Location: Left arm, Patient Position: Sitting) Pulse 108 Temp 36.5 ???C (97.7 ???F) Physical Exam Constitutional: General: He is not in acute distress. Appearance: Normal appearance. He is not ill-appearing. HENT: Head: Normocephalic. Right Ear: External ear normal. Left Ear: External ear normal. Nose: Nose normal. Mouth/Throat: Mouth: Mucous membranes are moist. Eyes: General: No scleral icterus. Right eye: No discharge. Left eye: No discharge. Conjunctiva/sclera: Conjunctivae normal. Cardiovascular: Rate and Rhythm: Normal rate and regular rhythm. Pulses: Normal pulses. Heart sounds: Normal heart sounds. Pulmonary: Effort: Pulmonary effort is normal. No respiratory distress. Abdominal: General: There is no distension. Palpations: Abdomen is soft. Tenderness: There is no abdominal tenderness. Comments: Incisions c/d/i except for folliculitis from adhesive dressing. Probed top wound and noted a pocket of serous fluid underneath. No erythema or purulence. Lower groin wound healing very well with granulation. Wound vac replaced (top wound with piece of White foam, groin wound with tiny piece of black foam, bridge with black foam. Skin protectant applied underneath with two layers of sheeting to protect skin and bridging, good seal). Musculoskeletal: General: No swelling. Cervical back: Neck supple. Right lower leg: No edema. Left lower leg: No edema. Skin: General: Skin is warm. Capillary Refill: Capillary refill takes less than 2 seconds. Coloration: Skin is not jaundiced. Neurological: General: No focal deficit present. Mental Status: He is alert and oriented to person, place, and time. Psychiatric: Mood and Affect: Mood normal. Assessment/Plan Diagnoses and all orders for this visit: Necrotizing soft tissue infection Doing well. Appears top incision sealed up for some reason. Not sure if it was previously packed/VACed or if dressing fell off. Mild folliculitis, recommend skin care/protectant. Top wound was probed and there was noted a 3 cm x 4 cm x 3 cm pocket of seroma underneath. No connection with groin wound any longer. VAC re-applied. Will see wound care on Tuesday. No role for further debridement at this point. Diagnosis Plan 1. Necrotizing soft tissue infection [facility] 02-27-2024 Note Infectious Diseases - Clinic note - Please contact us via [employer] during business hours. If no response in 15 min, call / page through the woodyard crane operator Division of Infectious Diseases [employer] for communication via [employer] during business hours (8 AM - 5 PM). If I do not respond within 30 minutes, please call the answering service. Patient name: Jose Duggan Patient Today's Date and Time: 02/27/2024, 3:00 PM PCP: Dr. Anthony Kang Discharged from [facility] on 02/17/24 Residing: Home Impression/Recommendations : Right groin abscess 02/11 S.p I&D Strep constellatus and actinomcyes neuii 02/11 CT from OSH 02/[address] a/p: Apparent interval drainage of previously noted fluid collection right inguinal crease with packing material present. Multiple small foci of gas and small amounts of fluid adjacent to right vas deferens worrisome for necrotizing fasciitis. Subcutaneous stranding of right lower quadrant, mons pubis, scrotum and right inguinal region 02/14-02/15 S/p debridement Enterococcus faecalis Deepa albicans (likely contamination) Continue IV Ceftriaxone > Augmentin, EOT 03/02/24 DM 2, uncontrolled BS 170-180 Tight glycemic is control important for preventing infections Frequently check feet, including between toes and heels to assess for any skin breakdown Obesity Tobacco smoker- not interested in quitting Dressing change orders: Wound VAC MWF Labs: N/a WBC: Cr.: CRP: Pt reports doing well without any issues. Pt did not want me to take down his wound VAC but he did show me pictures on his phone. No s/s of worsening infection. Continue plan as above. Continue to monitor for s/s of infection. Follow Up: PRN Subjective Jose Duggan is a 54 y.o.-year-old male who was initially admitted on 02/11/24. This is a patient who came to the ED s/t edema, and pain to the right groin. He complained of a marble like area around his scrotum that had been present for 3 weeks. He originally presented to an OSH then transferred and underwent debridement on 02/12/24 with cultures growing strep constellatus and actinomyces neuii. He was started on IV Vancomycin, Zosyn and Clindamycin after being transferred to [facility]. On 02/13 the patient had a new area of erythema and induration. A CT a/p showed, Apparent interval drainage of previously noted fluid collection right inguinal crease with packing material present. Multiple small foci of gas and small amounts of fluid adjacent to right vas deferens worrisome for necrotizing fasciitis. Subcutaneous stranding of right lower quadrant, mons pubis, scrotum and right inguinal region . He then went back to the OR on 02/14-02/15 for debridement with cultures showing Enterococcus faecalis. He was transitioned to IV Ceftriaxone prior to discharging on PO Augmentin. Today, the patient is completing a hospital follow up. His is joining via phone. The patient reports doing well without any complaints. Continues to take his PO Augmentin with minimal GI upset. Wound VAC to the right groin changed every MWF. The patient does not want me to take down his dressing today. Denies fever, chills, abdominal pain, groin pain, nausea and vomiting. Plans to see wound care next week. Past Medical History: Diagnosis Date Diabetes mellitus ([facility]) Objective Physical Examination : BP 137/85 (BP Location: Left arm, Patient Position: Sitting, BP Cuff Size: Adult) Pulse 92 Temp 36.4 ???C (97.6 ???F) (Oral) Resp 16 Wt 129 kg (284 lb) SpO2 96% BMI 32.82 kg/m??? Temperature Range: Temp: 36.4 ???C (97.6 ???F) General Appearance: mildly obese and Awake, alert, and in no apparent distress Eyes: Sclera anicteric; conjunctivae pink ENT: Oropharynx clear, without erythema, exudate, or thrush. Neck: Supple, without lymphadenopathy. Pulmonary/Chest: Clear to auscultation, without wheezes, rales, or rhonchi Cardiovascular: Regular rate without murmurs, rubs, or gallops. Abdomen: WNL Extremities: No cyanosis, clubbing, edema, or effusions. Neurologic: Alert and oriented x 3, gait normal., reflexes normal and symmetric, strength and sensation grossly normal Skin: Right groin wound VAC with serosanguinous drainage in the canister This progress note was completed using a voice plugging machine operator system. Every effort was made to ensure accuracy; however, inadvertent computerized plugging machine operator errors may be present. Thank you for allowing us to participate in the care of this patient. Corey Yee CNP [facility] Infectious Disease Nurse Practitioner I prefer to be contacted via [employer] for non-urgent matters. After hours, please call [phone] to have the on-call physician contacted. [facility] [facility] 02-27-2024 Note Subjective Patient ID: Jose Duggan is a 54 y.o. male who presents for Post-op (Jose is here today for a post op visit for necrotizing fasciitis of the right hemiscrotum and inguinal region, s/p 02/15/24 Right groin debridement). HPI Doing well postoperatively. Eating well with no nausea/vomiting. Having bowel function. Denies any issues with the incisions other than pain with dressing changes. Denies fever, chills, nausea, vomiting, constipation, skin changes, leg swelling/pain, vision changes, chest pain, shortness of breath, or headaches. Review of Systems Constitutional: Negative. Respiratory: Negative. Cardiovascular: Negative. Gastrointestinal: Positive for diarrhea. Genitourinary: Negative. Skin: Positive for wound. Neurological: Negative. Hematological: Negative. Objective Visit Vitals BP 137/89 (BP Location: Left arm, Patient Position: Sitting) Pulse 100 Temp 36.4 ???C (97.6 ???F) (Oral) Physical Exam Constitutional: General: He is not in acute distress. Appearance: Normal appearance. He is not ill-appearing. HENT: Head: Normocephalic. Right Ear: External ear normal. Left Ear: External ear normal. Nose: Nose normal. Mouth/Throat: Mouth: Mucous membranes are moist. Eyes: General: No scleral icterus. Right eye: No discharge. Left eye: No discharge. Conjunctiva/sclera: Conjunctivae normal. Cardiovascular: Rate and Rhythm: Normal rate and regular rhythm. Pulses: Normal pulses. Heart sounds: Normal heart sounds. Pulmonary: Effort: Pulmonary effort is normal. No respiratory distress. Abdominal: General: There is no distension. Palpations: Abdomen is soft. Tenderness: There is no abdominal tenderness. Musculoskeletal: General: No swelling. Cervical back: Neck supple. Right lower leg: No edema. Left lower leg: No edema. Skin: General: Skin is warm. Capillary Refill: Capillary refill takes less than 2 seconds. Coloration: Skin is not jaundiced. Comments: Wound with wound vac intact. No erythema or pain. Appears healing well with patient provided photos. Neurological: General: No focal deficit present. Mental Status: He is alert and oriented to person, place, and time. Psychiatric: Mood and Affect: Mood normal. Assessment/Plan Diagnoses and all orders for this visit: Necrotizing soft tissue infection Diagnosis Plan 1. Necrotizing soft tissue infection Doing well and healing well with patient provided photos. Discussed pain with dressing change. Will change to White sponge to aid in deep tract dressing changes. I discussed that VAC is still better choice due to reduced number of dressing changes. Patient following with wound clinic as well. Will defer management to them unless he has further needs for debridement. [facility] 02-23-2024 Telephone encounter Note Pt called back [facility] does not have this pain med either--states he has called 5 other area pharmacies and none of them have this med pt is requesting something different be called into [facility] 02-23-2024 Miscellaneous Notes Pt called back [facility] does not have this pain med either--states he has called 5 other area pharmacies and none of them have this med pt is requesting something different be called into [facility] does not have this med pt requesting it be sent to [facility] jennifer documented in this encounter [facility] 02-23-2024 Telephone encounter Note [employer] [facility] does not have this med pt requesting it be sent to [facility] 02-23-2024 History of Present illness Narrative Images from the original note were not included. Subjective Patient ID: Jose Duggan is a 54 y.o. male who presents for Wound Check. Pt has two wounds in the pelvic region, drainage clear and bloody , no smell Pt does have a wound vac for both of the wounds , the wounds are connected by a tunnel pt stated Wound vac was put on Tuesday for pt HH comes on Tuesday and tuesday and Fridays to check this Pt does not know what meds he is on , states takes care of this HH actually wants pt to have more or something different for pain med when they are trying to change dressing for him This is an audio visit Current Outpatient Medications on File Prior to Visit Medication Sig Dispense Refill amLODIPine (Norvasc) 10 MG tablet Take 1 tablet (10 mg) by mouth 1 (one) time each day at the same time 100 tablet 3 finerenone (Kerendia) 10 MG tablet Take 1 tablet (10 mg) by mouth Daily 90 tablet 2 glucose blood (OneTouch Ultra) test strip TEST ONCE DAILY DIRECTED 100 strip 3 levothyroxine (Synthroid, Levoxyl) 100 MCG tablet Take 1 tablet (100 mcg) by mouth 1 (one) time each day at the same time 100 tablet 3 linaGLIPtin (Tradjenta) 5 MG tablet Take 1 tablet (5 mg) by mouth Daily 30 tablet 11 metFORMIN (Glucophage) 500 MG tablet Take 2 tablets (1,000 mg) by mouth in the morning. Take with breakfast. 200 tablet 3 metoprolol succinate XL (Toprol-XL) 25 MG 24 hr tablet TAKE 1 TABLET BY MOUTH IN THE MORNING *DO NOT CRUSH OR CHEW* 90 tablet 1 [] predniSONE (Deltasone) 10 MG tablet Take 4 tablets (40 mg) by mouth Daily for 4 days, THEN 3 tablets (30 mg) Daily for 4 days, THEN 2 tablets (20 mg) Daily for 4 days, THEN 1 tablet (10 mg) Daily for 4 days. 40 tablet 0 rosuvastatin (Crestor) 10 MG tablet TAKE 1 TABLET BY MOUTH EVERY DAY 100 tablet 3 tiZANidine (Zanaflex) 4 MG tablet Take 1 tablet (4 mg) by mouth every 8 (eight) hours if needed for muscle spasms for up to 7 days 21 tablet 0 valsartan-hydroCHLOROthiazide (Diovan-HCT) 320-25 MG tablet TAKE 1 TABLET BY MOUTH EVERY DAY 100 tablet 3 Current Facility-Administered Medications on File Prior to Visit Medication Dose Route Frequency Provider Last Rate Last Admin [DISCONTINUED] GENERIC EXTERNAL MEDICATION Generic External Data Provider [DISCONTINUED] GENERIC EXTERNAL MEDICATION Generic External Data Provider I have reviewed and reconciled the history and medication list with the patient today. Allergies Allergen Reactions Donald Inhibitors Other Reaction(s): cough Jardiance [Empagliflozin] Penile pain Social History Tobacco Use Smoking status: Every Day Current packs/day: 1.00 Types: Cigarettes Smokeless tobacco: Never Tobacco comments: 21-30 cigs/day Vaping Use Vaping status: Never Used Substance Use Topics Alcohol use: Yes Alcohol/week: 2.0 standard drinks of alcohol Types: 2 Standard drinks or equivalent per week Comment: Caffeine intake: 1-2 cups per day soda Drug use: Never Family History Problem Relation Name Age of Onset Stroke Father Past Medical History: Diagnosis Date Cardiac dysrhythmia Essential hypertension, benign (CMS/HCC) Influenza A 07/03/2018 Talus fracture 04/2019 Past Surgical History: Procedure Laterality Date FOOT SURGERY 2018 pins and skin grafts on right foot FOOT SURGERY Right 10/16/2019 Visit Vitals Smoking Status Every Day Review of Systems Constitutional: Negative. HENT: Negative. Respiratory: Negative. Cardiovascular: Negative. Gastrointestinal: Negative. Genitourinary: Negative. Musculoskeletal: Negative. Skin: Has a surgical wound in groin and in his perineal area, Neurological: Negative. Psychiatric/Behavioral: Negative. Objective Physical Exam Vitals reviewed. Skin: Comments: Wound vac Neurological: General: No focal deficit present. Mental Status: He is alert and oriented to person, place, and time. Psychiatric: Mood and Affect: Mood normal. Behavior: Behavior normal. Thought Content: Thought content normal. Judgment: Judgment normal. Assessment/Plan Diagnoses and all orders for this visit: Encounter for wound care of surgical pin site Take Dilaudid 1/2 hour prior to dressing change. Do not take with oxycodone. The dilaudid will work upto 4 hours. Discussed risks of this class of medication including the potential for abuse, reliance. Discussed importance of properly storing and disposing of the medication. Reviewed the goals of treatment, including improving pain control and improving functional status. Medication choice and dosage is appropriate for patient's current medical conditions. Reviewed the rules and regulations surrounding prescription of opioids and compliance at length with the patient. Patient will be required to be seen in our office at least every three months for monitoring. At each follow up visit I will reassess the patient's need for the medication. Patient is to have this medication prescribed only through this office. Failure to follow the rules and regulations will result in tapering and discontinuation of medications if applicable. Patient verbalized understanding. OARRS Report was reviewed for this patient. Continue home health with wound vac treatment to heal wound. Pain associated with wound - HYDROmorphone (Dilaudid) 4 MG tablet; Take 1 tablet (4 mg) by mouth 1 (one) time for 1 dose Take 4 mg prior to dressing change daily Take Dilaudid 1/2 hour prior to dressing change. Do not take with oxycodone. The dilaudid will work upto 4 hours. Discussed risks of this class of medication including the potential for abuse, reliance. Discussed importance of properly storing and disposing of the medication. Reviewed the goals of treatment, including improving pain control and improving functional status. Medication choice and dosage is appropriate for patient's current medical conditions. Reviewed the rules and regulations surrounding prescription of opioids and compliance at length with the patient. Patient will be required to be seen in our office at least every three months for monitoring. At each follow up visit I will reassess the patient's need for the medication. Patient is to have this medication prescribed only through this office. Failure to follow the rules and regulations will result in tapering and discontinuation of medications if applicable. Patient verbalized understanding. OARRS Report was reviewed for this patient. Continue home health with wound vac treatment to heal wound. No follow-ups on file. documented in this encounter [facility] 02-20-2024 Note Sent updates and AVS /DC order to [facility]. Still awaiting [facility] Ready Vac insurance approval, pt will DC when approved. Uploaded signed [facility] prescription form to [employer]. Still await ready vac insurance approval. Phoned [facility] liaison/Aaliyah to follow up with [facility] wound vac approval. She will follow up. [facility] wound vac approved. Ready Vac delivered to pt and uploaded proof of delivery to [facility] express. Chin BLANCO reported vac will be applied before pt leaves. Informed [facility] and they will contact pt to arrange start of care for vac dressing changes. [facility] 02-20-2024 Note Attestation signed by Glory Saha MD at 03/23/2024 7:55 PM By using the attestations below, the signing clinician agrees that I have read and verify that the documentation has been personally reviewed by me and ensure that the documentation accurately reflects the encounter. GC: I personally saw this patient on the day of the encounter, performed the diamond portion(s) of the service and participated in the management and confirm the resident's documentation. Please note there may be an additional personal documentation from me. [facility] DAILY PROGRESS NOTE Subjective NAEO, still waiting for approval for the VAC. Denies any complaints at this time. Wound is covered with a newly replaced dressing. Pain is well managed with medication. Objective Vitals: Vitals: 02/20/24 0450 BP: 154/89 Pulse: 79 Resp: 18 Temp: 36.8 ???C (98.2 ???F) SpO2: 93% No intake/output data recorded. No intake/output data recorded. Physical Exam General Appearance: Awake, Alert & Oriented x3, No Acute Distress Neck: Trachea Midline, No jugular venous distension Pulmonary: Unlabored breathing on room air. No expiratory wheeze. Cardiac: Regular rate Abdomen: soft, nontender nondistended : Improved swelling of the right hemiscrotum and inguinal region and incisions. Dressing is in place. Extremity: No edema Bilateral Upper and lower Extremities Skin: warm and dry Labs: Results from last 7 days Lab Units 02/20/24 0354 02/19/24 0327 02/18/24 0425 02/17/24 0626 02/16/24 0413 WBC AUTO 10*3/uL 10.35 10.41 11.86* 13.83* 21.20* HEMOGLOBIN g/dL 12.7* 12.9* 12.6* 12.5* 13.5 HEMATOCRIT % 37.9* 39.4 38.1* 38.5* 40.5 PLATELETS AUTO 10*3/uL 288 274 241 250 284 Results from last 7 days Lab Units 02/20/24 0354 02/19/24 0327 02/18/245 02/17/24 0602/16/24 0413 SODIUM mmol/L 135* 135* 135* 137 136 POTASSIUM mmol/L 3.9 3.9 3.8 4.0 4.1 CO2 mmol/L 30 31 29 29 25 BUN mg/dL 18 18 20 20 23 CREATININE mg/dL 1.08 1.11 1.13 1.04 1.31* Medications: amLODIPine, 10 mg, oral, Daily amoxicillin-pot clavulanate, 1 tablet, oral, BID enoxaparin, 40 mg, subcutaneous, q24h KRISTEN hydroCHLOROthiazide, 25 mg, oral, Daily insulin glargine, 20 Units, subcutaneous, Nightly insulin lispro, 0-15 Units, subcutaneous, With meals & nightly lactobacillus acidophilus, 1 capsule, oral, TID levothyroxine, 100 mcg, oral, Daily magnesium oxide, 400 mg, oral, q8h metoprolol succinate XL, 25 mg, oral, Daily metroNIDAZOLE, 500 mg, oral, q12h nicotine, 1 patch, transdermal, Daily rosuvastatin, 10 mg, oral, Nightly valsartan, 320 mg, oral, Daily Imaging: CT abdomen pelvis w IV contrast Narrative: Pancreatic indication: Pain and swelling right inguinal region. TECHNIQUE: Enhanced CT of abdomen and pelvis is performed with no prior comparison. Automatic exposure control was utilized. Comparison is made to prior ultrasound dated 02/14/2024. This exam is timed 6:19 PM, prior exam timed 2:51 PM. FINDINGS: Extreme lung bases appear grossly clear. There is a nodular density within the lingula which measures 5 mm axial image 11 the liver shows fatty infiltration greatest within right hepatic lobe with focal fatty sparing adjacent to gallbladder. No worrisome liver lesion identified. The spleen is not enlarged. The gallbladder is not dilated. Left adrenal gland shows some thickening probably some hyperplasia. A prominent accessory spleen noted measuring 2.7 cm. Kidneys and pancreas are not enlarged. The abdominal aorta shows normal caliber with advanced atherosclerotic calcification for age. No significant retroperitoneal lymphadenopathy appreciated. Small fat-containing umbilical hernia is present. Soft tissue stranding noted within right lower quadrant subcutaneous fat extending in the mons pubis in right groin region as well as scrotum. No definite large fluid collection identified at this time. Small foci of gas and fluid noted adjacent to right vas deferens region. Probable interval drainage of abscess at the inguinal crease with packing material noted. No significant inguinal or pelvic lymphadenopathy identified. The appendix appears normal. A few tiny mid sigmoid diverticula present without evidence for diverticulitis. Bone windows show no definite worrisome lesion. Narrowing of celiac artery origin present likely due to median arcuate ligament. Impression: 1. Apparent interval drainage of previously noted fluid collection right inguinal crease with packing material present. 2. Multiple small foci of gas and small amounts of fluid adjacent to right vas deferens worrisome for necrotizing fasciitis. 3. Subcutaneous stranding of right lower quadrant, mons pubis, scrotum and right inguinal leslie (more content not included)... [facility] 02-20-2024 Note Hospital Medicine Discharge Summary Final Discharge Diagnosis: #Sepsis present admission related right scrotal abscess/right groin fasciitis status post I&D x 2, Admission Diagnosis: Abscess [L02.91] Culture has grown Streptococcus constellatus and actinomyces oral antibiotics with wound care as an outpatient, #Insulin-dependent diabetes mellitus with hyperglycemia, #Hypomagnesemia, #Hypokalemia #Essential hypertension #Tobacco dependence, #Hypothyroidism asymptomatic #Morbid obesity with BMI of 36 complicated by diabetes and hypertension, Hospital course: 54 y.o. 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 Lab work revealed: WBC 19, hemoglobin 14.8, creatinine 1.13. CT pelvis with contrast done at [facility] showing a right scrotal abscess with couple foci of gas within scrotal skin. At [facility] he was initiated on broad-spectrum antibiotics: Vancomycin, clindamycin, and Zosyn. In our emergency department he was continued on Zosyn. Patient underwent bedside I&D of the right hemiscrotum by urology on 02/11. They have been packing with iodoform once daily and Urology consulted wound care for evaluation for packing recommendations. Patient continued to have significant pain today above the level of the I&D site. He underwent US today which demonstrated cellulitis with irregular hypoechoic area measuring 5.1 x 4.4 x 0.8 cm, which could represent a developing abscess which is located over area of pain. Patient denies prior history of wounds/cellulitis. He continues to drain quite a bit of fluid from the I&D site. Admitting to significant pain mostly to the new area of concern. Reports diarrhea with the antibiotics he has been on but denies any fevers, chills, nausea, vomitin. Patient admitted with sepsis present on admission related to scrotal abscess, evaluated by urology as well as general surgery, taken to I&D and culture has grown Staphylococcus as well as actinomyces, infectious disease input was obtained and patient was maintained on broad-spectrum antibiotics, along including Flagyl to cover for anaerobes, anyhow patient was further evaluated by general surgery and taken to another I&D with minimal pus removed, plan is to continue with wound care as an outpatient, infectious disease recommendation for Augmentin to complete the course with wound care as an outpatient, home health care set up arranged, patient was taking Tradjenta for diabetes mellitus 2 and patient has an allergic reaction it was added to allergy list including with Jardiance as well as Januvia, patient be discharged on metformin 1 g twice a day for now, patient advised to follow with the PCP for further recommendations as patient interested in Ozempic therapy, Wound VAC applied prior to discharge, further wound care as an outpatient surgical, Invasive or Diagnostic Procedures Done During Admission: I&D of scrotal abscess x 2, Consultations During Admission: General Surgery, Infectious Disease, and Urology Dear Dr. Jorge Luis MD, Jose is advised to follow up with you within 1-2 weeks. Items to follow up in ambulatory setting: None Follow-up with: Urology Scheduled appointments: Future Appointments Date Time Provider Department Center 02/27/2024 9:00 AM Chaparro Beltran MD [facility] SURG Second Fl 02/27/2024 1:40 PM Corey Yee NP [facility] INF [facility] 02/28/2024 2:30 PM Josh Estrada NP [facility] URO Second Fl 03/01/2024 10:15 AM Shania Saba NP [facility] WOUND [facility] Your medication list START taking these medications Instructions Last Dose Given Next Dose Due amoxicillin-pot clavulanate 875-125 mg tablet Commonly known as: Augmentin Take 1 tablet by mouth two times daily for 14 days. lactobacillus acidophilus & bulgar 1 million cell chewable tablet Commonly known as: Lactinex Chew 1 tablet with breakfast and with evening meal for 14 days. oxyCODONE 5 mg immediate release tablet Commonly known as: Roxicodone Take 1 tablet (5 mg) by mouth every 6 (six) hours if needed for moderate pain (4-7 pain score) for up to 5 days. CHANGE how you take these medications Instructions Last Dose Given Next Dose Due metFORMIN 1,000 mg tablet Commonly known as: Glucophage What changed: medication strength how much to take Take 1 tablet (1,000 mg) by mouth with breakfast. CONTINUE taking these medications Instructions Last Dose Given Next Dose Due amLODIPine 10 mg tablet Commonly known as: Norvasc levothyroxine 100 mcg tablet Commonly known as: Synthroid, Levoxyl metoprolol succinate XL 25 mg 24 hr tablet Commonly known as: Toprol-XL rosuvastatin 10 mg tablet Commonly known as: Crestor valsartan-hydrochlorothiazide 320-25 mg tablet Commonly known as: Diovan-HCT STOP taking these medications finerenone 10 mg tablet linaGLIPtin 5 mg tablet Commonly known as: Tradjenta Where t (more content not included)... [facility] 02-19-2024 Note Discharge Planning: Pending [facility] stated that [facility] stated they did not receive fax for patient [facility] Therapy Insurance Authorization Form. 9850 Re-faxed form on 5th floor with patient face sheet and [id number] Called [facility] spoke with Jerardo and she stated she received the faxed documentation awaiting approval Barriers to discharge -pending insurance approval [facility] 02-19-2024 Note Attestation signed by Tasneem Gu MD at 02/19/2024 6:39 PM By using the attestations below, the signing clinician agrees that I have read and verify that the documentation has been personally reviewed by me and ensure that the documentation accurately reflects the encounter. GC: I personally saw this patient on the day of the encounter, performed the diamond portion(s) of the service and participated in the management and confirm the resident's documentation. Please note there may be an additional personal documentation from me. Additional Comments: Continue wound vac Awaiting wound vac outpatient set up for discharge [facility] DAILY PROGRESS NOTE Subjective No acute events overnight, VAC in place. Denies any complaints at this time Objective Vitals: Vitals: 02/18/241999 BP: 142/90 Pulse: 85 Resp: 17 Temp: 36.4 ???C (97.5 ???F) SpO2: No intake/output data recorded. No intake/output data recorded. Physical Exam General Appearance: Awake, Alert & Oriented x3, No Acute Distress Neck: Trachea Midline, No jugular venous distension Pulmonary: Unlabored breathing on room air. No expiratory wheeze. Cardiac: Regular rate Abdomen: soft, nontender nondistended : Improved swelling of the right hemiscrotum and inguinal region and incisions. VAC in place. Extremity: No edema Bilateral Upper and lower Extremities Skin: warm and dry Labs: Results from last 7 days Lab Units 02/19/24 0327 02/18/24 0425 02/17/24 0626 02/16/24 0413 02/15/24 0335 WBC AUTO 10*3/uL 10.41 11.86* 13.83* 21.20* 13.89* HEMOGLOBIN g/dL 12.9* 12.6* 12.5* 13.5 12.6* HEMATOCRIT % 39.4 38.1* 38.5* 40.5 37.5* PLATELETS AUTO 10*3/uL 274 241 250 284 200 Results from last 7 days Lab Units 02/19/24 0327 02/18/24 0425 02/17/24 0626 02/16/24 0413 02/15/24 0335 SODIUM mmol/L 135* 135* 137 136 133* POTASSIUM mmol/L 3.9 3.8 4.0 4.1 3.4* CO2 mmol/L 31 29 29 25 27 BUN mg/dL 18 20 20 23 14 CREATININE mg/dL 1.11 1.13 1.04 1.31* 1.03 Medications: amLODIPine, 10 mg, oral, Daily amoxicillin-pot clavulanate, 1 tablet, oral, BID enoxaparin, 40 mg, subcutaneous, q24h KRISTEN hydroCHLOROthiazide, 25 mg, oral, Daily insulin glargine, 20 Units, subcutaneous, Nightly insulin lispro, 0-15 Units, subcutaneous, With meals & nightly lactobacillus acidophilus, 1 capsule, oral, TID levothyroxine, 100 mcg, oral, Daily magnesium oxide, 400 mg, oral, q8h metoprolol succinate XL, 25 mg, oral, Daily metroNIDAZOLE, 500 mg, oral, q12h nicotine, 1 patch, transdermal, Daily rosuvastatin, 10 mg, oral, Nightly valsartan, 320 mg, oral, Daily Imaging: CT abdomen pelvis w IV contrast Narrative: Pancreatic indication: Pain and swelling right inguinal region. TECHNIQUE: Enhanced CT of abdomen and pelvis is performed with no prior comparison. Automatic exposure control was utilized. Comparison is made to prior ultrasound dated 02/14/2024. This exam is timed 6:19 PM, prior exam timed 2:51 PM. FINDINGS: Extreme lung bases appear grossly clear. There is a nodular density within the lingula which measures 5 mm axial image 11 the liver shows fatty infiltration greatest within right hepatic lobe with focal fatty sparing adjacent to gallbladder. No worrisome liver lesion identified. The spleen is not enlarged. The gallbladder is not dilated. Left adrenal gland shows some thickening probably some hyperplasia. A prominent accessory spleen noted measuring 2.7 cm. Kidneys and pancreas are not enlarged. The abdominal aorta shows normal caliber with advanced atherosclerotic calcification for age. No significant retroperitoneal lymphadenopathy appreciated. Small fat-containing umbilical hernia is present. Soft tissue stranding noted within right lower quadrant subcutaneous fat extending in the mons pubis in right groin region as well as scrotum. No definite large fluid collection identified at this time. Small foci of gas and fluid noted adjacent to right vas deferens region. Probable interval drainage of abscess at the inguinal crease with packing material noted. No significant inguinal or pelvic lymphadenopathy identified. The appendix appears normal. A few tiny mid sigmoid diverticula present without evidence for diverticulitis. Bone windows show no definite worrisome lesion. Narrowing of celiac artery origin present likely due to median arcuate ligament. Impression: 1. Apparent interval drainage of previously noted fluid collection right inguinal crease with packing material present. 2. Multiple small foci of gas and small amounts of fluid adjacent to right vas deferens worrisome for necrotizing fasciitis. 3. Subcutaneous stranding of right lower quadrant, mons pubis, scrotum and right inguinal region. 4. Lingular nod (more content not included)... [facility] 02-19-2024 Note Hospital Medicine Discharge Summary Final Discharge Diagnosis: #Sepsis present admission related right scrotal abscess/right groin fasciitis status post I&D x 2, Admission Diagnosis: Abscess [L02.91] Culture has grown Streptococcus constellatus and actinomyces oral antibiotics with wound care as an outpatient, #Insulin-dependent diabetes mellitus with hyperglycemia, #Hypomagnesemia, #Hypokalemia #Essential hypertension #Tobacco dependence, #Hypothyroidism asymptomatic #Morbid obesity with BMI of 36 complicated by diabetes and hypertension, Hospital course: 54 y.o. 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 Lab work revealed: WBC 19, hemoglobin 14.8, creatinine 1.13. CT pelvis with contrast done at [facility] showing a right scrotal abscess with couple foci of gas within scrotal skin. At [facility] he was initiated on broad-spectrum antibiotics: Vancomycin, clindamycin, and Zosyn. In our emergency department he was continued on Zosyn. Patient underwent bedside I&D of the right hemiscrotum by urology on 02/11. They have been packing with iodoform once daily and Urology consulted wound care for evaluation for packing recommendations. Patient continued to have significant pain today above the level of the I&D site. He underwent US today which demonstrated cellulitis with irregular hypoechoic area measuring 5.1 x 4.4 x 0.8 cm, which could represent a developing abscess which is located over area of pain. Patient denies prior history of wounds/cellulitis. He continues to drain quite a bit of fluid from the I&D site. Admitting to significant pain mostly to the new area of concern. Reports diarrhea with the antibiotics he has been on but denies any fevers, chills, nausea, vomitin. Patient admitted with sepsis present on admission related to scrotal abscess, evaluated by urology as well as general surgery, taken to I&D and culture has grown Staphylococcus as well as actinomyces, infectious disease input was obtained and patient was maintained on broad-spectrum antibiotics, along including Flagyl to cover for anaerobes, anyhow patient was further evaluated by general surgery and taken to another I&D with minimal pus removed, plan is to continue with wound care as an outpatient, infectious disease recommendation for Augmentin to complete the course with wound care as an outpatient, home health care set up arranged, patient was taking Tradjenta for diabetes mellitus 2 and patient has an allergic reaction it was added to allergy list including with Jardiance as well as Januvia, patient be discharged on metformin 1 g twice a day for now, patient advised to follow with the PCP for further recommendations as patient interested in Ozempic therapy, will get hemoglobin A1c prior to discharge, Surgery commended wound VAC prior to discharge, home wound care set up arranged with home with home health care, surgical, Invasive or Diagnostic Procedures Done During Admission: I&D of scrotal abscess x 2, Consultations During Admission: General Surgery, Infectious Disease, and Urology Dear Dr. Jorge Luis MD, Jose is advised to follow up with you within 1-2 weeks. Items to follow up in ambulatory setting: None Follow-up with: Urology Scheduled appointments: Future Appointments Date Time Provider Department Center 02/27/2024 9:00 AM Chaparro Beltran MD [facility] SURG Second Fl 02/27/2024 1:40 PM Corey Yee NP [facility] INF [facility] 02/28/2024 2:30 PM Josh Estrada NP [facility] URO Second Fl 03/01/2024 10:15 AM Shania Saba NP [facility] WOUND [facility] Your medication list START taking these medications Instructions Last Dose Given Next Dose Due amoxicillin-pot clavulanate 875-125 mg tablet Commonly known as: Augmentin Take 1 tablet by mouth two times daily for 14 days. lactobacillus acidophilus & bulgar 1 million cell chewable tablet Commonly known as: Lactinex Chew 1 tablet with breakfast and with evening meal for 14 days. oxyCODONE 5 mg immediate release tablet Commonly known as: Roxicodone Take 1 tablet (5 mg) by mouth every 6 (six) hours if needed for moderate pain (4-7 pain score) for up to 5 days. CHANGE how you take these medications Instructions Last Dose Given Next Dose Due metFORMIN 1,000 mg tablet Commonly known as: Glucophage What changed: medication strength how much to take Take 1 tablet (1,000 mg) by mouth with breakfast. CONTINUE taking these medications Instructions Last Dose Given Next Dose Due amLODIPine 10 mg tablet Commonly known as: Norvasc levothyroxine 100 mcg tablet Commonly known as: Synthroid, Levoxyl metoprolol succinate XL 25 mg 24 hr tablet Commonly known as: Toprol-XL rosuvastatin 10 mg tablet Commonly known as: Crestor valsartan-hydrochlorothiazide 320-25 mg tablet Commonly known as: Diovan-HCT STOP taking these medications fin (more content not included)... [facility] 02-18-2024 Note Discharge Planning: Pending Contacted [facility] Wound Vac at to inquire about the insurance approval for the patient's wound vac order. The customer retention representative informed me that the order is still pending approval and noted that a message has been sent within [facility] to re-fax the prescription. For future reference, the patient???s order number is RO# [id number], which can be used to check the status of the approval. 1423 Patient [facility] Insurance Authorization Form re-faxed. Awaiting insurance approval. [facility] - Fax information Barriers to discharge - insurance approval [facility] 02-18-2024 Note Attestation signed by Tasneem Gu MD at 02/19/2024 6:44 PM By using the attestations below, the signing clinician agrees that I have read and verify that the documentation has been personally reviewed by me and ensure that the documentation accurately reflects the encounter. GC: I personally saw this patient on the day of the encounter, performed the diamond portion(s) of the service and participated in the management and confirm the resident's documentation. Please note there may be an additional personal documentation from me. Additional Comments: Continue dressing changes Wound vac placement SW for outpatient wound vac care set up [facility] DAILY PROGRESS NOTE Subjective No acute events overnight, pain well controlled with pain meds. Denies any other complaints at this time. He is getting wet to dry dressing changes with plans for VAC placement and potential discharge today. VS normal. Objective Vitals: Vitals: 02/18/24 0826 BP: 158/84 Pulse: 76 Resp: 16 Temp: 36.4 ???C (97.5 ???F) SpO2: 98% No intake/output data recorded. No intake/output data recorded. Physical Exam General Appearance: Awake, Alert & Oriented x3, No Acute Distress Neck: Trachea Midline, No jugular venous distension Pulmonary: Unlabored breathing on room air. No expiratory wheeze. Cardiac: Regular rate Abdomen: soft, nontender nondistended : Improved swelling of the right hemiscrotum and inguinal region and incisions. The wounds are moist and healthy-appearing with pink urbano and wound bed. Extremity: No edema Bilateral Upper and lower Extremities Skin: warm and dry Labs: Results from last 7 days Lab Units 02/18/24 0425 02/17/24 0626 02/16/24 0413 02/15/24 0335 02/14/24 0418 WBC AUTO 10*3/uL 11.86* 13.83* 21.20* 13.89* 15.78* HEMOGLOBIN g/dL 12.6* 12.5* 13.5 12.6* 12.8* HEMATOCRIT % 38.1* 38.5* 40.5 37.5* 38.9* PLATELETS AUTO 10*3/uL 241 250 284 200 186 Results from last 7 days Lab Units 02/18/24 0425 02/17/24 0626 02/16/24 0413 02/15/24 0335 02/14/24 0418 SODIUM mmol/L 135* 137 136 133* 133* POTASSIUM mmol/L 3.8 4.0 4.1 3.4* 3.4* CO2 mmol/L 29 29 25 27 26 BUN mg/dL 20 20 23 14 18 CREATININE mg/dL 1.13 1.04 1.31* 1.03 1.15 Medications: amLODIPine, 10 mg, oral, Daily amoxicillin-pot clavulanate, 1 tablet, oral, BID calcium carbonate-vitamin D3, 1 tablet, oral, BID enoxaparin, 40 mg, subcutaneous, q24h KRISTEN hydroCHLOROthiazide, 25 mg, oral, Daily insulin glargine, 20 Units, subcutaneous, Nightly insulin lispro, 0-15 Units, subcutaneous, With meals & nightly lactobacillus acidophilus, 1 capsule, oral, TID levothyroxine, 100 mcg, oral, Daily metoprolol succinate XL, 25 mg, oral, Daily metroNIDAZOLE, 500 mg, oral, q12h nicotine, 1 patch, transdermal, Daily rosuvastatin, 10 mg, oral, Nightly valsartan, 320 mg, oral, Daily Imaging: CT abdomen pelvis w IV contrast Narrative: Pancreatic indication: Pain and swelling right inguinal region. TECHNIQUE: Enhanced CT of abdomen and pelvis is performed with no prior comparison. Automatic exposure control was utilized. Comparison is made to prior ultrasound dated 02/14/2024. This exam is timed 6:19 PM, prior exam timed 2:51 PM. FINDINGS: Extreme lung bases appear grossly clear. There is a nodular density within the lingula which measures 5 mm axial image 11 the liver shows fatty infiltration greatest within right hepatic lobe with focal fatty sparing adjacent to gallbladder. No worrisome liver lesion identified. The spleen is not enlarged. The gallbladder is not dilated. Left adrenal gland shows some thickening probably some hyperplasia. A prominent accessory spleen noted measuring 2.7 cm. Kidneys and pancreas are not enlarged. The abdominal aorta shows normal caliber with advanced atherosclerotic calcification for age. No significant retroperitoneal lymphadenopathy appreciated. Small fat-containing umbilical hernia is present. Soft tissue stranding noted within right lower quadrant subcutaneous fat extending in the mons pubis in right groin region as well as scrotum. No definite large fluid collection identified at this time. Small foci of gas and fluid noted adjacent to right vas deferens region. Probable interval drainage of abscess at the inguinal crease with packing material noted. No significant inguinal or pelvic lymphadenopathy identified. The appendix appears normal. A few tiny mid sigmoid diverticula present without evidence for diverticulitis. Bone windows show no definite worrisome lesion. Narrowing of celiac artery origin present likely due to median arcuate ligament. Impression: 1. Apparent interval drainage of previously noted fluid collection right inguinal crease with packing material present. (more content not included)... [facility] 02-18-2024 Note Hospital Medicine Discharge Summary Final Discharge Diagnosis: #Sepsis present admission related right scrotal abscess/right groin fasciitis status post I&D x 2, Admission Diagnosis: Abscess [L02.91] Culture has grown Streptococcus constellatus and actinomyces oral antibiotics with wound care as an outpatient, #Insulin-dependent diabetes mellitus with hyperglycemia, #Hypomagnesemia, #Hypokalemia #Essential hypertension #Tobacco dependence, #Hypothyroidism asymptomatic #Morbid obesity with BMI of 36 complicated by diabetes and hypertension, Hospital course: 54 y.o. 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 Lab work revealed: WBC 19, hemoglobin 14.8, creatinine 1.13. CT pelvis with contrast done at [facility] showing a right scrotal abscess with couple foci of gas within scrotal skin. At [facility] he was initiated on broad-spectrum antibiotics: Vancomycin, clindamycin, and Zosyn. In our emergency department he was continued on Zosyn. Patient underwent bedside I&D of the right hemiscrotum by urology on 02/11. They have been packing with iodoform once daily and Urology consulted wound care for evaluation for packing recommendations. Patient continued to have significant pain today above the level of the I&D site. He underwent US today which demonstrated cellulitis with irregular hypoechoic area measuring 5.1 x 4.4 x 0.8 cm, which could represent a developing abscess which is located over area of pain. Patient denies prior history of wounds/cellulitis. He continues to drain quite a bit of fluid from the I&D site. Admitting to significant pain mostly to the new area of concern. Reports diarrhea with the antibiotics he has been on but denies any fevers, chills, nausea, vomitin. Patient admitted with sepsis present on admission related to scrotal abscess, evaluated by urology as well as general surgery, taken to I&D and culture has grown Staphylococcus as well as actinomyces, infectious disease input was obtained and patient was maintained on broad-spectrum antibiotics, along including Flagyl to cover for anaerobes, anyhow patient was further evaluated by general surgery and taken to another I&D with minimal pus removed, plan is to continue with wound care as an outpatient, infectious disease recommendation for Augmentin to complete the course with wound care as an outpatient, home health care set up arranged, patient was taking Tradjenta for diabetes mellitus 2 and patient has an allergic reaction it was added to allergy list including with Jardiance as well as Januvia, patient be discharged on metformin 1 g twice a day for now, patient advised to follow with the PCP for further recommendations as patient interested in Ozempic therapy, will get hemoglobin A1c prior to discharge, Surgery commended wound VAC prior to discharge, home wound care set up arranged with home with home health care, surgical, Invasive or Diagnostic Procedures Done During Admission: I&D of scrotal abscess x 2, Consultations During Admission: General Surgery, Infectious Disease, and Urology Dear Dr. Jorge Luis MD, Jose is advised to follow up with you within 1-2 weeks. Items to follow up in ambulatory setting: None Follow-up with: Urology Scheduled appointments: Future Appointments Date Time Provider Department Center 02/20/2024 11:00 AM Janny Herrera NP [facility] INF [facility] Your medication list ASK your doctor about these medications Instructions Last Dose Given Next Dose Due amLODIPine 10 mg tablet Commonly known as: Norvasc finerenone 10 mg tablet levothyroxine 100 mcg tablet Commonly known as: Synthroid, Levoxyl linaGLIPtin 5 mg tablet Commonly known as: Tradjenta metFORMIN 500 mg tablet Commonly known as: Glucophage metoprolol succinate XL 25 mg 24 hr tablet Commonly known as: Toprol-XL rosuvastatin 10 mg tablet Commonly known as: Crestor valsartan-hydrochlorothiazide 320-25 mg tablet Commonly known as: Diovan-HCT Jose is allergic to januvia [sitagliptin], jardiance [empagliflozin], and tradjenta [linagliptin]. Disposition: Home-Health Care [facility] () Discharge Condition: Fair Code Status: Full Code Diagnostic Results Hematology: Results from last 7 days Lab Units 02/17/24 0602/16/24 0413 WBC AUTO 10*3/uL 13.83* 21.20* HEMOGLOBIN g/dL 12.5* 13.5 HEMATOCRIT % 38.5* 40.5 MCV fL 93.7 91.4 PLATELETS AUTO 10*3/uL 250 284 Chemistry: Results from last 7 days Lab Units 02/17/24 0626 02/16/24 0413 02/15/24 0335 SODIUM mmol/L 137 136 133* POTASSIUM mmol/L 4.0 4.1 3.4* CHLORIDE mmol/L 103 100 99 CO2 mmol/L 29 25 27 BUN mg/dL 20 23 14 CREATININE mg/dL 1.04 1.31* 1.03 GLUCOSE mg/dL 159* 189* 141* MAGNESIUM mg/dL 1.7* 2.0 1.7* CALCIUM mg/dL 7.9* 8.8 8.1* PHOSPHORUS mg/dL 4.5 -- -- Results from last 7 days Lab Units 02/12/24 (more content not included)... [facility] 02-17-2024 Note .. Infectious Diseases - Inpatient daily Progress Note - Patient name: Jose Duggan Patient Today's Date and Time: 02/17/2024, 5:38 PM Admission Date: 02/11/2024 Assessment/Plan Impression: Right groin abscess s/p incision and drainage 02/10 with no evidence of Jose gangrene and very little gas on CT 02/11, no extension to deep tissues on imaging. Abscess culture grew many GPC in clusters and many GN bacilli on gram stain, but culture show far has only grown moderate growth Streptococcus constellatus and Actinomyces neuii. Patient developed suprapubic tenderness and induration with subsequent CT findings worrisome for necrotizing fasciitis on 02/13. 02/14 and 02/15 debrided again, cultures 02/14 grew Enterococcus faecalis in broth only Diabetic, relatively poor control, A1c 8.8 - tighter control of glycemia is essential in resolution of this infection and preventing recurrence Recommendations: Stop Ceftriaxone and start augmentin. OK to continue Flagyl through discharge, then augmentin alone for 10-14d, e-script is sent See us in clinic in 7-10 d Advised smoking cessation Subjective Interval history: Feeling better today, less pain in the groin Most recent culture grew enterococcus. First set of cultures were polymicrobial, anaerobes, actinomyces, strep constellatus No vomiting Ok appetite No sob No chest pain No burning on urination Less pain in scrotum WBC also down to 13 Objective Physical Examination: BP 138/89 Pulse 82 Temp 36.7 ???C (98.1 ???F) (Oral) Resp 16 Ht 1.981 m (6' 6 ) Wt 128 kg (283 lb) SpO2 98% BMI 32.70 kg/m??? Temperature Range: Temp: 36.7 ???C (98.1 ???F) Temp Av.7 ???C (98.1 ???F) Min: 36.6 ???C (97.8 ???F) Max: 36.9 ???C (98.4 ???F) General Appearance: Awake, alert, and in no apparent distress, nontoxic Pulmonary/Chest: clear to auscultation, no wheezes or rales, and unlabored breathing Cardiovascular: Regular rate and rhythm without murmurs Abdomen: soft, non-tender, nondistended, no palpable masses no organomegaly; normal bowel sounds Scrotum is back to normal, no more redness R groin fresh dressing, packing, velia drain Extremities: No cyanosis, edema, no joint effusions. Skin: No rash no lesions. no pallor Laboratory data: I have independently reviewed the following labs: Results from last 7 days Lab Units 02/17/2462502/16/2441202/15/2433402/13/2433802/12/24 0559 02/11/24 2343 WBC AUTO 10*3/uL 13.83* 21.20* 13.89* < > 21.94* 19.59* HEMOGLOBIN g/dL 12.5* 13.5 12.6* < > 14.0 14.8 HEMATOCRIT % 38.5* 40.5 37.5* < > 42.2 43.4 MCV fL 93.7 91.4 89.7 < > 91.9 88.8 PLATELETS AUTO 10*3/uL 250 284 200 < > 201 199 NEUTROS ABS 10*3/uL -- -- -- -- 17.6* 14.8* EOS ABS MAN 10*3/uL -- -- -- -- 0.09 0.08 BASOS ABS MAN 10*3/uL -- -- -- -- 0.07 0.06 < > = values in this interval not displayed. Results from last 7 days Lab Units 02/17/2462502/16/2441202/15/2433402/13/2433802/12/24 0558 POTASSIUM mmol/L 4.0 4.1 3.4* < > 3.7 CHLORIDE mmol/L 103 100 99 < > 98 CO2 mmol/L 29 25 27 < > 26 BUN mg/dL 20 23 14 < > 27* CREATININE mg/dL 1.04 1.31* 1.03 < > 1.21 GLUCOSE mg/dL 159* 189* 141* < > 288* CALCIUM mg/dL 7.9* 8.8 8.1* < > 8.0* ALK PHOS U/L -- -- -- -- 67 ALT U/L -- -- -- -- 7 AST U/L -- -- -- -- 8* < > = values in this interval not displayed. Results from last 7 days Lab Units 02/13/24 0339 HEMOGLOBIN A1C % 8.8* Imaging Studies: I have reviewed myself the following imaging studies performed in the past 3 days: No X-ray results found for the past [address] abdomen pelvis w IV contrast Result Date: 02/14/2024 1. Apparent interval drainage of previously noted fluid collection right inguinal crease with packing material present. 2. Multiple small foci of gas and small amounts of fluid adjacent to right vas deferens worrisome for necrotizing fasciitis. 3. Subcutaneous stranding of right lower quadrant, mons pubis, scrotum and right inguinal region. 4. Lingular nodule measuring 5 mm. If the patient is considered high risk follow-up could be performed in 6 months to one year. Or baseline CT of the chest could be obtained at this time. 5. Minimal bilateral adrenal nodularity probably adenomatous hyperplasia with nonspecific appearance on this exam. No old exam for comparison. 6. Fatty liver without significant enlargement. Electronically signed: Laura Chan. No MRI results found for the past 3 days Cultures: Results for orders placed or performed during the hospital encounter of 02/11/24 Abscess culture Specimen: Scrotum; Abscess Result Value Ref Range Culture Moderate Growth Streptococcus constellatus (A) Culture Rare Growth Actinomyces neuii (A) Gram Stain Result Many Polymorphonuclear leukocytes Gram Stain Result Many Gram positive cocci in clusters Gram Stain Result Many Gram negative bacilli Wound culture Spe (more content not included)... [facility] 02-17-2024 Note Hospital Medicine Daily Progress Note - 02/17/2024 9:48 AM; Room: [address] [place] [address] Admission: 02/11/2024 10:46 PM; Length of stay: 5 days THE HOSPITALIST TEAM PREFERS TO USE [employer] FOR NON-URGENT COMMUNICATION 7AM-7PM. IF I DO NOT RESPOND WITHIN 20 MINUTES OR URGENT MATTERS, PLEASE CALL THROUGH THE [employer]. FROM 7PM-7AM, PLEASE PAGE [phone](COVR). Code Status: Full Code Barriers to Discharge: Discharge planning pending wound VAC application per general surgery Expected Discharge Date: Likely tomorrow February 17, Discharge Destination: home with home health and wound care, Overview Patient is seen for evaluation and management of Scrotal abscess. Subjective Post I&D x 2, pain is better controlled, no nausea vomiting abdominal pain reported, Physical Exam Visit Vitals BP 128/87 (BP Location: Left arm, Patient Position: Lying) Pulse 76 Temp 36.7 ???C (98.1 ???F) (Oral) Resp 18 Intake/Output Summary (Last 24 hours) at 02/17/2024 0948 Last data filed at 02/16/2024 1104 Gross per 24 hour Intake 50 ml Output 10 ml Net 40 ml Physical Exam Cardiovascular: Rate and Rhythm: Normal rate and regular rhythm. Pulmonary: Effort: Pulmonary effort is normal. Breath sounds: Normal breath sounds. Abdominal: General: Abdomen is flat. Palpations: Abdomen is soft. Comments: Dressing on right groin Skin: Comments: Right scrotal tenderness and swelling Neurological: Mental Status: He is alert. Estimated body mass index is 32.7 kg/m??? as calculated from the following: Height as of this encounter: 1.981 m (6' 6 ). Weight as of this encounter: 128 kg (283 lb). Active Inpatient Problems Principal Problem: Abscess Active Problems: Primary hypertension Hypomagnesemia Hyperglycemia Sepsis (CMS/HCC) Necrotizing soft tissue infection Assessment and Plan # Sepsis, POA: # Right scrotal abscess: # Right groin fasciitis: - S/P scrotal debridement on 02/11. Fluid cx is growing Streptococcus constellatus. - CT A/P on 02/13 showed possible right groin necrotizing fasciitis. - Patient was taken for right groin I&D on 02/14. Per OR note, scrotal incision enlarged with noted medial residual pocket of purulence and the inguinal/mons region noted inflamed but viable fascial tissue consistent with fasciitis but no signs of overt necrosis. - Follow deep tissue cx. Post I&D x 2, continue Rocephin along with Flagyl, probable plan for Augmentin upon discharge, discharge planning in progress pending f wound VAC application as per surgery recommendations, # NIDDM with hyperglycemia, improving: - Not taking metformin and Trajenta. - Continue Lantus 10 U at night and cover with ISS while inpatient. - A1C: 8.8. - Discharge on metformin and Ozempic. # HypoMg and hypoK: - replaced/ # HTN: controlled. - Continue amlodipine, Toprol, valsartan and HCTZ. # Tobacco use: - Continue nicotine patch. # Hypothyroidism, on levothyroxine. # Morbid obesity BMI 36: - Discharge on metformin and Ozempic. - Encouraged lifestyle modification. VTE Prophylaxis: Lovenox Scheduled Meds amLODIPine, 10 mg, oral, Daily cefTRIAXone, 2 g, intravenous, q24h enoxaparin, 40 mg, subcutaneous, q24h KRISTEN hydroCHLOROthiazide, 25 mg, oral, Daily insulin glargine, 14 Units, subcutaneous, Nightly insulin lispro, 0-15 Units, subcutaneous, With meals & nightly lactobacillus acidophilus, 1 capsule, oral, TID levothyroxine, 100 mcg, oral, Daily magnesium oxide, 400 mg, oral, q8h metoprolol succinate XL, 25 mg, oral, Daily metroNIDAZOLE, 500 mg, oral, q12h nicotine, 1 patch, transdermal, Daily rosuvastatin, 10 mg, oral, Nightly valsartan, 320 mg, oral, Daily Pertinent Investigations Hematology: Results from last 7 days Lab Units 02/17/24 0602/16/243 WBC AUTO 10*3/uL 13.83* 21.20* HEMOGLOBIN g/dL 12.5* 13.5 HEMATOCRIT % 38.5* 40.5 MCV fL 93.7 91.4 PLATELETS AUTO 10*3/uL 250 284 Chemistry: Results from last 7 days Lab Units 02/17/24 0602/16/243 02/15/24 0335 SODIUM mmol/L 137 136 133* POTASSIUM mmol/L 4.0 4.1 3.4* CHLORIDE mmol/L 103 100 99 CO2 mmol/L 29 25 27 BUN mg/dL 20 23 14 CREATININE mg/dL 1.04 1.31* 1.03 GLUCOSE mg/dL 159* 189* 141* MAGNESIUM mg/dL 1.7* 2.0 1.7* CALCIUM mg/dL 7.9* 8.8 8.1* PHOSPHORUS mg/dL 4.5 -- -- Results from last 7 days Lab Units 02/12/24 0558 AST U/L 8* ALT U/L 7 ALK PHOS U/L 67 BILIRUBIN TOTAL mg/dL 0.9 Results from last 7 days Lab Units 02/17/24 0744 02/16/24 2051 02/16/24 1725 02/16/24 1230 02/16/24 1132 02/16/24 0516 POCT GLUCOSE mg/dL 145* 296* 257* 189* 197* 226* Historical Values: (Includes values prior to this admission) Lab Results Component Value Date TSH 1.37 02/12/2024 No results found for: [id number] , IRON , TIBC , C3 , C4 , KIMBERLEE , CANCA , ASO , PSA , CEA , CA125 , CA199 , AFP , CA153 Imaging CT abdomen pelvis w IV contrast Narrative: P (more content not included)... [facility] 02-17-2024 Note Await ID recommendat ions. DC plan home with [facility], to learn dressing changes. Pt is going to need a home I wound Vac. Placed wound vac forms in chart, informed MD. Phoned [facility] to inform of DC plan tomorrow with wound vac. They will be able to provide start of care on Tuesday. Will follow with referral to [facility] for ready vac insurance approval. Submitted [facility] wound vac referral to start insurance approval. Still await completed prescription form with wound measurements and MD Dr Tasneem Gu attending signature. Hand faxed clinicals: H&P, OP notes, wound note, ID note, GenSurg note. Pt is going to OR tomorrow to have wound vac placed. OTM to follow. [facility] 02-17-2024 Note Daily Case Managemen t Update Barriers to Discharge et per Progress Note/s: s/p Right Groin I&D on 02-15 w/ velia drain---DO NOT REMOVE. BID WTD Dressing Changed ordered. Tolerating Regular Diet. IV ATB; waiting on final ID recs. From Home w/ with plans to return Home w/ HHC; [facility] has accepted. SW following. UPDATE @ 0959 WOUND VAC to be placed before discharge; likely tomorrow. UPDATE @ 1554 Wound Vac approval pending; SW submitted on 02-16 Diet: Dietary Orders (From admission, onward) Start Ordered 02/16/24 1126 Regular Diet Diabetic Male (carb 60g/meal) Diet effective now Question Answer Comment Room Service? Yes Carbohydrate restriction: Diabetic Male (carb 60g/meal) 02/16/24 1130 Physician Expected Discharge Date: 02/17/2024 Discharge Delays: PT Six Click Score: 24 OT Six Click Score: PT Recommendations: OT Recommendations: New Consults: [facility] 02-17-2024 Note Urology Daily Progre ss Note HISTORY OF PRESENT ILLNESS: The patient is a 54 y.o. male who presents with scrotal abscess s/p I&D bedside on 02/12/24, formal wound exploration on 02/14, and second look wound exploration on 02/15 NAOE AF/VSS Patient states pain in suprapubic region is significantly better Pain well controlled PUS 02/14 Increased echogenicity and heterogeneity of the subcutaneous tissues in the right inguinal region compatible with inflammatory change to cellulitis. Deep within these tissues there is an irregular hypoechoic area measuring 5.1 x 4.4 x 0.8 cm, which could represent a developing abscess. CT 02/14 Subcutaneous stranding of right lower quadrant, mons pubis, scrotum and right inguinal region. Multiple small foci of gas and small amounts of fluid adjacent to right vas deferens worrisome for necrotizing fasciitis. Physical Exam: This a 54 y.o. patient Patient Vitals for the past 24 hrs: BP Temp Temp src Pulse Resp SpO2 Weight 02/17/24 0543 -- -- -- -- -- -- 128 kg (283 lb) 02/17/24 0440 123/84 36.8 ???C (98.2 ???F) Oral 78 16 99 % -- 02/17/24 0045 96/59 36.8 ???C (98.2 ???F) Axillary 70 18 94 % -- 02/16/24 1951 110/73 36.9 ???C (98.4 ???F) Oral 83 16 96 % -- 02/16/24 1845 121/74 36.6 ???C (97.8 ???F) Oral 85 14 -- -- 02/16/24 1255 127/80 37.3 ???C (99.1 ???F) Oral -- -- 93 % -- 02/16/24 1210 (!) 134/92 -- -- 82 13 95 % -- 02/16/24 1155 113/82 -- -- 81 11 96 % -- 02/16/24 1140 129/87 -- -- 85 10 96 % -- 02/16/24 1125 93/78 36.3 ???C (97.3 ???F) Temporal 80 11 97 % -- 02/16/24 0945 -- 36.1 ???C (97 ???F) Temporal 89 -- -- -- 10/10/24 0937 115/83 -- -- -- 18 96 % -- 02/16/2420 139/80 -- -- -- -- 99 % -- Constitutional: Patient in no acute distress; Neuro: alert and oriented to person place and time. Psych: Mood and affect normal. Skin: Normal Lungs: Respiratory effort normal Cardiovascular: Normal peripheral pulses Abdomen: Soft, non-tender, non-distended with no CVA, flank pain Penis normal and uncircumcised Urethral meatus normal Scrotal exam: Normal left hemiscrotum, right scrotal incision draining well/packing in place. Improved suprapubic region redness and induration LABS: Results from last 7 days Lab Units 02/17/2462502/16/2441202/15/24 0335 WBC AUTO 10*3/uL 13.83* 21.20* 13.89* HEMOGLOBIN g/dL 12.5* 13.5 12.6* HEMATOCRIT % 38.5* 40.5 37.5* PLATELETS AUTO 10*3/uL 250 284 200 Results from last 7 days Lab Units 02/17/2462502/16/2441202/15/24 0335 SODIUM mmol/L 137 136 133* POTASSIUM mmol/L 4.0 4.1 3.4* CHLORIDE mmol/L 103 100 99 CO2 mmol/L 29 25 27 BUN mg/dL 20 23 14 CREATININE mg/dL 1.04 1.31* 1.03 CALCIUM mg/dL 7.9* 8.8 8.1* No results found for: PSA Assessment and Plan Impression: Scrotal abscess - right hemiscrotum status post bedside I&D. Abscess cavity copiously irrigated and packed with iodoform packing strips. Type 2 diabetes Plan: Wound packed with dakins-soaked kerlix Consult to wound care team for assistance with optimal packing and frequency for dressing changes Until seen by wound care team, patient will require daily dressing change with 1/2 inch iodoform packing strips Improved tenderness in Right inguinal region. PUS 02/14 Increased echogenicity and heterogeneity of the subcutaneous tissues in the right inguinal region compatible with inflammatory change to cellulitis. Deep within these tissues there is an irregular hypoechoic area measuring 5.1 x 4.4 x 0.8 cm, which could represent a developing abscess. CT 02/14 Subcutaneous stranding of right lower quadrant, mons pubis, scrotum and right inguinal region. Multiple small foci of gas and small amounts of fluid adjacent to right vas deferens worrisome for necrotizing fasciitis. Antibiotics Continue ceftriaxone and flagyl. ID on board Abscess culture grew many GPC in clusters and many GN bacilli on gram stain, but culture show far has only grown moderate growth Streptococcus constellatus. Tight blood sugar control Urology to follow Augustine Scott MD [facility] Urology PGY3 [facility] 02-17-2024 Note Attestation signed by Tasneem Gu MD at 02/19/2024 8:30 PM By using the attestations below, the signing clinician agrees that I have read and verify that the documentation has been personally reviewed by me and ensure that the documentation accurately reflects the encounter. GC: I personally saw this patient on the day of the encounter, performed the diamond portion(s) of the service and participated in the management and confirm the resident's documentation. Please note there may be an additional personal documentation from me. Additional Comments: local wound care with dakin-soaked kerlix [facility] DAILY PROGRESS NOTE Subjective NAEO. Pt went to the OR on 02/15 for a 2nd look I&D of the right groin. He reports that his pain has been very manageable, and is tolerating a regular diet. No nausea, emesis, fever or chills. Creatinine is wnl this morning. We changed his dressing this morning, pictures are in the Media tab. The wound looks great with a pink bed, velia in place. Objective Vitals: Vitals: 10/11/24 0440 BP: 123/84 Pulse: 78 Resp: 16 Temp: 36.8 ???C (98.2 ???F) SpO2: 99% I/O last 3 completed shifts: In: 800 (6.2 mL/kg) [IV Piggyback:800] Out: 10 (0.1 mL/kg) [Blood:10] Weight: 128.4 kg No intake/output data recorded. Physical Exam General Appearance: Awake, Alert & Oriented x3, No Acute Distress Neck: Trachea Midline, No jugular venous distension Pulmonary: Unlabored breathing on room air. No expiratory wheeze. Cardiac: Regular rate Abdomen: soft, nontender nondistended : Improved swelling of the right hemiscrotum and inguinal region and incisions. The wounds are moist and healthy-appearing with pink urbano and wound bed. Extremity: No edema Bilateral Upper and lower Extremities Skin: warm and dry Labs: Results from last 7 days Lab Units 02/17/24 0626 02/16/24 0413 02/15/24 0335 02/14/248 02/13/24 0339 WBC AUTO 10*3/uL 13.83* 21.20* 13.89* 15.78* 20.55* HEMOGLOBIN g/dL 12.5* 13.5 12.6* 12.8* 13.1 HEMATOCRIT % 38.5* 40.5 37.5* 38.9* 39.0 PLATELETS AUTO 10*3/uL 250 284 200 186 182 Results from last 7 days Lab Units 02/17/24 0626 02/16/24 0413 02/15/24 0335 02/14/2441702/13/24 0339 SODIUM mmol/L 137 136 133* 133* 134* POTASSIUM mmol/L 4.0 4.1 3.4* 3.4* 3.6 CO2 mmol/L 29 25 27 26 28 BUN mg/dL 20 23 14 18 20 CREATININE mg/dL 1.04 1.31* 1.03 1.15 1.10 Medications: amLODIPine, 10 mg, oral, Daily cefTRIAXone, 2 g, intravenous, q24h [Held by provider] enoxaparin, 40 mg, subcutaneous, q24h KRISTEN hydroCHLOROthiazide, 25 mg, oral, Daily insulin glargine, 14 Units, subcutaneous, Nightly insulin lispro, 0-15 Units, subcutaneous, With meals & nightly lactobacillus acidophilus, 1 capsule, oral, TID levothyroxine, 100 mcg, oral, Daily magnesium oxide, 400 mg, oral, q8h metoprolol succinate XL, 25 mg, oral, Daily metroNIDAZOLE, 500 mg, oral, q12h nicotine, 1 patch, transdermal, Daily rosuvastatin, 10 mg, oral, Nightly valsartan, 320 mg, oral, Daily Imaging: CT abdomen pelvis w IV contrast Narrative: Pancreatic indication: Pain and swelling right inguinal region. TECHNIQUE: Enhanced CT of abdomen and pelvis is performed with no prior comparison. Automatic exposure control was utilized. Comparison is made to prior ultrasound dated 02/14/2024. This exam is timed 6:19 PM, prior exam timed 2:51 PM. FINDINGS: Extreme lung bases appear grossly clear. There is a nodular density within the lingula which measures 5 mm axial image 11 the liver shows fatty infiltration greatest within right hepatic lobe with focal fatty sparing adjacent to gallbladder. No worrisome liver lesion identified. The spleen is not enlarged. The gallbladder is not dilated. Left adrenal gland shows some thickening probably some hyperplasia. A prominent accessory spleen noted measuring 2.7 cm. Kidneys and pancreas are not enlarged. The abdominal aorta shows normal caliber with advanced atherosclerotic calcification for age. No significant retroperitoneal lymphadenopathy appreciated. Small fat-containing umbilical hernia is present. Soft tissue stranding noted within right lower quadrant subcutaneous fat extending in the mons pubis in right groin region as well as scrotum. No definite large fluid collection identified at this time. Small foci of gas and fluid noted adjacent to right vas deferens region. Probable interval drainage of abscess at the inguinal crease with packing material noted. No significant inguinal or pelvic lymphadenopathy identified. The appendix appears normal. A few tiny mid sigmoid diverticula present without evidence for diverticulitis. Bone windows show no definite worrisome lesion. Narrowing of celiac artery origin present likely due (more content not included)... [facility] 02-16-2024 Note Pt having I&D today. Returned phone call to [facility], provided update DC date undetermined. [facility] 02-16-2024 Note Attestation signed by Tasneem Gu MD at 02/19/2024 8:49 PM By using the attestations below, the signing clinician agrees that I have read and verify that the documentation has been personally reviewed by me and ensure that the documentation accurately reflects the encounter. GC: I personally saw this patient on the day of the encounter, performed the diamond portion(s) of the service and participated in the management and confirm the resident's documentation. Please note there may be an additional personal documentation from me. Additional Comments: Return to OR for washout and debridement [facility] DAILY PROGRESS NOTE Subjective No acute events overnight. Reports incisional pain but overall improvement in swelling. Tolerated regular diet. No nausea, emesis, fever or chills. Increase in creatinine this morning. Patient NPO for take back to OR for debridement and washout. Objective Vitals: Vitals: 02/16/24 1210 BP: (!) 134/92 Pulse: 82 Resp: 13 Temp: SpO2: 95% I/O last 3 completed shifts: In: 424 (3.1 mL/kg) [I.V.:224 (1.7 mL/kg); IV Piggyback:200] Out: 10 (0.1 mL/kg) [Blood:10] Weight: 135.2 kg I/O this shift: In: 750 [IV Piggyback:750] Out: 10 [Blood:10] Physical Exam General Appearance: Awake, Alert & Oriented x3, No Acute Distress Neck: Trachea Midline, No jugular venous distension Pulmonary: Unlabored breathing on room air. No expiratory wheeze. Cardiac: Regular rate Abdomen: soft, nontender nondistended : improving erythema and swelling of the right hemiscrotum and inguinal region; exquisite tenderness Extremity: No edema Bilateral Upper and lower Extremities Skin: warm and dry Labs: Results from last 7 days Lab Units 02/16/2441202/15/2433402/14/2441702/13/2433802/12/24 0559 WBC AUTO 10*3/uL 21.20* 13.89* 15.78* 20.55* 21.94* HEMOGLOBIN g/dL 13.5 12.6* 12.8* 13.1 14.0 HEMATOCRIT % 40.5 37.5* 38.9* 39.0 42.2 PLATELETS AUTO 10*3/uL 284 200 186 182 201 Results from last 7 days Lab Units 02/16/2441202/15/2433402/14/2441702/13/2433802/12/24 0558 SODIUM mmol/L 136 133* 133* 134* 132* POTASSIUM mmol/L 4.1 3.4* 3.4* 3.6 3.7 CO2 mmol/L 25 27 26 28 26 BUN mg/dL 23 14 18 20 27* CREATININE mg/dL 1.31* 1.03 1.15 1.10 1.21 Medications: [JUL Hold] amLODIPine, 10 mg, oral, Daily [JUL Hold] cefTRIAXone, 2 g, intravenous, q24h [Held by provider] enoxaparin, 40 mg, subcutaneous, q24h KRISTEN [JUL Hold] hydroCHLOROthiazide, 25 mg, oral, Daily [JUL Hold] insulin glargine, 10 Units, subcutaneous, Nightly [JUL Hold] insulin lispro, 0-10 Units, subcutaneous, q6h KRISTEN [JUL Hold] levothyroxine, 100 mcg, oral, Daily [JUL Hold] metoprolol succinate XL, 25 mg, oral, Daily [JUL Hold] metroNIDAZOLE, 500 mg, oral, q12h [JUL Hold] nicotine, 1 patch, transdermal, Daily Oxygen Therapy, , inhalation, Continuous [JUL Hold] rosuvastatin, 10 mg, oral, Nightly [JUL Hold] valsartan, 320 mg, oral, Daily Imaging: CT abdomen pelvis w IV contrast Narrative: Pancreatic indication: Pain and swelling right inguinal region. TECHNIQUE: Enhanced CT of abdomen and pelvis is performed with no prior comparison. Automatic exposure control was utilized. Comparison is made to prior ultrasound dated 02/14/2024. This exam is timed 6:19 PM, prior exam timed 2:51 PM. FINDINGS: Extreme lung bases appear grossly clear. There is a nodular density within the lingula which measures 5 mm axial image 11 the liver shows fatty infiltration greatest within right hepatic lobe with focal fatty sparing adjacent to gallbladder. No worrisome liver lesion identified. The spleen is not enlarged. The gallbladder is not dilated. Left adrenal gland shows some thickening probably some hyperplasia. A prominent accessory spleen noted measuring 2.7 cm. Kidneys and pancreas are not enlarged. The abdominal aorta shows normal caliber with advanced atherosclerotic calcification for age. No significant retroperitoneal lymphadenopathy appreciated. Small fat-containing umbilical hernia is present. Soft tissue stranding noted within right lower quadrant subcutaneous fat extending in the mons pubis in right groin region as well as scrotum. No definite large fluid collection identified at this time. Small foci of gas and fluid noted adjacent to right vas deferens region. Probable interval drainage of abscess at the inguinal crease with packing material noted. No significant inguinal or pelvic lymphadenopathy identified. The appendix appears normal. A few tiny mid sigmoid diverticula present without evidence for diverticulitis. Bone windows show no definite worrisome lesion. Narrowing of celiac artery origin present likely due to median arcuate ligament. Impression: 1. Apparent inter (more content not included)... [facility] 02-16-2024 Note Patient: Jose rodriguez Procedure Summary Date: 02/16/24 Room / Location: [facility] OPERATING ROOM 04 / [facility] Operating Room Anesthesia Start: 1040 Anesthesia Stop: 1127 Procedure: Right groin debridement and washout (Right) Diagnosis: Necrotizing soft tissue infection (Necrotizing soft tissue infection [M79.89]) Surgeons: Tasneem Gu MD Responsible Provider: Leatha Xiao MD Anesthesia Type: general ASA Status: 3 Anesthesia Type: general Vitals Value Taken Time BP 113/82 02/16/24 1156 Temp 36.3 ???C (97.3 ???F) 02/16/24 1125 Pulse 83 02/16/24 1206 Resp 14 02/16/24 1206 SpO2 100 % 02/16/24 1206 Vitals shown include unvalidated device data. Anesthesia Post Evaluation Patient location during evaluation: PACU Patient participation: complete - patient participated Level of consciousness: awake and alert Pain score: 0 Pain management: satisfactory to patient Multimodal analgesia pain management approach Airway patency: patent Two or more strategies used to mitigate risk of obstructive sleep apnea Cardiovascular status: hemodynamically stable Respiratory status: acceptable, room air, spontaneous ventilation and nonlabored ventilation Hydration status: euvolemic Patient is hemodynamically stable and is able to be discharged from PACU per anesthesia protocol. There were no known notable events for this encounter. [facility] 02-16-2024 Note Airway Date/Time: 02/16/2024 10:50 AM Urgency: elective Airway not difficult General Information and Staff Patient location during procedure: OR Anesthesiologist: Leatha Xiao MD Resident/SALON SUPERVISOR/CAA: DEDRA Yao Performed: resident/SALON SUPERVISOR/CAA Indications and Patient Condition Indications for airway management: anesthesia Spontaneous Ventilation: absent Sedation level: deep Preoxygenated: yes Patient position: sniffing Mask difficulty assessment: 1 - vent by mask Final Airway Details Final airway type: endotracheal airway Successful airway: ETT Cuffed: yes Successful intubation technique: direct laryngoscopy Endotracheal tube insertion site: oral Blade: Lucas Blade size: #3 ETT size (mm): 7.5 Cormack-Lehane Classification: grade I - full view of glottis Placement verified by: chest auscultation and capnometry Cuff volume (mL): 9 Measured from: lips ETT to lips (cm): 23 Number of attempts at approach: 1 Number of other approaches attempted: 0 [facility] 02-16-2024 Note .. Infectious Diseases - Inpatient daily Progress Note - Patient name: Jose Duggan Patient Today's Date and Time: 02/16/2024, 10:56 AM Admission Date: 02/11/2024 As the teaching physician, I have personally performed or re-performed the history of present illness, physical exam and medical decision-making activities of the encounter and verified the medical student's documentation. I made pertinent changes as necessary to ensure accurate documentation. There may be additional comments below. Additional Comments: Groin abscess was debrided a third time today. Very little pus found The mesh was not exposed. Borderline temp and WBC of 21 likely related to postop inflammatory changes/stirring the infection Pain is controlled well Continue ceftriaxone for S constellatus and Actinomyces and flagyl for anaerobes Hitesh Mckeon MD 02/16/24 4:29 PM. Assessment/Plan Impression: Right groin abscess s/p incision and drainage 02/10 with no evidence of Jose gangrene and very little gas on CT 02/11, no extension to deep tissues on imaging. Abscess culture grew many GPC in clusters and many GN bacilli on gram stain, but culture show far has only grown moderate growth Streptococcus constellatus and Actinomyces neuii. Patient developed suprapubic tenderness and induration with subsequent CT findings worrisome for necrotizing fasciitis on 02/13. Yesterday, I & D performed in the OR, which revealed connection between scrotal incision and inguinal incision from past hernia repair. Today, groin debridement and washout performed in the OR ?with removal of mesh from previous hernia repair. Diabetic, relatively poor control, A1c 8.8 - tighter control of glycemia is essential in resolution of this infection and preventing recurrence Recommendations: Continue Ceftriaxone and Flagyl Will follow cultures until finalized Not ready for discharge. Continue daily dressing changes per wound care. Coordinate home health for daily dressing changes at home - does not feel comfortable doing these dressings Once ready for discharge, if no additional organisms are isolated from the culture, Augmentin 875 BID would likely suffice for the [presumed anaerobes and the isolated Streps (will reconfirm antibiotic regimen upon culture results tomorrow morning) Advised smoking cessation Subjective Interval history: Cultures were obtained and are growing gram-positive cocci in clusters and gram-negative bacilli and blood cultures grew moderate streptococcus constellatus and rare actinomyces neuii. No suspicion of sepsis he did not have any sepsis criteria on admission. Patient taken for debridement of groin and perineum again today. Patient taken for debridement of groin and perineum due to concern for necrotizing fasciitis on CT 02/14. He has been afebrile. WBC persistently elevated at 13.89 but the low grade fever present on admission has resolved. Has been on vancomycin zosyn empirically, clindamycin given for reduction in toxin production was stopped after 36h Objective Physical Examination: BP 115/83 Pulse 89 Temp 36.1 ???C (97 ???F) (Temporal) Resp 18 Ht 1.981 m (6' 6 ) Wt 135 kg (298 lb) SpO2 96% BMI 34.44 kg/m??? Temperature Range: Temp: 36.1 ???C (97 ???F) Temp Av.6 ???C (97.8 ???F) Min: 36.1 ???C (97 ???F) Max: 36.8 ???C (98.2 ???F) General Appearance: Awake, alert, and in no apparent distress, nontoxic Pulmonary/Chest: clear to auscultation, no wheezes or rales, and unlabored breathing Cardiovascular: Regular rate and rhythm without murmurs Abdomen: soft, non-tender, nondistended, no palpable masses no organomegaly; normal bowel sounds Scrotum is somewhat edematous R groin fresh dressing, packing, velia drain Extremities: No cyanosis, edema, no joint effusions. Skin: No rash no lesions. no pallor Laboratory data: I have independently reviewed the following labs: Results from last 7 days Lab Units 02/16/2441202/15/2433402/14/2441702/13/2433802/12/24 0559 02/11/24 2343 WBC AUTO 10*3/uL 21.20* 13.89* 15.78* < > 21.94* 19.59* HEMOGLOBIN g/dL 13.5 12.6* 12.8* < > 14.0 14.8 HEMATOCRIT % 40.5 37.5* 38.9* < > 42.2 43.4 MCV fL 91.4 89.7 92.2 < > 91.9 88.8 PLATELETS AUTO 10*3/uL 284 200 186 < > 201 199 NEUTROS ABS 10*3/uL -- -- -- -- 17.6* 14.8* EOS ABS MAN 10*3/uL -- -- -- -- 0.09 0.08 BASOS ABS MAN 10*3/uL -- -- -- -- 0.07 0.06 < > = values in this interval not displayed. Results from last 7 days Lab Units 02/16/2441202/15/2433402/14/2441702/13/249 02/12/24 0558 POTASSIUM mmol/L 4.1 3.4* 3.4* < > 3.7 CHLORIDE mmol/L 100 99 99 < > 98 CO2 mmol/L 25 27 26 < > 26 BUN mg/dL 23 14 18 < > 27* CREATININE mg/dL 1.31* 1.03 1.15 < > 1.21 GLUCOSE mg/dL 189* 141* 175* < > 288* CALCIUM mg/dL 8.8 8.1* 7.9* < > 8.0* ALK PHOS U/L -- -- -- -- 67 ALT U/L -- -- -- -- 7 AST U/L -- - (more content not included)... [facility] 02-16-2024 Note Patient: Jose rodriguez Procedure Information Date/Time: 02/16/24 1043 Procedure: Right groin debridement and washout (Right) Location: [facility] OPERATING ROOM 04 / [facility] Operating Room Surgeons: Tasneem Gu MD Past Medical History: Diagnosis Date ??? Diabetes mellitus (CMS/HCC) Relevant Problems No relevant active problems Clinical information reviewed: Tobacco Allergies Meds Med Hx Surg Hx Fam Hx Soc Hx Physical Exam Airway Mallampati: II TM distance: >3 FB Neck ROM: full Cardiovascular - normal exam Dental - normal exam Pulmonary - normal exam Abdominal (+) obese Anesthesia Plan ASA 3 general The patient is a current smoker. Patient was previously instructed to abstain from smoking on day of procedure. Patient did not smoke on day of procedure. intravenous induction Anesthetic plan and risks discussed with patient. Plan discussed with CAA. Additional Equipment Requests [facility] 02-16-2024 Note Hospital Medicine Daily Progress Note - 02/16/2024 7:49 AM; Room: [address] [place] [address] Admission: 02/11/2024 10:46 PM; Length of stay: 4 days THE HOSPITALIST TEAM PREFERS TO USE [employer] FOR NON-URGENT COMMUNICATION 7AM-7PM. IF I DO NOT RESPOND WITHIN 20 MINUTES OR URGENT MATTERS, PLEASE CALL THROUGH THE [employer] WORKER. FROM 7PM-7AM, PLEASE PAGE [phone](COVR). Code Status: Full Code Barriers to Discharge: Pending clinical improvement and tissue cx. I&D today with repeat I&D today. Expected Discharge Date: after urology and surgery clearance Discharge Destination: home Overview Patient is seen for evaluation and management of Scrotal abscess. Subjective S/P right groin I&D. Patient reports mild surgical pain in his groin area. No fever overnight. Pain is better controlled. Physical Exam Visit Vitals BP 115/65 (BP Location: Right arm, Patient Position: Lying) Pulse 95 Temp 36.8 ???C (98.2 ???F) (Oral) Resp 18 Intake/Output Summary (Last 24 hours) at 02/16/2024 0749 Last data filed at 02/15/2024 1836 Gross per 24 hour Intake 324 ml Output 10 ml Net 314 ml Physical Exam Cardiovascular: Rate and Rhythm: Normal rate and regular rhythm. Pulmonary: Effort: Pulmonary effort is normal. Breath sounds: Normal breath sounds. Abdominal: General: Abdomen is flat. Palpations: Abdomen is soft. Comments: Dressing on right groin Skin: Comments: Right scrotal tenderness and swelling Neurological: Mental Status: He is alert. Estimated body mass index is 34.44 kg/m??? as calculated from the following: Height as of this encounter: 1.981 m (6' 6 ). Weight as of this encounter: 135 kg (298 lb). Active Inpatient Problems Principal Problem: Abscess Active Problems: Necrotizing soft tissue infection Assessment and Plan # Sepsis, POA: # Right scrotal abscess: # Right groin fasciitis: - S/P scrotal debridement on 02/11. Fluid cx is growing Streptococcus constellatus. - CT A/P on 02/13 showed possible right groin necrotizing fasciitis. - Patient was taken for right groin I&D on 02/14. Per OR note, scrotal incision enlarged with noted medial residual pocket of purulence and the inguinal/mons region noted inflamed but viable fascial tissue consistent with fasciitis but no signs of overt necrosis. - Follow deep tissue cx. - Continue ceftriaxone and Flagyl per ID. - Splan for repeat I/D today.. - Wound care. # NIDDM with hyperglycemia, improving: - Not taking metformin and Trajenta. - Continue Lantus 10 U at night and cover with ISS while inpatient. - A1C: 8.8. - Discharge on metformin and Ozempic. # HypoMg and hypoK: - replaced/ # HTN: controlled. - Continue amlodipine, Toprol, valsartan and HCTZ. # Tobacco use: - Continue nicotine patch. # Hypothyroidism, on levothyroxine. # Morbid obesity BMI 36: - Discharge on metformin and Ozempic. - Encouraged lifestyle modification. VTE Prophylaxis: Lovenox Scheduled Meds amLODIPine, 10 mg, oral, Daily cefTRIAXone, 2 g, intravenous, q24h [Held by provider] enoxaparin, 40 mg, subcutaneous, q24h KRISTEN hydroCHLOROthiazide, 25 mg, oral, Daily insulin glargine, 10 Units, subcutaneous, Nightly insulin lispro, 0-10 Units, subcutaneous, q6h KRISTEN lactated Ringer's, 750 mL, intravenous, Once levothyroxine, 100 mcg, oral, Daily metoprolol succinate XL, 25 mg, oral, Daily metroNIDAZOLE, 500 mg, oral, q12h nicotine, 1 patch, transdermal, Daily rosuvastatin, 10 mg, oral, Nightly valsartan, 320 mg, oral, Daily Pertinent Investigations Hematology: Results from last 7 days Lab Units 02/16/24 04102/15/24 0335 WBC AUTO 10*3/uL 21.20* 13.89* HEMOGLOBIN g/dL 13.5 12.6* HEMATOCRIT % 40.5 37.5* MCV fL 91.4 89.7 PLATELETS AUTO 10*3/uL 284 200 Chemistry: Results from last 7 days Lab Units 02/16/24 0413 02/15/24 0335 02/14/24 0418 SODIUM mmol/L 136 133* 133* POTASSIUM mmol/L 4.1 3.4* 3.4* CHLORIDE mmol/L 100 99 99 CO2 mmol/L 25 27 26 BUN mg/dL 23 14 18 CREATININE mg/dL 1.31* 1.03 1.15 GLUCOSE mg/dL 189* 141* 175* MAGNESIUM mg/dL 2.0 1.7* 1.8* CALCIUM mg/dL 8.8 8.1* 7.9* Results from last 7 days Lab Units 02/12/24 0558 AST U/L 8* ALT U/L 7 ALK PHOS U/L 67 BILIRUBIN TOTAL mg/dL 0.9 Results from last 7 days Lab Units 02/16/24 0516 02/15/24 2356 02/15/24 1806 02/15/24 1324 02/15/24 1156 02/15/24 0451 POCT GLUCOSE mg/dL 226* 364* 343* 241* 196* 172* Historical Values: (Includes values prior to this admission) Lab Results Component Value Date TSH 1.37 02/12/2024 No results found for: [id number] , IRON , TIBC , C3 , C4 , KIMBERLEE , CANCA , ASO , PSA , CEA , CA125 , CA199 , AFP , CA153 Imaging CT abdomen pelvis w IV contrast Narrative: Pancreatic indication: Pain and swelling right inguinal region. TECHNIQUE: Enhanced CT of abdomen and pelvis is performed with no prior comparison. Automatic exposure control was utilized. Comparison is made to p (more content not included)... [facility] 02-16-2024 Note Attestation signed by Tasneem Gu MD at 02/19/2024 8:50 PM By using the attestations below, the signing clinician agrees that I have read and verify that the documentation has been personally reviewed by me and ensure that the documentation accurately reflects the encounter. GC: I personally saw this patient on the day of the encounter, performed the diamond portion(s) of the service and participated in the management and confirm the resident's documentation. Please note there may be an additional personal documentation from me. Additional Comments: To OR for further debridement and washout [facility] DAILY PROGRESS NOTE Subjective No acute events overnight. Reports incisional pain but overall improvement in swelling. Tolerated regular diet. No nausea, emesis, fever or chills. Increase in creatinine this morning. Patient NPO for take back to OR for debridement and washout. Objective Vitals: Vitals: 02/16/24 0030 BP: 115/65 Pulse: 95 Resp: 18 Temp: 36.8 ???C (98.2 ???F) SpO2: 91% I/O last 3 completed shifts: In: 424 (3.1 mL/kg) [I.V.:224 (1.7 mL/kg); IV Piggyback:200] Out: 10 (0.1 mL/kg) [Blood:10] Weight: 135.2 kg No intake/output data recorded. Physical Exam General Appearance: Awake, Alert & Oriented x3, No Acute Distress Neck: Trachea Midline, No jugular venous distension Pulmonary: Unlabored breathing on room air. No expiratory wheeze. Cardiac: Regular rate Abdomen: soft, nontender nondistended : improving erythema and swelling of the right hemiscrotum and inguinal region; exquisite tenderness Extremity: No edema Bilateral Upper and lower Extremities Skin: warm and dry Labs: Results from last 7 days Lab Units 02/16/24 04102/15/24 0335 02/14/24 0418 02/13/24 0339 02/12/24 0559 WBC AUTO 10*3/uL 21.20* 13.89* 15.78* 20.55* 21.94* HEMOGLOBIN g/dL 13.5 12.6* 12.8* 13.1 14.0 HEMATOCRIT % 40.5 37.5* 38.9* 39.0 42.2 PLATELETS AUTO 10*3/uL 284 200 186 182 201 Results from last 7 days Lab Units 02/16/24 0413 02/15/24 0335 02/14/24 0418 02/13/24 0339 02/12/24 0558 SODIUM mmol/L 136 133* 133* 134* 132* POTASSIUM mmol/L 4.1 3.4* 3.4* 3.6 3.7 CO2 mmol/L 25 27 26 28 26 BUN mg/dL 23 14 18 20 27* CREATININE mg/dL 1.31* 1.03 1.15 1.10 1.21 Medications: amLODIPine, 10 mg, oral, Daily cefTRIAXone, 2 g, intravenous, q24h [Held by provider] enoxaparin, 40 mg, subcutaneous, q24h KRISTEN hydroCHLOROthiazide, 25 mg, oral, Daily insulin glargine, 10 Units, subcutaneous, Nightly insulin lispro, 0-10 Units, subcutaneous, q6h KRISTEN lactated Ringer's, 750 mL, intravenous, Once levothyroxine, 100 mcg, oral, Daily metoprolol succinate XL, 25 mg, oral, Daily metroNIDAZOLE, 500 mg, oral, q12h nicotine, 1 patch, transdermal, Daily rosuvastatin, 10 mg, oral, Nightly valsartan, 320 mg, oral, Daily Imaging: CT abdomen pelvis w IV contrast Narrative: Pancreatic indication: Pain and swelling right inguinal region. TECHNIQUE: Enhanced CT of abdomen and pelvis is performed with no prior comparison. Automatic exposure control was utilized. Comparison is made to prior ultrasound dated 02/14/2024. This exam is timed 6:19 PM, prior exam timed 2:51 PM. FINDINGS: Extreme lung bases appear grossly clear. There is a nodular density within the lingula which measures 5 mm axial image 11 the liver shows fatty infiltration greatest within right hepatic lobe with focal fatty sparing adjacent to gallbladder. No worrisome liver lesion identified. The spleen is not enlarged. The gallbladder is not dilated. Left adrenal gland shows some thickening probably some hyperplasia. A prominent accessory spleen noted measuring 2.7 cm. Kidneys and pancreas are not enlarged. The abdominal aorta shows normal caliber with advanced atherosclerotic calcification for age. No significant retroperitoneal lymphadenopathy appreciated. Small fat-containing umbilical hernia is present. Soft tissue stranding noted within right lower quadrant subcutaneous fat extending in the mons pubis in right groin region as well as scrotum. No definite large fluid collection identified at this time. Small foci of gas and fluid noted adjacent to right vas deferens region. Probable interval drainage of abscess at the inguinal crease with packing material noted. No significant inguinal or pelvic lymphadenopathy identified. The appendix appears normal. A few tiny mid sigmoid diverticula present without evidence for diverticulitis. Bone windows show no definite worrisome lesion. Narrowing of celiac artery origin present likely due to median arcuate ligament. Impression: 1. Apparent interval drainage of previously noted fluid collection right inguinal crease with packing material present. 2. Multiple small foci (more content not included)... [facility] 02-16-2024 Note Attestation signed by Satish Paulino MD at 02/16/2024 2:34 PM By using the attestations below, the signing clinician agrees that I have read and verify that the documentation has been personally reviewed by me and ensure that the documentation accurately reflects the encounter. GC: I personally saw this patient on the day of the encounter, performed the diamond portion(s) of the service and participated in the management and confirm the resident's documentation. Please note there may be an additional personal documentation from me. Urology Daily Progress Note HISTORY OF PRESENT ILLNESS: The patient is a 54 y.o. male who presents with scrotal abscess s/p I&D bedside on 02/12/24 and formal wound exploration on 02/14 NAOE AF/VSS Patient states pain in suprapubic region is better Pain well controlled PUS 02/14 Increased echogenicity and heterogeneity of the subcutaneous tissues in the right inguinal region compatible with inflammatory change to cellulitis. Deep within these tissues there is an irregular hypoechoic area measuring 5.1 x 4.4 x 0.8 cm, which could represent a developing abscess. CT 02/14 Subcutaneous stranding of right lower quadrant, mons pubis, scrotum and right inguinal region. Multiple small foci of gas and small amounts of fluid adjacent to right vas deferens worrisome for necrotizing fasciitis. General surgery to take back today Physical Exam: This a 54 y.o. patient Patient Vitals for the past 24 hrs: BP Temp Temp src Pulse Resp SpO2 Weight 02/16/24 0520 -- -- -- -- -- -- 135 kg (298 lb) 02/16/24 0030 115/65 36.8 ???C (98.2 ???F) Oral 95 18 91 % -- 02/15/242004 121/82 36.6 ???C (97.9 ???F) Oral 97 18 95 % -- 02/15/24 1830 116/63 36.7 ???C (98 ???F) Oral 93 16 -- -- 02/15/24 1205 125/81 -- -- 82 16 95 % -- 02/15/24 1150 (!) 120/91 -- -- 80 12 97 % -- 02/15/24 1135 130/84 -- -- 87 13 91 % -- 02/15/24 1120 137/86 -- -- 89 13 96 % -- 02/15/24 1105 123/82 -- -- 88 15 95 % -- 02/15/24 1050 128/81 -- -- 88 20 97 % -- 02/15/24 1035 130/79 36 ???C (96.8 ???F) Temporal 87 20 100 % -- 02/15/24 0856 116/79 36.1 ???C (97 ???F) Temporal 94 18 96 % -- 02/15/24 0820 133/84 36.3 ???C (97.4 ???F) Oral 97 16 -- -- Constitutional: Patient in no acute distress; Neuro: alert and oriented to person place and time. Psych: Mood and affect normal. Skin: Normal Lungs: Respiratory effort normal Cardiovascular: Normal peripheral pulses Abdomen: Soft, non-tender, non-distended with no CVA, flank pain Penis normal and uncircumcised Urethral meatus normal Scrotal exam: Normal left hemiscrotum, right scrotal incision draining well/packing in place. Improved suprapubic region redness and induration LABS: Results from last 7 days Lab Units 02/16/2441202/15/2433402/14/24417 WBC AUTO 10*3/uL 21.20* 13.89* 15.78* HEMOGLOBIN g/dL 13.5 12.6* 12.8* HEMATOCRIT % 40.5 37.5* 38.9* PLATELETS AUTO 10*3/uL 284 200 186 Results from last 7 days Lab Units 02/16/2441202/15/2433402/14/24417 SODIUM mmol/L 136 133* 133* POTASSIUM mmol/L 4.1 3.4* 3.4* CHLORIDE mmol/L 100 99 99 CO2 mmol/L 25 27 26 BUN mg/dL 23 14 18 CREATININE mg/dL 1.31* 1.03 1.15 CALCIUM mg/dL 8.8 8.1* 7.9* No results found for: PSA Assessment and Plan Impression: Scrotal abscess - right hemiscrotum status post bedside I&D. Abscess cavity copiously irrigated and packed with iodoform packing strips. Type 2 diabetes Plan: Wound packed with 1/2 inch iodoform packing strips Consult to wound care team for assistance with optimal packing and frequency for dressing changes Until seen by wound care team, patient will require daily dressing change with 1/2 inch iodoform packing strips Improved tenderness in Right inguinal region. PUS 02/14 Increased echogenicity and heterogeneity of the subcutaneous tissues in the right inguinal region compatible with inflammatory change to cellulitis. Deep within these tissues there is an irregular hypoechoic area measuring 5.1 x 4.4 x 0.8 cm, which could represent a developing abscess. CT 02/14 Subcutaneous stranding of right lower quadrant, mons pubis, scrotum and right inguinal region. Multiple small foci of gas and small amounts of fluid adjacent to right vas deferens worrisome for necrotizing fasciitis. General surgery to take back for second look tomorrow for concerning looking fascia around external inguinal ring Antibiotics Continue ceftriaxone and flagyl. ID on board Abscess culture grew many GPC in clusters and many GN bacilli on gram stain, but culture show far has only grown moderate growth Streptococcus constellatus. Tight blood sugar control Urology to follow Augustine Scott MD [facility] Urology PGY3 [facility] 02-15-2024 Note Hospital Medicine Daily Progress Note - 02/15/2024 3:26 PM; Room: [address] [place], [place] [id number] Admission: 02/11/2024 10:46 PM; Length of stay: 3 days THE HOSPITALIST TEAM PREFERS TO USE [facility] [employer] FOR NON-URGENT COMMUNICATION 7AM-7PM. IF I DO NOT RESPOND WITHIN 20 MINUTES OR URGENT MATTERS, PLEASE CALL THROUGH THE [employer]. FROM 7PM-7AM, PLEASE PAGE [phone](COVR). Code Status: Full Code Barriers to Discharge: Pending clinical improvement and tissue cx. I&D today with repeat I&D. Expected Discharge Date: Discharge Destination: home Overview Patient is seen for evaluation and management of Scrotal abscess. Subjective S/P right groin I&D. Patient reports mild surgical pain in his groin area. No fever overnight. Physical Exam Visit Vitals BP 125/81 Pulse 82 Temp 36 ???C (96.8 ???F) (Temporal) Resp 16 Intake/Output Summary (Last 24 hours) at 02/15/2024 1526 Last data filed at 02/15/2024 1327 Gross per 24 hour Intake 400 ml Output 660 ml Net -260 ml Physical Exam Cardiovascular: Rate and Rhythm: Normal rate and regular rhythm. Pulmonary: Effort: Pulmonary effort is normal. Breath sounds: Normal breath sounds. Abdominal: General: Abdomen is flat. Palpations: Abdomen is soft. Comments: Dressing on right groin Skin: Comments: Right scrotal tenderness and swelling Neurological: Mental Status: He is alert. Estimated body mass index is 35.94 kg/m??? as calculated from the following: Height as of this encounter: 1.981 m (6' 6 ). Weight as of this encounter: 141 kg (311 lb). Active Inpatient Problems Principal Problem: Abscess Active Problems: Necrotizing soft tissue infection Assessment and Plan # Sepsis, POA: # Right scrotal abscess: # Right groin fasciitis: - S/P scrotal debridement on 02/11. Fluid cx is growing Streptococcus constellatus. - CT A/P on 02/13 showed possible right groin necrotizing fasciitis. - Patient was taken for right groin I&D on 02/14. Per OR note, scrotal incision enlarged with noted medial residual pocket of purulence and the inguinal/mons region noted inflamed but viable fascial tissue consistent with fasciitis but no signs of overt necrosis. - Follow deep tissue cx. - Continue ceftriaxone and Flagyl per ID. - Surgery will repeat I&D tomorrow. - Wound care. # NIDDM with hyperglycemia, improving: - Not taking metformin and Trajenta. - Continue Lantus 10 U at night and cover with ISS while inpatient. - A1C: 8.8. - Discharge on metformin and Ozempic. # HypoMg and hypoK: - We will replace. # HTN: - Continue amlodipine, Toprol, valsartan and HCTZ. # Tobacco use: - Continue nicotine patch. # Hypothyroidism, on levothyroxine. # Morbid obesity BMI 36: - Discharge on metformin and Ozempic. - Encouraged lifestyle modification. Nutrition Screen: Malnutrition Attestation: No dietitian assessment is available at this time. VTE Prophylaxis: Lovenox Scheduled Meds amLODIPine, 10 mg, oral, Daily cefTRIAXone, 2 g, intravenous, q24h [START ON 02/16/2024] enoxaparin, 40 mg, subcutaneous, q24h KRISTEN hydroCHLOROthiazide, 25 mg, oral, Daily insulin glargine, 10 Units, subcutaneous, Nightly insulin lispro, 0-10 Units, subcutaneous, q6h KRISTEN levothyroxine, 100 mcg, oral, Daily metoprolol succinate XL, 25 mg, oral, Daily metroNIDAZOLE, 500 mg, oral, q12h nicotine, 1 patch, transdermal, Daily rosuvastatin, 10 mg, oral, Nightly valsartan, 320 mg, oral, Daily Pertinent Investigations Hematology: Results from last 7 days Lab Units 02/15/24 0335 02/14/24 0418 WBC AUTO 10*3/uL 13.89* 15.78* HEMOGLOBIN g/dL 12.6* 12.8* HEMATOCRIT % 37.5* 38.9* MCV fL 89.7 92.2 PLATELETS AUTO 10*3/uL 200 186 Chemistry: Results from last 7 days Lab Units 02/15/24 0335 02/14/24 0418 02/13/24 0339 SODIUM mmol/L 133* 133* 134* POTASSIUM mmol/L 3.4* 3.4* 3.6 CHLORIDE mmol/L 99 99 98 CO2 mmol/L 27 26 28 BUN mg/dL 14 18 20 CREATININE mg/dL 1.03 1.15 1.10 GLUCOSE mg/dL 141* 175* 159* MAGNESIUM mg/dL 1.7* 1.8* 1.7* CALCIUM mg/dL 8.1* 7.9* 8.1* Results from last 7 days Lab Units 02/12/24 0558 AST U/L 8* ALT U/L 7 ALK PHOS U/L 67 BILIRUBIN TOTAL mg/dL 0.9 Results from last 7 days Lab Units 02/15/24 1324 02/15/24 1156 02/15/24 0451 02/15/24 0001 02/14/24 1711 02/14/24 1217 POCT GLUCOSE mg/dL 241* 196* 172* 172* 208* 270* Historical Values: (Includes values prior to this admission) Lab Results Component Value Date TSH 1.37 02/12/2024 No results found for: [id number] , IRON , TIBC , C3 , C4 , KIMBERLEE , CANCA , ASO , PSA , CEA , CA125 , CA199 , AFP , CA153 Imaging CT abdomen pelvis w IV contrast Narrative: Pancreatic indication: Pain and swelling right inguinal region. TECHNIQUE: Enhanced CT of abdomen and pelvis is performed with no prior comparison. Automatic exposure control was utilized. Comparison is made to prior ultrasound dated 02/14/2024. This exam is time (more content not included)... [facility] 02-15-2024 Note DISCHARGE PLANNING U PDATE Updates sent to accepting [facility] agency, [facility], via [employer]. Patient not medically ready for discharge today as originally thought. OTM team will continue to follow. [facility] 02-15-2024 Note Patient: Jose rodriguez Procedure Summary Date: 02/15/24 Room / Location: [facility] OPERATING ROOM 02 / [facility] Operating Room Anesthesia Start: 916 Anesthesia Stop: 1040 Procedure: DEBRIDEMENT, GROIN AND PERINEUM (Right) Diagnosis: Necrotizing soft tissue infection (Necrotizing soft tissue infection [M79.89]) Surgeons: Chaparro Beltran MD Responsible Provider: Leatha Xiao MD Anesthesia Type: general ASA Status: 3 - Emergent Anesthesia Type: general Vitals Value Taken Time BP 120/91 02/15/24 1151 Temp 36 02/15/24 1201 Pulse 74 02/15/24 1200 Resp 14 02/15/24 1200 SpO2 95 % 02/15/24 1200 Vitals shown include unvalidated device data. Anesthesia Post Evaluation Patient location during evaluation: PACU Patient participation: complete - patient participated Level of consciousness: awake Pain score: 2 Pain management: adequate Airway patency: patent Cardiovascular status: acceptable Respiratory status: acceptable No notable events documented. [facility] 02-15-2024 Note .. Infectious Diseases - Inpatient daily Progress Note - Patient name: Jose Duggan Patient Today's Date and Time: 02/14/2024, 9:16 AM Admission Date: 02/11/2024 As the teaching physician, I have personally performed or re-performed the history of present illness, physical exam and medical decision-making activities of the encounter and verified the medical student's documentation. I made pertinent changes as necessary to ensure accurate documentation. There may be additional comments below. Additional Comments: Groin abscess was debrided again and packed. Very tender New cultures sent First culture grew only S constellatus, multiple organisms on gram stain though, presumed anaerobes Continue ceftriaxone and flagyl Hitesh Mckeon MD Assessment/Plan Impression: Right groin abscess s/p incision and drainage 02/10 with no evidence of Jose gangrene and very little gas on CT 02/11, no extension to deep tissues on imaging. Abscess culture grew many GPC in clusters and many GN bacilli on gram stain, but culture show far has only grown moderate growth Streptococcus constellatus. Patient developed new suprapubic tenderness and induration yesterday with subsequent CT findings worrisome for necrotizing fasciitis. Diabetic, relatively poor control, A1c 8.8 - tighter control of glycemia is essential in resolution of this infection and preventing recurrence Recommendations: Continue Ceftriaxone and Flagyl Will follow cultures until finalized Not ready for discharge. Continue daily dressing changes per wound care. Coordinate home health for daily dressing changes at home - does not feel comfortable doing these dressings Once ready for discharge, if no additional organisms are isolated from the culture, Augmentin 875 BID would likely suffice for the [presumed anaerobes and the isolated Streps (will reconfirm antibiotic regimen upon culture results tomorrow morning) Advised smoking cessation Subjective Interval history: Cultures were obtained and are growing gram-positive cocci in clusters and gram-negative bacilli and blood cultures are also in progress. No suspicion of sepsis he did not have any sepsis criteria on admission. Patient taken for debridement of groin and perineum due to concern for necrotizing fasciitis on CT 02/14. He has been afebrile. WBC persistently elevated at 13.89 but the low grade fever present on admission has resolved. Has been on vancomycin zosyn empirically, clindamycin given for reduction in toxin production was stopped after 36h Objective Physical Examination: BP 129/78 Pulse 102 Temp 36.7 ???C (98 ???F) (Oral) Resp 16 Ht 1.981 m (6' 6 ) Wt (!) 141 kg (311 lb) SpO2 94% BMI 35.94 kg/m??? Temperature Range: Temp: 36.7 ???C (98 ???F) Temp Av.7 ???C (98 ???F) Min: 36.5 ???C (97.7 ???F) Max: 36.7 ???C (98.1 ???F) General Appearance: Awake, alert, and in no apparent distress, nontoxic Eyes: Sclera anicteric; conjunctivae clear ENT: Oropharynx clear, without erythema, exudate, no thrush. Dentition Good dentition Neck: Supple, without lymphadenopathy. Pulmonary/Chest: clear to auscultation, no wheezes or rales, and unlabored breathing Cardiovascular: Regular rate and rhythm without murmurs Abdomen: soft, non-tender, nondistended, no palpable masses no organomegaly; normal bowel sounds Extremities: No cyanosis, edema, no joint effusions. Neurologic: Alert and oriented x 3, nonfocal. strength and sensation grossly normal Skin: No rash no lesions. No pallor. Suprapubic skin is erythematous and indurated with pain on palpation. Laboratory data: I have independently reviewed the following labs: Results from last 7 days Lab Units 02/14/2441702/13/2433802/12/24 0559 02/11/24 2343 WBC AUTO 10*3/uL 15.78* 20.55* 21.94* 19.59* HEMOGLOBIN g/dL 12.8* 13.1 14.0 14.8 HEMATOCRIT % 38.9* 39.0 42.2 43.4 MCV fL 92.2 90.3 91.9 88.8 PLATELETS AUTO 10*3/uL 186 182 201 199 NEUTROS ABS 10*3/uL -- -- 17.6* 14.8* EOS ABS MAN 10*3/uL -- -- 0.09 0.08 BASOS ABS MAN 10*3/uL -- -- 0.07 0.06 Results from last 7 days Lab Units 02/14/2441702/13/2433802/12/24 0558 POTASSIUM mmol/L 3.4* 3.6 3.7 CHLORIDE mmol/L 99 98 98 CO2 mmol/L 26 28 26 BUN mg/dL 18 20 27* CREATININE mg/dL 1.15 1.10 1.21 GLUCOSE mg/dL 175* 159* 288* CALCIUM mg/dL 7.9* 8.1* 8.0* ALK PHOS U/L -- -- 67 ALT U/L -- -- 7 AST U/L -- -- 8* Results from last 7 days Lab Units 02/13/24 0339 HEMOGLOBIN A1C % 8.8* Imaging Studies: I have reviewed myself the following imaging studies performed in the past 3 days: No X-ray results found for the past [address] abdomen pelvis w IV contrast Result Date: 02/14/2024 1. Apparent interval drainage of previously noted fluid collection right inguinal crease with packing material present. 2. Multiple small foci of gas and small amounts of fluid adjacent to (more content not included)... [facility] 02-15-2024 Note Airway Date/Time: 02/15/2024 9:26 AM Urgency: elective Airway not difficult General Information and Staff Patient location during procedure: OR Anesthesiologist: Leatha Xiao MD Resident/SALON SUPERVISOR/CAA: DEDRA Velez Performed: resident/SALON SUPERVISOR/CAA Indications and Patient Condition Indications for airway management: anesthesia Spontaneous Ventilation: absent Sedation level: deep Preoxygenated: yes Mask difficulty assessment: 3 - difficult mask (inadequate, unstable or two providers) +/- NMBA (very bushy sparks and CLAUDIA) Final Airway Details Final airway type: endotracheal airway Successful airway: ETT Cuffed: yes Successful intubation technique: video laryngoscopy Facilitating devices/methods: intubating stylet Endotracheal tube insertion site: oral Blade: Lucas Blade size: #4 ETT size (mm): 8.0 Cormack-Lehane Classification: grade I - full view of glottis Placement verified by: chest auscultation and capnometry Measured from: lips ETT to lips (cm): 24 Number of attempts at approach: 1 Number of other approaches attempted: 0 [facility] 02-15-2024 Note Urology Daily Progre ss Note HISTORY OF PRESENT ILLNESS: The patient is a 54 y.o. male who presents with scrotal abscess s/p I&D bedside on 02/12/24 and reprobe 02/14 We were able to palpate indurated tissue towards the suprapubic region, but aggressive probing did not cause any release of purulent fluid. At this point, all superficial induration appears to be cellulitic in nature and not an abscess at this point. NAOE AF/VSS Tolerating diet Pain controlled Packing daily PUS 02/14 Increased echogenicity and heterogeneity of the subcutaneous tissues in the right inguinal region compatible with inflammatory change to cellulitis. Deep within these tissues there is an irregular hypoechoic area measuring 5.1 x 4.4 x 0.8 cm, which could represent a developing abscess. CT 02/14 Subcutaneous stranding of right lower quadrant, mons pubis, scrotum and right inguinal region. Multiple small foci of gas and small amounts of fluid adjacent to right vas deferens worrisome for necrotizing fasciitis. General surgery examined with possible plan of OR today Physical Exam: This a 54 y.o. patient Patient Vitals for the past 24 hrs: BP Temp Temp src Pulse Resp SpO2 02/15/24 0452 -- -- -- -- -- 93 % 02/15/24 0449 119/81 36.4 ???C (97.6 ???F) Oral 99 -- -- 02/15/24 0004 123/80 36.8 ???C (98.2 ???F) Oral 94 -- 94 % 02/14/24 1957 117/65 36.7 ???C (98 ???F) Oral 98 18 95 % 02/14/24 1648 132/79 -- -- 95 -- 98 % 02/14/24 1006 125/81 36.4 ???C (97.6 ???F) Oral 86 -- -- Constitutional: Patient in no acute distress; Neuro: alert and oriented to person place and time. Psych: Mood and affect normal. Skin: Normal Lungs: Respiratory effort normal Cardiovascular: Normal peripheral pulses Abdomen: Soft, non-tender, non-distended with no CVA, flank pain Penis normal and uncircumcised Urethral meatus normal Scrotal exam: Normal left hemiscrotum, right scrotal incision draining well/packing in place. Cellulitic changes on mons pubis area LABS: Results from last 7 days Lab Units 02/15/24 0335 02/14/24 0418 02/13/24 0339 WBC AUTO 10*3/uL 13.89* 15.78* 20.55* HEMOGLOBIN g/dL 12.6* 12.8* 13.1 HEMATOCRIT % 37.5* 38.9* 39.0 PLATELETS AUTO 10*3/uL 200 186 182 Results from last 7 days Lab Units 02/15/24 0335 02/14/24 0418 02/13/24 0339 SODIUM mmol/L 133* 133* 134* POTASSIUM mmol/L 3.4* 3.4* 3.6 CHLORIDE mmol/L 99 99 98 CO2 mmol/L 27 26 28 BUN mg/dL 14 18 20 CREATININE mg/dL 1.03 1.15 1.10 CALCIUM mg/dL 8.1* 7.9* 8.1* No results found for: PSA Assessment and Plan Impression: Scrotal abscess - right hemiscrotum status post bedside I&D. Abscess cavity copiously irrigated and packed with iodoform packing strips. Type 2 diabetes Plan: Wound packed with 1/2 inch iodoform packing strips Consult to wound care team for assistance with optimal packing and frequency for dressing changes Until seen by wound care team, patient will require daily dressing change with 1/2 inch iodoform packing strips Increased tenderness in Right inguinal region. PUS / Increased echogenicity and heterogeneity of the subcutaneous tissues in the right inguinal region compatible with inflammatory change to cellulitis. Deep within these tissues there is an irregular hypoechoic area measuring 5.1 x 4.4 x 0.8 cm, which could represent a developing abscess. CT 10 Subcutaneous stranding of right lower quadrant, mons pubis, scrotum and right inguinal region. Multiple small foci of gas and small amounts of fluid adjacent to right vas deferens worrisome for necrotizing fasciitis. General surgery taking to OR today, will plan to be available for OR Antibiotics Disontinued IV vancomycin and IV Zosyn and started ceftriaxone and flagyl. ID on board Abscess culture grew many GPC in clusters and many GN bacilli on gram stain, but culture show far has only grown moderate growth Streptococcus constellatus. Tight blood sugar control Urology to follow Tonny Erazo MD [facility] Urology PGY5 [facility] 02-15-2024 Note Patient: Jose rodriguez Procedure Information Date/Time: 02/15/24 0900 Procedure: DEBRIDEMENT, GROIN AND PERINEUM (Right) Location: [facility] OPERATING ROOM 02 / [facility] Operating Room Surgeons: Chaparro Beltran MD Past Medical History: Diagnosis Date ??? Diabetes mellitus (CMS/HCC) Relevant Problems No relevant active problems Clinical information reviewed: Tobacco Allergies Meds Med Hx Surg Hx Fam Hx Soc Hx Physical Exam Airway Mallampati: II TM distance: >3 FB Neck ROM: full Cardiovascular - normal exam Dental - normal exam Pulmonary - normal exam Abdominal (+) obese Anesthesia Plan ASA 3 - emergent general The patient is a current smoker. Patient was previously instructed to abstain from smoking on day of procedure. Patient did not smoke on day of procedure. intravenous induction Anesthetic plan and risks discussed with patient. Plan discussed with CAA. Additional Equipment Requests [facility] 02-15-2024 Note Urology Daily Progre ss Note HISTORY OF PRESENT ILLNESS: The patient is a 54 y.o. male who presents with scrotal abscess s/p I&D bedside on 02/12/24 NAOE AF/VSS Tolerating diet Increased pain and redness over the right inguinal region with expanding pain and redness over the mons pubis and tracking to the left inguinal region. Probed yesterday without other fluid collections Right lateral scrotum nontender Packing daily Physical Exam: This a 54 y.o. patient Patient Vitals for the past 24 hrs: BP Temp Temp src Pulse Resp SpO2 02/15/24 0452 -- -- -- -- -- 93 % 02/15/24 0449 119/81 36.4 ???C (97.6 ???F) Oral 99 -- -- 02/15/24 0004 123/80 36.8 ???C (98.2 ???F) Oral 94 -- 94 % 02/14/24 1957 117/65 36.7 ???C (98 ???F) Oral 98 18 95 % 02/14/24 1648 132/79 -- -- 95 -- 98 % 02/14/24 1006 125/81 36.4 ???C (97.6 ???F) Oral 86 -- -- Constitutional: Patient in no acute distress; Neuro: alert and oriented to person place and time. Psych: Mood and affect normal. Skin: Normal Lungs: Respiratory effort normal Cardiovascular: Normal peripheral pulses Abdomen: Soft, non-tender, non-distended with no CVA, flank pain Penis normal and uncircumcised Urethral meatus normal Scrotal exam: Normal left hemiscrotum, right scrotal incision draining well/packing in place. Increased pain and redness over the right inguinal region with expanding pain and redness over the mons pubis and tracking to the left inguinal region. Right lateral scrotum nontender. No signs of skin necrosis. No crepitus on exam LABS: Results from last 7 days Lab Units 02/15/2433402/14/2441702/13/24338 WBC AUTO 10*3/uL 13.89* 15.78* 20.55* HEMOGLOBIN g/dL 12.6* 12.8* 13.1 HEMATOCRIT % 37.5* 38.9* 39.0 PLATELETS AUTO 10*3/uL 200 186 182 Results from last 7 days Lab Units 02/15/2433402/14/2441702/13/24338 SODIUM mmol/L 133* 133* 134* POTASSIUM mmol/L 3.4* 3.4* 3.6 CHLORIDE mmol/L 99 99 98 CO2 mmol/L 27 26 28 BUN mg/dL 14 18 20 CREATININE mg/dL 1.03 1.15 1.10 CALCIUM mg/dL 8.1* 7.9* 8.1* No results found for: PSA Assessment and Plan Impression: Scrotal abscess - right hemiscrotum status post bedside I&D. Abscess cavity copiously irrigated and packed with iodoform packing strips. Type 2 diabetes Plan: Wound packed with 1/2 inch iodoform packing strips Consult to wound care team for assistance with optimal packing and frequency for dressing changes Until seen by wound care team, patient will require daily dressing change with 1/2 inch iodoform packing strips Increased tenderness in Right inguinal region. incision probed yesterday without findable fluid collections have been broken up CT abdomen pelvis performed subcutaneous stranding of the right lower quadrant mons pubis and right inguinal region suggestive of progressive cellulitis. Small foci of gas with fluid adjacent to the right Vas. General surgery consulted yesterday, after discussion with general surgery team they are planning on taking patient back for right inguinal exploration IV Rocephin and Flagyl ID consulted appreciate recommendations Anaerobic and aerobic wound cultures obtained, currently growing Streptococcus constellatus Blood cultures obtained, pending Tight blood sugar control Urology to follow very closely during admission Mario Young MD Urology Resident, PGY-2 [facility] 02-14-2024 Note [facility] Vascular Surgery/Wound Care CONSULTATION Reason for Consult: recommendations for post I&D care Subjective History of Present Illness: Jose Duggan is a 54 y.o. 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 Lab work revealed: WBC 19, hemoglobin 14.8, creatinine 1.13. CT pelvis with contrast done at [facility] showing a right scrotal abscess with couple foci of gas within scrotal skin. At [facility] he was initiated on broad-spectrum antibiotics: Vancomycin, clindamycin, and Zosyn. In our emergency department he was continued on Zosyn. Patient underwent bedside I&D of the right hemiscrotum by urology on 02/11. They have been packing with iodoform once daily and Urology consulted wound care for evaluation for packing recommendations. Patient continued to have significant pain today above the level of the I&D site. He underwent US today which demonstrated cellulitis with irregular hypoechoic area measuring 5.1 x 4.4 x 0.8 cm, which could represent a developing abscess which is located over area of pain. Patient denies prior history of wounds/cellulitis. He continues to drain quite a bit of fluid from the I&D site. Admitting to significant pain mostly to the new area of concern. Reports diarrhea with the antibiotics he has been on but denies any fevers, chills, nausea, vomiting. Review of Systems 10 point ROS reviewed and negative with exception of that mentioned in HPI Past Medical History: Diagnosis Date Diabetes mellitus ([facility]) History reviewed. No pertinent surgical history. Allergies Allergen Reactions Januvia [Sitagliptin] Diarrhea Jardiance [Empagliflozin] Other Pt states causes yeast infection Tradjenta [Linagliptin] Other Pt states caused abscess Current Facility-Administered Medications: acetaminophen (Tylenol) tablet 650 mg, 650 mg, oral, q6h PRN, Tim Ernst MD, 650 mg at 02/12/24 0310 amLODIPine (Norvasc) tablet 10 mg, 10 mg, oral, Daily, Adeline Arellano MD, 10 mg at 02/14/24 1010 cefTRIAXone (Rocephin) IVPB 2 g in NS 50 mL (Mini-Bag Plus), 2 g, intravenous, q24h, Osmar Richter DO, Stopped at 10/08/24 1214 glucose chewable tablet 24 g, 24 g, oral, q15 min PRN OR dextrose 50 % in water (D50W) syringe 25 g, 25 g, intravenous, q15 min PRN, Tim Ernst MD enoxaparin (Lovenox) syringe 40 mg, 40 mg, subcutaneous, q24h KRISTEN, Adeline Arellano MD, 40 mg at 02/14/24 1019 hydroCHLOROthiazide (HYDRODiuril) tablet 25 mg, 25 mg, oral, Daily, Adeline Arellano MD, 25 mg at 02/14/24 1010 HYDROmorphone (Dilaudid) injection 0.5 mg, 0.5 mg, intravenous, q6h PRN, Tim Ernst MD, 0.5 mg at 02/14/24 1628 insulin glargine (Lantus) injection vial 10 Units, 10 Units, subcutaneous, Nightly, Adeline Arellano MD, 10 Units at 02/13/24 2117 insulin lispro (HumaLOG) injection 0-10 Units, 0-10 Units, subcutaneous, q6h KRISTEN, Tim Ernst MD, 6 Units at 02/14/24 1328 levothyroxine (Synthroid, Levoxyl) tablet 100 mcg, 100 mcg, oral, Daily, Adeline Arellano MD, 100 mcg at 02/14/24 0608 loperamide (Imodium) capsule 2 mg, 2 mg, oral, TID PRN, Radha Kc MD, 2 mg at 02/14/24 0525 metoprolol succinate XL (Toprol-XL) 24 hr tablet 25 mg, 25 mg, oral, Daily, Adeline Arellano MD, 25 mg at 02/14/24 1010 metroNIDAZOLE in NaCl (iso-os) (Flagyl) IVPB 500 mg, 500 mg, intravenous, q12h, Osmar Richter DO, Stopped at 02/14/24 1126 nicotine (Nicoderm CQ) 14 mg/24 hr patch 1 patch, 1 patch, transdermal, Daily, Tim Ernst MD, 1 patch at 02/12/24 0618 oxyCODONE (Roxicodone) immediate release tablet 5 mg, 5 mg, oral, q6h PRN OR oxyCODONE (Roxicodone) immediate release tablet 10 mg, 10 mg, oral, q6h PRN, Tim Ernst MD rosuvastatin (Crestor) tablet 10 mg, 10 mg, oral, Nightly, Adeline Arellano MD, 10 mg at 02/13/24 2117 valsartan (Diovan) tablet 320 mg, 320 mg, oral, Daily, Adeline Arellano MD, 320 mg at 02/14/24 1010 Social History Socioeconomic History Marital status: Spouse name: Not on file Number of children: Not on file Years of education: Not on file Highest education level: Not on file Occupational History Not on file Tobacco Use Smoking status: Every Day Packs/day: 1 Types: Cigarettes Smokeless tobacco: Never Vaping Use Vaping Use: Never used Substance and Sexual Activity Alcohol use: Yes Alcohol/week: 5.0 standard drinks of alcohol Types: 5 Standard drinks or equivalent per week Drug use: Never Sexual activity: Not on file Other Topics Concern Not on file Social History Narrative Not on file Social Determinants of Health Financial Resource Strain: Low Risk (02/12/2024) Overall Financial Resource Strain (CARDIA) Difficulty of Paying Living Expenses: Not hard at all Food Insecurity: No Food Insecurity (02/12/2024) Hunger Vital Sign Worried About Running Out of Food in the Last Year: Never true Ran Out of Jerica (more content not included)... 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 Reason Follow up;Information Patient Information Primary Caregiver Self Activities of Daily Living Assistive Device Not applicable Living Arrangement (Current/Prior to Hospitalization) Private residence (with ) Ambulation Independent Dressing Independent Feeding Independent Behavior Oriented Communication Talks;Understands speaking;Understands [place] Discharge Planning Support Systems Spouse/significant other Type of Residence Private residence;[facility] Patient's goal for discharge Home with [facility] Does the patient need discharge transport arranged? No () Screened by [facility]. Met with pt to follow up with [facility] referral and unable to learn dressing changes. Explained to pt someone needs to be teachable, nursing does not come to home daily for dressing changes. Phoned pt's to discuss ability to learn dressings, left message, awaiting call back. Sending referral to [facility], pt has no agency preference. [facility] denied due to staff shortage. Sent referrals to [facility], [facility] and [facility]. Await replies. Met with and daughter at bedside to discuss or someone needs to be taught dressing changes. is agreeable although she stated she is uncomfortable doing dressings. Per hospitalist meeting DC plan tomorrow. [facility] accepted pt. Await reply for contact phone number for pt's AVS. [facility] 02-14-2024 Note Hospital Medicine Daily Progress Note - 02/14/2024 11:56 AM; Room: [address] [place] [address] Admission: 02/11/2024 10:46 PM; Length of stay: 2 days THE HOSPITALIST TEAM PREFERS TO USE [facility] CHAT FOR NON-URGENT COMMUNICATION 7AM-7PM. IF I DO NOT RESPOND WITHIN 20 MINUTES OR URGENT MATTERS, PLEASE CALL THROUGH THE CHARHOUSE WORKER. FROM 7PM-7AM, PLEASE PAGE [phone](COVR). Code Status: Full Code Barriers to Discharge: Pending clinical improvement. Urology will probe of I&D today Expected Discharge Date: Discharge Destination: home Overview Patient is seen for evaluation and management of Scrotal abscess. Subjective Patient reports worsening pain in his groin area. No fever overnight. Denies urinary symptoms. Physical Exam Visit Vitals BP 125/81 Pulse 86 Temp 36.4 ???C (97.6 ???F) (Oral) Resp 16 Intake/Output Summary (Last 24 hours) at 02/14/2024 1156 Last data filed at 02/14/2024 1126 Gross per 24 hour Intake 1000 ml Output 675 ml Net 325 ml Physical Exam Cardiovascular: Rate and Rhythm: Normal rate and regular rhythm. Pulmonary: Effort: Pulmonary effort is normal. Breath sounds: Normal breath sounds. Abdominal: General: Abdomen is flat. Palpations: Abdomen is soft. Skin: Comments: Right scrotal tenderness and swelling Neurological: Mental Status: He is alert. Estimated body mass index is 35.94 kg/m??? as calculated from the following: Height as of this encounter: 1.981 m (6' 6 ). Weight as of this encounter: 141 kg (311 lb). Active Inpatient Problems Principal Problem: Abscess Assessment and Plan # Sepsis, POA: # Right scrotal abscess: - S/P debridement. Fluid cx is growing Streptococcus constellatus. - Continue ceftriaxone and Flagyl per ID. Discharge on Augmentin - Urology will probe of I&D today. - Wound care. # NIDDM with hyperglycemia, improving: - Not taking metformin and Trajenta. - Continue Lantus 10 U at night and cover with ISS while inpatient. - A1C: 8.8. - Discharge on metformin and Ozempic. # HypoMg, improving: - We will replace. # HTN: - Continue amlodipine, Toprol, valsartan and HCTZ. # Tobacco use: - Continue nicotine patch. # Hypothyroidism, on levothyroxine. # Morbid obesity BMI 36: - Discharge on metformin and Ozempic. - Encouraged lifestyle modification. Nutrition Screen: Malnutrition Attestation: No dietitian assessment is available at this time. VTE Prophylaxis: Lovenox Scheduled Meds amLODIPine, 10 mg, oral, Daily cefTRIAXone, 2 g, intravenous, q24h enoxaparin, 40 mg, subcutaneous, q24h KRISTEN hydroCHLOROthiazide, 25 mg, oral, Daily insulin glargine, 10 Units, subcutaneous, Nightly insulin lispro, 0-10 Units, subcutaneous, q6h KRISTEN levothyroxine, 100 mcg, oral, Daily lidocaine HCl, 20 mL, infiltration, Once metoprolol succinate XL, 25 mg, oral, Daily metroNIDAZOLE, 500 mg, intravenous, q12h morphine, 4 mg, intravenous, Once nicotine, 1 patch, transdermal, Daily rosuvastatin, 10 mg, oral, Nightly valsartan, 320 mg, oral, Daily Pertinent Investigations Hematology: Results from last 7 days Lab Units 02/14/2441702/13/24 0339 WBC AUTO 10*3/uL 15.78* 20.55* HEMOGLOBIN g/dL 12.8* 13.1 HEMATOCRIT % 38.9* 39.0 MCV fL 92.2 90.3 PLATELETS AUTO 10*3/uL 186 182 Chemistry: Results from last 7 days Lab Units 02/14/2441702/13/2433802/12/24 0558 SODIUM mmol/L 133* 134* 132* POTASSIUM mmol/L 3.4* 3.6 3.7 CHLORIDE mmol/L 99 98 98 CO2 mmol/L 26 28 26 BUN mg/dL 18 20 27* CREATININE mg/dL 1.15 1.10 1.21 GLUCOSE mg/dL 175* 159* 288* MAGNESIUM mg/dL 1.8* 1.7* -- CALCIUM mg/dL 7.9* 8.1* 8.0* Results from last 7 days Lab Units 02/12/24 0558 AST U/L 8* ALT U/L 7 ALK PHOS U/L 67 BILIRUBIN TOTAL mg/dL 0.9 Results from last 7 days Lab Units 02/14/24 0548 02/13/24 2320 02/13/24 1853 02/13/24 1230 02/13/24 0555 02/13/24 0015 POCT GLUCOSE mg/dL 198* 177* 163* 262* 208* 227* Historical Values: (Includes values prior to this admission) Lab Results Component Value Date TSH 1.37 02/12/2024 No results found for: [id number] , IRON , TIBC , C3 , C4 , KIMBERLEE , CANCA , ASO , PSA , CEA , CA125 , CA199 , AFP , CA153 Imaging ECG 12 lead Sinus tachycardia Right axis deviation Borderline ECG Confirmed by Patricio Batista ([id number]) on 02/13/2024 3:26:48 AM Discharge Planning Expected Discharge Disposition: Home-Health Care [facility] (06) Signed Adeline Arellano MD [facility] Medicine 02/14/2024 11:56 AM [facility] 02-14-2024 Note .. Infectious Diseases - Inpatient daily Progress Note - Patient name: Jose Duggan Patient Today's Date and Time: 02/14/2024, 9:16 AM Admission Date: 02/11/2024 As the teaching physician, I have personally performed or re-performed the history of present illness, physical exam and medical decision-making activities of the encounter and verified the medical student's documentation. I made pertinent changes as necessary to ensure accurate documentation. There may be additional comments below. Additional Comments: Developed more induration in suprapubic area US shows a new developing abscess Asked urology to drain the suprapubic area - they probed the area and no pus came out Will continue with IV antibiotics, narrow down to ceftriaxone for the strep and flagyl for anaerobes given the polymicrobial Gram stain and no growth other than Strep constellatus Reviewed and approved by HITESH MCKEON on 02/14/24 at 10:41 PM. Assessment/Plan Impression: Right groin abscess s/p incision and drainage 02/10 with no evidence of Jose gangrene and very little gas on CT, no extension to deep tissues on imaging. Abscess culture grew many GPC in clusters and many GN bacilli on gram stain, but culture show far has only grown moderate growth Streptococcus constellatus. Patient developed new suprapubic tenderness and induration today that was not present previously. Diabetic, relatively poor control, A1c 8.8 - tighter control of glycemia is essential in resolution of this infection and preventing recurrence Recommendations: Disontinue IV vancomycin and IV Zosyn and start ceftriaxone and flagyl. Will follow culture till finalized Not ready to be discharged yet. Obtain ultrasound to determine if there is more to drain Coordinate home health for daily dressing changes at home - does not feel comfortable doing these dressings Once ready for discharge, if no additional organisms are isolated from the culture, Augmentin 875 BID would likely suffice for the [presumed anaerobes and the isolated Streps (will reconfirm antibiotic regimen upon culture results tomorrow morning) Advised smoking cessation Subjective Interval history: Cultures were obtained and are growing gram-positive cocci in clusters and gram-negative bacilli and blood cultures are also in progress. No suspicion of sepsis he did not have any sepsis criteria on admission. Today pt states pain is controlled, but he has suprapubic tenderness and pain with palpation. He has been afebrile WBC persistently elevated at 15.78 but the low grade fever present on admission has resolved. Has been on vancomycin zosyn empirically, clindamycin given for reduction in toxin production was stopped after 36h Objective Physical Examination: BP 129/78 Pulse 102 Temp 36.7 ???C (98 ???F) (Oral) Resp 16 Ht 1.981 m (6' 6 ) Wt (!) 141 kg (311 lb) SpO2 94% BMI 35.94 kg/m??? Temperature Range: Temp: 36.7 ???C (98 ???F) Temp Av.7 ???C (98 ???F) Min: 36.5 ???C (97.7 ???F) Max: 36.7 ???C (98.1 ???F) General Appearance: Awake, alert, and in no apparent distress, nontoxic Eyes: Sclera anicteric; conjunctivae clear ENT: Oropharynx clear, without erythema, exudate, no thrush. Dentition Good dentition Neck: Supple, without lymphadenopathy. Pulmonary/Chest: clear to auscultation, no wheezes or rales, and unlabored breathing Cardiovascular: Regular rate and rhythm without murmurs Abdomen: soft, non-tender, nondistended, no palpable masses no organomegaly; normal bowel sounds Extremities: No cyanosis, edema, no joint effusions. Neurologic: Alert and oriented x 3, nonfocal. strength and sensation grossly normal Skin: No rash no lesions. No pallor. Suprapubic skin is erythematous and indurated with pain on palpation. Laboratory data: I have independently reviewed the following labs: Results from last 7 days Lab Units 02/14/2441702/13/2433802/12/24 0559 02/11/24 2343 WBC AUTO 10*3/uL 15.78* 20.55* 21.94* 19.59* HEMOGLOBIN g/dL 12.8* 13.1 14.0 14.8 HEMATOCRIT % 38.9* 39.0 42.2 43.4 MCV fL 92.2 90.3 91.9 88.8 PLATELETS AUTO 10*3/uL 186 182 201 199 NEUTROS ABS 10*3/uL -- -- 17.6* 14.8* EOS ABS MAN 10*3/uL -- -- 0.09 0.08 BASOS ABS MAN 10*3/uL -- -- 0.07 0.06 Results from last 7 days Lab Units 02/14/2441702/13/249 02/12/24 0558 POTASSIUM mmol/L 3.4* 3.6 3.7 CHLORIDE mmol/L 99 98 98 CO2 mmol/L 26 28 26 BUN mg/dL 18 20 27* CREATININE mg/dL 1.15 1.10 1.21 GLUCOSE mg/dL 175* 159* 288* CALCIUM mg/dL 7.9* 8.1* 8.0* ALK PHOS U/L -- -- 67 ALT U/L -- -- 7 AST U/L -- -- 8* Results from last 7 days Lab Units 02/13/24 0339 HEMOGLOBIN A1C % 8.8* No lab exists for component: TURBIDITY , SPECIFICGRA , PHURINE , LEUKOCYTE , PROTEIN , BLOODHGB , RBCELLS , RENALEPITH No lab exists for component: TOXIGENICC Imaging Studies: I have reviewed caridad (more content not included)... [facility] 02-14-2024 Note Attestation signed by Satish Paulino MD at 02/14/2024 12:25 PM By using the attestations below, the signing clinician agrees that I have read and verify that the documentation has been personally reviewed by me and ensure that the documentation accurately reflects the encounter. GC: I participated in the management and confirm the resident's documentation. Please note there may be an additional personal documentation from me. Urology Daily Progress Note HISTORY OF PRESENT ILLNESS: The patient is a 54 y.o. male who presents with scrotal abscess s/p I&D bedside on 02/12/24 NAOE AF/VSS Tolerating diet Pain controlled Packing daily Physical Exam: This a 54 y.o. patient Patient Vitals for the past 24 hrs: BP Temp Temp src Pulse Resp SpO2 Weight 02/14/24 0601 -- -- -- -- -- -- (!) 141 kg (311 lb) 02/14/24 0534 129/78 -- -- 102 -- 94 % -- 02/14/24 0005 128/81 36.7 ???C (98 ???F) Oral 100 -- 97 % -- 02/13/24 1601 107/75 36.7 ???C (98.1 ???F) Oral 97 16 93 % -- 02/13/24 1536 119/75 36.7 ???C (98.1 ???F) Oral 101 16 97 % -- 02/13/24 1141 113/70 36.5 ???C (97.7 ???F) Oral 98 16 95 % -- 02/13/24 0800 -- 36.6 ???C (97.9 ???F) Oral -- -- -- -- Constitutional: Patient in no acute distress; Neuro: alert and oriented to person place and time. Psych: Mood and affect normal. Skin: Normal Lungs: Respiratory effort normal Cardiovascular: Normal peripheral pulses Abdomen: Soft, non-tender, non-distended with no CVA, flank pain Penis normal and uncircumcised Urethral meatus normal Scrotal exam: Normal left hemiscrotum, right scrotal incision draining well/packing in place. No signs of skin necrosis. No crepitus on exam LABS: Results from last 7 days Lab Units 02/14/24 0418 02/13/24 0339 02/12/24 0559 WBC AUTO 10*3/uL 15.78* 20.55* 21.94* HEMOGLOBIN g/dL 12.8* 13.1 14.0 HEMATOCRIT % 38.9* 39.0 42.2 PLATELETS AUTO 10*3/uL 186 182 201 Results from last 7 days Lab Units 02/14/24 0418 02/13/24 0339 02/12/24 0558 SODIUM mmol/L 133* 134* 132* POTASSIUM mmol/L 3.4* 3.6 3.7 CHLORIDE mmol/L 99 98 98 CO2 mmol/L 26 28 26 BUN mg/dL 18 20 27* CREATININE mg/dL 1.15 1.10 1.21 CALCIUM mg/dL 7.9* 8.1* 8.0* No results found for: PSA Assessment and Plan Impression: Scrotal abscess - right hemiscrotum status post bedside I&D. Abscess cavity copiously irrigated and packed with iodoform packing strips. Type 2 diabetes Plan: Wound packed with 1/2 inch iodoform packing strips Consult to wound care team for assistance with optimal packing and frequency for dressing changes Until seen by wound care team, patient will require daily dressing change with 1/2 inch iodoform packing strips Increased tenderness in Right inguinal region. We will need to probe cranial portion of I&D to ensure all fluid collections have been broken up At this time, no need for additional debridement in the operating room we will continue to keep a close eye on patient's scrotum and clinical status. If there is concern that infection is still present or signs of necrosis, we will have to take the patient to the OR for additional debridement IV Zosyn and vancomycin Will consult infectious disease team to assist with optimal antibiotic management Anaerobic and aerobic wound cultures obtained, pending Blood cultures obtained, pending Tight blood sugar control Urology to follow very closely during admission Mario Young MD Urology Resident, PGY-2 [facility] 02-13-2024 Note Adult Nutrition Asse ssment: Name: Jose Duggan Date: 1970 Date of Visit: 02/13/24 Admission Dx: Abscess [L02.91] Reason for assessment: high risk Information obtained from: patient, family, and medical record Past Medical History: Diagnosis Date Diabetes mellitus ([facility]) Current Medications: amLODIPine, 10 mg, oral, Daily enoxaparin, 40 mg, subcutaneous, q24h KRISTEN hydroCHLOROthiazide, 25 mg, oral, Daily insulin glargine, 10 Units, subcutaneous, Nightly insulin lispro, 0-10 Units, subcutaneous, q6h KRISTEN levothyroxine, 100 mcg, oral, Daily magnesium oxide, 400 mg, oral, q8h metoprolol succinate XL, 25 mg, oral, Daily nicotine, 1 patch, transdermal, Daily piperacillin-tazobactam, 4.5 g, intravenous, q8h rosuvastatin, 10 mg, oral, Nightly valsartan, 320 mg, oral, Daily vancomycin, 1.5 g, intravenous, q12h Labs: 0 Lab Value Date/Time POCGLU 262 (H) 02/13/2024 1230 BUN 20 02/13/2024 0339 CREATININE 1.10 02/13/2024 0339 NA 134 (L) 02/13/2024 0339 K 3.6 02/13/2024 0339 MG 1.7 (L) 02/13/2024 033 HGBA1C 8.8 (H) 02/13/2024 033 HGB 13.1 02/13/2024338 WBC 20.55 (H) 02/13/2024338 Other Pertinent Labs: POC glucose 182-327 I/O: Intake/Output Summary (Last 24 hours) at 02/13/2024 1342 Last data filed at 02/13/2024 0739 Gross per 24 hour Intake 1100 ml Output 1350 ml Net -250 ml Allergies: Allergies Allergen Reactions Januvia [Sitagliptin] Diarrhea Jardiance [Empagliflozin] Other Pt states causes yeast infection Tradjenta [Linagliptin] Other Pt states caused abscess Nutrition Problems: Appetite: good Skin: Scrotal abscess s/p I&D Other factors: blood sugars uncontrolled Nutrition Data/Clinical Indicators of Nutrition Status: Height: 198.1 cm (6' 6 ) Weight: (!) 141 kg (311 lb 12.8 oz) BMI (Calculated): 36.04 Wt change: 133kg 06/29/23 Wt Readings from Last 10 Encounters: 02/13/24 (!) 141 kg (311 lb 12.8 oz) IBW: 97.3kg Nutrition Assessment: Nutrition history: The patient was seen today for high nutrition risk assessment due to scrotal wound. He reports having a good appetite and ate 100% of his breakfast. At home, he follows a regular diet but tries to limit his sugar intake. Includes protein sources with most meals. Diet recall: B: Eggs or cereal L: Packs leftover from dinner D: Meat, vegetables, potato or rice Snacks on sugar free candy or low sugar snacks Drinks diet [place]. Dietary Orders (From admission, onward) Start Ordered 02/13/24 1040 Regular Diet HF/Cirrhosis/CKD/ESRD(2gm NA); Diabetic Male (carb 60g/meal) Diet effective now Question Answer Comment Room Service? Yes Sodium restriction: HF/Cirrhosis/CKD/ESRD(2gm NA) Carbohydrate restriction: Diabetic Male (carb 60g/meal) 02/13/24 1039 Meal Intakes: 75-100% Nutrition Risk: Moderate Nutrition Needs: Needs based on: ideal body weight 97.3kg Calorie needs: 4767-8508 kcals/day based on Equation: 25-30 kcal/kg Protein needs: 117-146 g/day based on 1.2-1.5g/kg Fluid needs: 2919 ml/day based on 30 ml/kg Malnutrition Assessment: Patient does not meet the clinical characteristics per the Academy of Nutrition and Dietetics, and the [place] Society of Enteral and Parenteral Nutrition to support the diagnosis of malnutrition Nutrition Education: Diet literature: Simple carbohydrate counting handout. RD reviewed with family: Foods that contain carbohydrates Aiming for 60g CHO per meal 15-30g CHO with snacks Sugar free drinks Discussed the importance of good blood sugar control to promote wound healing. Expected compliance/patient understanding: Good Teach back method: Family familiar with following a diabetic diet. Time spent: 15 minutes Treatment Plan: Diet: Diabetic diet, include a protein source with meals. Check A1C Recommend good blood sugar control to promote wound healing. Provided DM diet education. Monitor PO intakes Bi weekly weight Goals: Nutrition Goals: intake > 75% meals, improve glucose control, and wound healing Contact the dietitian via [place]-the [employer] chat [phone] Tuesday through Tuesday or call extension [phone]. For s & holidays, the dietitian can be reached via pager [phone] from [phone] Unable to respond to [employer] messages on Tuesday & . [facility] 02-13-2024 Note 02/13/24 1055 Admission Assessment Questions Verify insurance with patient Yes Do you understand medical disease or what brought you into the hospital? Yes Who is your current PCP? Anthony Kang MD Can I schedule a follow up appointment for you at the time of discharge? No Do you understand why you are taking your current medications? Yes Are you taking your medications as prescribed? Yes Did patient provide teach back? Yes Pharmacy Bedside Delivery Status Not Interested Does the patient have a bottle caser assigned to them through their insurance? No Living Arrangement (Current/Prior to Hospitalization) Private residence (lives with ) Does the patient have history of HHC or SNF? No (may need HHC for scrotal wound care- wants to see if can perform wound care) Assistive Device Not applicable Patient's goal for discharge home Was patient reminded that goal for discharge is 11am? No Does the patient have transportation at discharge? Yes () Type of Residence Private residence Is PT/OT appropriate? No Is PT/OT ordered? No Is SW consult appropriate? No Is SW consult ordered? No Do you understand the benefits of MyChart? Yes Were you able to send link and activate MyChart? No (pending) 02/12 Admitted for abscess; initiated on IV abx, scrotal fluid cx pending. Awaiting wound care consult for right scrotal abscess s/p drainage (requires daily dressing change with 1/2 inch iodoform packing strips). May need HHC if unable to perform. Per ID IV dalbavancin to be given at the infusion center at [facility]. Scripts and Facesheet faxed to [facility] at [facility]; [facility] 02-13-2024 Note Hospital Medicine Daily Progress Note - 02/13/2024 10:34 AM; Room: [address] [place] [address] Admission: 02/11/2024 10:46 PM; Length of stay: 1 days THE HOSPITALIST TEAM PREFERS TO USE [employer] FOR NON-URGENT COMMUNICATION 7AM-7PM. IF I DO NOT RESPOND WITHIN 20 MINUTES OR URGENT MATTERS, PLEASE CALL THROUGH THE CHARHOUSE WORKER. FROM 7PM-7AM, PLEASE PAGE [phone](COVR). Code Status: Full Code Barriers to Discharge: Pending fluid cx and improvement in WBC Expected Discharge Date: Discharge Destination: home Overview Patient is seen for evaluation and management of Scrotal abscess. Subjective Patient reports some improvement in his scrotal pain and swelling. No fever overnight. Denies urinary symptoms. Physical Exam Visit Vitals BP 116/75 (BP Location: Right arm, Patient Position: Lying) Pulse 94 Temp 36.6 ???C (97.9 ???F) (Oral) Resp 15 Intake/Output Summary (Last 24 hours) at 02/13/2024 1034 Last data filed at 02/13/2024 0739 Gross per 24 hour Intake 1100 ml Output 1850 ml Net -750 ml Physical Exam Cardiovascular: Rate and Rhythm: Normal rate and regular rhythm. Pulmonary: Effort: Pulmonary effort is normal. Breath sounds: Normal breath sounds. Abdominal: General: Abdomen is flat. Palpations: Abdomen is soft. Skin: Comments: Right scrotal tenderness and swelling Neurological: Mental Status: He is alert. Estimated body mass index is 36.03 kg/m??? as calculated from the following: Height as of this encounter: 1.981 m (6' 6 ). Weight as of this encounter: 141 kg (311 lb 12.8 oz). Active Inpatient Problems Principal Problem: Abscess Assessment and Plan # Sepsis, POA: # Right scrotal abscess: - S/P debridement. Follow up fluid cx. - Continue vanco and Zosyn for now. - Wound care. # NIDDM with hyperglycemia: - Start Lantus 10 U at night and cover with ISS while inpatient. - Check A1C. # HypoMg: - We will replace. # HTN: - Continue amlodipine, Toprol, valsartan and HCTZ. # Tobacco use: - Continue nicotine patch. # Hypothyroidism, on levothyroxine. # Morbid obesity BMI 36. Nutrition Screen: Malnutrition Attestation: No dietitian assessment is available at this time. VTE Prophylaxis: Lovenox Scheduled Meds amLODIPine, 10 mg, oral, Daily enoxaparin, 40 mg, subcutaneous, q24h KRISTEN hydroCHLOROthiazide, 25 mg, oral, Daily insulin lispro, 0-10 Units, subcutaneous, q6h KRISTEN levothyroxine, 100 mcg, oral, Daily metoprolol succinate XL, 25 mg, oral, Daily nicotine, 1 patch, transdermal, Daily piperacillin-tazobactam, 4.5 g, intravenous, q8h rosuvastatin, 10 mg, oral, Nightly valsartan, 320 mg, oral, Daily vancomycin, 1.5 g, intravenous, q12h Pertinent Investigations Hematology: Results from last 7 days Lab Units 02/13/24 0339 02/12/24 0559 WBC AUTO 10*3/uL 20.55* 21.94* HEMOGLOBIN g/dL 13.1 14.0 HEMATOCRIT % 39.0 42.2 MCV fL 90.3 91.9 PLATELETS AUTO 10*3/uL 182 201 Chemistry: Results from last 7 days Lab Units 02/13/24 0339 02/12/24 0558 02/11/24 2343 SODIUM mmol/L 134* 132* 136 POTASSIUM mmol/L 3.6 3.7 3.8 CHLORIDE mmol/L 98 98 98 CO2 mmol/L 28 26 30 BUN mg/dL 20 27* 25 CREATININE mg/dL 1.10 1.21 1.13 GLUCOSE mg/dL 159* 288* 172* MAGNESIUM mg/dL 1.7* -- -- CALCIUM mg/dL 8.1* 8.0* 8.6 Results from last 7 days Lab Units 02/12/24 0558 AST U/L 8* ALT U/L 7 ALK PHOS U/L 67 BILIRUBIN TOTAL mg/dL 0.9 Results from last 7 days Lab Units 02/13/24 0555 02/13/24 0015 02/12/24 1813 02/12/24 1128 02/12/24 0606 POCT GLUCOSE mg/dL 208* 227* 182* 327* 289* Historical Values: (Includes values prior to this admission) Lab Results Component Value Date TSH 1.37 02/12/2024 No results found for: [id number] , IRON , TIBC , C3 , C4 , KIMBERLEE , CANCA , ASO , PSA , CEA , CA125 , CA199 , AFP , CA153 Imaging ECG 12 lead Sinus tachycardia Right axis deviation Borderline ECG Confirmed by Patricio Batista ([id number]) on 02/13/2024 3:26:48 AM Discharge Planning Expected Discharge Disposition: Home or Self Care () Signed Adeline Arellano MD Hospital Medicine 02/13/2024 10:34 AM [facility] 02-13-2024 Note .. Infectious Diseases - Inpatient daily Progress Note - Patient name: Jose Duggan Patient Today's Date and Time: 02/13/2024, 10:16 AM Admission Date: 02/11/2024 As the teaching physician, I have personally performed or re-performed the history of present illness, physical exam and medical decision-making activities of the encounter and verified the medical student's documentation. I made pertinent changes as necessary to ensure accurate documentation. There may be additional comments below. Additional Comments: I edited the note below. Reviewed and approved by HITESH MCKEON on 02/13/24 at 9:34 PM. Assessment/Plan Impression: Right groin abscess s/p incision and drainage with no evidence of Jose gangrene and very little gas on CT, no extension to deep tissues on imaging. Gram stain polymicrobial, but culture grew only a viridans Strep for now. Blood cultures negative Smoker smoking cessation counseling given yesterday. Diabetic, relatively poor control, A1c 8.8 - tighter control of glycemia is essential in resolution of this infection and preventing recurrence Recommendations: Continue IV vancomycin and IV Zosyn for now. Coordinate home health for daily dressing changes at home - does not feel comfortable doing these dressings Once ready for discharge, if no additional organisms are isolated from the culture, Augmentin 875 BID would likely suffice for the [presumed anaerobes and the isolated Streps (will reconfirm antibiotic regimen upon culture results tomorrow morning) Subjective Interval history: Cultures were obtained and are growing gram-positive cocci in clusters and gram-negative bacilli and blood cultures are also in progress. No suspicion of sepsis he did not have any sepsis criteria on admission. Today pt states pain is controlled, he has little if any drainage from the groin wound which is packed. He has been afebrile WBC persistently elevated at 20 but the low grade fever present on admission has resolved. Has been on vancomycin zosyn empirically, clindamycin given for reduction in toxin production was stopped after 36h Objective Physical Examination: BP 116/75 (BP Location: Right arm, Patient Position: Lying) Pulse 94 Temp 36.6 ???C (97.9 ???F) (Oral) Resp 15 Ht 1.981 m (6' 6 ) Wt (!) 141 kg (311 lb 12.8 oz) SpO2 94% BMI 36.03 kg/m??? Temperature Range: Temp: 36.6 ???C (97.9 ???F) Temp Av.7 ???C (98 ???F) Min: 36.6 ???C (97.9 ???F) Max: 36.8 ???C (98.2 ???F) General Appearance: Awake, alert, and in no apparent distress, nontoxic. Obese BMI 36 Pulmonary/Chest: clear to auscultation, no wheezes or rales, and unlabored breathing Cardiovascular: Regular rate and rhythm without murmurs. No fluid overload. Abdomen: soft, non-tender, nondistended, no palpable masses no organomegaly; normal bowel sounds Extremities: No cyanosis, edema, no joint effusions. Neurologic: Alert and oriented x 3, Skin: No rash no lesions. no pallor. Clean groin incision shows no purulence or surrounding erythema in the scrotal area; area distillery manager with no fluctuation. Minimal blood on gauze. Laboratory data: I have independently reviewed the following labs: Results from last 7 days Lab Units 02/13/24 0339 02/12/24 0559 02/11/24 2343 WBC AUTO 10*3/uL 20.55* 21.94* 19.59* HEMOGLOBIN g/dL 13.1 14.0 14.8 HEMATOCRIT % 39.0 42.2 43.4 MCV fL 90.3 91.9 88.8 PLATELETS AUTO 10*3/uL 182 201 199 NEUTROS ABS 10*3/uL -- 17.6* 14.8* EOS ABS MAN 10*3/uL -- 0.09 0.08 BASOS ABS MAN 10*3/uL -- 0.07 0.06 Results from last 7 days Lab Units 02/13/24 0339 02/12/24 0558 02/11/24 2343 POTASSIUM mmol/L 3.6 3.7 3.8 CHLORIDE mmol/L 98 98 98 CO2 mmol/L 28 26 30 BUN mg/dL 20 27* 25 CREATININE mg/dL 1.10 1.21 1.13 GLUCOSE mg/dL 159* 288* 172* CALCIUM mg/dL 8.1* 8.0* 8.6 ALK PHOS U/L -- 67 -- ALT U/L -- 7 -- AST U/L -- 8* -- Imaging Studies: I have reviewed myself the following imaging studies performed in the past 3 days: No X-ray results found for the past [address] results found for the past 3 days No MRI results found for the past 3 days Cultures: Results for orders placed or performed during the hospital encounter of 02/11/24 Abscess culture Specimen: Scrotum; Abscess Result Value Ref Range Culture Moderate Growth Streptococcus constellatus (A) Gram Stain Result Many Polymorphonuclear leukocytes Gram Stain Result Many Gram positive cocci in clusters Gram Stain Result Many Gram negative bacilli Blood culture, peripheral #2 Specimen: Blood, Venous Result Value Ref Range Blood Culture No growth at 18-24 hours Blood culture, peripheral #1 Specimen: Blood, Venous Result Value Ref Range Blood Culture No growth at 18-24 hours Medications: amLODIPine, 10 mg, oral, Daily enoxaparin, 40 mg, subcutaneous, q24h KRISTEN hydroCHLOROthiazide, 25 mg, oral, Daily insulin lispro, 0-10 (more content not included)... [facility] 02-13-2024 Note Attestation signed by Satish Paulino MD at 02/13/2024 10:45 AM By using the attestations below, the signing clinician agrees that I have read and verify that the documentation has been personally reviewed by me and ensure that the documentation accurately reflects the encounter. GC: I personally saw this patient on the day of the encounter, performed the diamond portion(s) of the service and participated in the management and confirm the resident's documentation. Please note there may be an additional personal documentation from me. Urology Daily Progress Note HISTORY OF PRESENT ILLNESS: The patient is a 54 y.o. male who presents with scrotal abscess s/p I&D bedside on 02/12/24 NAOE AF/VSS Tolerating diet Pain controlled Packing daily Physical Exam: This a 54 y.o. patient Patient Vitals for the past 24 hrs: BP Temp Temp src Pulse Resp SpO2 Weight 02/13/24 0521 -- -- -- -- -- -- (!) 141 kg (311 lb 12.8 oz) 02/13/24 0400 116/75 36.8 ???C (98.2 ???F) Temporal 94 15 94 % -- 02/13/24 0000 135/77 36.6 ???C (97.9 ???F) Temporal 91 18 (!) 88 % -- 02/12/242019 107/56 36.7 ???C (98.1 ???F) Temporal 92 19 93 % -- 02/12/24 1012 -- -- -- 103 -- -- -- 02/12/24 1007 141/84 -- -- 102 22 91 % -- 02/12/24 0800 141/83 -- -- 96 -- 96 % -- Constitutional: Patient in no acute distress; Neuro: alert and oriented to person place and time. Psych: Mood and affect normal. Skin: Normal Lungs: Respiratory effort normal Cardiovascular: Normal peripheral pulses Abdomen: Soft, non-tender, non-distended with no CVA, flank pain Penis normal and uncircumcised Urethral meatus normal Scrotal exam: Normal left hemiscrotum, right scrotal incision draining well/packing in place. No signs of skin necrosis. No crepitus on exam LABS: Results from last 7 days Lab Units 02/13/24 03302/12/24 0559 02/11/24 2343 WBC AUTO 10*3/uL 20.55* 21.94* 19.59* HEMOGLOBIN g/dL 13.1 14.0 14.8 HEMATOCRIT % 39.0 42.2 43.4 PLATELETS AUTO 10*3/uL 182 201 199 Results from last 7 days Lab Units 02/13/24 03302/12/24 0558 02/11/24 2343 SODIUM mmol/L 134* 132* 136 POTASSIUM mmol/L 3.6 3.7 3.8 CHLORIDE mmol/L 98 98 98 CO2 mmol/L 28 26 30 BUN mg/dL 20 27* 25 CREATININE mg/dL 1.10 1.21 1.13 CALCIUM mg/dL 8.1* 8.0* 8.6 No results found for: PSA Assessment and Plan Impression: Scrotal abscess - right hemiscrotum status post bedside I&D. Abscess cavity copiously irrigated and packed with iodoform packing strips. Type 2 diabetes Plan: Appreciate medicine admission Wound packed with 1/2 inch iodoform packing strips Consult to wound care team for assistance with optimal packing and frequency for dressing changes Until seen by wound care team, patient will require daily dressing change with 1/2 inch iodoform packing strips At this time, no need for additional debridement in the operating room we will continue to keep a close eye on patient's scrotum and clinical status. If there is concern that infection is still present or signs of necrosis, we will have to take the patient to the OR for additional debridement IV Zosyn and vancomycin Will consult infectious disease team to assist with optimal antibiotic management Anaerobic and aerobic wound cultures obtained, pending Blood cultures obtained, pending Tight blood sugar control Urology to follow very closely during admission Mario Young MD Urology Resident, PGY-2 [facility] 02-12-2024 Note Hospital Medicine History and Physical 02/12/2024 3:44 AM THE HOSPITALIST TEAM PREFERS TO USE [employer] FOR NON-URGENT COMMUNICATION 7AM-7PM. IF I DO NOT RESPOND WITHIN 20 MINUTES OR URGENT MATTERS, PLEASE CALL THROUGH THE CHARHOUSE WORKER. FROM 7PM-7AM, PLEASE PAGE [phone](COVR). Chief Complaint Chief Complaint Patient presents with Abscess History of Present Illness Jose Duggan is an 54 y.o. 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 Urology was consulted who did bedside I&D and wound cleansing and after I&D the drainage from the wound was sent for culture sensitivity. Patient has history of diabetes mellitus usually his blood sugars run around 140s but since past 2 days they have been up to 200. Patient denies any injury insect bite he has history of obesity hypothyroidism and hypertension. He had a PFT done at [facility] on 02/03/2024 which showed FEV1 FEC ratio of 79% FEV1 was 61% total lung capacity was 70% and DLCO of of 61%. His level of activity is up to 4 METS denies chest pain palpitation PND orthopnea he does have chronic cough productive of clear phlegm denies dyspnea at rest but does dyspnea on exertion Review of System and Physical Exam Temp: [37.2 ???C (98.9 ???F)-38.1 ???C (100.6 ???F)] 38.1 ???C (100.6 ???F) Heart Rate: [95-107] 107 Resp: [16-22] 22 BP: (115-146)/(66-94) 141/81 Physical Exam Vitals reviewed. Constitutional: Appearance: Normal appearance. He is obese. HENT: Head: Normocephalic and atraumatic. Right Ear: Tympanic membrane, ear canal and external ear normal. Left Ear: Tympanic membrane, ear canal and external ear normal. Nose: Nose normal. Mouth/Throat: Mouth: Mucous membranes are dry. Eyes: Extraocular Movements: Extraocular movements intact. Conjunctiva/sclera: Conjunctivae normal. Pupils: Pupils are equal, round, and reactive to light. Cardiovascular: Rate and Rhythm: Normal rate and regular rhythm. Pulses: Normal pulses. Heart sounds: Normal heart sounds. Pulmonary: Effort: Pulmonary effort is normal. Breath sounds: Normal breath sounds. Abdominal: General: Abdomen is flat. Bowel sounds are normal. Palpations: Abdomen is soft. Genitourinary: Comments: Status post right scrotal abscess post I&D with dressing Musculoskeletal: Cervical back: Normal range of motion and neck supple. Skin: General: Skin is warm and dry. Capillary Refill: Capillary refill takes 2 to 3 seconds. Neurological: General: No focal deficit present. Mental Status: He is alert and oriented to person, place, and time. Mental status is at baseline. Review of Systems Constitutional: Positive for activity change, chills, fatigue and fever. HENT: Negative. Eyes: Negative. Respiratory: Negative. Cardiovascular: Negative. Gastrointestinal: Negative. Endocrine: Negative. Genitourinary: Abscess right side scrotum status post I&D Musculoskeletal: Negative. Allergic/Immunologic: Negative. Neurological: Negative. Hematological: Negative. Psychiatric/Behavioral: Negative. 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 for possible further interventional treatment will follow-up with urology wound care patient did spike temperature blood cultures were drawn Diabetes blood sugar check every 6 hours and coverage with sliding scale Hypertension will add IV metoprolol continue telemetry patient with Mallampati score of 2 suspect has underlying obstructive sleep apnea so watch for nocturnal hypoxia Tobacco dependence nicotine replacement Will hold heparin for DVT prophylaxis anticipated procedure will follow accordingly CODE STATUS full code VTE Prophylaxis: scd ----- Focus of this inpatient stay will remain on problems that need acute care setting for care. We will review available studies and will order additional labs, imaging and other studies as appropriate. As needed medicines are ordered as appropriate. VTE Prophylaxis will be ordered as appropriate. Please see abo (more content not included)... [facility] 02-12-2024 Note Pharmacy Dosing Serv ice - Vancomycin Initial Consult Note Pharmacy has been consulted for the dosing and evaluation of Drug: Vancomycin Indication: complicated skin and soft tissue infection AUC 400-600 mg*hr/L and trough 10-20 mcg/mL Other Antimicrobial Regimens: zosyn Labs and Renal Function Total body weight: 128 kg (283 lb) [place] body weight: 91.4 kg (201 lb 8 oz) Adjusted ideal body weight: 106 kg (234 lb 1.6 oz) Body mass index is 32.7 kg/m???. Lab Results Component Value Date WBC 19.59 (H) 02/11/2024 Lab Results Component Value Date BUN 25 02/11/2024 CREATININE 1.13 02/11/2024 CrCl or renal function: capped at 90 ml/min due to age I/O: No intake/output data recorded. Estimated Pharmacokinetic Parameters: Weight used to calculate CrCl and Ke: adjusted body weight (due to obesity) Pharmacokinetic Parameters: Vd: 83 L Ke: 0.079 hr -1 T1/2: 8.8 hr Microbiology: -BCX 02/11 pending -MRSA Nares ordered? No Assessment / Comments: - 54 yom was transferred from [facility] due to concerns for abscess to the right scrotum region. CT there showed 5 cm fluid collection. At [place], pt received vancomycin 2g loading dose at 1700 on 02/10, along with clindamycin and zosyn 3.375g -Currently hemodynamically stable, WBC is elevated ~20, fever of 100.6 -Current risk factors for nephrotoxicity: None -Comments on renal function / baseline serum creatinine: at baseline Cr 1.13 -Recent vancomycin history: No Plan: -Start vancomycin 1500 mg every 12 hours for a predicted AUC of 455.8 mg*hr/L and trough of 13 mcg/mL -Plan to check serum peak and trough levels at steady state -Check BUN/SCr daily -Pharmacy will follow up daily on culture and sensitivity results and renal function -Please do not hesitate to contact us with comments or questions Thank you, Gabrielle Sorensen, PharmD, 02/12/24 [facility] 02-12-2024 Note Attestation signed by Satish Paulino MD at 02/12/2024 10:20 PM By using the attestations below, the signing clinician agrees that I have read and verify that the documentation has been personally reviewed by me and ensure that the documentation accurately reflects the encounter. GC: I personally saw this patient on the day of the encounter, performed the diamond portion(s) of the service and participated in the management and confirm the resident's documentation. Please note there may be an additional personal documentation from me. Procedure Attestation Level of Attending Supervision for Procedure I was not present but assume all responsibility for the procedure. NOT BILLABLE. Procedure note Date: 02/12/2024 Patient: Jose Duggan Procedure: Bedside incision and drainage of scrotal abscess Packing of scrotal abscess cavity Indications for procedure: Patient is a 54-year-old male with presented with right scrotal swelling and found to have a right scrotal abscess. Due to this, we recommended bedside incision and drainage for evacuation of abscess. Risk, benefits, and alternatives were discussed with the patient. Verbal consent was obtained. Narrative of procedure: Patient was prepped and draped in standard sterile fashion. 20 cc of lidocaine 1% was injected superficially and deep within abscess cavity overlying the skin. An 11 blade was used to puncture the skin over the abscess cavity, and there was immediate release of foul-smelling purulent fluid. Anaerobic and aerobic culture swabs were obtained and sent for analysis. The incision was extended superiorly and inferiorly and additional pus was evacuated. Hemostat was inserted in the abscess cavity to break up any loculations. Abscess cavity was copiously irrigated with normal saline. Abscess cavity was examined digitally with finger and there was no additional tracking of the cavity superiorly or inferiorly, abscess cavity could be felt in its entirety. No additional loculations were identified. Cavity was once again irrigated copiously with normal saline. Cavity was then packed with 1/2 inch iodoform packing strips andthe patient was placed with mesh panties. Patient tolerated the procedure well. Dr. Paulino was not present but was immediately available for assistance. Plan: Admit patient to hospital for close observation Monty Boyd MD Urology Resident, PGY-3 [facility] 02-11-2024 Note HPI No chief complaint on file. Initial evaluation completed by Dr. Obrien at 10:50. Jose Duggan is a 54 y/o male presenting to the ED with c/o jose gangrene. The patient was transferred from [facility] ( was the primary) and accepted by urology. He was given a broad spectrum of fluids and antibiotics. History provided by: Patient Abscess Alexei Coma Scale Score: 15 Patient History No past medical history on file. No past surgical history on file. No family history on file. Social History Tobacco Use Smoking status: Not on file Smokeless tobacco: Not on file Substance Use Topics Alcohol use: Not on file Drug use: Not on file Review of Systems Review of Systems Skin: Positive for Abscess Physical Exam ED Triage Vitals Temp Pulse Resp BP -- -- -- -- SpO2 Temp src Heart Rate Source Patient Position -- -- -- -- BP Location FiO2 (%) -- -- Physical Exam Vitals and nursing note reviewed. Exam conducted with a mushroom farmer present. Constitutional: General: He is not in acute distress. Appearance: He is well-developed. HENT: Head: Normocephalic and atraumatic. Eyes: Conjunctiva/sclera: Conjunctivae normal. Pupils: Pupils are equal, round, and reactive to light. Cardiovascular: Rate and Rhythm: Normal rate and regular rhythm. Pulses: Normal pulses. Heart sounds: Normal heart sounds. No murmur heard. Pulmonary: Effort: Pulmonary effort is normal. No respiratory distress. Breath sounds: Normal breath sounds. Abdominal: Palpations: Abdomen is soft. Tenderness: There is no abdominal tenderness. Genitourinary: Comments: Fluctuance in the right scrotal sac, concern for jose gangrene Musculoskeletal: General: No swelling. Normal range of motion. Cervical back: Normal range of motion and neck supple. Skin: General: Skin is warm and dry. Capillary Refill: Capillary refill takes less than 2 seconds. Neurological: General: No focal deficit present. Mental Status: He is alert and oriented to person, place, and time. Procedures ED Course & MDM ED Course as of 02/12/241634 Sun Feb 12, 2024 0216 Urology has seen patient they report they will contact medicine for admission. [RH] 0322 Urology reports spoke to hospitalist who will admit. [RH] 0323 Hospitalist here to see patient [RH] ED Course User Index [RH] Beth Pulliam MD Diagnoses as of 02/12/241634 Abscess Medical Decision Making I, Dena stone, documented on behalf of Dr. Obrien. Chief complaint Abscess Differential Diagnosis includes but is not limited to Jose Gangrene. Plan of Care: Lactic acid with 4 hour reflex, basic metabolic panel, CBC and differential, Zosyn IVPB 4.5g in 100 mL NS Mini-Bag Plus Attestation: Provider Statement DEA: Provider Statement 2nd Scribe. By electronically signing this emergency patient record, the Emergency Physician/PAINT SPECIALIST/PA-C attests that all entries made into the electronic medical record by the scribe prior to the Physician/PAINT SPECIALIST/PA-C signature reflect an accurate accounting of the evaluation and care rendered by that Emergency Physician/PAINT SPECIALIST/PA-C. The Emergency Physician/PAINT SPECIALIST/PA-C assumes full responsibility for those entries. The Emergency Physician/PAINT SPECIALIST/PA-C also attests that any patient testing or treatment that was instituted by nursing staff. Calli Obrien, 02/12/24 163 [facility] 01-31-2024 History of Present illness Narrative Images from the original note were not included. HPI Results Additional comments: Stress test results Last edited by Cynthia Salguero LPN on 01/31/2024 10:02 AM. Subjective Patient ID: Jose Duggan is a 54 y.o. male who presents for Results (Stress test results) and Cough. Pt states no productive cough continuing Cough This is a chronic problem. The current episode started more than 1 month ago. The problem has been unchanged. The problem occurs hourly. The cough is Non-productive. Associated symptoms include chest pain. Pertinent negatives include no fever. Nothing aggravates the symptoms. He has tried prescription cough suppressant for the symptoms. The treatment provided mild relief. Diabetes He presents for his follow-up diabetic visit. He has type 2 diabetes mellitus. His disease course has been improving. There are no hypoglycemic associated symptoms. Associated symptoms include chest pain. There are no hypoglycemic complications. Symptoms are improving. There are no diabetic complications. Risk factors for coronary artery disease include diabetes mellitus, dyslipidemia, male sex, obesity and sedentary lifestyle. Current diabetic treatment includes oral agent (dual therapy). He is compliant with treatment most of the time. He is following a generally healthy diet. Meal planning includes avoidance of concentrated sweets. He has not had a previous visit with a dietitian. He does not see a custom bow maker.Eye exam is current. Current Outpatient Medications on File Prior to Visit Medication Sig Dispense Refill amLODIPine (Norvasc) 10 MG tablet Take 1 tablet (10 mg) by mouth 1 (one) time each day at the same time 100 tablet 3 finerenone (Kerendia) 10 MG tablet Take 1 tablet (10 mg) by mouth Daily 90 tablet 2 glucose blood (OneTouch Ultra) test strip TEST ONCE DAILY DIRECTED 100 strip 3 levothyroxine (Synthroid, Levoxyl) 100 MCG tablet Take 1 tablet (100 mcg) by mouth 1 (one) time each day at the same time 100 tablet 3 linaGLIPtin (Tradjenta) 5 MG tablet Take 1 tablet (5 mg) by mouth Daily 30 tablet 11 metFORMIN (Glucophage) 500 MG tablet Take 2 tablets (1,000 mg) by mouth in the morning. Take with breakfast. 200 tablet 3 metoprolol succinate XL (Toprol-XL) 25 MG 24 hr tablet TAKE 1 TABLET BY MOUTH IN THE MORNING *DO NOT CRUSH OR CHEW* 90 tablet 1 rosuvastatin (Crestor) 10 MG tablet TAKE 1 TABLET BY MOUTH EVERY DAY 100 tablet 3 valsartan-hydroCHLOROthiazide (Diovan-HCT) 320-25 MG tablet TAKE 1 TABLET BY MOUTH EVERY DAY 100 tablet 3 tiZANidine (Zanaflex) 4 MG tablet Take 1 tablet (4 mg) by mouth every 8 (eight) hours if needed for muscle spasms for up to 7 days 21 tablet 0 No current facility-administered medications on file prior to visit. I have reviewed and reconciled the history and medication list with the patient today. Allergies Allergen Reactions Donald Inhibitors Other Reaction(s): cough Jardiance [Empagliflozin] Penile pain Social History Tobacco Use Smoking status: Every Day Current packs/day: 1.00 Types: Cigarettes Smokeless tobacco: Never Tobacco comments: 21-30 cigs/day Vaping Use Vaping status: Never Used Substance Use Topics Alcohol use: Yes Alcohol/week: 2.0 standard drinks of alcohol Types: 2 Standard drinks or equivalent per week Comment: Caffeine intake: 1-2 cups per day soda Drug use: Never Family History Problem Relation Name Age of Onset Stroke Father Past Medical History: Diagnosis Date Cardiac dysrhythmia Essential hypertension, benign (CMS/HCC) Influenza A 07/03/2018 Talus fracture 04/2019 Past Surgical History: Procedure Laterality Date FOOT SURGERY 2018 pins and skin grafts on right foot FOOT SURGERY Right 10/16/2019 Visit Vitals Ht 6' 4 BMI 34.45 kg/m Smoking Status Every Day BSA 2.62 m Review of Systems Constitutional: Negative for fever. Respiratory: Positive for cough. Cardiovascular: Positive for chest pain. Objective Physical Exam Vitals reviewed. Constitutional: Appearance: Normal appearance. HENT: Head: Normocephalic. Nose: Nose normal. Mouth/Throat: Mouth: Mucous membranes are moist. Pharynx: Oropharynx is clear. Cardiovascular: Rate and Rhythm: Normal rate and regular rhythm. Pulmonary: Effort: Pulmonary effort is normal. Breath sounds: Normal breath sounds. Comments: Grabbing chest on occasion. Skin: General: Skin is warm and dry. Neurological: General: No focal deficit present. Mental Status: He is alert and oriented to person, place, and time. Psychiatric: Mood and Affect: Mood normal. Behavior: Behavior normal. Assessment/Plan Diagnoses and all orders for this visit: Pulmonary nodules/lesions, multiple - Ambulatory referral to Pulmonology; Future - Pulmonary Function Test; Future Await referral. Pt has been off of work due to chest discomfort since December. Nodules have grown since 2016. Chest pain on breathing - Pulmonary Function Test; Future Pt to have pulmonary function test in preparation for his pulmonology appointment. He will have this done at [facility]. Acute cough - guaiFENesin-codeine (Robitussin-AC) 100-10 MG/5ML syrup; Take 10 mL by mouth every 6 (six) hours if needed for cough for up to [address] taking this medication[address] Do not operate heavy machinery while taking medication. You can also use warm liquids and cough drops/lozenges. Lymphadenopathy, inguinal - predniSONE (Deltasone) 10 MG tablet; Take 4 tablets (40 mg) by mouth Daily for 4 days, THEN 3 tablets (30 mg) Daily for 4 days, THEN 2 tablets (20 mg) Daily for 4 days, THEN 1 tablet (10 mg) Daily for 4 days. If area continues after the steroid when you will need to go for an ultrasound and possible biopsy. No follow-ups on file. documented in this encounter [facility] 01-10-2024 History of Present illness Narrative Images from the original note were not included. HPI Results Additional comments: Ct scan CP/cough Additional comments: Pt used cough med helped witth cough--pt used it all Last edited by Cynthia Salguero LPN on 01/10/2024 10:32 AM. Subjective Patient ID: Jose Duggan is a 53 y.o. male who presents for Diabetes, Results (Ct scan), Follow-up, and CP/cough (Pt used cough med helped witth cough--pt used it all). Jose is present today for follow up diabetes. Denies foot ulcers, hypoglycemia. Admits tingling/numbness in extremities. Does check BS's at home and on average rungs 150-160 Pt states cough med helped with the cough/CP Diabetes He presents for his follow-up diabetic visit. He has type 2 diabetes mellitus. His disease course has been improving. There are no hypoglycemic associated symptoms. Associated symptoms include chest pain. There are no hypoglycemic complications. Symptoms are improving. There are no diabetic complications. Risk factors for coronary artery disease include diabetes mellitus, dyslipidemia, male sex, obesity and sedentary lifestyle. Current diabetic treatment includes oral agent (dual therapy). He is compliant with treatment most of the time. He is following a generally healthy diet. Meal planning includes avoidance of concentrated sweets. He has not had a previous visit with a dietitian. He does not see a custom bow maker.Eye exam is current. Cough This is a chronic problem. The current episode started more than 1 month ago. The problem has been unchanged. The problem occurs hourly. The cough is Non-productive. Associated symptoms include chest pain. Pertinent negatives include no fever. Nothing aggravates the symptoms. He has tried prescription cough suppressant for the symptoms. The treatment provided mild relief. Current Outpatient Medications on File Prior to Visit Medication Sig Dispense Refill amLODIPine (Norvasc) 10 MG tablet Take 1 tablet (10 mg) by mouth 1 (one) time each day at the same time 100 tablet 3 finerenone (Kerendia) 10 MG tablet Take 1 tablet (10 mg) by mouth Daily 90 tablet 2 glucose blood ([place] Ultra) test strip TEST ONCE DAILY DIRECTED 100 strip 3 levothyroxine (Synthroid, Levoxyl) 100 MCG tablet Take 1 tablet (100 mcg) by mouth 1 (one) time each day at the same time 100 tablet 3 linaGLIPtin (Tradjenta) 5 MG tablet Take 1 tablet (5 mg) by mouth Daily 30 tablet 11 metFORMIN (Glucophage) 500 MG tablet Take 2 tablets (1,000 mg) by mouth in the morning. Take with breakfast. 200 tablet 3 metoprolol succinate XL (Toprol-XL) 25 MG 24 hr tablet TAKE 1 TABLET BY MOUTH IN THE MORNING *DO NOT CRUSH OR CHEW* 90 tablet 1 rosuvastatin (Crestor) 10 MG tablet TAKE 1 TABLET BY MOUTH EVERY DAY FOR 90 DAYS 100 tablet 3 valsartan-hydroCHLOROthiazide (Diovan-HCT) 320-25 MG tablet TAKE 1 TABLET BY MOUTH EVERY DAY 100 tablet 3 tiZANidine (Zanaflex) 4 MG tablet Take 1 tablet (4 mg) by mouth every 8 (eight) hours if needed for muscle spasms for up to 7 days 21 tablet 0 [DISCONTINUED] guaiFENesin-codeine (Robitussin-AC) 100-10 MG/5ML syrup Take 10 mL by mouth every 6 (six) hours if needed for cough for up to 10 days 240 mL 0 [DISCONTINUED] predniSONE (Deltasone) 10 MG tablet Take 4 tablets (40 mg) by mouth Daily for 4 days, THEN 3 tablets (30 mg) Daily for 4 days, THEN 2 tablets (20 mg) Daily for 4 days, THEN 1 tablet (10 mg) Daily for 4 days. 40 tablet 0 No current facility-administered medications on file prior to visit. I have reviewed and reconciled the history and medication list with the patient today. Allergies Allergen Reactions Donald Inhibitors Other Reaction(s): cough Jardiance [Empagliflozin] Penile pain Social History Tobacco Use Smoking status: Every Day Current packs/day: 1.00 Types: Cigarettes Smokeless tobacco: Never Tobacco comments: 21-30 cigs/day Vaping Use Vaping status: Never Used Substance Use Topics Alcohol use: Yes Alcohol/week: 2.0 standard drinks of alcohol Types: 2 Standard drinks or equivalent per week Comment: Caffeine intake: 1-2 cups per day soda Drug use: Never Family History Problem Relation Name Age of Onset Stroke Father Past Medical History: Diagnosis Date Cardiac dysrhythmia Essential hypertension, benign (CMS/HCC) Influenza A 07/03/2018 Talus fracture 04/2019 Past Surgical History: Procedure Laterality Date FOOT SURGERY 2018 pins and skin grafts on right foot FOOT SURGERY Right 10/16/2019 Visit Vitals Smoking Status Every Day Review of Systems Constitutional: Positive for activity change. Negative for fever. HENT: Negative. Eyes: Negative. Respiratory: Positive for cough. Cardiovascular: Positive for chest pain. Gastrointestinal: Negative. Genitourinary: Negative. Musculoskeletal: Negative. Skin: Negative. Neurological: Negative. Psychiatric/Behavioral: Negative. Endocrine: Negative. Objective Physical Exam Vitals reviewed. HENT: Head: Normocephalic. Mouth/Throat: Mouth: Mucous membranes are moist. Pharynx: Oropharynx is clear. Cardiovascular: Rate and Rhythm: Normal rate and regular rhythm. Heart sounds: Normal heart sounds. Pulmonary: Comments: Dry cough, rt upper chest tenderness Skin: General: Skin is warm and dry. Neurological: General: No focal deficit present. Mental Status: He is alert and oriented to person, place, and time. Psychiatric: Mood and Affect: Mood normal. Behavior: Behavior normal. Assessment/Plan Diagnoses and all orders for this visit: Coronary artery calcification seen on CAT scan ([facility]) - Stress test with myocardial perfusion; Future Stress test ordered due to heavy coronary calcification noted on CT scan. Will have pt do a stress test with perfusion. Type 2 diabetes mellitus without complication, without long-term current use of insulin ([facility]) - POCT Glycated hemoglobin, total We discussed today, the importance of proper diabetic control. We discussed possible complications of diabetes, including loss of vision, renal failure, increased risk of heart attacks and strokes, blood vessel and/or nerve damage. We discussed the recommended changes to reduce your blood sugars and minimize the risk of these complications. We discussed diabetic goals, including keeping A1C <7.0% and blood pressure < 130/70. The plan for achieving these goals is adherence to medications, diet, and regular activity as discussed during today's visit. We discussed current barriers to achieving these goals. We discussed dietary goals. We discussed calorie counting, as well as decreasing carbohydrate and simple sugar intake. Reviewed portion control with the patient. If the patient still has questions on this, a referral to a Dietitian can be arranged. I reviewed medications that aid in diabetic control. We discussed proper dosing and educated the patient on possible side effects and complications. The patient verbalized understanding of these instructions. Muscle spasm - tiZANidine (Zanaflex) 4 MG tablet; Take 1 tablet (4 mg) by mouth every 8 (eight) hours if needed for muscle spasms for up to 7 days Take tizanidine as ordered. Do not operate heavy machinery or drive while on medication as this medication can cause some drowsiness. Acute cough - guaiFENesin-codeine (Robitussin-AC) 100-10 MG/5ML syrup; Take 10 mL by mouth every 6 (six) hours if needed for cough for up to 10 days May use cough drops, warm liquids and prescription cough syrup. Do not take prescription cough syrup while driving or operating heavy machinery. A referral was discussed for pulmonary but you decided to have the coronary calcifications looked at and taken care of before seeing pulmonary. He has 2 nodules that have doubled in size. Will continue to monitor. No follow-ups on file. documented in this encounter [facility] 12-27-2023 History of Present illness Narrative Images from the original note were not included. Subjective Patient ID: Jose Duggan is a 53 y.o. male who presents for a follow up. Jose is in today for a follow up from last week. States he's feeling kind of better but still having pain in his chest, pain is constant. States he's still having some shortness of breath. Chest Pain This is a chronic problem. The current episode started more than 1 month ago. The onset quality is sudden. The problem occurs constantly. The problem has been unchanged. Pain location: Rt breast. The pain is at a severity of 10/10. The pain is severe. The quality of the pain is described as tearing. The pain does not radiate. Associated symptoms include a cough and shortness of breath. The cough has no precipitants. The cough is Non-productive and barking. There is no color change associated with the cough. Nothing relieves the cough. Nothing worsens the cough. The pain is aggravated by lifting, coughing and movement. He has tried analgesics for the symptoms. The treatment provided no relief. Risk factors include smoking/tobacco exposure, male gender and obesity. Current Outpatient Medications on File Prior to Visit Medication Sig Dispense Refill amLODIPine (Norvasc) 10 MG tablet Take 1 tablet (10 mg) by mouth 1 (one) time each day at the same time 100 tablet 3 finerenone (Kerendia) 10 MG tablet Take 1 tablet (10 mg) by mouth Daily 90 tablet 2 glucose blood (OneTouch Ultra) test strip TEST ONCE DAILY DIRECTED 100 strip 3 levothyroxine (Synthroid, Levoxyl) 100 MCG tablet Take 1 tablet (100 mcg) by mouth 1 (one) time each day at the same time 100 tablet 3 metFORMIN (Glucophage) 500 MG tablet Take 2 tablets (1,000 mg) by mouth in the morning. Take with breakfast. 200 tablet 3 metoprolol succinate XL (Toprol-XL) 25 MG 24 hr tablet TAKE 1 TABLET BY MOUTH IN THE MORNING *DO NOT CRUSH OR CHEW* 90 tablet 1 predniSONE (Deltasone) 10 MG tablet Take 4 tablets (40 mg) by mouth Daily for 4 days, THEN 3 tablets (30 mg) Daily for 4 days, THEN 2 tablets (20 mg) Daily for 4 days, THEN 1 tablet (10 mg) Daily for 4 days. 40 tablet 0 rosuvastatin (Crestor) 10 MG tablet TAKE 1 TABLET BY MOUTH EVERY DAY FOR 90 DAYS 100 tablet 3 tiZANidine (Zanaflex) 4 MG tablet Take 1 tablet (4 mg) by mouth every 8 (eight) hours if needed for muscle spasms for up to 7 days 21 tablet 0 traMADol (Ultram) 50 MG tablet Take 1 tablet (50 mg) by mouth every 6 (six) hours if needed for severe pain or moderate pain for up to 7 days 28 tablet 0 valsartan-hydroCHLOROthiazide (Diovan-HCT) 320-25 MG tablet TAKE 1 TABLET BY MOUTH EVERY DAY 100 tablet 3 No current facility-administered medications on file prior to visit. Allergies Allergen Reactions Donald Inhibitors Other Reaction(s): cough Jardiance [Empagliflozin] Penile pain Social History Tobacco Use Smoking status: Every Day Current packs/day: 1.00 Types: Cigarettes Smokeless tobacco: Never Tobacco comments: 21-30 cigs/day Vaping Use Vaping status: Never Used Substance Use Topics Alcohol use: Yes Alcohol/week: 2.0 standard drinks of alcohol Types: 2 Standard drinks or equivalent per week Comment: Caffeine intake: 1-2 cups per day soda Drug use: Never Family History Problem Relation Name Age of Onset Stroke Father Past Medical History: Diagnosis Date Cardiac dysrhythmia Essential hypertension, benign (CMS/HCC) Influenza A 07/03/2018 Talus fracture 04/2019 Past Surgical History: Procedure Laterality Date FOOT SURGERY 2018 pins and skin grafts on right foot FOOT SURGERY Right 10/16/2019 Visit Vitals Smoking Status Every Day Review of Systems Respiratory: Positive for cough and shortness of breath. Cardiovascular: Positive for chest pain. Objective Physical Exam Vitals reviewed. Constitutional: Appearance: Normal appearance. HENT: Head: Normocephalic. Mouth/Throat: Pharynx: Oropharynx is clear. Cardiovascular: Rate and Rhythm: Normal rate and regular rhythm. Pulmonary: Effort: Pulmonary effort is normal. Breath sounds: Normal breath sounds. Chest: Chest wall: Tenderness present. Skin: General: Skin is warm and dry. Neurological: General: No focal deficit present. Mental Status: He is alert and oriented to person, place, and time. Psychiatric: Mood and Affect: Mood normal. Behavior: Behavior normal. Assessment/Plan Diagnoses and all orders for this visit: Chest pain, unspecified type - CT chest wo IV contrast; Future Await results of CT scan. Acute cough - CT chest wo IV contrast; Future - guaiFENesin-codeine (Robitussin-AC) 100-10 MG/5ML syrup; Take 10 mL by mouth every 6 (six) hours if needed for cough for up to 10 days Drink warm drinks, use cough drops, and throat lozenges. Cough syrup is best to be used when you are not doing anything throughout the day as it can make you tired. Do not operate machinery when taking the medication. You can use over the counter cough syrup if you are going to be driving during the day. The cough syrup should have a dM on the end as this will calm the cough Breast pain - CT chest wo IV contrast; Future Muscle spasm - tiZANidine (Zanaflex) 4 MG tablet; Take 1 tablet (4 mg) by mouth every 8 (eight) hours if needed for muscle spasms for up to 7 days This has helped with the pain. Do not operate heavy machinery, drive or use yard equipment while on this medication Type 2 diabetes mellitus without complication, without long-term current use of insulin ([facility]) - linaGLIPtin (Tradjenta) 5 MG tablet; Take 1 tablet (5 mg) by mouth Daily We discussed today, the importance of proper diabetic control. We discussed possible complications of diabetes, including loss of vision, renal failure, increased risk of heart attacks and strokes, blood vessel and/or nerve damage. We discussed the recommended changes to reduce your blood sugars and minimize the risk of these complications. We discussed diabetic goals, including keeping A1C <7.0% and blood pressure < 130/70. The plan for achieving these goals is adherence to medications, diet, and regular activity as discussed during today's visit. We discussed current barriers to achieving these goals. We discussed dietary goals. We discussed calorie counting, as well as decreasing carbohydrate and simple sugar intake. Reviewed portion control with the patient. If the patient still has questions on this, a referral to a Dietitian can be arranged. I reviewed medications that aid in diabetic control. We discussed proper dosing and educated the patient on possible side effects and complications. The patient verbalized understanding of these instructions. Type 2 diabetes mellitus with hypoglycemia without coma ([facility]) We discussed today, the importance of proper diabetic control. We discussed possible complications of diabetes, including loss of vision, renal failure, increased risk of heart attacks and strokes, blood vessel and/or nerve damage. We discussed the recommended changes to reduce your blood sugars and minimize the risk of these complications. We discussed diabetic goals, including keeping A1C <7.0% and blood pressure < 130/70. The plan for achieving these goals is adherence to medications, diet, and regular activity as discussed during today's visit. We discussed current barriers to achieving these goals. We discussed dietary goals. We discussed calorie counting, as well as decreasing carbohydrate and simple sugar intake. Reviewed portion control with the patient. If the patient still has questions on this, a referral to a Dietitian can be arranged. I reviewed medications that aid in diabetic control. We discussed proper dosing and educated the patient on possible side effects and complications. The patient verbalized understanding of these instructions. Other forms of angina pectoris (CMS/HCC) This is a chronic medical condition that is stable since last assessment. No changes in treatment are suggested at this time. Stress test negative in the past. No follow-ups on file. documented in this encounter [facility] 02-24-2023 Evaluation note Encounter Date Diagnosis Assessment [...] between each use, changing ear plugs frequently. [employer] Other 06-21-2021 NotePROCEDURE: XR FOOT RT MIN 3 VIEWS HISTORY: Pain in right [...] Electronically authenticated by: CHARLI MOISE Date: 2020-10-27 17:12[id number] NotePROCEDURE: XR FOOT RT MIN 3 VIEWS COMPARISON: 01/28/2020 HISTORY: Pain [...] authenticated by: IRIS BRITO Date: 2020-09-29 15:57 [facility] [id number] NotePROCEDURE: XR FOOT RT MIN 3 VIEWS COMPARISON: 01/10/2020 HISTORY: Pain [...] Electronically authenticated by: IRIS BRITO Date: 2020-01-28 10:11[facility]09-03-2020 NotePROCEDURE: XR FOOT RT MIN 3 VIEWS COMPARISON: None. HISTORY: Pain [...] Electronically authenticated by: IRIS BRITO Date: 2020-01-10 13:04[facility]08-13-2020 NotePROCEDURE: XR FOOT RT MIN 3 VIEWS HISTORY: Pain in right [...] Electronically authenticated by: CHARLI MOISE Date: 2019-12-20 10:19[facility] [id number] NotePROCEDURE: XR FOOT RT MIN 3 VIEWS COMPARISON: None. HISTORY: Pain [...] Electronically authenticated by: IRIS BRITO Date: 2019-11-22 09:41[facility] Encounter for wound care of surgical pin site- Primary Pain associated with wound documented in this encounter [facility] HealthcareEvaluation [facility]* Diagnosis Pain associated with wound documented in this encounter [facility] note* Diagnosis Cigarette smoker- Primary Tobacco use disorder Pulmonary nodules/lesions, multiple Other diseases of lung, not elsewhere classified documented in this encounter [facility] HealthcareEvaluation note* Diagnosis Chest pain, unspecified type- Primary Acute cough Breast pain Mastodynia Muscle spasm Spasm of muscle Type 2 diabetes mellitus without complication, without long-term current use of insulin ([facility]) Type 2 diabetes mellitus with hypoglycemia without coma ([facility]/HCC) Other forms of angina pectoris (CMS/HCC) documented in this encounter [facility] HealthcareEvaluation note* Diagnosis Coronary artery calcification seen on CAT scan (CMS/HCC)- Primary Type 2 diabetes mellitus without complication, without long-term current use of insulin (CMS/HCC) Muscle spasm Spasm of muscle Acute cough documented in this encounter [facility] HealthcareEvaluation note* Diagnosis Pulmonary nodules/lesions, multiple- Primary Other diseases of lung, not elsewhere classified Chest pain on breathing Painful respiration Acute cough Lymphadenopathy, inguinal documented in this encounter [facility] HealthcareEvaluation note* Diagnosis Ischemic cerebrovascular accident (CVA) ([facility]-HCC)- Primary Other cerebrovascular vasospasm and vasoconstriction [facility] Diagnosis Ischemic cerebrovascular accident (CVA) (CMS/HCC)- Primary Benign essential hypertension (CMS/HCC) Essential hypertension, benign Type 2 diabetes mellitus with other specified complication, without long-term current use of insulin (CMS/HCC) Nocturnal hypoxia Snoring Other dyspnea and respiratory abnormality Witnessed apneic spells documented in this encounter [facility] HealthcareHistory general Narrative - Reported* Type Description Date Medical History hypertension Medical History Hypothyroidism Surgical History Foot Surgery x4 right Surgical History knee surgery right Surgical History hernia repair Surgical History shoulder surgery bilateral Hospitalization History see above [employer] Other InstructionsNot on filedocumented in this encounter [facility] [employer] SystemInstructionsNot on filedocumented in this encounter [facility] SystemReason for referral (narrative)* Consultation (Routine) - Pending Review Specialty Diagnoses / Procedures Referred By Contact Referred To Contact Pulmonary Disease / Pulmonology Diagnoses Pulmonary nodules/lesions, multiple Procedures CT OFFICE/OUTPATIENT [facility] 60 MINUTES Fátima Tellez, PAINT SPECIALIST [address] [facility] [address] [place] [address] Dolly Broussard DO [address] [place] [address] Referral ID Status Reason Start Date Expiration Date Visits Requested Visits Authorized [id number] Pending Review Specialty Services Required 01/31/2024 07/29/2024 1 1 Scheduling Instructions Pt has been having chest pain since 12/2023. He has had a stress test that was negative. He has 2 nodules that are getting bigger in size. Has a cough. Since he croft been off of work so long, can you please see him quickly? I enclosed the CT scan. I will go ahead and order the pulmonary function test. [facility] Summary Purpose Family History No Family History Records FoundNo Family History Records FoundNo Family History Records FoundNo Family History Records FoundNo Family History Records FoundNo Family History Records Found Advance Directives No Advanced Directives Records Found Date Activated Date Inactivated Comments 05/17/2024 9:03 PM 05/19/2024 2:56 PM Date Activated Date Inactivated Comments 05/17/2024 9:03 PM 05/19/2024 2:56 PM Reason for Referral Specialty Diagnoses / Procedures Referred By Contac t Referred To Contact Radiology Diagnoses Coronary artery calcification seen on CAT scan (CMS/[facility]) Procedures Stress test with myocardial perfusion Fátima Tellez NP [address] [address] [address] [facility] [address] [place] [address] Phone: [phone] Referral ID Status Reason Start Date Expiration Date V isits Requested Visits Authorized [id number] Authorized 01/10/2024 07/08/2024 3 3 Specialty Diagnoses / Procedures Referred By Contac t Referred To Contact Diagnoses Chest pain, unspecified type Acute cough Breast pain Procedures CT chest wo IV contrast Fátima Tellez NP [address] [facility] [address] [place] [address] [employer] [address] [place] [address] Phone: [phone] Referral ID Status Reason Start Date Expiration Date V isits Requested Visits Authorized [id number] Pending Review 12/27/2023 06/24/2024 1 1 Additional Source Comments (unrecognized sect ion and content) No Status Records FoundNo Status Records FoundNo Status Records FoundNo Status Records FoundNo Status Records FoundNo Status Records Found INFORMATION SOURCE (unrecogn ized section and content) DATE CREATED AUTHOR 04/30/2019 [facility] DATE CREATED AUTHOR AUTHOR'S ORGANIZ ATION 11/01/2020 [facility] DATE CREATED AUTHOR AUTHOR'S ORGANIZ ATION 03/29/2024 [facility] DATE CREATED AUTHOR AUTHOR'S ORGANIZ ATION 05/23/2024 [facility] DATE CREATED AUTHOR AUTHOR'S ORGANIZ ATION 05/25/2024 [facility] DATE CREATED AUTHOR AUTHOR'S ORGANIZ ATION 05/25/2024 [facility] dical Specialists EPIC REASON FOR VISIT (unrecogniz ed section and content) Reason Comments Wound Check Reason Onset Date Comments Med Refill 02/23/2024 Reason Comments Pulmonary nodule Consultation Specialty Diagnoses / Procedures Referred By Contact Referred To Contact Pulmonary Disease / Pulmonology Diagnoses Pulmonary nodules/lesions, multiple Procedures CT OFFICE/OUTPATIENT NEW HIGH MDM 60 MINUTES Fátima Tellez, PAINT SPECIALIST [address] [facility] [address] [place] [address] Phone: tel: fax: Dolly Broussard, DO [address] [place] [address] Phone: tel: fax: Referral ID Status Reason Start Date Expiration Date V isits Requested Visits Authorized [id number] Closed Specialty Services Required 01/31/2024 07/29/2024 1 1 Reason Comments Diabetes Results Ct scan Follow-up CP/cough Pt used cough med he lped witth cough--pt used it all Reason Comments Results Stress test results Cough Reason Comments Med Refill Metformin Care Teams (unrecognized sec tion and content) Correctional Classification Counselor Relationship Specialty Start Date End Date Anthony Kang MD [address] [facility] [address] [place] [address] PCP - General Internal Medicine 09/14/22 Correctional Classification Counselor Relationship Specialty Start Date End Date Anthony Kang MD [address] [facility] [address] [place] [address] PCP - General Internal Medicine 09/14/22 Correctional Classification Counselor Relationship Specialty Start Date End Date Anthony Kang MD [address] [facility] [address] [place] [address] PCP - General Internal Medicine 09/14/22 Correctional Classification Counselor Relationship Specialty Start Date End Date Anthony Kang MD [address] [place] [address] PCP - General Internal Medicine 09/14/22 Correctional Classification Counselor Relationship Specialty Start Date End Date Anthony Kang MD [address] [place] [address] PCP - General Internal Medicine 09/14/22 Correctional Classification Counselor Relationship Specialty Start Date End Date Anthony Kang MD [address] [place] [address] PCP - General Internal Medicine 09/14/22 Correctional Classification Counselor Relationship Specialty Start Date End Date Anthony Kang MD [address] [place] [address] PCP - General Internal Medicine 09/14/22 Correctional Classification Counselor Relationship Specialty Start Date End Date Anthony Kang MD [address] [place] [address] PCP - General Internal Medicine 09/14/22 Correctional Classification Counselor Relationship Specialty Start Date End Date Anthony Kang MD [address] [place] [address] PCP - General Internal Medicine 09/14/22 Correctional Classification Counselor Relationship Specialty Start Date End Date Anthony Kang MD [address], [address] [place] [address] PCP - General Internal Medicine 05/18/24 Correctional Classification Counselor Relationship Specialty Start Date End Date Anthony Kang MD [address] [place] [id number] PCP - General Internal Medicine 05/18/24 Correctional Classification Counselor Relationship Specialty Start Date End Date Anthony Kang MD [address] [facility] [address] [place] [address] PCP - General Internal Medicine 09/14/22 Correctional Classification Counselor Relationship Specialty Start Date End Date Anthony Kang MD [address] [facility] [place] [address] PCP - General Internal Medicine 09/14/22 FOR RECORDS PERTAINING TO PATIENTS WHO ARE [...] BE BASED ON THE PRIMARY CLINICAL RECORDS. [facility]. provides no warranty or guarantee of the accuracy or completeness of information in this document.
== END 2024-06-05 19:48 | disposition home or self-care (01) ==
LOC: SLEEP 19:47
PROVIDERS: PCP Physician Assistant; Visit Provider Physician Assistant
DX: G47.33 Obstructive sleep apnea (adult) (pediatric) (principal); G47.34 Idiopathic sleep related nonobstructive alveolar hypoventilation; I63.9 Cerebral infarction, unspecified
CPT/HCPCS: 95811

== ENCOUNTER 2024-08-23 16:46 | Outpatient (OUT) | payer OTHER, SELFPAY | END 2024-08-23 16:47 | disposition home or self-care (01) | LOC: US 16:48 | PROVIDERS: PCP Physician Assistant; Visit Provider Physician Assistant | DX: M79.661 Pain in right lower leg (principal) | CPT/HCPCS: 93971 ==